=== PATIENT | male | born 1965 | race Caucasian/White ===

== ENCOUNTER 2019-04-29 11:27 | Outpatient (RCR) | payer BC, SELFPAY ==
[2019-02-07 09:15] LABS: INR 2.6; Prothrombin Time 27.4 Seconds (11.1-14.7)
[2019-03-20 08:05] LABS: INR 2.6
[2019-04-14 10:27] LABS: Prothrombin Time 12.6 Seconds (11.1-14.7)
[2019-04-16 16:52] LABS: INR 1.4; Prothrombin Time 16.9 Seconds (11.1-14.7)
[2019-04-25 14:13] LABS: INR 1.7; Prothrombin Time 19.5 Seconds (11.1-14.7)
[2019-04-29 12:09] LABS: Prothrombin Time 22.6 Seconds (11.1-14.7)
== END 2019-05-08 23:59 | disposition home or self-care (01) ==
LOC: ANHLAB 11:27
PROVIDERS: PCP Internal Medicine; Visit Provider Internal Medicine
DX: Z51.81 Encounter for therapeutic drug level monitoring (principal); Z79.01 Long term (current) use of anticoagulants
CPT/HCPCS: 36415; 85610

== ENCOUNTER 2019-05-15 09:58 | Outpatient (RCR) | payer BC, SELFPAY ==
[2019-05-15 11:13] LABS: Prostate Specific Antigen < 0.1 ng/mL (< OR = 4.0)
[2019-05-15 12:00] LABS: INR 2.8; Prothrombin Time 29.2 Seconds (11.1-14.7)
== END 2019-08-13 23:59 | disposition home or self-care (01) ==
LOC: ANHLAB 09:58
PROVIDERS: PCP Internal Medicine; Visit Provider Internal Medicine
DX: Z51.81 Encounter for therapeutic drug level monitoring (principal); C61 Malignant neoplasm of prostate; Z79.01 Long term (current) use of anticoagulants
CPT/HCPCS: 36415; 84153; 85610

== ENCOUNTER 2019-11-14 08:56 | Outpatient (CLI) | payer BC, SELFPAY ==
[2019-11-14 09:47] LABS: Anion Gap 9 mmol/L (8-16); Blood Urea Nitrogen 12 mg/dL (9-20); Calcium 8.2 mg/dL (8.4-10.2); Carbon Dioxide 25 mmol/L (22-30); Chloride 103 mmol/L (98-107); Estimated Glomerular Filt Rate > 60; Glucose 165 mg/dL (75-110); Potassium 4.2 mmol/L (3.4-5.0); Sodium 137 mmol/L (137-145)
== END 2019-11-14 08:57 | disposition home or self-care (01) ==
LOC: ANHLAB 08:59
PROVIDERS: PCP Internal Medicine; Visit Provider Internal Medicine Cardiovascular Disease
DX: I71.01 Dissection of thoracic aorta (principal)
CPT/HCPCS: 36415; 80048

== ENCOUNTER 2019-11-19 08:58 | Outpatient (CLI) | payer BC, SELFPAY ==
[2019-11-19 10:13] LABS: Thyroid Stimulating Hormone 0.564 uIU/mL (0.465-4.680)
[2019-11-19 13:52] LABS: Free T4 Free Thyroxine 1.21 ng/mL (0.78-2.19)
[2019-11-21 05:43] LABS: Thyroglobulin 0.1 ng/mL (2.8-40.9); Thyroglobulin Antibodies <1 IU/mL (<=1)
[2019-11-21 06:07] LABS: Triiodothyronine T3 Free 2.7 pg/mL (2.3-4.2)
== END 2019-11-19 08:59 | disposition home or self-care (01) ==
PROVIDERS: PCP Internal Medicine
DX: C73 Malignant neoplasm of thyroid gland (principal)
CPT/HCPCS: 36415; 82310; 84432; 84439; 84443; 84481; 86800

== ENCOUNTER 2019-12-04 12:54 | Outpatient (RCR) | payer BC, SELFPAY ==
[2019-09-10 17:39] LABS: INR 2.2
[2019-11-05 09:21] LABS: INR 2.9; Prothrombin Time 29.8 Seconds (11.1-14.7)
[2019-11-05 09:57] LABS: Prostate Specific Antigen < 0.1 ng/mL (< OR = 4.0)
[2019-12-04 13:49] LABS: INR 3.2; Prothrombin Time 31.8 Seconds (11.1-14.7)
== END 2019-12-09 23:59 | disposition home or self-care (01) ==
LOC: ANHLAB 12:54
PROVIDERS: PCP Internal Medicine; Visit Provider Internal Medicine
DX: Z51.81 Encounter for therapeutic drug level monitoring (principal); C61 Malignant neoplasm of prostate; Z79.01 Long term (current) use of anticoagulants
CPT/HCPCS: 36415; 84153; 85610

== ENCOUNTER 2019-12-25 10:16 | Outpatient (CLI) | payer BC, SELFPAY ==
[2019-12-25 10:48] LABS: INR 2.1; Prothrombin Time 22.7 Seconds (11.1-14.7)
== END 2019-12-25 10:17 | disposition home or self-care (01) ==
LOC: ANHLAB 10:18
PROVIDERS: PCP Internal Medicine; Visit Provider Internal Medicine Cardiovascular Disease
DX: Z79.01 Long term (current) use of anticoagulants (principal); Z95.2 Presence of prosthetic heart valve
CPT/HCPCS: 36415; 85610

== ENCOUNTER 2020-01-09 13:23 | Outpatient (CLI) | payer BC, SELFPAY ==
[2020-01-09 14:16] LABS: Calcium 8.3 mg/dL (8.4-10.2)
[2020-01-09 15:07] LABS: Free T4 Free Thyroxine 1.53 ng/mL (0.78-2.19)
[2020-01-13 05:46] LABS: Thyroglobulin 0.3 ng/mL (2.8-40.9); Thyroglobulin Antibodies <1 IU/mL (<=1)
[2020-01-14 04:33] LABS: Triiodothyronine T3 Free 2.5 pg/mL (2.3-4.2)
== END 2020-01-09 13:24 | disposition home or self-care (01) ==
LOC: ANHLAB 13:26
PROVIDERS: PCP Internal Medicine; Visit Provider Radiology Radiation Oncology
DX: C73 Malignant neoplasm of thyroid gland (principal)
CPT/HCPCS: 36415; 82310; 84432; 84439; 84443; 84481; 86800

== ENCOUNTER 2020-01-16 12:01 | Outpatient (RCR) | payer BC, SELFPAY ==
[2019-12-22 10:44] LABS: INR 1.5; Prothrombin Time 17.9 Seconds (11.1-14.7)
[2019-12-29 14:13] LABS: INR 2.3; Prothrombin Time 25.1 Seconds (11.1-14.7)
[2019-12-29 14:40] LABS: Prostate Specific Antigen < 0.1 ng/mL (< OR = 4.0)
[2020-01-05 16:46] LABS: Prothrombin Time 30.3 Seconds (11.1-14.7)
[2020-01-12 12:47] LABS: INR 2.7; Prothrombin Time 28.2 Seconds (11.1-14.7)
[2020-01-15 12:30] LABS: Prostate Specific Antigen < 0.1 ng/mL (< OR = 4.0)
[2020-01-16 12:31] LABS: INR 2.3; Prothrombin Time 24.7 Seconds (11.1-14.7)
== END 2020-03-21 23:59 | disposition home or self-care (01) ==
LOC: ANHLAB 12:01
PROVIDERS: PCP Internal Medicine; Visit Provider Nurse Practitioner
DX: Z51.81 Encounter for therapeutic drug level monitoring (principal); C61 Malignant neoplasm of prostate; Z79.01 Long term (current) use of anticoagulants
CPT/HCPCS: 36415; 84153; 85610

== ENCOUNTER 2020-01-23 14:32 | Outpatient (CLI) | payer BC, SELFPAY ==
[2020-01-26 04:49] LABS: Thyroglobulin 0.5 ng/mL (2.8-40.9); Thyroglobulin Antibodies <1 IU/mL (<=1)
== END 2020-01-23 14:33 | disposition home or self-care (01) ==
PROVIDERS: PCP Internal Medicine; Visit Provider Radiology Radiation Oncology
DX: C73 Malignant neoplasm of thyroid gland (principal)
CPT/HCPCS: 36415; 84432; 84443; 86800

== ENCOUNTER 2020-06-18 08:26 | Outpatient (RCR) | payer BC, SELFPAY ==
[2020-04-01 15:01] LABS: INR 1.1
[2020-04-08 08:26] LABS: INR 1.6; Prothrombin Time 19.4 Seconds (11.1-14.7)
[2020-06-01 15:47] LABS: Anion Gap 7 mmol/L (8-16); Blood Urea Nitrogen 12 mg/dL (9-20); Calcium 8.7 mg/dL (8.4-10.2); Carbon Dioxide 28 mmol/L (22-30); Chloride 104 mmol/L (98-107); Estimated Glomerular Filt Rate > 60; Glucose 138 mg/dL (75-110); Potassium 3.7 mmol/L (3.4-5.0); Sodium 139 mmol/L (137-145)
[2020-06-01 15:48] LABS: INR 1.8; Prothrombin Time 21.8 Seconds (11.1-14.7)
[2020-06-18 09:11] LABS: INR 2.5; Prothrombin Time 27.2 Seconds (11.1-14.7)
== END 2020-06-30 23:59 | disposition home or self-care (01) ==
LOC: ANHLAB 08:26
PROVIDERS: PCP Internal Medicine; Referring Provider Internal Medicine Cardiovascular Disease; Visit Provider Nurse Practitioner
DX: Z51.81 Encounter for therapeutic drug level monitoring (principal); Z79.01 Long term (current) use of anticoagulants
CPT/HCPCS: 36415; 80048; 85610

== ENCOUNTER 2020-09-10 10:24 | Outpatient (RCR) | payer BC, SELFPAY ==
[2020-09-10 10:57] LABS: INR 2.1; Prothrombin Time 24.3 Seconds (11.1-14.7)
== END 2020-12-09 23:59 | disposition home or self-care (01) ==
LOC: ANHLAB 10:24
PROVIDERS: PCP Internal Medicine; Visit Provider Internal Medicine
DX: Z51.81 Encounter for therapeutic drug level monitoring (principal); Z79.01 Long term (current) use of anticoagulants
CPT/HCPCS: 36415; 85610

== ENCOUNTER 2021-02-16 15:31 | Outpatient (RCR) | payer BC, SELFPAY ==
[2020-12-13 09:46] LABS: INR 3.1; Prothrombin Time 30.7 Seconds (11.1-14.7)
[2020-12-20 10:00] LABS: INR 3.4; Prothrombin Time 33.5 Seconds (11.1-14.7)
[2020-12-27 15:56] LABS: INR 2.5; Prothrombin Time 26.7 Seconds (11.1-14.7)
[2021-02-16 15:56] LABS: INR 3.3; Prothrombin Time 32.5 Seconds (11.1-14.7)
== END 2021-03-13 23:59 | disposition home or self-care (01) ==
LOC: ANHLAB 15:31
PROVIDERS: PCP Internal Medicine; Visit Provider Nurse Practitioner
DX: Z51.81 Encounter for therapeutic drug level monitoring (principal); Z79.01 Long term (current) use of anticoagulants
CPT/HCPCS: 36415; 85610

== ENCOUNTER 2021-05-31 15:52 | Outpatient (RCR) | payer BC, SELFPAY ==
[2021-03-24 14:54] LABS: INR 2.4; Prothrombin Time 25.7 Seconds (11.1-14.7)
[2021-04-22 15:19] LABS: INR 3.2
[2021-05-11 16:52] LABS: INR 2.7; Prothrombin Time 27.8 Seconds (11.1-14.7)
[2021-05-31 17:22] LABS: INR 2.5; Prothrombin Time 26.5 Seconds (11.1-14.7)
== END 2021-06-22 23:59 | disposition home or self-care (01) ==
LOC: ANHLAB 15:52
PROVIDERS: PCP Internal Medicine; Visit Provider Nurse Practitioner
DX: Z51.81 Encounter for therapeutic drug level monitoring (principal); Z79.01 Long term (current) use of anticoagulants
CPT/HCPCS: 36415; 85610

== ENCOUNTER 2021-10-14 14:10 | Outpatient (RCR) | payer BC, SELFPAY ==
[2021-07-16 11:03] LABS: INR 3.1; Prothrombin Time 30.9 Seconds (11.1-14.7)
[2021-09-02 08:46] LABS: INR 2.4; Prothrombin Time 25.4 Seconds (11.1-14.7)
[2021-10-14 15:00] LABS: INR 2.7; Prothrombin Time 27.9 Seconds (11.1-14.7)
== END 2021-10-14 23:59 | disposition home or self-care (01) ==
LOC: ANHLAB 14:10
PROVIDERS: Clinical Nurse Specialist; PCP Internal Medicine; Visit Provider Nurse Practitioner
DX: Z51.81 Encounter for therapeutic drug level monitoring (principal); Z79.01 Long term (current) use of anticoagulants
CPT/HCPCS: 36415; 85610

== ENCOUNTER 2021-11-11 08:09 | Outpatient (CLI) | payer BC, SELFPAY ==
[2021-11-11 08:51] LABS: Hemoglobin A1C 5.9 % (<5.7)
[2021-11-11 08:57] LABS: Cholesterol 193 mg/dL (0-200); HDL Direct 46 mg/dL; Triglycerides 147 mg/dL (<150)
[2021-11-11 09:08] LABS: LDL Cholesterol Direct 101 mg/dL
== END 2021-11-11 08:10 | disposition home or self-care (01) ==
LOC: ANHLAB 08:10
PROVIDERS: PCP Internal Medicine; Visit Provider Nurse Practitioner
DX: R73.9 Hyperglycemia, unspecified (principal); E78.5 Hyperlipidemia, unspecified
CPT/HCPCS: 36415; 80061; 83036

== ENCOUNTER 2021-12-23 01:32 | Day surgery (SDC) | payer BC, SELFPAY ==
[2021-12-16 13:42] VITALS: BMI 37.3
--- NOTE | 2021-12-23 11:25 | PM.HPGS ---
History of Present Illness History of Present Illness Consent: Risks, benefits, and alternatives have been discussed and questions answered. Patient agrees to proceed with procedure. Chief complaint: neoplasm screening Narrative: Salo Deshpande is a 56 year old male Referred for colon cancer screening. He has a history of polyps. 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 Melanoma Obesity AYSE (obstructive sleep apnea) Prostate cancer Ruptured, aorta Thyroid cancer Surgical History Surgical History History of prostate surgery History of skin surgery melanoma removal of left arm History of thyroid surgery Mechanical heart valve present S/P AAA (abdominal aortic aneurysm) repair S/P TURP (status post transurethral resection of prostate) Family History Family History Father Family history of amyotrophic lateral sclerosis Sibling Family history of liver disease Other Family history of kidney disease Hypertension Social History Social History Smoking packs per day: 1 Smoking cigarettes per day: 20.0 Years smoked: 30 Smoking pack-years: 30.00 Smoking status: Former smoker Tobacco type: cigarettes Smoking end date: 04/02/18 Alcohol intake: former Substance use: former Substance use type: unknown Living arrangements: with family Spiritual care concerns: No Meds Home Medications and Allergies Home Medications Medication Instructions Recorded Confirmed Type amlodipine 10 mg tablet 10 mg PO DAILY 04/17/19 12/16/21 History aspirin 81 mg tablet,delayed 81 mg PO DAILY 04/17/19 12/16/21 History release (Adult Low Dose Aspirin) carvedilol 25 mg tablet 25 mg PO Q12H 04/17/19 12/16/21 History clonidine HCl 0.2 mg tablet 0.2 mg PO BID 04/17/19 12/16/21 History furosemide 40 mg tablet 40 mg PO DAILY 04/17/19 12/16/21 History lisinopril 20 mg tablet 20 mg PO BID 04/17/19 12/16/21 History loratadine 10 mg capsule 10 mg PO DAILY 01/12/20 12/16/21 History warfarin 5 mg tablet 5 mg PO DAILY #30 tabs 05/02/21 12/16/21 Rx warfarin 1 mg tablet See Rx Instructions .Route 09/26/21 12/16/21 Rx .COMPLEX #90 tabs pravastatin 40 mg tablet See Rx Instructions .Route 10/05/21 12/16/21 Rx .COMPLEX #90 tabs dextroamphetamine-amphetamine ER 10 mg PO DAILY 10/25/21 12/16/21 History 10 mg 24hr capsule,extend release diazepam 5 mg tablet (Valium) 5 mg PO ONCE PRN anxiety #14 tabs 10/25/21 12/16/21 Rx eplerenone 25 mg tablet 25 mg PO DAILY 10/25/21 12/16/21 History hydralazine 25 mg tablet 75 mg PO TID 10/25/21 12/16/21 History levothyroxine 125 mcg capsule 250 mcg PO DAILY 10/25/21 12/16/21 History vilazodone 20 mg tablet 20 mg PO DAILY 10/25/21 12/16/21 History Allergies Allergy/AdvReac Type Severity Reaction Status Date / Time ceftriaxone Allergy Intermediate Unknown Verified 12/23/21 11:53 Cephalosporins Allergy Intermediate RED Verified 12/23/21 11:53 STREAKS/ IV Exam Const: General: alert Orientation/consciousness: patient oriented x3 Resp: Auscultation: clear to auscultation bilaterally Cardio: Rhythm: regular rhythm GI: GI Palp: Yes Soft to palpation and No Tenderness to palpation present (GI) Neuro: General: patient oriented x3 Assessment and Plan Assessment and plan (1) Screening for colon cancer: Code(s): Z12.11 - Encounter for screening for malignant neoplasm of colon Status: Acute Assessment and Plan: Colonoscopy with possible biopsy or polypectomy or cautery or injection of
[2021-12-23 11:57] VITALS: BP 123/77; PULSE 56; RESP 20; TEMP 36.2; O2SAT 98
--- NOTE | 2021-12-23 12:07 | WPDANESEPPF ---
Anes - Initial Pre Proc Eval Procedure: Operation Date: 12/23/21 13:00 Proposed Procedures p Screening Colonoscopy - Sudheer Canales MD Date/Time: 12/23/21 12:07 Surgeon: Sudheer Canales MD Pre Op Diagnosis: neoplasm screening Patient Data Age: 56 Gender: M Height: 1.78 m Weight: 118.4 kg Last Vital Signs Temp 97.1 F L 12/23/21 11:57 Pulse 56 L 12/23/21 11:57 Resp 20 12/23/21 11:57 BP 123/77 12/23/21 11:57 Pulse Ox 98 12/23/21 11:57 O2 Del Method Room Air 12/23/21 11:57 Allergies Allergy/AdvReac Type Severity Reaction Status Date / Time ceftriaxone Allergy Intermediate Unknown Verified 12/23/21 11:53 Cephalosporins Allergy Intermediate RED Verified 12/23/21 11:53 STREAKS/ IV Home Medications Medication Instructions Recorded Confirmed Type amlodipine 10 mg tablet 10 mg PO DAILY 04/17/19 12/16/21 History aspirin 81 mg tablet,delayed 81 mg PO DAILY 04/17/19 12/16/21 History release (Adult Low Dose Aspirin) carvedilol 25 mg tablet 25 mg PO Q12H 04/17/19 12/16/21 History clonidine HCl 0.2 mg tablet 0.2 mg PO BID 04/17/19 12/16/21 History furosemide 40 mg tablet 40 mg PO DAILY 04/17/19 12/16/21 History lisinopril 20 mg tablet 20 mg PO BID 04/17/19 12/16/21 History loratadine 10 mg capsule 10 mg PO DAILY 01/12/20 12/16/21 History warfarin 5 mg tablet 5 mg PO DAILY #30 tabs 05/02/21 12/16/21 Rx warfarin 1 mg tablet See Rx Instructions .Route 09/26/21 12/16/21 Rx .COMPLEX #90 tabs pravastatin 40 mg tablet See Rx Instructions .Route 10/05/21 12/16/21 Rx .COMPLEX #90 tabs dextroamphetamine-amphetamine ER 10 mg PO DAILY 10/25/21 12/16/21 History 10 mg 24hr capsule,extend release diazepam 5 mg tablet (Valium) 5 mg PO ONCE PRN anxiety #14 tabs 10/25/21 12/16/21 Rx eplerenone 25 mg tablet 25 mg PO DAILY 10/25/21 12/16/21 History hydralazine 25 mg tablet 75 mg PO TID 10/25/21 12/16/21 History levothyroxine 125 mcg capsule 250 mcg PO DAILY 10/25/21 12/16/21 History vilazodone 20 mg tablet 20 mg PO DAILY 10/25/21 12/16/21 History Patient hx anesthesia problems: none Family hx anesthesia problems: none Results Review: All pre-operative results and documents have been reviewed as part of the pre-operative evaluation. [facility], [facility] Past Medical History Medical History (Updated 11/09/21 @ 14:44 by Samira Anderson NP) Aortic valve, bicuspid Elevated PSA HLD (hyperlipidemia) HTN (hypertension) Iliac artery aneurysm [facility] (current) use of anticoagulants Melanoma Obesity AYSE (obstructive sleep apnea) Prostate cancer Ruptured, aorta Thyroid cancer Surgical History Surgical History (Updated 10/25/21 @ 14:16 by Sarah Rae CMA) History of prostate surgery History of skin surgery melanoma removal of left arm History of thyroid surgery Mechanical heart valve present S/P AAA (abdominal aortic aneurysm) repair S/P TURP (status post transurethral resection of prostate) Family History Family History Father Family history of amyotrophic lateral sclerosis Sibling Family history of liver disease Other Family history of kidney disease Hypertension Social History Social History Smoking packs per day: 1 Smoking cigarettes per day: 20.0 Years smoked: 30 Smoking pack-years: 30.00 Smoking status: Former smoker Tobacco type: cigarettes Smoking end date: 04/02/18 Alcohol intake: former Substance use: former Substance use type: unknown Living arrangements: with family Spiritual care concerns: No Anes - Eval Final PreProcedure Day of Procedure 12/23/21 12:07 Patient weight: obese Heart: regular rate and rhythm Lungs: clear to auscultation Airway: Mallampati scale class III Neurological: alert and oriented Last oral intake: >/= 8 hours ASA classification: III Emergent: no Anesthetic plan: proceed Anesthesia type and monitor
[2021-12-23] MEDS: LACTATED RINGERS 1,000 ML 150 ML IV CONT (12:13)
[2021-12-23 13:01] VITALS: BP 118/70; PULSE 43; RESP 18; O2SAT 94
[2021-12-23 13:11] VITALS: BP 108/57; PULSE 45; RESP 14; O2SAT 95
[2021-12-23 13:21] VITALS: BP 119/70; PULSE 45; RESP 25; O2SAT 97
--- NOTE | 2021-12-23 13:32 | SUR.PHASEII ---
patient has vancomycin running during post op recovery. See MAR.
== END 2021-12-23 14:38 | disposition home or self-care (01) ==
PROVIDERS: PCP Internal Medicine; Visit Provider Internal Medicine Gastroenterology
PROC: 0DJD8ZZ Inspection of Lower Intestinal Tract, Via Natural or Artificial Opening Endoscopic (ICD-10-PCS; CPT 45378; principal; 2021-12-23 13:00)
DX: Z12.11 Encounter for screening for malignant neoplasm of colon (principal); K63.5 Polyp of colon; K57.30 Diverticulosis of large intestine without perforation or abscess without bleeding; Z79.01 Long term (current) use of anticoagulants; Z79.82 Long term (current) use of aspirin; E03.9 Hypothyroidism, unspecified; Q23.1 Congenital insufficiency of aortic valve; E78.5 Hyperlipidemia, unspecified; I10 Essential (primary) hypertension; G47.33 Obstructive sleep apnea (adult) (pediatric); Z85.46 Personal history of malignant neoplasm of prostate; Z85.850 Personal history of malignant neoplasm of thyroid; I71.9 Aortic aneurysm of unspecified site, without rupture; Z95.2 Presence of prosthetic heart valve; Z87.891 Personal history of nicotine dependence; E66.9 Obesity, unspecified; Z68.37 Body mass index [BMI] 37.0-37.9, adult; Z85.820 Personal history of malignant melanoma of skin
CPT/HCPCS: 45380; 88305; J2704; J3370; J7120

== ENCOUNTER 2022-01-26 14:16 | Outpatient (RCR) | payer BC, SELFPAY ==
[2021-11-11 08:59] LABS: INR 2.8; Prothrombin Time 28.4 Seconds (11.1-14.7)
[2021-12-16 08:22] LABS: INR 1.7; Prothrombin Time 19.6 Seconds (11.1-14.7)
[2022-01-17 14:47] LABS: INR 3.3; Prothrombin Time 32.5 Seconds (11.1-14.7)
[2022-01-26 14:50] LABS: INR 2.6; Prothrombin Time 26.7 Seconds (11.1-14.7)
== END 2022-02-09 23:59 | disposition home or self-care (01) ==
LOC: ANHLAB 14:16
PROVIDERS: Nurse Practitioner; PCP Internal Medicine; Visit Provider Clinical Nurse Specialist
DX: Z51.81 Encounter for therapeutic drug level monitoring (principal); Z79.01 Long term (current) use of anticoagulants
CPT/HCPCS: 36415; 85610

== ENCOUNTER 2022-06-12 14:27 | Outpatient (RCR) | payer BC, SELFPAY ==
[2022-03-14 16:01] LABS: INR 2.8; Prothrombin Time 28.5 Seconds (11.1-14.7)
[2022-06-12 15:42] LABS: Prothrombin Time 22.2 Seconds (11.1-14.7)
== END 2022-06-12 23:59 | disposition home or self-care (01) ==
LOC: ANHLAB 14:27
PROVIDERS: PCP Internal Medicine; Visit Provider Clinical Nurse Specialist
DX: Z51.81 Encounter for therapeutic drug level monitoring (principal); Z79.01 Long term (current) use of anticoagulants
CPT/HCPCS: 36415; 85610

== ENCOUNTER 2022-10-25 09:40 | Outpatient (RCR) | payer BC, SELFPAY ==
[2022-08-11 14:42] LABS: INR 2.2; Prothrombin Time 25.7 Seconds (11.1-14.7)
[2022-09-18 14:36] LABS: INR 2.2; Prothrombin Time 25.8 Seconds (11.1-14.7)
[2022-10-25 10:22] LABS: INR 1.8; Prothrombin Time 22.2 Seconds (11.1-14.7)
== END 2022-11-09 23:59 | disposition home or self-care (01) ==
LOC: ANHLAB 09:40
PROVIDERS: PCP Internal Medicine; Visit Provider Clinical Nurse Specialist
DX: Z51.81 Encounter for therapeutic drug level monitoring (principal); Z79.01 Long term (current) use of anticoagulants
CPT/HCPCS: 36415; 85610

== ENCOUNTER 2022-10-25 09:41 | Outpatient (CLI) | payer BC, SELFPAY ==
[2022-10-25 10:24] LABS: Cholesterol 176 mg/dL (0-200); HDL Direct 44 mg/dL; Triglycerides 82 mg/dL (<150)
[2022-10-25 10:37] LABS: LDL Cholesterol Direct 92 mg/dL
== END 2022-10-25 09:42 | disposition home or self-care (01) ==
LOC: ANHLAB 09:42
PROVIDERS: PCP Internal Medicine; Visit Provider Nurse Practitioner
DX: E78.5 Hyperlipidemia, unspecified (principal)
CPT/HCPCS: 36415; 80061

== ENCOUNTER 2022-11-14 13:19 | Outpatient (RCR) | payer BC, SELFPAY ==
[2022-11-14 14:29] LABS: INR 2.5
== END 2023-02-12 23:59 | disposition home or self-care (01) ==
LOC: ANHLAB 13:19
PROVIDERS: PCP Internal Medicine; Visit Provider Clinical Nurse Specialist
DX: Z51.81 Encounter for therapeutic drug level monitoring (principal); Z79.01 Long term (current) use of anticoagulants
CPT/HCPCS: 36415; 85610

== ENCOUNTER 2023-06-01 12:03 | Outpatient (RCR) | payer BC, SELFPAY ==
[2023-03-23 16:34] LABS: INR 1.9
[2023-06-01 12:54] LABS: INR 2.2; Prothrombin Time 25.5 Seconds (11.1-14.7)
== END 2023-06-21 23:59 | disposition home or self-care (01) ==
LOC: ANHLAB 12:03
PROVIDERS: PCP Internal Medicine; Visit Provider Internal Medicine
DX: Z51.81 Encounter for therapeutic drug level monitoring (principal); Z79.01 Long term (current) use of anticoagulants
CPT/HCPCS: 36415; 85610

== ENCOUNTER 2023-07-21 11:37 | Emergency (ER) | payer BC, SELFPAY ==
[2023-07-21 11:49] VITALS: BP 134/72; PULSE 55; RESP 16; TEMP 35.9; O2SAT 99
--- NOTE | 2023-07-21 11:55 | ED_ITS ---
HPI - Ear Problem General Chief complaint: Ear Stated complaint: Lt Ear Irritation Time Seen by Provider: 07/21/23 12:00 Source: patient, RN notes reviewed and old records reviewed Mode of arrival: ambulatory Limitations: no limitations History of Present Illness HPI Narrative: 57 year old male who presents to [facility] care with complaints of feeling like fluid in his left ear for several weeks. Patient reports that since yesterday his left ear is feeling clogged with decreased hearing and some discomfort. Patient also states that he has noted some sinus drainage. Patient denies any cough, bodyaches, fevers chills or sweats. MD Complaint: decreased hearing and other (left ear feel clogged) Location: left ear Treatment prior to arrival: other (Tylenol and Claritin) Related Data Home Medications Medication Instructions Recorded Confirmed amlodipine 10 mg tablet 10 mg PO DAILY 04/17/19 07/21/23 aspirin 81 mg tablet,delayed 81 mg PO DAILY 04/17/19 07/21/23 release (Adult Low Dose Aspirin) carvedilol 25 mg tablet 25 mg PO Q12H 04/17/19 07/21/23 clonidine HCl 0.2 mg tablet 0.2 mg PO BID 04/17/19 07/21/23 furosemide 40 mg tablet 40 mg PO DAILY 04/17/19 07/21/23 lisinopril 20 mg tablet 20 mg PO BID 04/17/19 07/21/23 dextroamphetamine-amphetamine ER 10 mg PO DAILY 10/25/21 07/21/23 10 mg 24hr capsule,extend release eplerenone 25 mg tablet 25 mg PO DAILY 10/25/21 07/21/23 hydralazine 25 mg tablet 75 mg PO TID 10/25/21 07/21/23 levothyroxine 125 mcg capsule 250 mcg PO DAILY 10/25/21 07/21/23 vilazodone 20 mg tablet 20 mg PO DAILY 10/25/21 07/21/23 diazepam 5 mg tablet (Valium) 5 mg PO PRN PRN anxiety 07/21/23 07/21/23 Allergies Allergy/AdvReac Type Severity Reaction Status Date / Time Cephalosporins Allergy Intermediate RED Verified 07/21/23 11:55 STREAKS/ IV ceftriaxone AdvReac Intermediate Other Verified 07/21/23 11:55 Review of Systems Review of Systems: CONSTITUTIONAL: Denies fever, chills, or sweats. EYES: Denies visual changes, redness, or discharge. ENT: Reports rhinorrhea, congestion,no sore throat, reports left ear otalgia, with decreased hearing. CARDIOVASCULAR: Denies chest pain, palpitations, or edema. RESPIRATORY: Denies cough or dyspnea. GASTROINTESTINAL: Denies abdominal pain, nausea, vomiting, or diarrhea. GENITOURINARY: Denies dysuria or hematuria. SKIN: Denies rash or itching. MUSCULOSKELETAL: Denies back pain, joint pain, or myalgia. NEUROLOGIC: Denies headache, numbness, or weakness. PSYCHIATRIC: history of anxiety or depression. 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 Melanoma Obesity AYSE (obstructive sleep apnea) Prostate cancer Ruptured, aorta Thyroid cancer Surgical History Surgical History History of prostate surgery History of skin surgery melanoma removal of left arm History of thyroid surgery Mechanical heart valve present S/P AAA (abdominal aortic aneurysm) repair S/P TURP (status post transurethral resection of prostate) Family History Family History Father Family history of amyotrophic lateral sclerosis Sibling Family history of liver disease Other Family history of kidney disease Hypertension Social History Social History (Updated 10/25/22 @ 09:01 by Cristiano Madsen MA) Smoking packs per day: 1 Smoking cigarettes per day: 20.0 Years smoked: 30 Smoking pack-years: 30.00 Smoking status: Former smoker Tobacco type: cigarettes Smoking end date: 04/02/18 Alcohol intake: former Substance use: former Substance use type: unknown Lack of Transportation: No Lack of Food: Never True Current Housing: I Have Housing Concerned About Future Housing: No Difficulty Paying Gas/Electric Bills: No Difficulty Paying for Meds: No Currently Unemployed: No Education: Associate Degree Difficulty w/ Childcare or Family Care: No Living arrangements: with family Spiritual care concerns: No Comments At time of signature, agree with nursing past medical, surgical, social and family history. There is no relevant family history pertinent to the presenting complaint Exam Narrative: GENERAL: Well-appearing, well-nourished,obese and in no acute distress. HEAD: Normocephalic, atraumatic. EYES: PERRLA and EOMI. ENT: Nares clear, clear rhinorrhea no epistaxis. Mucous membranes moist.Right TM normal Left TM with some ear canal irritation, reports ear feels clogged with decreased hearing. See Procedure note, TM noted normal after wax removed, no increased redness or acute swelling of left ear canal after irrigation completed large amount of wax removed. no fevers noted. NECK: Supple.no lymphadenopathy CHEST: Clear to auscultation. No respiratory distress. no cough noted SAO2 99% on room air HEART: Regular rate and rhythm. No murmur heard. Normal peripheral pulses. ABDOMEN: Soft, nontender, nondistended, normal active bowel sounds. EXTREMITIES: Normal range of motion. No edema. SKIN: Warm, dry, no rash. NEURO: No focal deficits. Alert and oriented x3. Course Course Emergency Course: Patient is aware of diagnosis, understands and agrees to treatment plan.? Anticipatory guidance given.? Patient agrees to follow-up as directed and is aware of reasons to seek care at the emergency department. Portions of this record may have been created with voice recognition software Level of Care: Express Care Visit Vital Signs Vital signs: Vital Signs Temperature 35.9 C L 07/21/23 11:49 Pulse Rate 55 L 07/21/23 11:49 Respiratory Rate 16 07/21/23 11:49 Blood Pressure 134/72 07/21/23 11:49 Pulse Oximetry 99 07/21/23 11:49 Oxygen Delivery Room Air 07/21/23 11:49 Temperature 35.9 C L 07/21/23 11:49 Pulse Rate 55 L 07/21/23 11:49 Respiratory Rate 16 07/21/23 11:49 Blood Pressure 134/72 07/21/23 11:49 Pulse Oximetry 99 07/21/23 11:49 Oxygen Delivery Room Air 07/21/23 11:49 Reviewed Procedures Ear Wax Removal Left Ear: Ear Wax Removal Date: 07/21/23 Ear Wax Removal Time: 12:12 Cerumenolytic Used: 5-10% Sodium Bicarb solution Results: Re-examined: cerumen removed completely TM Examination: TM(s) intact, normal appearance Ear Canal Exam: atraumatic and other (some redness of ear canal) Patient Tolerated Procedure: well Complications: no problems Technique: ear canal irrigated Additional Comments: Patient has some left ear canal irritation with large amount of dried wax to ear, Left ear irrigated with Peroxide and warm water with wax removed TM normal with no increase in ear canal redness. Patient continues to state feelings of decreased hearing with ear clogged, no acute swelling of ear canal noted. Medical Decision Making MDM Narrative Medical decision making narrative: Exam findings and imaging show no acute concerns or changes; patient is non- toxic appearing and is in no distress.? Patient is appropriate for outpatient treatment and follow-up Differential Diagnosis Differential Diagnosis: URI, otitis media otitis externa, cerumen impaction left ear, sinus congestion and drainage Medical Records Medical records reviewed: Yes I reviewed the external patient's medical records. Vital Signs Vital Signs: Vital Signs Temperature 35.9 C L 07/21/23 11:49 Pulse Rate 55 L 07/21/23 11:49 Respiratory Rate 16 07/21/23 11:49 Blood Pressure 134/72 07/21/23 11:49 Pulse Oximetry 99 07/21/23 11:49 Oxygen Delivery Room Air 07/21/23 11:49 Temperature 35.9 C L 07/21/23 11:49 Pulse Rate 55 L 07/21/23 11:49 Respiratory Rate 16 07/21/23 11:49 Blood Pressure 134/72 07/21/23 11:49 Pulse Oximetry 99 07/21/23 11:49 Oxygen Delivery Room Air 07/21/23 11:49 reviewed Critical Care Time Critical Care Time Critical Care Time: No Discharge Plan Discharge Clinical Impression: Infection of left ear, Otitis externa Patient Disposition: Home, Self-Care Condition: Stable Instructions: Antibiotic Form, Swimmer's Ear (GEN) Additional Instructions: Increase fluids especially juices and water [id number] cough and cold medicine of your choice for your symptoms ear drops as prescribed Decadron as prescribed Zyrtec Claritin or Sol daily include some Coricidin brand decongestant heat to the face 20-30 minutes 4-6 times a day for pain Salt water gargles, throat lozenges or throat sprays as desired Antibiotic as directed--finished the medication If your symptoms persist, change or worsen significantly before you can contact your personal physician then please, without delay, go to the emergency department for further evaluation. Follow-up with PCP in 7-10 days or sooner if needed Follow up with PCP soon in regards to your blood pressure which is elevated above threshold for referral. Blood pressure above 120/80 may indicate pre- hypertension. 134/72 Prescriptions: New dexamethasone 4 mg tablet 8 mg PO ONCE Qty: 2 0RF ofloxacin 0.3 % drops 5 drp LEFT EAR BID Qty: 10 0RF No Action diazepam [Valium] 5 mg tablet 5 mg PO PRN PRN (Reason: anxiety) amlodipine 10 mg tablet 10 mg PO DAILY aspirin [Adult Low Dose Aspirin] 81 mg tablet,delayed release (DR/EC) 81 mg PO DAILY carvedilol 25 mg tablet 25 mg PO Q12H Rx Instructions: must administer with a meal/food clonidine HCl 0.2 mg tablet 0.2 mg PO BID furosemide 40 mg tablet 40 mg PO DAILY lisinopril 20 mg tablet 20 mg PO BID dextroamphetamine-amphetamine 10 mg capsule,extended release 24hr 10 mg PO DAILY vilazodone 20 mg tablet 20 mg PO DAILY hydralazine 25 mg tablet 75 mg PO TID eplerenone 25 mg tablet 25 mg PO DAILY levothyroxine 125 mcg capsule 250 mcg PO DAILY warfarin 1 mg tablet 0.5 mg PO DAILY Qty: 90 0RF Rx Instructions: To be taken WITH Warfarin 5mg PO daily for total of 5.5 mg PO daily. pravastatin 40 mg tablet See Rx Instructions .ROUTE .COMPLEX Qty: 90 3RF Dose Instruction: TAKE 1 TABLET BY MOUTH DAILY Rx Instructions: TAKE 1 TABLET BY MOUTH DAILY warfarin 5 mg tablet See Rx Instructions .ROUTE .COMPLEX Qty: 90 1RF Dose Instruction: TAKE 1 TABLET BY MOUTH EVERY DAY DIRECTED Rx Instructions: TAKE 1 TABLET BY MOUTH EVERY DAY DIRECTED Follow-up/Referrals: Kiko Jimenez DO [Primary Care Provider] - Time of Disposition: 12:33 Quality Graham Coma Scale Eyes: Open Verbal: Oriented and Alert Motor: Follows Commands Yuan Coma Total Score: 15
== END 2023-07-21 12:34 | disposition home or self-care (01) ==
PROVIDERS: Emergency Provider Registered Nurse; PCP Internal Medicine
DX: H66.92 Otitis media, unspecified, left ear (principal); H60.92 Unspecified otitis externa, left ear; H61.22 Impacted cerumen, left ear; Z87.891 Personal history of nicotine dependence; E78.5 Hyperlipidemia, unspecified; I10 Essential (primary) hypertension; E66.9 Obesity, unspecified; Z68.33 Body mass index [BMI] 33.0-33.9, adult; Z85.820 Personal history of malignant melanoma of skin; Z85.46 Personal history of malignant neoplasm of prostate; Z85.850 Personal history of malignant neoplasm of thyroid; Z95.2 Presence of prosthetic heart valve; Z79.82 Long term (current) use of aspirin
CPT/HCPCS: 69209; 99213; A9270; G0463

== ENCOUNTER 2023-08-23 07:58 | Outpatient (CLI) | payer BC, SELFPAY | END 2023-08-23 07:59 | disposition home or self-care (01) | LOC: ANHAUDASC 07:59 | PROVIDERS: PCP Internal Medicine; Visit Provider Otolaryngology | DX: H65.492 Other chronic nonsuppurative otitis media, left ear (principal); H69.92 Unspecified Eustachian tube disorder, left ear; H90.41 Sensorineural hearing loss, unilateral, right ear, with unrestricted hearing on the contralateral side; H90.72 Mixed conductive and sensorineural hearing loss, unilateral, left ear, with unrestricted hearing on the contralateral side | CPT/HCPCS: 92557; 92567 ==

== ENCOUNTER 2023-10-05 10:37 | Outpatient (CLI) | payer BC, SELFPAY ==
[2023-10-05 11:24] LABS: Hematocrit 32.6 % (42.0-52.0); Hemoglobin 10.5 g/dL (14.0-18.0); Mean Corpuscular HGB Conc 32.2 g/dl (32-36); Mean Corpuscular Hemoglobin 29.5 pg (26-34); Mean Corpuscular Volume 91.6 fl (80-100); Mean Platelet Volume 8.2 fl (7.4-10.4); Platelet Count Result 528 k/mm3 (150-375); Red Blood Count 3.56 M/mm3 (4.6-6.20); Red Cell Distribution Width 14.6 % (11.5-14.5); White Blood Count 11.5 K/mm3 (4.5-10.0)
[2023-10-05 11:51] LABS: Digoxin 0.6 ng/mL (0.8-2.0)
== END 2023-10-05 10:38 | disposition home or self-care (01) ==
PROVIDERS: PCP Internal Medicine
DX: I71.21 Aneurysm of the ascending aorta, without rupture (principal); I48.91 Unspecified atrial fibrillation; I71.012 Dissection of descending thoracic aorta; Z98.890 Other specified postprocedural states; Z86.79 Personal history of other diseases of the circulatory system
CPT/HCPCS: 36415; 80162; 85027; 85610

== ENCOUNTER 2023-10-24 11:09 | Outpatient (CLI) | payer BC, SELFPAY ==
--- NOTE | ~2023-10-24 | US_ITS ---
EXAMINATION: US soft tissue head and neck DATE: 10/24/2023 11:27 INDICATION: Localized swelling, mass or lump at the left base of the neck TECHNIQUE: Multiple grayscale and Doppler ultrasound images of the region of concern at the left base of the neck were obtained. COMPARISON: None FINDINGS: There are few normal-appearing ovoid hypoechoic lymph nodes with typical central echogenic satish at th e region of concern. The largest measures 9 x 4 mm which remains well within normal limits. No abnorm al masses or fluid collections identified. IMPRESSION: 1. A few normal-sized lymph nodes at the region of concern. Reviewed, dictated and finalized at location A.
== END 2023-10-24 11:10 ==
DX: R22.1 Localized swelling, mass and lump, neck (principal)
CPT/HCPCS: 76536

== ENCOUNTER 2023-11-06 12:36 | Outpatient (CLI) | payer BC, SELFPAY ==
[2023-11-06 13:40] LABS: Anion Gap 10 mmol/L (4-12); Blood Urea Nitrogen 11 mg/dL (9-20); Calcium 8.2 mg/dL (8.4-10.2); Carbon Dioxide 29 mmol/L (22-30); Chloride 98 mmol/L (98-107); Estimated Glomerular Filt Rate > 60; Glucose 163 mg/dL (65-110); Potassium 3.5 mmol/L (3.4-5.0); Sodium 137 mmol/L (137-145)
[2023-11-06 13:48] LABS: Digoxin 0.6 ng/mL (0.8-2.0)
== END 2023-11-06 12:37 | disposition home or self-care (01) ==
LOC: ANHLAB 12:38
PROVIDERS: Visit Provider Internal Medicine Cardiovascular Disease
DX: I10 Essential (primary) hypertension (principal); Z95.2 Presence of prosthetic heart valve
CPT/HCPCS: 36415; 80048; 80162; 85610

== ENCOUNTER 2023-11-12 12:28 | Outpatient (CLI) | payer BC, SELFPAY ==
[2023-11-12 13:14] LABS: Anion Gap 11 mmol/L (4-12); Blood Urea Nitrogen 10 mg/dL (9-20); Calcium 8.1 mg/dL (8.4-10.2); Carbon Dioxide 27 mmol/L (22-30); Chloride 99 mmol/L (98-107); Estimated Glomerular Filt Rate > 60; Glucose 140 mg/dL (65-110); Potassium 3.9 mmol/L (3.4-5.0); Sodium 137 mmol/L (137-145)
== END 2023-11-12 12:29 | disposition home or self-care (01) ==
LOC: ANHLAB 12:30
PROVIDERS: Visit Provider Internal Medicine Cardiovascular Disease
DX: Z95.2 Presence of prosthetic heart valve (principal)
CPT/HCPCS: 36415; 80048; 85610

== ENCOUNTER 2023-12-11 13:05 | Outpatient (RCR) | payer BC, SELFPAY ==
[2023-10-01 14:04] LABS: INR 1.8; Prothrombin Time 21.6 Seconds (11.1-14.7)
[2023-10-05 11:34] LABS: INR 1.6; Prothrombin Time 19.6 Seconds (11.1-14.7)
[2023-10-08 10:03] LABS: INR 1.6; Prothrombin Time 19.1 Seconds (11.1-14.7)
[2023-10-10 09:57] LABS: INR 2.1; Prothrombin Time 23.5 Seconds (11.1-14.7)
[2023-10-15 12:23] LABS: INR 2.5
[2023-10-22 12:11] LABS: INR 2.8; Prothrombin Time 29.9 Seconds (11.1-14.7)
[2023-10-29 12:24] LABS: INR 4.1; Prothrombin Time 40.3 Seconds (11.1-14.7)
[2023-11-01 15:22] LABS: INR 3.9
[2023-11-06 13:42] LABS: INR 3.5; Prothrombin Time 35.7 Seconds (11.1-14.7)
[2023-11-12 13:16] LABS: INR 2.6; Prothrombin Time 28.3 Seconds (11.1-14.7)
[2023-11-19 10:40] LABS: INR 2.5; Prothrombin Time 26.9 Seconds (11.1-14.7)
[2023-12-04 13:19] LABS: INR 2.4; Prothrombin Time 26.5 Seconds (11.1-14.7)
[2023-12-11 13:37] LABS: Prothrombin Time 23.2 Seconds (11.1-14.7)
== END 2023-12-30 23:59 | disposition home or self-care (01) ==
LOC: ANHLAB 13:05
PROVIDERS: PCP Internal Medicine; Visit Provider Internal Medicine
DX: Z51.81 Encounter for therapeutic drug level monitoring (principal); Z79.01 Long term (current) use of anticoagulants
CPT/HCPCS: 36415; 85610

== ENCOUNTER 2023-12-25 13:01 | Outpatient (CLI) | payer BC, SELFPAY ==
--- NOTE | 2023-12-25 | ECG_ITS ---
Test Date: 2023-12-25 13:16:37 Measurements Intervals [place] Rate: 56 P: 189 VT: 205 QRS: -7 QRSD: 113 T: 81 QT: 403 QTc: 392 Interpretive Statements SINUS BRADYCARDIA BORDERLINE AV CONDUCTION DELAY INCOMPLETE LEFT BUNDLE BRANCH BLOCK BORDERLINE R WAVE PROGRESSION, ANTERIOR LEADS CONSIDER INFERIOR INFARCT, AGE INDETERMINATE ST-T WAVE ABNORMALITY IN LAT/HIGH LAT LEADS- CONSIDER ISCHEMIA ABNORMAL ECG No previous ECG available for comparison Electronically Signed On 12-25-2023 13:29:10 CDT by Pierce Aviles D.O.
== END 2023-12-25 13:02 | disposition home or self-care (01) ==
LOC: ANHLAB 13:02
PROVIDERS: Visit Provider Internal Medicine Cardiovascular Disease
DX: I48.91 Unspecified atrial fibrillation (principal); I45.9 Conduction disorder, unspecified; I44.7 Left bundle-branch block, unspecified
CPT/HCPCS: 93005

== ENCOUNTER 2024-02-07 13:56 | Outpatient (CLI) | payer BC, SELFPAY ==
--- NOTE | 2024-02-07 | ECG_ITS ---
Test Date: 2024-02-07 14:58:44 Measurements Intervals [place] Rate: 61 P: -11 TN: 136 QRS: -13 QRSD: 122 T: 132 QT: 411 QTc: 415 Interpretive Statements SINUS RHYTHM INCOMPLETE LEFT BUNDLE BRANCH BLOCK DELAYED PRECORDIAL R/S TRANSITION CONSIDER INFERIOR INFARCT, AGE INDETERMINATE ST-T WAVE ABNORMALITY IN LAT/HIGH LAT LEADS- CONSIDER ISCHEMIA BASELINE WANDER- V5 ABNORMAL ECG Compared to ECG 12/25/2023 13:16:37 NO SIGNIFICANT CHANGE Electronically Signed On 02-07-2024 15:17:29 RAW HIDE TRIMMER by Pierce Aviles D.O.
== END 2024-02-07 13:57 | disposition home or self-care (01) ==
PROVIDERS: Visit Provider Internal Medicine Cardiovascular Disease
DX: I48.19 Other persistent atrial fibrillation (principal); I44.7 Left bundle-branch block, unspecified
CPT/HCPCS: 93005

== ENCOUNTER 2024-02-14 07:15 | Outpatient (RCR) | payer BC, SELFPAY ==
[2023-11-13 12:24] VITALS: PULSE 88
== END 2024-02-14 08:38 | disposition home or self-care (01) ==
LOC: ANHCPREHAB 07:15
PROVIDERS: PCP Internal Medicine; Visit Provider Internal Medicine Cardiovascular Disease
DX: Z95.1 Presence of aortocoronary bypass graft (principal); Z95.2 Presence of prosthetic heart valve
CPT/HCPCS: 93798

== ENCOUNTER 2024-03-13 10:01 | Outpatient (RCR) | payer BC, SELFPAY ==
[2024-01-21 14:31] LABS: INR 2.2; Prothrombin Time 24.4 Seconds (11.1-14.7)
[2024-01-28 10:27] LABS: INR 1.6; Prothrombin Time 19.2 Seconds (11.1-14.7)
[2024-02-04 15:00] LABS: INR 1.8; Prothrombin Time 21.8 Seconds (11.1-14.7)
[2024-02-07 14:22] LABS: Prothrombin Time 22.9 Seconds (11.1-14.7)
[2024-02-27 12:26] LABS: INR 2.3; Prothrombin Time 25.5 Seconds (11.1-14.7)
[2024-03-13 10:32] LABS: INR 2.1; Prothrombin Time 23.9 Seconds (11.1-14.7)
== END 2024-04-20 23:59 | disposition home or self-care (01) ==
LOC: ANHLAB 10:01
PROVIDERS: Visit Provider Internal Medicine
DX: Z79.01 Long term (current) use of anticoagulants (principal)
CPT/HCPCS: 36415; 85610

== ENCOUNTER 2024-04-04 10:47 | Outpatient (CLI) | payer BC, SELFPAY ==
--- NOTE | 2024-04-04 | ECG_ITS ---
Test Date: 2024-04-04 11:14:59 Measurements Intervals [place] Rate: 51 P: -25 [place]: 144 QRS: -13 QRSD: 109 T: 114 QT: 393 QTc: 365 Interpretive Statements SINUS BRADYCARDIA INCOMPLETE LEFT BUNDLE BRANCH BLOCK ST DEVIATION AND MODERATE T-WAVE ABNORMALITY, CONSIDER LATERAL ISCHEMIA [-0.1+ mV T-WAVE IN I/aVL/V5/V6] Compared to ECG 02/07/2024 14:58:44 Intraventricular conduction delay now present Sinus rhythm no longer present Left bundle-branch block no longer present Myocardial infarct finding no longer present T-wave abnormality still present Possible ischemia still present Electronically Signed On 04-07-2024 15:03:53 REVENUE ACCOUNTANT by Lul Cortez M.D.
== END 2024-04-04 10:48 | disposition home or self-care (01) ==
LOC: ANHCARD 10:49
PROVIDERS: Visit Provider Internal Medicine Cardiovascular Disease
DX: I48.92 Unspecified atrial flutter (principal); I44.7 Left bundle-branch block, unspecified
CPT/HCPCS: 93005

== ENCOUNTER 2024-05-26 08:56 | Outpatient (CLI) | payer BC, SELFPAY ==
--- NOTE | ~2024-05-26 | XR_ITS ---
EXAMINATION: XR hand RT min 3V DATE: 05/26/2024 09:09 INDICATION: Unilateral primary osteoarthritis of first carpometacarpal joint. TECHNIQUE: 3 views of right hand were obtained. COMPARISON: None. FINDINGS: Alignment is normal. No fracture. There is moderate osteoarthritis of first carpometacarpal joint and second metacarpophalangeal joint. There is mild osteoarthritis of first interphalangeal zeus int and fourth and fifth distal interphalangeal joints. IMPRESSION: 1. Polyarticular osteoarthritis. Reviewed, dictated and finalized at location A. VIORAL TECHNICIAN
--- OUTSIDE RECORDS SUMMARY | 2024-05-26 09:30 | XMS_ITS | Clinical Summary ---
Author Organization [facility] Address [address] [place] [address] Care Team Providers Care Dry House Wheeler Name Role Phone Unavailable Primary Care Provider [...]
--- OUTSIDE RECORDS SUMMARY | 2024-05-26 09:30 | XMS_ITS | Encounter Summary ---
Author Organization [facility] Healthcare Address [address] [place] [address] Care Team Providers Care Termite Control Technician Name Role Phone Kiko Jimenez DO Primary Care Provider [phone] Fran Bray MD Unavailable [phone] [facility] Unavailable [phone] Kiko Godinez MD PhD Unavailable Oscar Barnard MD Unavailable [phone] Brayan Burrows MD Unavailable [phone] Alla Wyman MD, Todd White Unavailable Encounter Details Date Type Department Care Team (Late st Contact Info) Description 10/15/2020 Telephone [facility]) [address] [place] [address] Fabiola Griffith, RT Social History Tobacco [...] Friends and Family Patient declined 02/05/2019 Attends Muslim Services Patient declined 08/2018 Active Member of Clubs or Organizations Patient declined 02/05/2019 Attends Club or Organization Meetings Patient de clined 02/05/2019 Marital Status 02/05/2019 Overall Financial Resource Strain (CARDIA) [place] r Date Recorded Difficulty of Paying Living Expenses Not hard at all 02/05/2019 [facility] [place] of Occupat ional Health - Occupational Stress [...] on file 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 Gender Identity Not on file Sexual Orientation Not on file 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 Not on file Not on file documented as of this encounter Plan of Treatment Not on file documented as of this encounter Visit Diagnoses Not on filedocumented in this encounter Care Teams Termite Control Technician Relationship Specialty Start Date End Date Kiko Jimenez DO PCP - General 04/09/17 Fran Bray MD Medical Oncologist/Precipitation Equipment Tender Medical Oncology 01/10/18 Maximiliano Cerrato MD Consulting Physician Plastic Surgery 01/10/18 Kiko Godinez MD PhD Cna Ltc Dermatology 01/11/18 Oscar Barnard MD Upholsterer Outside Cardiology 01/11/18 Brayan Burrows MD Radiation Oncologist Radiation Oncology 12/09/1804/03/2 4 Todd Gold Jr., MD Referring Physician Urology 02/08/19 documented as of this encounter
--- OUTSIDE RECORDS SUMMARY | 2024-05-26 09:31 | XMS_ITS | Encounter Summary ---
Author Organization [facility] Healthcare Address [address] [place] [address] Care Team Providers Care Manager Assurance Name Role Phone Kiko Jimenez DO Primary Care Provider [phone] Fran Bray MD [facility]available [facility] Unavailable [phone] Kiko Godinez MD PhD Unavailable [phone] Oscar Barnard MD Unavailable [phone] Brayan Burrows MD Unavailable [phone] Alla Wyman MD, Todd White Unavailable Encounter Details Date Type Department Care Team (Late st Contact Info) Description 10/17/2019 Telephone [facility] [address] [place] [address] Fabiola Griffith, RT Social History [...] Living Expenses Not hard at all 02/05/2019 [facility] [place] of Occupat ional Health - Occupational Stress [...] on file 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 Gender Identity Not on file Sexual Orientation Not on file 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 Not on file Not on file documented as of this encounter Plan of Treatment Not on file documented as of this encounter Visit Diagnoses Not on filedocumented in this encounter Care Teams Manager Assurance Relationship Specialty Start Date End Date Kiko Jimenez DO PCP - General 04/09/17 Fran Bray MD Medical Oncologist/Shop Assistant Medical Oncology 01/10/18 Maximiliano Cerrato MD Consulting Physician Plastic Surgery 01/10/18 Kiko Godinez MD PhD Toe Former Dermatology 01/11/18 Oscar Barnard MD Desk Representative Cardiology 01/11/18 Brayan Burrows MD Radiation Oncologist Radiation Oncology 12/09/1804/03/2 4 Todd Gold Jr., MD Referring Physician Urology 02/08/19 documented as of this encounter
--- OUTSIDE RECORDS SUMMARY | 2024-05-26 09:31 | XMS_ITS | Clinical Summary ---
Author Organization [facility] al Address [address] [place] [address] Care Team Providers Care Spring Intern Name Role Phone Kiko Jimenez DO Primary Care Provider + [phone] Fran Bray MD [facility] Unavailable [phone] Kiko Godinez MD PhD Unavailable Oscar Barnard MD Unavailable [phone] Alla Wyman MD, Todd White Unavailable Allergies Active Allergy Reactions Criticality Noted Date [...] (HCC) TAKE 2 TABLETS(250 MCG) BY MOUTH HORSE DOCTOR BEFORE BREAKFAST 60 tablet 11 Active dextroamphetamine- [...] capsule total) into inhaler and inhale daily 024 Active diclofenac sodium (VOLTAREN) 1 % gel [...] 1/2 tablet QD resumed on 11/12/2023 Active digoxin (LANOXIN) 125 mcg (0.125 mg) [...] USE DIRECTED 120 mL 1 025 Active lisinopriL (PRINIVIL,ZESTRIL) 10 mg tabletIndications: Dissection of thoracic aorta (HCC),Benign essential HTN TAKE 1 TABLET(10 MG) BY MOUTH TWICE DAILY 90 tablet 3 025 Active gabapentin (NEURONTIN) 300 mg capsuleIndications [...] mg total) by mouth daily 2019 Discontinued lisinopriL (PRINIVIL,ZESTRIL) 10 mg tabletIndications: Dissection of thoracic aorta (HCC),Benign essential HTN Take 1 tablet (10 mg total) by mouth 2 (two) times a day 90 tablet 3 024 2024 Discontinued Active Problems [...] (11/24/2019): Added automatically from request for surgery [id number] Assessment & Plan (12/21/2019 9:58 AM CDT): [...] (03/07/2019): Added automatically from request for surgery [id number] Prostate cancer 12/06/2018 Cancer Staging:Clinical stage from 09/27/2018:Stage IIB(cT1c, cN0, cM0, PSA: 5.2, Grade Group: 2) - Signed by Hector Whittington MD PhD on 02/05/2019 Overview (12/06/2018): Added automatically from request for surgery [id number] Hypoparathyroidism 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 11/30/2018 Assessment & Plan [...] (10/31/2018): Added automatically from request for surgery [id number] Assessment & Plan (01/09/2019 8:49 AM CDT): [...] (09/09/2018): Added automatically from request for surgery [id number] 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 Daily INR. - Construction Quality Control Manager Dr. Barnard aware of admission and following [...] medicine team will sign off. Please call [phone] if any additional question Assessment & Plan [...] medicine team will sign off. Please call [phone] if any additional question Assessment & Plan [...] IM CARDIOLOGY Scanning, Provider 03/05/2024 11:45 AM RADIOLOGIST PHYSICIAN Lab [facility] ([facility]) [address] [place] [id number] Paroxysmal atrial fibrillation (CMS/HCC) (FORM[facility]LY [facility]) 03/05/2024 11:15 AM RADIOLOGIST PHYSICIAN Office Visit [facility] Cardiology [address] [place] [address] 8th [place] [address] [place] [address] Oscar Barnard MD Dissection of thoracic aorta, unspecified part (HCC) (Primary Dx); S/P AVR (aortic valve replacement); History of heart valve replacement with mechanical valve; Paroxysmal atrial fibrillation (CMS/HCC) ([facility]) 03/05/2024 9:06 AM RADIOLOGIST PHYSICIAN - 03/05/2024 11:59 PM RADIOLOGIST PHYSICIAN Hospital Encounter [facility] ([facility]) [address] [place] [address] Aneurysm of the ascending aorta, without rupture ([facility]) Discharge Disposition: Discharge to home or self care 02/27/2024 Orders Only [facility] CARDIOLOGY Scanning, Provider 02/27/[address] Medicine 8th [place] [address] [place] [address] Oscar Barnard MD Cardioversion from Last 3 Months Immunizations Immunization Administration Dates Next Due Influenza, Quadrivalent, [place] [...] Friends and Family Patient declined 02/05/2019 Attends Mandaeism Services Patient declined 08/2018 Active Member of [...] Living Expenses Not hard at all 02/05/2019 [facility] [place] of Occupat ional Health - Occupational Stress [...] on file Legal Sex Male 8:20 AM RADIOLOGIST PHYSICIAN Gender Identity Not on file Sexual Orientation Not on file 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 Not on file Not on file Obstetrics History Last Filed Vital Signs Vital Sign Reading Time Taken Comments Blood Pressure 112/69 03/05/2024 10:33 AM RADIOLOGIST PHYSICIAN Pulse 72 03/05/2024 10:33 AM RADIOLOGIST PHYSICIAN Temperature 36.4 C (97.6 F) 02/20/2024 8:18 AM RADIOLOGIST PHYSICIAN Respiratory Rate 18 02/20/2024 8:18 AM RADIOLOGIST PHYSICIAN Oxygen Saturation 98% 03/05/2024 10:33 AM RADIOLOGIST PHYSICIAN Inhaled Oxygen Concentration - - Weight 119 kg (262 lb 4.8 oz) 03/05/2024 10:33 A M RADIOLOGIST PHYSICIAN Height 177.8 cm (5' 10 ) 03/05/2024 10:33 AM RADIOLOGIST PHYSICIAN Body Mass Index 37.64 03/05/2024 10:33 AM RADIOLOGIST PHYSICIAN Plan of Treatment Health Maintenance Due Date Last Done Comments Depression Screening 1965 Hepatitis C Screening 1965 DTaP/Tdap/Td Vaccine (1 - Tdap) 09/19/1974 Hepatitis B Screening 09/19/1981 Regular Well Visit/Exam 18-64 09/19/1981 Pneumococcal vaccine <65 (1 of 2 - PCV) 09/19/1982 Lung Cancer Screening 09/19/2013 Zoster Vaccine (2 [...] Discontinued 04/22/2013 Medical Devices Implanted Type Area Insurance Premium Auditor Device Identifier Shelf Expiration Date Model / Serial / Lot Vascutek Terumo [id number] Gelsoft Plus Vascutek 24/12mm 45cm Main Leg Bore Reduced - [id number] - [id number] Implanted:Qty: 1 on 12/11/2019 by Vito Madrigal MD at [facility] Graft N/A: Aorta [employer] 12/30/2021 [id number] / [id number] / [id number] Mechanical Heart Valve-02/05/1998 Implanted:02/05 (Quantity not on file) Heart [employer] [id number] / [id number] / Procedures Procedure Name Priority Date/Time Associated Diagnosis Comments CARDIOLOGY DOCUMENT SCAN 04/04/2024 DIGOXIN LEVEL Routine 03/05/2024 11:44 AM RADIOLOGIST PHYSICIAN Paroxysmal atrial fibrillation (CMS/HCC) (HCC) PROTIME-INR Routine 03/05/2024 11:44 AM RADIOLOGIST PHYSICIAN Paroxysmal atrial fibrillation (CMS/HCC) (HCC) ECG 12-LEAD Routine 03/05/2024 10:38 AM RADIOLOGIST PHYSICIAN Paroxysmal atrial fibrillation (CMS/HCC) (HCC) CTA CHEST W WO CONTRAST Schedule Routine, Read Routine (OP Routine) 03/05/2024 10:27 AM RADIOLOGIST PHYSICIAN Aneurysm of the ascending aorta, without rupture (HCC) POCT CREATININE - DEVICE Routine 03/05/2024 9:31 AM RADIOLOGIST PHYSICIAN SCAN - LABS 02/27/2024 PSA DIAGNOSTIC Routine 08/06/2023 8:36 AM CDT 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 (HCC) COLONOSCOPY REPORT 04/22/2013 from Last 3 Months or Most Recently Relevant to Health Maintenance Results * Cardiology Document Scan (04/04/2024) Anatomical Region Laterality Modality Other us Provider Scanning CV CARDIAC SERVICES PROCEDURES Final Result * (ABNORMAL) Protime-INR (03/05/2024 11:44 AM RADIOLOGIST PHYSICIAN) PT 28.2(H) 9.7 - 13.0 sec INR 2.56(H) 0.90 - 1.20 [facility] Comment: Interpretive data Oral anticoagulant therapeutic ranges: Venous thromboembolism prophylaxis or treatment: 2.0-3.0 CARDIOLOGY Standard range: 2.0-3.0 High-intensity range: 2.5-3.5 Refer to indication-specific guidelines for appropriate target ranges for prosthetic heart valve replacement. Current interpretive data was last revised on 2019. Blood 03/05/2024 11:4 4 AM RADIOLOGIST PHYSICIAN 03/05/2024 11:55 AM RADIOLOGIST PHYSICIAN Oscar Barnard MD LAB BLOOD ORDERABLES F inal Result Performing Organization Address [facility] de Phone Number [facility] [place] [address] * Digoxin level (03/05/2024 11:44 AM RADIOLOGIST PHYSICIAN) Digoxin 1.1 0.5 - 1.2 ng/mL Comment: Interpretive data The therapeutic range for digoxin varies by indication: Heart failure: 0.5 to 0.8 ng/mL Atrial fibrillation: less than 1.2 ng/mL Toxicity: >2.4. Normal or low digoxin does not rule out toxicity. Current interpretive data was last revised on 2023. Blood 03/05/2024 11:4 4 AM RADIOLOGIST PHYSICIAN 03/05/2024 12:02 PM RADIOLOGIST PHYSICIAN us Oscar Barnard MD LAB BLOOD ORDERABLES F inal Result Performing Organization Address [facility] de Phone Number [facility] [place] [address] * ECG 12 lead (03/05/2024 10:38 AM RADIOLOGIST PHYSICIAN) us Oscar Barnard MD ECG ORDERABLES Edited Result - Final * CTA Chest W WO Contrast (03/05/2024 10:27 AM RADIOLOGIST PHYSICIAN) Anatomical Region Laterality Modality Chest N/A Computed Tomogra phy 03/05/2024 12:2 9 PM RADIOLOGIST PHYSICIAN Impressions 03/05/2024 12:29 PM RADIOLOGIST PHYSICIAN 1. Interval postsurgical changes of valve sparing [...] this location dating back to at least 2015, change in appearance may reflect motion on current exam however a short-term follow-up CT in 3-6 months is recommended to ensure stability. Electronically signed by: Maciej Sevilla M.D. Narrative 03/05/2024 12:29 PM RADIOLOGIST PHYSICIAN EXAMINATION: CTA CHEST W CONTRAST HISTORY: Follow-up [...] Result * POCT creatinine (03/05/2024 9:31 AM RADIOLOGIST PHYSICIAN) Creatinine POC 0.8 0.7 - 1.3 mg/dL Blood 03/05/2024 9:31 AM RADIOLOGIST PHYSICIAN 03/05/2024 9:31 AM RADIOLOGIST PHYSICIAN us Notinfile Unknown LAB POCT ORDERABLES - DEVICE F inal Result [facility] Department [place] [address] * SCAN - LABS (02/27/2024) us Provider Scanning Final Result * PSA diagnostic (08/06/2023 8:36 [...] ORDERABLES Final Res ult Performing Organization Address City/State/[facility] Co sd Phone Number [facility] Department [place] [address] * COLONOSCOPY REPORT (04/22/2013) Anatomical Region Laterality Modality Other Narrative 04/22/2013 Ordered by an unspecified provider. Historical Provider GI PROCEDURE ORDERABLES F inal Result from Last 3 Months or Most Recently Relevant to Health Maintenance Insurance [facility] * Guarantor: Salo Deshpande Account Type Relation to Patient Date of Phone Billing Address Personal/Family Self 1965 [address] [place] [address] [employer] [place] [employer] [place] ACC[place] * Guarantor: Salo Deshpande Account Type Relation to Patient Date of Phone Billing Address Personal/Family Self 1965 [address] [place] [address] [employer] TRADITIONAL * Guarantor: Salo Deshpande Account Type Relation to Patient Date of Phone Billing Address Personal/Family Self 1965 [address] [place] [address] [facility] Advance Directives For more information, please contact: [phone] * Full Code (Latest Code Status on [...] 4:23 PM 12/04/2018 4:15 PM Care Teams Spring Intern Relationship Specialty Start Date End Date Kiko Jimenez DO PCP - General 04/09/17 Fran Bray MD Medical Oncologist/Jewelry Polisher Medical Oncology 01/10/18 Maximiliano Cerrato MD Consulting Physician Plastic Surgery 01/10/18 Kiko Godinez MD PhD Platform Architect Dermatology 01/11/18 Oscar Barnard MD Construction Quality Control Manager Cardiology 01/11/18 Todd Gold Jr., MD Referring Physician Urology 02/08/19
--- OUTSIDE RECORDS SUMMARY | 2024-05-26 09:31 | XMS_ITS | Encounter Summary ---
Author Organization [facility] Address [address] [place] [address] Phone Care Team Providers Care Record Cutter Name Role Phone Kiko Jimenez DO Primary Care Provider + [phone] Fran Bray MD Unavailable Maximiliano Cerrato MD Unavailable [phone] Kiko Godinez MD PhD Unavailable Oscar Barnard MD Unavailable [phone] Brayan Burrows MD Unavailable [phone] Alla Wyman MD, Todd White Unavailable Encounter Details Date Type Department Care Team (Late st Contact Info) Description 09/27/2017 Telephone [facility] Cardiology [address] Advanced Medicine 8th [place] [address] [place] [address] Oscar Barnard MD [address] [facility] [address] [place] [address] Social History Tobacco Use Types Packs/Day Years Used Date Smoking Tobacco: Former Sex and Gender Information Value Date Recorded Sex Assigned at Not on file Legal Sex Male 8:20 AM TANDEM MILL STICKER Gender Identity Not on file Sexual Orientation Not on file documented as of this encounter Plan of Treatment Not on file documented as of this encounter Visit Diagnoses Not on filedocumented in this encounter Care Teams Record Cutter Relationship Specialty Start Date End Date Kiko Jimenez DO PCP - General 04/09/17 Fran Bray MD Medical Oncologist/Emergency Room Clerk Medical Oncology 01/10/18 Maximiliano Cerrato MD Consulting Physician Plastic Surgery 01/10/18 Kiko Godinez MD PhD Steam Turbine Operator Dermatology 01/11/18 Oscar Barnard MD Clinical Instructor Cardiology 01/11/18 Brayan Burrows MD Radiation Oncologist Radiation Oncology 12/09/18 4 Todd Gold Jr., MD Referring Physician Urology 02/08/19 documented as of this encounter
--- OUTSIDE RECORDS SUMMARY | 2024-05-26 09:31 | XMS_ITS | Encounter Summary ---
Author Organization [facility] Address [address] [place] [address] Phone Care Team Providers Care Web Ui Software Engineer Name Role Phone Kiko Jimenez DO Primary Care Provider + [phone] Fran Bray MD Unavailable Maximiliano Cerrato MD Unavailable [phone] Kiko Godinez MD PhD Unavailable Oscar Barnard MD Unavailable [phone] Alla Wyman MD, Todd White Unavailable Encounter Details Date Type Department Care Team (Late st Contact Info) Description 12/07/2023 Telephone [facility] Cardiology [address] [facility] Advanced Medicine 8th [place] [address] [place] [address] Oscar Barnard MD [address] [facility] [address] [place] [address] Social History Tobacco Use Types [...] Friends and Family Patient declined 02/05/2019 Attends Alevism Services Patient declined 08/2018 Active Member of Clubs or Organizations Patient declined 02/05/2019 Attends Club or Organization Meetings Patient de clined 02/05/2019 Marital Status 02/05/2019 Overall Financial Resource Strain (CARDIA) Answe r Date Recorded Difficulty of Paying Living Expenses Not hard at all 02/05/2019 [facility] of Occupat ional Health - Occupational Stress [...] file Legal Sex Male 8:20 AM DIRECTOR ECONOMIC Gender Identity Not on file Sexual Orientation Not on file 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 on file Not on file documented as of this encounter Plan of Treatment Not on file documented as of this encounter Visit Diagnoses Not on filedocumented in this encounter Care Teams Web Ui Software Engineer Relationship Specialty Start Date End Date Kiko Jimenez DO PCP - General 04/09/17 Fran Bray MD Medical Oncologist/Administrative Assistant Front Desk Medical Oncology 01/10/18 Maximiliano Cerrato MD Consulting Physician Plastic Surgery 01/10/18 Kiko Godinez MD PhD Machine Sander Dermatology 01/11/18 Oscar Barnard MD Business Intelligence Reporting Analyst Cardiology 01/11/18 Todd Gold Jr., MD Referring Physician Urology 02/08/19 documented as of this encounter
--- OUTSIDE RECORDS SUMMARY | 2024-05-26 09:31 | XMS_ITS | Encounter Summary ---
Author Organization [facility] Healthcare Address [address] [place] [address] Care Team Providers Care Wrapping Machine Operator Name Role Phone Kiko Jimenez DO Primary Care Provider [phone] Fran Bray MD [facility]available [facility] Unavailable [phone] Kiko Godinez MD PhD Unavailable Oscar Barnard MD Unavailable [phone] Brayan Burrows MD Unavailable [phone] Alla Wyman MD, Todd White Unavailable Encounter Details Date Type Department Care Team (Late st Contact Info) Description 01/16/2020 Telephone [facility] [address] [place] [address] Fabiola Griffith, RT Social History Tobacco [...] Friends and Family Patient declined 02/05/2019 Attends Advent Services Patient declined 08/2018 Active Member of Clubs or Organizations Patient declined 02/05/2019 Attends Club or Organization Meetings Patient de clined 02/05/2019 Marital Status 02/05/2019 Overall Financial Resource Strain (CARDIA) Answe r Date Recorded Difficulty of Paying Living Expenses Not hard at all 02/05/2019 [facility] [place] of Occupat ional Health - Occupational Stress [...] on file Legal Sex Male 8:20 AM CIA AGENT Gender Identity Not on file Sexual Orientation Not on file 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 Not on file Not on file documented as of this encounter Plan of Treatment Not on file documented as of this encounter Visit Diagnoses Not on filedocumented in this encounter Care Teams Wrapping Machine Operator Relationship Specialty Start Date End Date Kiko Jimenez DO PCP - General 04/09/17 Fran Bray MD Medical Oncologist/Retouching Operator Medical Oncology 01/10/18 Maximiliano Cerrato MD Consulting Physician Plastic Surgery 01/10/18 Kiko Godinez MD PhD Machine Stapler Dermatology 01/11/18 Oscar Barnard MD Cad Designer Cardiology 01/11/18 Brayan Burrows MD Radiation Oncologist Radiation Oncology 12/09/18 1//2 4 Todd Gold Jr., MD Referring Physician Urology 02/08/19 documented as of this encounter
--- OUTSIDE RECORDS SUMMARY | 2024-05-26 09:31 | XMS_ITS | Encounter Summary ---
Author Organization [facility] Healthcare Address [address] [place] [address] Care Team Providers Care Sorter Lumber Straightener Name Role Phone Kiko Jimenez DO Primary Care Provider [phone] Fran Bray MD Unavailable [phone] [facility] Unavailable [phone] Kiko Godinez MD PhD Unavailable Oscar Barnard MD Unavailable [phone] Brayan Burrows MD Unavailable Alla Wyman MD, Todd White Unavailable [phone] Encounter Details Date Type Department Care Team (Late st Contact Info) Description 07/18/2019 Telephone [facility] [address] [place] [address] Hair Pro, RT Social History [...] Friends and Family Patient declined 02/05/2019 Attends Nondenominational Services Patient declined 08/2018 Active Member of Clubs or Organizations Patient declined 02/05/2019 Attends Club or Organization Meetings Patient de clined 02/05/2019 Marital Status 02/05/2019 Overall Financial Resource Strain (CARDIA) Answe r Date Recorded Difficulty of Paying Living Expenses Not hard at all 02/05/2019 [facility] [place] of Occupat ional Health - Occupational Stress [...] on file Legal Sex Male 8:20 AM STICK WELDER Gender Identity Not on file Sexual Orientation Not on file 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 Not on file Not on file documented as of this encounter Plan of Treatment Not on file documented as of this encounter Visit Diagnoses Not on filedocumented in this encounter Care Teams Sorter Lumber Straightener Relationship Specialty Start Date End Date Kiko Jimenez DO PCP - General 04/09/17 Fran Bray MD Medical Oncologist/Otolaryngology Surgeon Medical Oncology 01/10/18 Maximiliano Cerrato MD Consulting Physician Plastic Surgery 01/10/18 Kiko Godinez MD PhD Baggage Handling Supervisor Dermatology 01/11/18 Oscar Barnard MD Manual Arts Therapist Cardiology 01/11/18 Brayan Burrows MD Radiation Oncologist Radiation Oncology 12/09/1804/03/2 4 Todd Gold Jr., MD Referring Physician Urology 02/08/19 documented as of this encounter
--- OUTSIDE RECORDS SUMMARY | 2024-05-26 09:31 | XMS_ITS | Encounter Summary ---
Author Organization [facility] Healthcare Address [address] [place] [address] Care Team Providers Care Retail Field Merchandiser Name Role Phone Kiko Jimenez DO Primary Care Provider [phone] Fran Bray MD [facility]available [facility] Unavailable [phone] Kiko Godinez MD PhD Unavailable Oscar Barnard MD Unavailable [phone] Brayan Burrows MD Unavailable [phone] Alla Wyman MD, Todd White Unavailable Encounter Details Date Type Department Care Team (Late st Contact Info) Description 04/16/2020 Telephone [facility] [address] [place] [address] Fabiola Griffith, RT Social History Tobacco [...] Friends and Family Patient declined 02/05/2019 Attends Congregational Services Patient declined 08/2018 Active Member of Clubs or Organizations Patient declined 02/05/2019 Attends Club or Organization Meetings Patient de clined 02/05/2019 Marital Status 02/05/2019 Overall Financial Resource Strain (CARDIA) Answe r Date Recorded Difficulty of Paying Living Expenses Not hard at all 02/05/2019 [facility] [place] of Occupat ional Health - Occupational Stress [...] on file Legal Sex Male 8:20 AM BRAND ADVISOR Gender Identity Not on file Sexual Orientation Not on file 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 file Not on file documented as of this encounter Plan of Treatment Not on file documented as of this encounter Visit Diagnoses Not on filedocumented in this encounter Care Teams Retail Field Merchandiser Relationship Specialty Start Date End Date Kiko Jimenez DO PCP - General 04/09/17 Fran Bray MD Medical Oncologist/Hand Fur Cleaner Medical Oncology 01/10/18 Maximiliano Cerrato MD Consulting Physician Plastic Surgery 01/10/18 Kiko Godienz MD PhD Appliance Line Assembler Dermatology 01/11/18 Oscar Barnard MD Pickling Machine Operator Cardiology 01/11/18 Brayan Burrows MD Radiation Oncologist Radiation Oncology 12/09/18 1//2 4 Todd Gold Jr., MD Referring Physician Urology 02/08/19 documented as of this encounter
--- OUTSIDE RECORDS SUMMARY | 2024-05-26 09:31 | XMS_ITS | Referral Summary ---
Author Organization [facility] al Address [address] [place] [address] Care Team Providers Care Data Support Analyst Name Role Phone Kiko Jimenez DO Primary Care Provider + [phone] Fran Bray MD Unavailable [phone] [facility] Unavailable [phone] Kiko Godinez MD PhD Unavailable Oscar Barnard MD Unavailable Alla Wyman MD, Todd White Unavailable Encounters Date Type Department Care Team Description 04/04/2024 Orders Only [facility] Scanning, Provider 03/05/2024 11:45 AM CERTIFIED SOLID WASTE FACILITY OPERATOR Lab [facility]) [address] [place] [phone] Paroxysmal atrial fibrillation (CMS/HCC) (HCC) 03/05/2024 9:06 AM CERTIFIED SOLID WASTE FACILITY OPERATOR - 03/05/2024 11:59 PM CERTIFIED SOLID WASTE FACILITY OPERATOR Hospital Encounter [facility] ([facility]) [address] [place] [address] Aneurysm of the ascending aorta, without rupture (HCC) Discharge Disposition: Discharge to home or self care 03/05/2024 11:15 AM CERTIFIED SOLID WASTE FACILITY OPERATOR Office Visit [facility] Cardiology [address] [facility] Advanced [facility] 8th [place] [address] [place] [address] Oscar Barnard MD Dissection of thoracic aorta, unspecified part (HCC) (Primary Dx); S/P AVR (aortic valve replacement); History of heart valve replacement with mechanical valve; Paroxysmal atrial fibrillation (CMS/HCC) (HCC) 02/27/2024 Orders Only [facility] Scanning, Provider 02/27/2024 Telephone [facility] Cardiology [address] [facility] 8th [place] [address] [place] [address] Oscar Barnard MD Cardioversion from Last 3 Months Allergies Active Allergy Reactions Criticality Noted Date Comments Ceftriaxone Hives,Rash Medium 12/11/19 - Approved to give cefazolin with ceftriaxone allergy per Alanis Rivero MD/Karlene LyD Spironolactone Other (See comments) Low 05/19/2020 gynecomastia Medications aspirin 81 mg tabletIndications: Myocardial Reinfarction Prevention Take 1 tablet (81 mg total) by mouth nightly Active pravastatin (PRAVACHOL) 40 mg tabletIndications: hyperlipidemia Take 1 tablet (40 mg total) by mouth every morning 3 Active loratadine (CLARITIN) 10 mg tabletIndications: Allergic [...] (HCC) TAKE 2 TABLETS(250 MCG) BY MOUTH ART PSYCHOTHERAPIST BEFORE BREAKFAST 60 tablet 11 Active dextroamphetamine- [...] dose decrease 11/07/2023 60 tablet/caps ule 11 08/07/2 024 Active Additional Information Patient not taking.Reported on 02/20/2024 amLODIPine (NORVASC) 10 mg tablet 1/2 tablet QD resumed on 11/12/2023 024 Active digoxin (LANOXIN) 125 mcg (0.125 [...] (11/24/2019): Added automatically from request for surgery [id number] Assessment & Plan (12/21/2019 9:58 AM CDT): [...] (03/07/2019): Added automatically from request for surgery [id number] Prostate cancer 12/06/2018 Cancer Staging:Clinical stage from 09/27/2018:Stage IIB(cT1c, cN0, cM0, PSA: 5.2, Grade Group: 2) - Signed by Hector Whittington MD PhD on 02/05/2019 Overview (12/06/2018): Added automatically from request for surgery [id number] Hypoparathyroidism 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 11/30/2018 Assessment & Plan [...] (10/31/2018): Added automatically from request for surgery [id number] Assessment & Plan (01/09/2019 8:49 AM CDT): [...] (09/09/2018): Added automatically from request for surgery [id number] 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 Daily INR. - Women'S Activities Adviser Dr. Barnard aware of admission and following [...] medicine team will sign off. Please call [phone] if any additional question Assessment & Plan [...] medicine team will sign off. 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 WBC 14 -> 20 on 12/11 late-pm labs, improving. 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 Not on file Not on file Last Filed Vital Signs Vital Sign Reading Time Taken Comments Blood Pressure 112/69 03/05/2024 10:33 AM CERTIFIED SOLID WASTE FACILITY OPERATOR Pulse 72 03/05/2024 10:33 AM CERTIFIED SOLID WASTE FACILITY OPERATOR Temperature 36.4 C (97.6 F) 02/20/2024 8:18 AM CERTIFIED SOLID WASTE FACILITY OPERATOR Respiratory Rate 18 02/20/2024 8:18 AM CERTIFIED SOLID WASTE FACILITY OPERATOR Oxygen Saturation 98% 03/05/2024 10:33 AM CERTIFIED SOLID WASTE FACILITY OPERATOR Inhaled Oxygen Concentration - - Weight 119 kg (262 lb 4.8 oz) 03/05/2024 10:33 A M CERTIFIED SOLID WASTE FACILITY OPERATOR Height 177.8 cm (5' 10 ) 03/05/2024 10:33 AM CERTIFIED SOLID WASTE FACILITY OPERATOR Body Mass Index 37.64 03/05/2024 10:33 AM CERTIFIED SOLID WASTE FACILITY OPERATOR Plan of Treatment Not on file Medical Devices Implanted Type Area Rig Hand Device Identifier Shelf Expiration Date Model / Serial / Lot Vascutek Terumo [id number] Gelsoft Plus Vascutek 24/12mm 45cm Main Leg Bore Reduced - [id number] - [id number] Implanted:Qty: 1 on 12/11/2019 by Vito Madrigal MD at [facility] Graft N/A: Aorta [employer] 12/30/2021 [id number] / [id number] / [id number] Mechanical Heart Valve-02/05/1998 Implanted:02/05 (Quantity not on file) Heart [employer] [id number] / [id number] / Procedures Procedure Name Priority Date/Time Associated Diagnosis Comments CARDIOLOGY DOCUMENT SCAN 04/04/2024 DIGOXIN LEVEL Routine 03/05/2024 11:44 AM CERTIFIED SOLID WASTE FACILITY OPERATOR Paroxysmal atrial fibrillation (CMS/HCC) (HCC) PROTIME-INR Routine 03/05/2024 11:44 AM CERTIFIED SOLID WASTE FACILITY OPERATOR Paroxysmal atrial fibrillation (CMS/HCC) (HCC) ECG 12-LEAD Routine 03/05/2024 10:38 AM CERTIFIED SOLID WASTE FACILITY OPERATOR Paroxysmal atrial fibrillation (CMS/HCC) (HCC) CTA CHEST W WO CONTRAST Schedule Routine, Read Routine (OP Routine) 03/05/2024 10:27 AM CERTIFIED SOLID WASTE FACILITY OPERATOR Aneurysm of the ascending aorta, without rupture (HCC) POCT CREATININE - DEVICE Routine 03/05/2024 9:31 AM CERTIFIED SOLID WASTE FACILITY OPERATOR SCAN - LABS 02/27/2024 PSA DIAGNOSTIC Routine 08/06/2023 8:36 AM CDT 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 (HCC) COLONOSCOPY REPORT 04/22/2013 from Last 3 Months or Most Recently Relevant to Health Maintenance Results * Cardiology Document Scan (04/04/2024) Anatomical Region Laterality Modality Other us Provider Scanning CV CARDIAC SERVICES PROCEDURES Final Result * (ABNORMAL) Protime-INR (03/05/2024 11:44 AM CERTIFIED SOLID WASTE FACILITY OPERATOR) PT 28.2(H) 9.7 - 13.0 sec INR 2.56(H) 0.90 - 1.20 [facility] Comment: Interpretive data Oral anticoagulant therapeutic ranges: Venous thromboembolism prophylaxis or treatment: 2.0-3.0 CARDIOLOGY Standard range: 2.0-3.0 High-intensity range: 2.5-3.5 Refer to indication-specific guidelines for appropriate target ranges for prosthetic heart valve replacement. Current interpretive data was last revised on 2019. Blood 03/05/2024 11:4 4 AM CERTIFIED SOLID WASTE FACILITY OPERATOR 03/05/2024 11:55 AM CERTIFIED SOLID WASTE FACILITY OPERATOR us Oscar Barnard MD LAB BLOOD ORDERABLES F inal Result Performing Organization Address [facility] Phone Number [facility] [place] [employer] [place] [address] * Digoxin level (03/05/2024 11:44 AM CERTIFIED SOLID WASTE FACILITY OPERATOR) Digoxin 1.1 0.5 - 1.2 ng/mL Comment: Interpretive data The therapeutic range for digoxin varies by indication: Heart failure: 0.5 to 0.8 ng/mL Atrial fibrillation: less than 1.2 ng/mL Toxicity: >2.4. Normal or low digoxin does not rule out toxicity. Current interpretive data was last revised on 2023. Blood 03/05/2024 11:4 4 AM CERTIFIED SOLID WASTE FACILITY OPERATOR 03/05/2024 12:02 PM CERTIFIED SOLID WASTE FACILITY OPERATOR us Oscar Barnard MD LAB BLOOD ORDERABLES F inal Result Performing Organization Address [facility] de Phone Number [facility] [place] [employer] [place] [address] * ECG 12 lead (03/05/2024 10:38 AM CERTIFIED SOLID WASTE FACILITY OPERATOR) us Oscar Barnard MD ECG ORDERABLES Edited Result - Final * CTA Chest W WO Contrast (03/05/2024 10:27 AM CERTIFIED SOLID WASTE FACILITY OPERATOR) Anatomical Region Laterality Modality Chest N/A Computed Tomogra phy 03/05/2024 12:2 9 PM CERTIFIED SOLID WASTE FACILITY OPERATOR Impressions 03/05/2024 12:29 PM CERTIFIED SOLID WASTE FACILITY OPERATOR 1. Interval postsurgical changes of valve [...] Maciej Sevilla M.D. Narrative 03/05/2024 12:29 PM CERTIFIED SOLID WASTE FACILITY OPERATOR EXAMINATION: CTA CHEST W CONTRAST HISTORY: [...] Result * POCT creatinine (03/05/2024 9:31 AM CERTIFIED SOLID WASTE FACILITY OPERATOR) [facility] Creatinine POC 0.8 0.7 - 1.3 mg/dL Blood 03/05/2024 9:31 AM CERTIFIED SOLID WASTE FACILITY OPERATOR 03/05/2024 9:31 AM CERTIFIED SOLID WASTE FACILITY OPERATOR us Notinfile Unknown LAB POCT ORDERABLES - DEVICE F inal Result [facility] [place] [address] * SCAN - LABS (02/27/2024) us Provider Scanning Final Result * PSA diagnostic (08/06/2023 8:36 AM CDT) [facility] PSA-Total <0.02 <=3.90 ng/mL Comment: Interpretive Data [...] MD LAB BLOOD ORDERABLES Final Res ult [facility] [place] [address] * COLONOSCOPY REPORT (04/22/2013) Anatomical Region Laterality Modality Other Narrative 04/22/2013 Ordered by an unspecified provider. [facility] Provider GI PROCEDURE ORDERABLES F inal Result from Last 3 Months or Most Recently Relevant to Health Maintenance Insurance [facility] * Guarantor: Salo Deshpande Account Type Relation to Patient Date of Phone Billing Address Personal/Family Self 1965 [address] [place] [address] [employer] * Guarantor: Salo Deshpande Account Type Relation to Patient Date of Phone Billing Address Personal/Family Self 1965 [address] [place] [address] [employer]THEM TRADITIONAL * Guarantor: Salo Deshpande Account Type Relation to Patient Date of Phone Billing Address Personal/Family Self 1965 [address] [place] [address] [employer] Advance Directives For more information, please contact: [phone] * Full Code (Latest Code Status on [...] 4:23 PM 12/04/2018 4:15 PM Care Teams Data Support Analyst Relationship Specialty Start Date End Date Kiko Jimenez DO PCP - General 04/09/17 Fran Bray MD Medical Oncologist/Development Administrator Medical Oncology 01/10/18 Maximiliano Cerrato MD Consulting Physician Plastic Surgery 01/10/18 Kiko Godinez MD PhD Sail Maker Dermatology 01/11/18 Oscar Barnard MD Women'S Activities Adviser Cardiology 01/11/18 Todd Gold Jr., MD Referring Physician Urology 02/08/19
--- OUTSIDE RECORDS SUMMARY | 2024-05-26 09:31 | XMS_ITS ---
Author Organization [facility] al Address [address] [place] [address] Care Team Providers Care Clinical Practitioner Name Role Phone Kiko Jimenez DO Primary Care Provider + [phone] Fran Bray MD Unavailable [phone] [facility] Unavailable [phone] Kiko Godinez MD PhD Unavailable Oscar Barnard MD Unavailable [phone] Alla Wyman MD, Todd White Unavailable Active Problems Problem Noted Date Diagnosed [...] (11/24/2019): Added automatically from request for surgery [id number] Assessment & Plan (12/21/2019 9:58 AM CDT): [...] (03/07/2019): Added automatically from request for surgery [id number] Prostate cancer 12/06/2018 Cancer Staging:Clinical stage from 09/27/2018:Stage IIB(cT1c, cN0, cM0, PSA: 5.2, Grade Group: 2) - Signed by Hector Whittington MD PhD on 02/05/2019 Overview (12/06/2018): Added automatically from request for surgery [id number] Hypoparathyroidism 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 11/30/2018 Assessment & Plan [...] (10/31/2018): Added automatically from request for surgery [id number] Assessment & Plan (01/09/2019 8:49 AM CDT): [...] (09/09/2018): Added automatically from request for surgery [id number] 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 Daily INR. - Steaming Machine Operator Dr. Barnard aware of admission and [...] medicine team will sign off. Please call [phone] if any additional question Assessment & Plan [...] medicine team will sign off. Please call [phone] if any additional question Assessment & Plan [...] aorta 05/29/2012 Dyslipidemia 05/29/2012 Hypertension 05/29/2012 Current Treatment and Therapy Plans No current plan information found. Past Treatment and Therapy Plans Oncology Chemotherapy Treatment Plan Name Start [...] Complete Fran Bray MD Radiation Treatments * Course Postop Thyroid 12/20/2018 - 12/20/2018 Treatment Period Energy Fraction Dose Fractions Total Dose Plans Planned Thyroid 1 12/20/2018 - 12/20/2018 150 1 / 150 Reference Points Delivered Thyroid 1 12/20/2018 - 12/20/2018 150 Lifetime Dose Tracking * Chemical Lifetime Dose [...]
== END 2024-05-26 08:57 | disposition home or self-care (01) ==
PROVIDERS: PCP Internal Medicine; Visit Provider Plastic Surgery
DX: M18.11 Unilateral primary osteoarthritis of first carpometacarpal joint, right hand (principal)
CPT/HCPCS: 73130

== ENCOUNTER 2024-06-30 08:09 | Outpatient (CLI) | payer BC, SELFPAY ==
--- OUTSIDE RECORDS SUMMARY | 2024-06-30 08:19 | XMS_ITS ---
Author Organization [facility] [employer] [facility] Address [facility] [address] [facility] [address] [place] [address] Care Team Providers Care Soil Checker Name Role Phone Kiko Jimenez DO Primary Care Provider Jose Guadalupe Thompson Unavailable [phone] REASON FOR VISIT New Refill Request Medications Medication SIG (Take, Route, Frequency, Duration) Notes Start Date End Date Status Amphetamine-Dextroamphet ER 10 MG 1 capsule in the morning Oral Once a day for 30 days 04/01/2024 Active Social History Sex Assigned At : Social History Observation Description Sex Assigned At Male Encounters Encounter Location Date Provider Diagnosis [facility] Initiate Systems [place] [id number] [facility] [address] [facility] [address] [place] [address] 03/31/2024 Jose Guadalupe Dubon Attention-deficit hyperactivity disorder, combined type F90.2 Assessments Encounter Date Diagnosis (ICD Code) Assessment Notes Treatment Notes Treatment Clinical Notes Section Notes 03/31/2024 Attention-deficit hyperactivity disorder, combined type (ICD-10 - F90.2) Plan Of Treatment Medication Medication Name Sig Start Date Stop Date Notes Amphetamine-Dextroamphet ER 10 MG 1 capsule in the morning Oral Once a day for 30 days 04/01/2024 Next Appt Details Provider Name:Jose Guadalupe leo, 07/30/2024 08:45:00 AM, [address], [facility] [address], [place], [address], Progress Notes * PUMA MARISCALOB:1965 (58 yo M)Acc No.[id number]:03/31/2024 Patient: TISH GUERRERO :1965 A ge:58 Y S ex:Male Address:[address] [place] [address], [facility], [place], [address] * Refills Refill Amphetamine-Dextroamphet ER Capsule Extended Release 24 Hour, 10 MG, Oral, 30, 1 capsule in the morning, Once a day, 30 days, Refills=0 Subjective: * Chief Complaints: * N ew Refill Request * Medical History: * Surgical History: * Hospitalization/Major Diagno stic Procedure: * Medications: Objective: * Vitals: * Physical Examination: Assessment: * Assessment: 1. A ttention-deficit hyperactivity disorder, combined type - F90.2 Plan: * Treatment: * Procedure Codes: E RX CONTROLLED SUBSTANCE ERX * true * Date: Generated for Aakash brown/Ritchie/eTgurpreetsmitting on: 0 06/30/2024 08:18 AM CDT
--- OUTSIDE RECORDS SUMMARY | 2024-06-30 08:19 | XMS_ITS | Encounter Summary ---
Author Organization [facility] Healthcare Address [address] [place] [address] Care Team Providers Care Forestry Hunter Name Role Phone Kiko Jimenez DO Primary Care Provider [phone] Fran Bray MD Unavailable [facility] Unavailable Kiko Godinez MD PhD Unavailable Oscar Barnard MD Unavailable [phone] Brayan Burrows MD Unavailable Alla Wyman MD, Todd White Unavailable Encounter Details Date Type Department Care Team (Late st Contact Info) Description 07/18/2019 Telephone [facility]) [address] [place] [address] Hair Pro, RT Social History Tobacco [...] Friends and Family Patient declined 02/05/2019 Attends [employer] Patient declined 08/2018 Active Member of Clubs or Organizations Patient declined 02/05/2019 Attends Club or Organization Meetings Patient de clined 02/05/2019 Marital Status 02/05/2019 Overall Financial Resource Strain (CARDIA) Answe r Date Recorded Difficulty of Paying Living Expenses Not hard at all 02/05/2019 [facility] [place] of Occupat ional Health - Occupational Stress [...] on file Legal Sex Male 8:20 AM RATE MARKER Gender Identity Not on file Sexual Orientation Not on file 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 Not on file Not on file documented as of this encounter Plan of Treatment Not on file documented as of this encounter Visit Diagnoses Not on filedocumented in this encounter Care Teams Forestry Hunter Relationship Specialty Start Date End Date Kiko Jimenez DO PCP - General 04/09/17 Fran Bray MD Medical Oncologist/Reinforcer Medical Oncology 01/10/18 Maximiliano Cerrato MD Consulting Physician Plastic Surgery 01/10/18 Kiko Godinez MD PhD Graphics Coordinator Dermatology 01/11/18 Oscar Barnard MD Chemist Steroids Cardiology 01/11/18 Brayan Burrows MD Radiation Oncologist Radiation Oncology 12/09/1804/03/2 4 Todd Gold Jr., MD Referring Physician Urology 02/08/19 documented as of this encounter
--- OUTSIDE RECORDS SUMMARY | 2024-06-30 08:19 | XMS_ITS | Encounter Summary ---
Author Organization [facility] Address [address] [place] [address] Phone Care Team Providers Care Rest Room Matron Name Role Phone Kiko Jimenez DO Primary Care Provider + [phone] Fran Bray MD Unavailable [phone] Maximiliano Cerrato MD Unavailable [phone] Kiko Godinez MD PhD Unavailable [phone] Oscar Barnard MD Unavailable [phone] Brayan Burrows MD Unavailable [phone] Alla Wyman MD, Todd White Unavailable Encounter Details Date Type Department Care Team (Late st Contact Info) Description 09/27/[address] [facility] Cardiology [address] [facility] Advanced Medicine [address]th [place] [address] [place] [address] Oscar Barnard MD [address] [facility] [address] [place] [address] Social History Tobacco Use Types Packs/Day Years Used Date Smoking Tobacco: Former Sex and Gender Information Value Date Recorded Sex Assigned at Not on file Legal Sex Male 8:20 AM CARDIOPULMONARY TECHNOLOGIST Gender Identity Not on file Sexual Orientation Not on file documented as of this encounter Plan of Treatment Not on file documented as of this encounter Visit Diagnoses Not on filedocumented in this encounter Care Teams Rest Room Matron Relationship Specialty Start Date End Date Kiko Jimenez DO PCP - General 04/09/17 Fran Bray MD Medical Oncologist/Branch Sales And Service Representative Medical Oncology 01/10/18 Maximiliano Cerrato MD Consulting Physician Plastic Surgery 01/10/18 Kiko Godinez MD PhD Wares Sorter Dermatology 01/11/18 Oscar Barnard MD Fur Cutter Cardiology 01/11/18 Brayan Burrows MD Radiation Oncologist Radiation Oncology 12/09/1804/03/ 4 Todd Gold Jr., MD Referring Physician Urology 02/08/19 documented as of this encounter
--- OUTSIDE RECORDS SUMMARY | 2024-06-30 08:19 | XMS_ITS | Encounter Summary ---
Author Organization [facility] Healthcare Address [address] [place] [address] Care Team Providers Care Burlesque Dancer Name Role Phone Kiko Jimenez DO Primary Care Provider [phone] Fran Bray MD Unavailable [facility] Unavailable Kiko Godinez MD PhD Unavailable Oscar Barnard MD Unavailable [phone] Brayan Burrows MD Unavailable [phone] Alla Wyman MD, Todd White Unavailable Encounter Details Date Type Department Care Team (Late st Contact Info) Description 01/16/2020 Telephone [facility] [address] [place] [address] Fabiola Griffith, RT Social History Tobacco [...] Expenses Not hard at all 02/05/2019 [facility] [place] of Occupat ional Health - Occupational Stress [...] on file Legal Sex Male 8:20 AM RADIOSONDE SPECIALIST Gender Identity Not on file Sexual Orientation Not on file 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 Not on file Not on file documented as of this encounter Plan of Treatment Not on file documented as of this encounter Visit Diagnoses Not on filedocumented in this encounter Care Teams Burlesque Dancer Relationship Specialty Start Date End Date Kiko Jimenez DO PCP - General 04/09/17 Fran Bray MD Medical Oncologist/Global Climate Change Researcher Medical Oncology 01/10/18 Maximiliano Cerrato MD Consulting Physician Plastic Surgery 01/10/18 Kiko Godinez MD PhD Telecommunications Cable Jointer Dermatology 01/11/18 Oscar Barnard MD Veterinary Medicine Doctor Cardiology 01/11/18 Brayan Burrows MD Radiation Oncologist Radiation Oncology 12/09/18 1//2 4 Todd Gold Jr., MD Referring Physician Urology 02/08/19 documented as of this encounter
--- OUTSIDE RECORDS SUMMARY | 2024-06-30 08:19 | XMS_ITS | Encounter Summary ---
Author Organization [facility] Address [address] [place] [address] Phone Care Team Providers Care Fishing Vessel Mate Name Role Phone Kiko Jimenez DO Primary Care Provider + [phone] Fran Bray MD Unavailable [phone] Maximiliano Cerrato MD Unavailable [phone] Kiko Godinez MD PhD Unavailable Oscar Barnard MD Unavailable [phone] Alla Wyman MD, Todd White Unavailable Encounter Details Date Type Department Care Team (Late st Contact Info) Description 12/07/2023 Telephone [facility] Cardiology [address] [facility] Advanced Medicine 8th [place] [address] [place] [address] Oscar Barnard MD [address] [facility] [address] [place] [address] Social History Tobacco Use Types [...] Friends and Family Patient declined 02/05/2019 Attends Yarsani Services Patient declined 08/2018 Active Member of Clubs or Organizations Patient declined 02/05/2019 Attends Club or Organization Meetings Patient de clined 02/05/2019 Marital Status 02/05/2019 Overall Financial Resource Strain (CARDIA) Answe r Date Recorded Difficulty of Paying Living Expenses Not hard at all 02/05/2019 [facility] of Occupat ional [facility] - Occupational Stress Questionnaire Answer Date Recorded [...] on file 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 Gender Identity Not on file Sexual Orientation Not on file 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 Not on file Not on file documented as of this encounter Plan of Treatment Not on file documented as of this encounter Visit Diagnoses Not on filedocumented in this encounter Care Teams Fishing Vessel Mate Relationship Specialty Start Date End Date Kiko Jimenez DO PCP - General 04/09/17 Fran Bray MD Medical Oncologist/Luncheonette Manager Medical Oncology 01/10/18 Maximiliano Cerrato MD Consulting Physician Plastic Surgery 01/10/18 Kiko Godinez MD PhD Bus Person Dishwasher Dermatology 01/11/18 Oscar Barnard MD Table Tender Sludge Cardiology 01/11/18 Todd Gold Jr., MD Referring Physician Urology 02/08/19 documented as of this encounter
--- OUTSIDE RECORDS SUMMARY | 2024-06-30 08:19 | XMS_ITS ---
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 Edema 12/18/2019 Assessment & Plan (12/19/2019 8:26 AM CDT): - LE edema present 12/17, 40mg po lasix given with improvement. Abdominal aortic aneurysm dissection 11/24/2019 Overview (11/24/2019): Added automatically from request for surgery [id number] Assessment & Plan (12/21/2019 9:58 AM CDT): [...] (03/07/2019): Added automatically from request for surgery [id number] Prostate cancer 12/06/2018 Cancer Staging:Clinical stage from 09/27/2018:Stage IIB(cT1c, cN0, cM0, PSA: 5.2, Grade Group: 2) - Signed by Hector Whittington MD PhD on 02/05/2019 Overview (12/06/2018): Added automatically from request for surgery [id number] Hypoparathyroidism 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 11/30/2018 Assessment & Plan [...] (10/31/2018): Added automatically from request for surgery [id number] Assessment & Plan (01/09/2019 8:49 AM CDT): [...] (09/09/2018): Added automatically from request for surgery [id number] 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 Daily INR. - Manager Pharmaceutical Dr. Barnard aware of admission and following [...] medicine team will sign off. Please call [phone] if any additional question Assessment & Plan [...] medicine team will sign off. 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
--- OUTSIDE RECORDS SUMMARY | 2024-06-30 08:19 | XMS_ITS | Encounter Summary ---
Author Organization [facility] Healthcare Address [address] [place] [address] Care Team Providers Care Technical Clerk Name Role Phone Kiko Jimenez DO Primary Care Provider [phone] Fran Bray MD Unavailable [phone] [facility] Unavailable [phone] Kiko Godinez MD PhD Unavailable Oscar Barnard MD Unavailable [phone] Brayan Burrows MD Unavailable Alla Wyman MD, Todd White Unavailable Encounter Details Date Type Department Care Team (Late st Contact Info) Description 10/15/[address] [facility] [address] [place] [address] Fabiola Griffith, RT Social History Tobacco [...] Friends and Family Patient declined 02/05/2019 Attends Sikhism Services Patient declined 08/2018 Active Member of Clubs or Organizations Patient declined 02/05/2019 Attends Club or Organization Meetings Patient de clined 02/05/2019 Marital Status 02/05/2019 Overall Financial Resource Strain (CARDIA) Answe r Date Recorded Difficulty of Paying Living Expenses Not hard at all 02/05/2019 [facility] [place] of Occupat ional Health - Occupational Stress [...] on file 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 Gender Identity Not on file Sexual Orientation Not on file 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 Not on file Not on file documented as of this encounter Plan of Treatment Not on file documented as of this encounter Visit Diagnoses Not on filedocumented in this encounter Care Teams Technical Clerk Relationship Specialty Start Date End Date Kiko Jimenez DO PCP - General 04/09/17 Fran Bray MD Medical Oncologist/Crisis Worker Medical Oncology 01/10/18 Maximiliano Cerrato MD Consulting Physician Plastic Surgery 01/10/18 Kiko Godinez MD PhD Wet Machine Tender Dermatology 01/11/18 Oscar Barnard MD Welder Setter Electron Beam Machine Cardiology 01/11/18 Brayan Burrows MD Radiation Oncologist Radiation Oncology 12/09/1804/03/2 4 Todd Gold Jr., MD Referring Physician Urology 02/08/19 documented as of this encounter
--- OUTSIDE RECORDS SUMMARY | 2024-06-30 08:19 | XMS_ITS | Clinical Summary ---
Author Organization [facility] Address [address] [place] [address] Care Team Providers Care Senior Biostatistician Name Role Phone Unavailable Primary Care Provider [...]
--- OUTSIDE RECORDS SUMMARY | 2024-06-30 08:19 | XMS_ITS | Clinical Summary ---
Author Organization [facility] al Address [address] [place] [address] Care Team Providers Care Personal Coach Name Role Phone Kiko Jimenez DO Primary Care Provider Fran Bray MD [facility]available [facility] Unavailable [phone] Kiko Godinez MD PhD Unavailable Oscar Barnadr MD Unavailable [phone] Alla Wyman MD, Todd White Unavailable Allergies [...] (HCC) TAKE 2 TABLETS(250 MCG) BY MOUTH DELIVERY SPECIALIST BEFORE BREAKFAST 60 tablet 11 Active dextroamphetamine- [...] mg total) by mouth daily 2019 Discontinued Active Problems Problem Noted Date Diagnosed [...] (11/24/2019): Added automatically from request for surgery [id number] Assessment & Plan (12/21/2019 9:58 AM CDT): [...] (03/07/2019): Added automatically from request for surgery [id number] Prostate cancer 12/06/2018 Cancer Staging:Clinical stage from 09/27/2018:Stage IIB(cT1c, cN0, cM0, PSA: 5.2, Grade Group: 2) - Signed by Hector Whittington MD PhD on 02/05/2019 Overview (12/06/2018): Added automatically from request for surgery [id number] Hypoparathyroidism 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 11/30/2018 Assessment & Plan [...] (10/31/2018): Added automatically from request for surgery [id number] Assessment & Plan (01/09/2019 8:49 AM CDT): [...] (09/09/2018): Added automatically from request for surgery [id number] 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 Daily INR. - Principal Systems Architect Dr. Barnard aware of admission and following [...] on home warfarin dose at 8mg on 829pm without bridging. Discussed with Dr. Barnard who [...] medicine team will sign off. Please call [phone] if any additional question Assessment & Plan [...] on home warfarin dose at 8mg on 829pm without bridging. Discussed with Dr. Barnard who [...] medicine team will sign off. Please call [phone] if any additional question Assessment & Plan [...] Orders Only [facility] Scanning, Provider from Last 3 Months Immunizations Immunization Administration [...] History Medical History Date Comments Bleeding disorder Hypertension Anxiety Erectile dysfunction Sleep apnea Hyperlipidemia Melanoma, malignant, upper extremity, left (HCC) Stg 3 melanoma Seasonal allergies Bone fracture Depression Thyroid pain Congenital bicuspid aortic valve Aortic rupture (HCC) Aortic dissection (HCC) AAA (abdominal aortic aneurysm) Thyroid cancer (HCC) Prostate CA (HCC) Diverticulitis [...] Living Expenses Not hard at all 02/05/2019 [facility] of Occupat ional Health - Occupational Stress [...] on file 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 Gender Identity Not on file Sexual Orientation Not on file 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 Not on file Not on file Obstetrics History Last Filed Vital Signs Vital Sign Reading Time Taken Comments Blood Pressure 112/69 03/05/2024 10:33 AM ORACLE PROGRAMMER ANALYST Pulse 72 03/05/2024 10:33 AM ORACLE PROGRAMMER ANALYST Temperature 36.4 C (97.6 F) 02/20/2024 8:18 AM ORACLE PROGRAMMER ANALYST Respiratory Rate 18 02/20/2024 8:18 AM ORACLE PROGRAMMER ANALYST Oxygen Saturation 98% 03/05/2024 10:33 AM ORACLE PROGRAMMER ANALYST Inhaled Oxygen Concentration - - Weight 119 kg (262 lb 4.8 oz) 03/05/2024 10:33 A M ORACLE PROGRAMMER ANALYST Height 177.8 cm (5' 10 ) 03/05/2024 10:33 AM ORACLE PROGRAMMER ANALYST Body Mass Index 37.64 03/05/2024 10:33 AM ORACLE PROGRAMMER ANALYST Plan of Treatment Health Maintenance Due Date [...] Discontinued 04/22/2013 Medical Devices Implanted Type Area Supervisor Advice Device Identifier Shelf Expiration Date Model / Serial / Lot Vascutek Terumo [id number] Gelsoft Plus Vascutek 24/12mm 45cm Main Leg Bore Reduced - [id number] - [id number] Implanted:Qty: 1 on 12/11/2019 by Vito Madrigal MD at [facility] Graft N/A: Aorta Terumo Cardio Vascular 12/30/2021 [id number] / [id number] / [id number] Mechanical Heart Valve-02/05/1998 Implanted:02/05 (Quantity not on file) Heart [employer] [id number] / [id number] / Procedures Procedure Name Priority Date/Time Associated Diagnosis Comments CARDIOLOGY DOCUMENT SCAN 04/04/2024 PSA DIAGNOSTIC Routine 08/06/2023 8:36 AM CDT [...] MD LAB BLOOD ORDERABLES Final Res ult [facility] [place] [address] * COLONOSCOPY REPORT (04/22/2013) Anatomical Region Laterality Modality Other Narrative 04/22/2013 Ordered by an unspecified provider. Historical Provider GI PROCEDURE ORDERABLES F inal Result from Last 3 Months or Most Recently Relevant to Health Maintenance [place] emotion[place] BLUE ACCESS [facility]OS [facility] BLUE [facility] Advance Directives For more information, please contact: [phone] * Full Code (Latest Code Status on [...] 4:23 PM 12/04/2018 4:15 PM Care Teams Personal Coach Relationship Specialty Start Date End Date Kiko Jimenez DO PCP - General 04/09/17 Fran Bray MD Medical Oncologist/Insulation Board Back Tender Medical Oncology 01/10/18 Maximiliano Cerrato MD Consulting Physician Plastic Surgery 01/10/18 Kiko Godinez MD PhD Brush Painter Dermatology 01/11/18 Oscar Barnard MD Principal Systems Architect Cardiology 01/11/18 Todd Gold Jr., MD Referring Physician Urology 02/08/19
--- OUTSIDE RECORDS SUMMARY | 2024-06-30 08:19 | XMS_ITS | Encounter Summary ---
Author Organization [facility] Healthcare Address [address] [place] [address] Care Team Providers Care Still Tender Name Role Phone Kiko Jimenez DO Primary Care Provider [phone] Fran Bray MD Unavailable [phone] [facility] Unavailable Kiko Godinez MD PhD Unavailable Oscar Barnard MD Unavailable [phone] Brayan Burrows MD Unavailable [phone] Alla Wyman MD, Todd White Unavailable Encounter Details Date Type Department Care Team (Late st Contact Info) Description 04/16/2020 Telephone [facility] [address] [place] [address] Fabiola Griffith, RT Social History Tobacco [...] Friends and Family Patient declined 02/05/2019 Attends Adventist Services Patient declined 08/2018 Active Member of Clubs or Organizations Patient declined 02/05/2019 Attends Club or Organization Meetings Patient de clined 02/05/2019 Marital Status 02/05/2019 Overall Financial Resource Strain (CARDIA) Answe r Date Recorded Difficulty of Paying Living Expenses Not hard at all 02/05/2019 [facility] [place] of Occupat ional Health - Occupational Stress [...] on file 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 Gender Identity Not on file Sexual Orientation Not on file 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 Not on file Not on file documented as of this encounter Plan of Treatment Not on file documented as of this encounter Visit Diagnoses Not on filedocumented in this encounter Care Teams Still Tender Relationship Specialty Start Date End Date Kiko Jimenez DO PCP - General 04/09/17 Fran Bray MD Medical Oncologist/Training Assistant Medical Oncology 01/10/18 Maximiliano Cerrato MD Consulting Physician Plastic Surgery 01/10/18 Kiko Godinez MD PhD Forest Landscape Ecology Professor Dermatology 01/11/18 Oscar Barnard MD Bicycle Assembler Cardiology 01/11/18 Brayan Burrows MD Radiation Oncologist Radiation Oncology 12/09/1804/03/2 4 Todd Gold Jr., MD Referring Physician Urology 02/08/19 documented as of this encounter
--- OUTSIDE RECORDS SUMMARY | 2024-06-30 08:19 | XMS_ITS ---
Author Organization [facility] [employer] [facility] Address [facility] [facility] [address] [facility] [address] [place] [address] Care Team Providers Care Furniture Stainer Name Role Phone Kiko Jimenez DO Primary Care Provider Jose Guadalupe Thompson Unavailable [phone] REASON FOR VISIT RX Refill Medications Medication SIG (Take, Route, Frequency, Duration) Notes Start Date End Date Status Amphetamine-Dextroamphet ER 10 MG 1 capsule in the morning Oral Once a day for 30 days 06/09/2024 Active Social History Sex Assigned At : Social History Observation Description Sex Assigned At Male Encounters Encounter Location Date Provider Diagnosis [facility] [employer] [place] [address] [facility] [address] [facility] [address] [place] [address] 06/05/2024 Jose Guadalupe Dubon Attention-deficit hyperactivity disorder, combined type F90.2 Assessments Encounter Date Diagnosis (ICD Code) Assessment Notes Treatment Notes Treatment Clinical Notes Section Notes 06/05/2024 Attention-deficit hyperactivity disorder, combined type (ICD-10 - F90.2) Plan Of Treatment Medication Medication Name Sig Start Date Stop Date Notes Amphetamine-Dextroamphet ER 10 MG 1 capsule in the morning Oral Once a day for 30 days 06/09/2024 Next Appt Details Provider Name:Jose Guadalupe leo, 07/30/2024 08:45:00 AM, [address], [facility] [address], [place], [address], Progress Notes * PUMA MARISCALOB:1965 (58 yo M)Acc No.[id number]:06/05/2024 Patient: TISH GUERRERO :1965 A ge:58 Y S ex:Male Address:[address] [place] [address], [facility], [place], [address] * Refills Refill Amphetamine-Dextroamphet ER Capsule Extended Release 24 Hour, 10 MG, Oral, 30, 1 capsule in the morning, Once a day, 30 days, Refills=0 Subjective: * Chief Complaints: * R X Refill * Medical History: * Surgical History: * Hospitalization/Major Diagno stic Procedure: * Medications: Objective: * Vitals: * Physical Examination: Assessment: * Assessment: 1. A ttention-deficit hyperactivity disorder, combined type - F90.2 Plan: * Treatment: * Procedure Codes: E RX CONTROLLED SUBSTANCE ERX * true * Date: Generated for Aakash brown/Ritchie/eTlinn on: 0 06/30/2024 08:19 AM CDT
--- OUTSIDE RECORDS SUMMARY | 2024-06-30 08:19 | XMS_ITS ---
Author Organization [facility] [place] Address [address] [place] [address] Care Team Providers Care Hunter Guide Name Role Phone Kiko Jimenez DO Primary Care Provider Jose Guadalupe Thompson Unavailable [phone] Allergies Allergen (clinical drug ingredient) Drug/Non Drug Allergy documented on EMR Reaction Allergy Type Onset Date Status Rocephin Unknown Drug Allergy 07/11/2023 Active REASON FOR VISIT Confirmed, phq less than 5, follow-up, MIPS diagnosis of HTN Medications Medication SIG (Take, Route, Frequency, Duration) Notes Start Date End Date Status Pravastatin Sodium 40 MG Oral 07/11/2023 Active Carvedilol 25 MG Oral 07/11/2023 Ac tive Warfarin Sodium 5 MG Oral 07/11/2023 Active Eplerenone 25 mg Oral 07/11/2023 Ac tive traZODone HCl 50 MG 0.5 to 1 tablet at bedtime Orally Once a day for 90 days As needed 05/07/2024 Active amLODIPine Besylate 10 MG Oral 07/11/2023 Active Hydrocortisone 2.50% External 07/11/2023 Active hydrALAZINE HCl 25 MG Oral 07/11/2023 Active cloNIDine HCl 0.2 MG Oral 07/11/2023 Active Ketoconazole 2% External 07/11/2023 Act yuly Amphetamine-Dextroamphet ER 10 MG 1 capsule in the morning Oral Once a day for 30 days 05/07/2024 Active Viibryd 20 MG 1 tablet with food O ral Once a day for 90 days Active Tiotropium [place] Monohydrate 18 MCG Inhalation for 30 Days Active Aspirin 81 81 MG 1 tablet Orally Once a day Active Levothyroxine Sodium 125 MCG Oral 07/11/2023 Active Furosemide 40 MG TAKE 2 TABLETS BY MO UTH EVERY MORNING AND 1 TABLET EVERY AFTERNOON Oral for 30 Days Active Digoxin 125 MCG Oral for 30 Days Active diazePAM 5 MG TAKE 1 TABLET BY DOC TH EVERY DAY NEEDED FOR ANXIETY Oral for 14 Days Active Lisinopril 10 MG Oral for 30 Days Active Metoprolol Succinate ER 100 MG Oral for 30 Days Active Warfarin Sodium 1 MG Oral 07/11/2023 Active Triamcinolone Acetonide 0.10% External 07/11/2023 Active Vilazodone HCl 20 MG Oral 07/11/2023 Active Social History Tobacco Use: Social History Observation Description Date Details (start date - stop date) Former Smoker NA - NA Sex Assigned At : Social History Observation Description Sex Assigned At Male Tobacco Control (Standard) Question Answer Notes Tobacco use: Former smoker Problems Problem Type SNOMED Code ICD Code Onset Dates Problem Status W/U Status Risk Notes Problem Insomnia (160879556) Insomnia (G47.00) Active confirmed Vital Signs Blood pressure systolic 147 mm Hg 05/07/19 25 Blood pressure diastolic 79 mm Hg 025 Heart Rate 74 /min 05/07/2024 Height 70.00 in 05/07/2024 Weight 261 lbs 05/07/2024 BMI 37.45 kg/m2 05/07/2024 Height-cm 177.80 cm 05/07/2024 Weight-kg 118.39 kg 05/07/2024 Encounters Encounter Location Date Provider Diagnosis [facility] [address] [address] 05/07/2024 Jose Guadalupe Dubon Benign essential HTN I10 ; Generalized anxiety disorder F41.1 ; Post-traumatic stress disorder, chronic F43.12 ; Major depressive disorder, recurrent, mild F33.0 ; Attention-deficit hyperactivity disorder, combined type F90.2 and Insomnia G47.00 Assessments Encounter Date Diagnosis (ICD Code) Assessment Notes Treatment Notes Treatment Clinical Notes Section Notes 05/07/2024 Benign essential HTN (ICD-10 - I10) 05/07/2024 Generalized anxiety disorder (ICD-10 - F41.1) stable 05/07/2024 Post-traumatic stress disorder, chronic (ICD-10 - F43.12) stable 05/07/2024 Major depressive disorder, recurrent, mild (ICD-10 - F33.0) 05/07/2024 Attention-deficit hyperactivity disorder, combined type (ICD-10 - F90.2) 05/07/2024 Insomnia (ICD-10 - G47.00) Insomnia: Care Instructions material was published, Learning About Sleeping Well material was published 05/07/2024 Other 1. Insomnia: - Patient reports difficulty staying asleep, waking up within an hour, and struggling to fall back asleep. - Tried THC gummies, melatonin, and various creams without success. - Sleep cycle is disrupted, leading to exhaustion after 3-4 days of poor sleep. Plan: - Prescribe trazodone 50 mg tablets for sleep. - Instruct patient to start with half a tablet to avoid grogginess. - Monitor patient's response to trazodone and adjust dosage if necessary. 2. Medication refills: - Patient requires a refill of Adderall and Viibryd. Plan: - Send prescriptions for Adderall and Viibryd (20 mg) to the patient's [facility] pharmacy. 3. General health and well-being: - Patient reports overall good physical health, participating in cardiac rehab and daily stretching. - Patient is considering correction but plans to wait until age 63 for Medicare coverage. - Patient expresses a desire to stay productive and engaged in activities after correction. Plan: - Encourage patient to continue with cardiac rehab and daily stretching. - Discuss potential activities and volunteer opportunities for post-correction engagement. 4. Monitoring of trazodone: Plan: - Instruct patient to contact the clinic if any issues or concerns arise with the use of trazodone for sleep. - Adjust treatment plan as needed based on patient feedback and response to medication. Follow-up: - Schedule a follow-up appointment in 3 months. Plan Of Treatment Medication Medication Name Sig Start Date Stop Date Notes traZODone HCl 50 MG 0.5 to 1 tablet at b edtime Orally Once a day for 90 days 05/07/2024 Amphetamine-Dextroamphet ER 10 MG 1 capsule in the morning Oral Once a day for 30 days 05/07/2024 Viibryd 20 MG 1 tablet with food O ral Once a day for 90 days Treatment Notes Assessment Notes Generalized anxiety disorder stable Post-traumatic stress disorder, chronic stable Insomnia Insomnia: Care Instr uctions material was published, Learning About Sleeping Well material was published Next Appt Details Follow Up: 3 Months, Reason: f/u adhd, insomnia Provider Name:Jose Guadalupe leo, 07/30/2024 08:45:00 AM, [address], [address], [place], [address], Progress Notes * PUMA MARISCALOB:1965 (58 yo M)Acc No.[id number]:05/07/2024 Patient: TISH GUERRERO Provider: JO ANN MELVIN :1965 A ge:58 Y S ex:Male Date:05/07/2024 Address:[address] [place] [address], [id number] Pcp:Kiko Jimenez DO Subjective: * Chief Complaints: * C onfirmedPhq less than 5Follow-upMIPS diagnosis of HTN * HPI: D epression Screening: the note is transcribed using speech recognition software. It is a reflection of a visit with the patient. It might have some inaccuracy, including medication names and transcribing errors, though efforts have been made to correct them. Chief complaint- Sleep disturbances, exhaustion. Patient reports significant sleep disturbances. He experiences difficulty maintaining sleep, often waking up within an hour of falling asleep and being unable to return to sleep. This pattern persists for 3-4 days, leading to exhaustion, followed by one night of adequate sleep before the cycle repeats. He has attempted various interventions including THC gummies, melatonin, and topical creams, with limited success. The patient notes that THC gummies were effective but cost-prohibitive. He currently takes Viibryd 20 mg in the morning and requires a refill of Adderall. The patient has also tried Thorazine in the past, though the dosage is not specified. Patient expresses desire to retire but feels compelled to continue working until age 63 to maintain his current health insurance and qualify for Medicare. He acknowledges the need to remain productive post-correction, considering options such as working at a golf course or volunteering. The patient reports feeling physically great despite his sleep issues. He engages in cardiac rehab and daily stretching. He lives with his spouse and is currently employed. VINCE-7 (2018 Edition) F eeling nervous, anxious, or on edge N ot at all N ot being able to stop or control worrying?Not at all W orrying too much about different things N ot at all T rouble relaxing S everal days B eing so restless that it is hard to sit still N ot at all B ecoming easily annoyed or irritable N ot at all F eeling afraid as if something awful might happen N ot at all T otal VINCE-7 Score 1 I f you checked any problems, how difficult have they made it for you to do your work, take care of things at home, or get along with other people? N ot difficult at all I nterpretation of Total ( 0 to 4) No Anxiety [place]-Suicide Severity Rating Scale: Suicide Risk (CSRS-screener) i n the past one month Have you wished you were or wished you could go to sleep and not wake up? N o i n the past one month Have you actually had any thoughts of killing yourself? N o D epression screening: PHQ-9 L ittle interest or pleasure in doing things?Not at all F eeling down, depressed, or hopeless N ot at all T rouble falling or staying asleep, or sleeping too much M ore than half the days F eeling tired or having little energy S everal days P oor appetite or overeating N ot at all F eeling bad about yourself or that you are a failure, or have let yourself or your family down N ot at all T rouble concentrating on things, such as reading the newspaper or watching television N ot at all M oving or speaking so slowly that other people could have noticed; or the opposite, being so fidgety or restless that you have been moving around a lot more than usual N ot at all T houghts that you would be better off or of hurting yourself in some way N ot at all T otal Score 3 I nterpretation M inimal Depression Intervention D epression Screening Findings N egative S uicide Risk Assessment Performed _ H istory of Presenting Problem: Anxiety O nset: years ago, Severity: mild. Depression s table. Sleep disturbance f alls asleep ok, wakes in the night. Tried THC gummies, states they help. . Substance abuse h x alcohol abuse, attends AA meetings.? P ast Medication history: melatonin. * ROS: P atient not eligible due to active diagnosis of hypertension: G 9019. * Medical History: * Surgical History: * Hospitalization/Major Diagno stic Procedure: * Social History: T obacco Use: T obacco Control (Standard) T obacco use: F ormer smoker M igrated Social History: M igrated Social History: Alcohol Intake: None 02/18/2018,Tobacco Years: Former smoker 08/24/2022. M iscellaneous: A dvance Care Planning A re you your own decision-maker Y es D o you have Power of Certified Performance Technologist for Health or Medical? Y es * Medications: T akingAspirin 81 81 MG Tablet Chewable 1 tablet Orally Once a day Levothyroxine Sodium 125 MCG Tablet Oral amLODIPine Besylate 10 MG Tablet Oral Hydrocortisone 2.50% Cream External hydrALAZINE HCl 25 MG Tablet Oral cloNIDine HCl 0.2 MG Tablet Oral Ketoconazole 2% Shampoo External Pravastatin Sodium 40 MG Tablet Oral Carvedilol 25 MG Tablet Oral Warfarin Sodium 5 MG Tablet Oral Eplerenone 25 mg Tablet Oral Warfarin Sodium 1 MG Tablet Oral Triamcinolone Acetonide 0.10% Ointment External Vilazodone HCl 20 MG Tablet Oral Digoxin 125 MCG Tablet Oral diazePAM 5 MG Tablet TAKE 1 TABLET BY MOUTH EVERY DAY NEEDED FOR ANXIETY Oral Lisinopril 10 MG Tablet Oral Metoprolol Succinate ER 100 MG Tablet Extended Release 24 Hour Oral Furosemide 40 MG Tablet TAKE 2 TABLETS BY MOUTH EVERY MORNING AND 1 TABLET EVERY AFTERNOON Oral Tiotropium [place] Monohydrate 18 MCG Capsule Inhalation Viibryd 20 MG Tablet 1 tablet with food Oral Once a day Amphetamine-Dextroamphet ER 10 MG Capsule Extended Release 24 Hour 1 capsule in the morning Oral Once a day Medication List reviewed and reconciled with the patientTaking Aspirin 81 81 MG Tablet Chewable 1 tablet Orally Once a day Taking Levothyroxine Sodium 125 MCG Tablet Oral Taking amLODIPine Besylate 10 MG Tablet Oral Taking Hydrocortisone 2.50% Cream External Taking hydrALAZINE HCl 25 MG Tablet Oral Taking cloNIDine HCl 0.2 MG Tablet Oral Taking Ketoconazole 2% Shampoo External Taking Pravastatin Sodium 40 MG Tablet Oral Taking Carvedilol 25 MG Tablet Oral Taking Warfarin Sodium 5 MG Tablet Oral Taking Eplerenone 25 mg Tablet Oral Taking Warfarin Sodium 1 MG Tablet Oral Taking Triamcinolone Acetonide 0.10% Ointment External Taking Vilazodone HCl 20 MG Tablet Oral Taking Digoxin 125 MCG Tablet Oral Taking diazePAM 5 MG Tablet TAKE 1 TABLET BY MOUTH EVERY DAY NEEDED FOR ANXIETY Oral Taking Lisinopril 10 MG Tablet Oral Taking Metoprolol Succinate ER 100 MG Tablet Extended Release 24 Hour Oral Taking Furosemide 40 MG Tablet TAKE 2 TABLETS BY MOUTH EVERY MORNING AND 1 TABLET EVERY AFTERNOON Oral Taking Tiotropium [place] Monohydrate 18 MCG Capsule Inhalation Taking Viibryd 20 MG Tablet 1 tablet with food Oral Once a day Taking Amphetamine-Dextroamphet ER 10 MG Capsule Extended Release 24 Hour 1 capsule in the morning Oral Once a day Medication List reviewed and reconciled with the patient * Allergies: R ocephin: Allergy - Onset Date 07/11/2023no[Allergies Verified] Objective: * Vitals: B P:147/79mm Hg, HR:74/min, Wt:261lbs, Wt-k.39 kg, Ht: 70.00 in, Ht-cm: 177.80 cm, BMI:37.45Index, Body Surface Area: 2.42. * Examination: P sychiatry: Appearance: w ell-groomed, well-nourished, ..., obese. Affect / mood: a ppropriate, full range. Attention: g ood. Attitude: c ooperative. Suicidal ideation: n one. Memory status: n o impairment noted. Degree of awareness of surroundings: w ithin normal limits.? Delusions: n o. Hallucinations: n o. Insight: g ood. Intellectual functioning: n o impairment noted. Judgement: g ood. Orientation: a wake, alert and oriented x 3. Perceptual disorders: n o perceptual disorder noted. Psychomotor activity: w ithin normal range. Speech / language: a ppropriate pitch/modulation, clear and coherent, normal rate, volume, and articulation (RVR), proper grammar used. Thought content: a ppropriate. Thought process: i ntact. G eneral Examination: - Mental Status Examination: - Patient reports difficulty maintaining sleep, with frequent awakenings and prolonged periods of wakefulness during the night. Describes a cycle of poor sleep followed by one night of adequate rest before the cycle repeats. Expresses frustration related to sleep issues. Overall mood appears stable with no reported mood swings or depressive symptoms during the conversation. - Physical Examination: - Patient reports feeling physically well, attributing positive physical health to cardiac rehabilitation and daily stretching routines. No specific physical complaints were mentioned during the visit. Assessment: * Assessment: 1. G eneralized anxiety disorder - F41.1 (Primary) 2 . B enign essential HTN - I10 3 . P ost-traumatic stress disorder, chronic - F43.12 4 . M ajor depressive disorder, recurrent, mild - F33.0 5 . A ttention-deficit hyperactivity disorder, combined type - F90.2 6 . I nsomnia - G47.00 Plan: * Treatment: 2. P ost-traumatic stress disorder, chronic Notes: stable 3. M ajor depressive disorder, recurrent, mild Refill Viibryd Tablet, 20 MG, 1 tablet with food, Oral, Once a day, 90 days, 90 Tablet, Refills 1.? 4. A ttention-deficit hyperactivity disorder, combined type Refill Amphetamine-Dextroamphet ER Capsule Extended Release 24 Hour, 10 MG, 1 capsule in the morning, Oral, Once a day, 30 days, 30, Refills 0. 5. I nsomnia Start traZODone HCl Tablet, 50 MG, 0.5 to 1 tablet at bedtime, Orally, Once a day As needed, 90 days, 90, Refills 1. Notes: Insomnia: Care Instructions material was published, Learning About Sleeping Well material was published 6. O thers Clinical Notes: 1. Insomnia: - Patient reports difficulty staying asleep, waking up within an hour, and struggling to fall back asleep. - Tried THC gummies, melatonin, and various creams without success. - Sleep cycle is disrupted, leading to exhaustion after 3-4 days of poor sleep. Plan: - Prescribe trazodone 50 mg tablets for sleep. - Instruct patient to start with half a tablet to avoid grogginess. - Monitor patient's response to trazodone and adjust dosage if necessary. 2. Medication refills: - Patient requires a refill of Adderall and Viibryd. Plan: - Send prescriptions for Adderall and Viibryd (20 mg) to the patient's [facility] pharmacy. 3. General health and well-being: - Patient reports overall good physical health, participating in cardiac rehab and daily stretching. - Patient is considering correction but plans to wait until age 63 for Medicare coverage. - Patient expresses a desire to stay productive and engaged in activities after correction. Plan: - Encourage patient to continue with cardiac rehab and daily stretching. - Discuss potential activities and volunteer opportunities for post-correction engagement. 4. Monitoring of trazodone: Plan: - Instruct patient to contact the clinic if any issues or concerns arise with the use of trazodone for sleep. - Adjust treatment plan as needed based on patient feedback and response to medication. Follow-up: - Schedule a follow-up appointment in 3 months. * Procedure Codes: 9 6127 BEHAV ASSMT W/SCORE & DOCD/STAND [id number] Pt not carlos d/t act dig htn * Follow Up: 3 Months (Reason: f/u adhd, insomnia) * Billing Information: * Visit Code: 94876 OFFICE OUTPATIENT VISIT 25 MINUTES DETAILED HISTORY AND EXAM/MODERATE MEDICAL DECISION MAKING. * Procedure Codes: 42057 BEHAV ASSMT W/SCORE & DOCD/STAND INSTRUMENT. G9744 Pt not carlos d/t act dig htn. * Sign off status: Completed true * Provider: JO ANN MELVIN Date: 0 05/07/2024 Generated for Aakash Srinivasan/Jeri on: 0 06/30/2024 08:18 AM CDT History and Physical Notes * HPI (History of Present Illness) Category Sub-Category Detail Notes Category Not es History of Presenting Problem Anxiety Onset: years ago, Severity: mild Depression stable Substance abuse hx alcohol abuse, at [facility] meetings Sleep disturbance falls asleep ok, wak es in the night. Tried THC gummies, states they help. Depression screening PHQ-9 Little inte rest or pleasure in doing things: Not at all Feeling down, depressed, or hopeless: No t at all Trouble falling or staying a sleep, or sleeping too much: More than half the days Feeling tired or having little energy: S everal days Poor appetite or overeating: Not at all Feeling bad about yourself o r that you are a failure, or have let yourself or your family down: Not at all Trouble concentrating on thi ngs, such as reading the newspaper or watching television: Not at all Moving or speaking so slowly that other people could have noticed; or the opposite, being so fidgety or restless that you have been moving around a lot more than usual: Not at all Thoughts that you would be b nila off or of hurting yourself in some way: Not at all Total Score: 3 Interpretation: Minimal Depression Intervention Depression Screening Findings: N egative Suicide Risk Assessment Performed: ____ Depression Screening VINCE-7 (2018 Edition) Feelin g nervous, anxious, or on edge: Not at all Not being able to stop or control worryi ng: Not at all Worrying too much about different things : Not at all Trouble relaxing: Several days Being so restless that it is hard to sit still: Not at all Becoming easily annoyed or irritable: No t at all Feeling afraid as if something awful katie ht happen: Not at all Total VINCE-7 Score: 1 If you checked any problems, how difficult have they made it for you to do your work, take care of things at home, or get along with other people?: Not difficult at all Interpretation of Total: (0 to 4) No Anx iety [place]-Suicide Severity Rating Scale Suicide Risk (CSRS-screener) in the past one month Have you wished you were or wished you could go to sleep and not wake up?: No in the past one month Have y ou actually had any thoughts of killing yourself?: No Examination Category Sub-Category Detail Notes Category Not es Psychiatry Appearance: well-groomed, well-nourished , ..., obese Attitude: cooperative Psychomotor activity: within normal rang e Attention: good Degree of awareness of surroundings: wit hin normal limits Orientation: awake, alert and siria ented x 3 Affect / mood: appropriate, full ra nge Speech / language: appropriate pitch/mo dulation, clear and coherent, normal rate, volume, and articulation (RVR), proper grammar used Insight: good Judgement: good Thought process: intact Thought content: appropriate Perceptual disorders: no perceptual diso rder noted Suicidal ideation: none Intellectual functioning: no impairment noted Memory status: no impairment noted Delusions: no Hallucinations: no General Examination - Mental Status Examination: - Patient reports difficulty maintaining sleep, with frequent awakenings and prolonged periods of wakefulness during the night. Describes a cycle of poor sleep followed by one night of adequate rest before the cycle repeats. Expresses frustration related to sleep issues. Overall mood appears stable with no reported mood swings or depressive symptoms during the conversation. - Physical Examination: - Patient reports feeling physically well, attributing positive physical health to cardiac rehabilitation and daily stretching routines. No specific physical complaints were mentioned during the visit.
--- OUTSIDE RECORDS SUMMARY | 2024-06-30 08:19 | XMS_ITS | Referral Summary ---
Author Organization [facility] al Address [address] [place] [address] Care Team Providers Care Chemical Technician Name Role Phone Kiko Jimenez DO Primary Care Provider Fran Bray MD [facility]available [facility] Un[facility] Kiko Godinez MD PhD Unavailable [phone] Oscar Barnard MD Unavailable Alla Wyman MD, Todd White Unavailable Encounters Date Type Department Care Team Description 04/04/2024 Orders Only [facility] Scanning, Provider from Last 3 Months Allergies Active Allergy [...] (HCC) TAKE 2 TABLETS(250 MCG) BY MOUTH BLACK ASH WORKER BEFORE BREAKFAST 60 tablet 11 Active dextroamphetamine- [...] (11/24/2019): Added automatically from request for surgery [id number] Assessment & Plan (12/21/2019 9:58 AM CDT): [...] (03/07/2019): Added automatically from request for surgery [id number] Prostate cancer 12/06/2018 Cancer Staging:Clinical stage from 09/27/2018:Stage IIB(cT1c, cN0, cM0, PSA: 5.2, Grade Group: 2) - Signed by Hector Whittington MD PhD on 02/05/2019 Overview (12/06/2018): Added automatically from request for surgery [id number] Hypoparathyroidism 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 11/30/2018 Assessment & Plan [...] (10/31/2018): Added automatically from request for surgery [id number] Assessment & Plan (01/09/2019 8:49 AM CDT): [...] (09/09/2018): Added automatically from request for surgery [id number] 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 Daily INR. - Entry Level Web Developer Dr. Barnard aware of admission and following [...] medicine team will sign off. Please call [phone] if any additional question Assessment & Plan [...] medicine team will sign off. 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 Not on file Not on file Last Filed Vital Signs Vital Sign Reading Time Taken Comments Blood Pressure 112/69 03/05/2024 10:33 AM TUB ATTENDANT Pulse 72 03/05/2024 10:33 AM TUB ATTENDANT Temperature 36.4 C (97.6 F) 02/20/2024 8:18 AM TUB ATTENDANT Respiratory Rate 18 02/20/2024 8:18 AM TUB ATTENDANT Oxygen Saturation 98% 03/05/2024 10:33 AM TUB ATTENDANT Inhaled Oxygen Concentration - - Weight 119 kg (262 lb 4.8 oz) 03/05/2024 10:33 A M TUB ATTENDANT Height 177.8 cm (5' 10 ) 03/05/2024 10:33 AM TUB ATTENDANT Body Mass Index 37.64 03/05/2024 10:33 AM TUB ATTENDANT Plan of Treatment Not on file Medical Devices Implanted Type Area Grooming Salon Manager Device Identifier Shelf Expiration Date Model / Serial / Lot Vascutek Terumo [id number] Gelsoft Plus Vascutek 24/12mm 45cm Main Leg Bore Reduced - [id number] - [id number] Implanted:Qty: 1 on 12/11/2019 by Vito Madrigal MD at [facility] Graft N/A: Aorta Terumo Cardio Vascular 12/30/2021 [id number] / [id number] / [id number] Mechanical Heart Valve-02/05/1998 Implanted:02/05 (Quantity not on file) Heart [address] [employer] [id number]- [id number] / [id number] / Procedures Procedure Name Priority Date/Time Associated Diagnosis Comments CARDIOLOGY DOCUMENT SCAN 04/04/2024 PSA DIAGNOSTIC Routine 08/06/2023 8:36 AM CDT 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 (HCC) COLONOSCOPY REPORT 04/22/2013 from Last 3 Months or Most Recently Relevant to Health Maintenance Results * Cardiology Document Scan (04/04/2024) Anatomical Region Laterality Modality Other Provider Scanning [...] 8:36 AM CDT 08/06/2023 9:07 AM CDT us Waqar Valdez MD LAB BLOOD ORDERABLES Final Res ult [facility] [place] [address] * COLONOSCOPY REPORT (04/22/2013) Anatomical Region Laterality Modality Other Narrative 04/22/2013 Ordered by an unspecified provider. Historical Provider GI PROCEDURE ORDERABLES F inal Result from Last 3 Months or Most Recently Relevant to Health Maintenance Insurance [employer] [place] [employer] [place] [facility] Advance Directives For more information, please contact: [phone] * Full Code (Latest Code Status on [...] 4:23 PM 12/04/2018 4:15 PM Care Teams Chemical Technician Relationship Specialty Start Date End Date Kiko Jimenez DO PCP - General 04/09/17 Fran Bray MD Medical Oncologist/Warehouse Shipping Associate Medical Oncology 01/10/18 Maximiliano Cerrato MD Consulting Physician Plastic Surgery 01/10/18 Kiko Godinez MD PhD Cash Sales Audit Clerk Dermatology 01/11/18 Oscar Barnard MD Entry Level Web Developer Cardiology 01/11/18 Todd Gold Jr., MD Referring Physician Urology 02/08/19
--- OUTSIDE RECORDS SUMMARY | 2024-06-30 08:19 | XMS_ITS | Encounter Summary ---
Author Organization [facility] Healthcare Address [address] [place] [address] Care Team Providers Care Weld Inspector Name Role Phone Kiko Jimenez DO Primary Care Provider [phone] Fran Bray MD Unavailable [facility] Unavailable [phone] Kiko Godinez MD PhD Unavailable [phone] Oscar Barnard MD Unavailable [phone] Brayan Burrows MD Unavailable [phone] Alla Wyman MD, Todd White Unavailable Encounter Details Date Type Department Care Team (Late st Contact Info) Description 10/17/2019 Telephone [facility] [address] [place] [address] Fabiola Griffith, RT Social History Tobacco [...] Friends and Family Patient declined 02/05/2019 Attends Confucianist Services Patient declined 08/2018 Active Member of Clubs or Organizations Patient declined 02/05/2019 Attends Club or Organization Meetings Patient de clined 02/05/2019 Marital Status 02/05/2019 Overall Financial Resource Strain (CARDIA) Answe r Date Recorded Difficulty of Paying Living Expenses Not hard at all 02/05/2019 [facility] [place] of Occupat ional Health - Occupational Stress [...] on file Legal Sex Male 8:20 AM C.O.D. 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 Not on file Not on file documented as of this encounter Plan of Treatment Not on file documented as of this encounter Visit Diagnoses Not on filedocumented in this encounter Care Teams Weld Inspector Relationship Specialty Start Date End Date Kiok Jimenez DO PCP - General 04/09/17 Fran Bray MD Medical Oncologist/Pumping Plant Operator Medical Oncology 01/10/18 Maximiliano Cerrato MD Consulting Physician Plastic Surgery 01/10/18 Kiko Godinez MD PhD Shank Boner Dermatology 01/11/18 Oscar Barnard MD Under Ground Miner Cardiology 01/11/18 Brayan Burrows MD Radiation Oncologist Radiation Oncology 12/09/1804/03/2 4 Todd Gold Jr., MD Referring Physician Urology 02/08/19 documented as of this encounter
== END 2024-06-30 08:10 | disposition home or self-care (01) ==
LOC: ANHAUDASC 08:10
PROVIDERS: PCP Internal Medicine; Visit Provider Otolaryngology
DX: H90.3 Sensorineural hearing loss, bilateral (principal); H69.90 Unspecified Eustachian tube disorder, unspecified ear; J31.0 Chronic rhinitis
CPT/HCPCS: 92557; 92567

== ENCOUNTER 2024-07-08 14:00 | Outpatient (RCR) | payer BC, SELFPAY ==
--- OUTSIDE RECORDS SUMMARY | 2024-05-08 10:42 | XMS_ITS | Clinical Summary ---
Author Organization [facility] Address [address] [place] [id number] Care Team Providers Care Community Engagement Manager Name Role Phone Unavailable Primary Care Provider Unavailabl e Social History Tobacco Use Types Packs/Day Years Used Date Smoking Tobacco: Never Assessed Sex and Gender Information Value Date Recorded Sex Assigned at Not on file Legal Sex Male 6:51 PM CDT Gender Identity Not on file Sexual Orientation Not on file Plan of Treatment Health Maintenance Due Date Last Done Comments Colorectal Cancer Screening Colonoscopy (10 Years) 1963 Annual Physical 09/19/1966 Hepatitis C 09/19/1981 DTaP, Tdap and Td Vaccines ( 1 - Tdap) 09/19/1982 Zoster Vaccines (1 of 2) 09/19/2013 COVID-19 Vaccine (2023-2 5 season) 2023 Influenza Adult (#1) 2024 RSV Immunization or 60+ Years (1 - 1-dose 75+ series) 09/19/2038 Meningococcal B Vaccine Aged Out No l onger eligible based on patient's age to complete this topic Meningococcal Vaccine Aged Out No irene georgi eligible based on patient's age to complete this topic Pneumococcal Vaccine: Pediat rics (0 to 5 Years) and At-Risk Patients (6 to 64 Years) Aged Out No longer eligible b ased on patient's age to complete this topic RSV Immunizations Under 20 Months Aged Out No longer eligible based on patient's age to complete this topic
--- OUTSIDE RECORDS SUMMARY | 2024-05-08 10:42 | XMS_ITS | Clinical Summary ---
Author Organization [facility] al Address [address] [place] [address] Care Team Providers Care Claims Service Representative Name Role Phone Kiko Jimenez DO Primary Care Provider + [phone] Fran Bray MD [facility]available [facility] Unavailable [phone] Kiko Godinez MD PhD Unavailable Oscar Barnard MD Unavailable [phone] Alla Wyman MD, Todd White Unavailable [phone] Allergies Active Allergy Reactions Criticality Noted Date Comments Ceftriaxone Hives,Rash Medium 12/11/19 - Approved to give cefazolin with ceftriaxone allergy per Alanis Rivero MD/Pat Simeon, PharmD Spironolactone Other (See comments) Low 05/19/2020 gynecomastia Medications aspirin 81 mg tabletIndications: Myocardial Reinfarction Prevention Take 1 tablet (81 mg total) by mouth nightly Active pravastatin (PRAVACHOL) 40 mg tabletIndications: hyperlipidemia Take 1 tablet (40 mg total) by mouth every morning 3 09/04/ 018 Active loratadine (CLARITIN) 10 mg tabletIndications: Allergic Conjunctivitis,All ergic Rhinitis Take 1 tablet (10 mg total) by mouth every morning Active vilazodone (VIIBRYD) 20 mg tabletIndications: major depressive disorder Take 1 tablet (20 mg total) by mouth every morning Active warfarin (COUMADIN) 1 mg tabletIndications: Mechanical Valve Thromboembolism Prophylaxis Take 7 tablets (7 mg total) by mouth daily 30 tablet 3 Active Additional Information Patient not taking.Reported on 02/20/2024 warfarin (COUMADIN) 5 mg tablet TAKE 1 TABLET BY MOUTH DAILY DIRECTED IN COORIDNACE WITH DOCTOR INSTRUCTION Active diazePAM (VALIUM) 5 mg tablet Take 1 tablet (5 mg total) by mouth as needed Active acetaminophen (TYLENOL ORAL) Take 500 mg by mouth 3 (three) times a day Active hydrocortisone 2.5 % cream Apply topically 2 (two) times a day as needed for rash (on rash) 30 g 3 Active Additional Information Patient not taking.Reported on 02/20/2024 triamcinolone (KENALOG) 0.1 % ointment Apply twice daily to rash on the LOWER LEGS as needed. Avoid face and groin. 454 g 2 Active Additional Information Patient not taking.Reported on 02/20/2024 cloNIDine (CATAPRES) 0.2 mg tablet TAKE 1 TABLET(0.2 MG) BY MOUTH TWICE DAILY 180 tablet 3 Active Additional Information Patient not taking.Reported on 02/20/2024 levothyroxine (SYNTHROID) 125 mcg tabletIndications: Thyroid cancer (HCC) TAKE 2 TABLETS(250 MCG) BY MOUTH RFID MANAGER BEFORE BREAKFAST 60 tablet 11 Active dextroamphetamine- amphetamine XR (ADDERALL XR) 10 mg 24 hr capsule Take 1 capsule (10 mg total) by mouth every morning Active clindamycin (CLEOCIN) 300 mg capsule Take 1 capsule (300 mg total) by mouth 2 (two) times a day Active dexAMETHasone (DECADRON) 4 mg tablet TAKE 2 TABLETS BY MOUTH ONCE Active ofloxacin (FLOXIN) 0.3 % otic solution INSTILL 5 DROPPERFUL TO LEFT EAR TWICE DAILY Active predniSONE (DELTASONE) 20 mg tablet Take 1 tablet (20 mg) by mouth daily 024 Active lidocaine (LIDODERM) 5 % Place 1 patch on the skin as needed for pain Remove & discard patch within 12 hours or as directed by MD. Active tiotropium (SPIRIVA) 18 mcg per inhalation capsule Place 1 puff (1 capsule total) into inhaler and inhale daily Active diclofenac sodium (VOLTAREN) 1 % gel Apply 2 g topically 2 (two) times a day as needed Active eplerenone (INSPRA) 25 mg tablet Take 1 tablet (25 mg total) by mouth daily 90 tablet 3 024 Active potassium chloride ER 10 mEq CR capsule 2 capsules once daily dose decrease 11/07/2023 60 tablet/caps ule 11 Active Additional Information Patient not taking.Reported on 02/20/2024 amLODIPine (NORVASC) 10 mg tablet 1/2 tablet QD resumed on 11/12/2023 Active lisinopriL (PRINIVIL,ZESTRIL) 10 mg tabletIndications: Dissection of thoracic aorta (HCC),Benign essential HTN Take 1 tablet (10 mg total) by mouth 2 (two) times a day 90 tablet 3 024 Active digoxin (LANOXIN) 125 mcg (0.125 mg) tablet Take 2 tablets (0.25 mg total) by mouth daily 180 tablet 3 024 Active furosemide (LASIX) 40 mg tablet 1 tab po BID 180 tablet 3 024 Active metoprolol XL (TOPROL-XL) 100 mg 24 hr tablet TAKE 1 AND 1/2 TABLETS(150 MG) BY MOUTH DAILY 135 tablet 3 024 Active fexofenadine (AMY) 60 mg tablet Take 1 tablet (60 mg total) by mouth daily Active hydrALAZINE (APRESOLINE) 25 mg tablet TAKE 3 TABLETS BY MOUTH THREE TIMES DAILY 270 tablet 3 025 Active ketoconazole (NIZORAL) 2 % shampooIndications :Seborrheic dermatitis, unspecified APPLY TOPICALLY TO DAMP SKIN, LATHER AND LEAVE ON FOR 5 MINUTES THEN RINSE. USE DIRECTED 120 mL 1 025 Active gabapentin (NEURONTIN) 300 mg capsuleIndications :Neuropathic Pain,Postoperative Acute Pain Take 1 capsule (300 mg total) by mouth 3 (three) times a day 90 capsule 11 019 2019 Discontinued calcitRIOL (ROCALTROL) 0.5 mcg capsuleIndications :hypocalcemia Take 1 capsule (0.5 mcg total) by mouth daily 30 capsule 3 019 2019 Discontinued oxybutynin (DITROPAN) 5 mg tablet Take 1 tablet (5 mg total) by mouth 3 (three) times a day as needed (bladder spasms) for up to 20 doses 20 tablet 020 2019 Discontinued amiodarone (PACERONE) 400 mg tablet Take 1 tablet (400 mg total) by mouth daily 2019 Discontinued ketoconazole (NIZORAL) 2 % shampooIndications :Seborrheic dermatitis, unspecified APPLY TOPICALLY TO DAMP SKIN, LATHER AND LEAVE ON FOR 5 MINUTES THEN RINSE. USE DIRECTED 120 mL 1 024 2024 Discontinued hydrALAZINE (APRESOLINE) 25 mg tablet TAKE 3 TABLETS BY MOUTH THREE TIMES DAILY 270 tablet 3 024 2024 Discontinued Active Problems Problem Noted Date Diagnosed Date Chronic obstructive pulmonary disease 02/20/2024 Atrial flutter (CMS/HCC) 01/17/2024 Atrial fibrillation (CMS/HCC) 12/04/2023 Aortic root aneurysm 02/11/2023 Hypokalemia 12/19/2019 Assessment & Plan (12/21/2019 9:56 AM CDT): - Likely 2/2 dietary loss and furosemide 12/18 - Now resolved. Edema 12/18/2019 Assessment & Plan (12/19/2019 8:26 AM CDT): - LE edema present 12/17, 40mg po lasix given with improvement. Abdominal aortic aneurysm dissection 11/24/2019 Overview (11/24/2019): Added automatically from request for surgery [id number] Assessment & Plan (12/21/2019 9:58 AM CDT): > now s/p open transperitoneal AAA and R iliac artery aneurysm repair with Madrigal 12/11 - BP goals normotensive - Daily ASA, home pravastatin - Tolerating low fat/low chol diet - Pain control: Continue sched lidocaine patches/gabapentin/tylenol. oxycodone 5-10mg. . - PT/OT - OOB TID minimum - D/c IVF S/P AVR (aortic valve replacement) 11/03/2019 Malignant neoplasm of prostate 03/07/2019 Overview (03/07/2019): Added automatically from request for surgery [id number] Prostate cancer 12/06/2018 Cancer Staging:Clinical stage from 09/27/2018:Stage IIB(cT1c, cN0, cM0, PSA: 5.2, Grade Group: 2) - Signed by Hector Whittington MD PhD on 02/05/2019 Overview (12/06/2018): Added automatically from request for surgery [id number] Hypoparathyroidism 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 11/30/2018 Assessment & Plan (01/09/2019 8:45 AM CDT): -Status-post parathyroidectomy with total thyroidectomy for thyroid cancer (papillary thyroid carcinoma, PTC) -1 parathyroid gland in right SCM -No parasthesias -Recommendations: -Continue 600 mg elemental calcium and calcitriol 0.25 mcg BID. -Calcium levels at goal low-normal (8.0 to 8.5) Assessment & Plan (11/30/2018 8:19 PM CDT): Parathyroid reimplanted into right SCM. Pod1 PTH 7. Will need to monitor for recovery. If he undergoes neck radiation, he may become permanently hypoparathyroid. Management of hypocalcemia as detailed elsewhere Hypocalcemia 11/30/2018 Assessment & Plan (12/03/2018 6:42 PM CDT): -Target calcium level 8.0 to 8.5 mg/dl (low normal) -Continue current regimen: calcium carbonate 600 mg elemental calcium TID calcitriol 0.25 mcg BID to once daily (consolidate to 0.5 mcg daily on discharge) cholecalciferol 5000 IU daily Assessment & Plan (11/30/2018 8:21 PM CDT): Due to hypoparathyroidism. Ca today 8.4. Goal calcium 8-8.5. Would continue current regimen. - calcium carbonate 600 mg elemental calcium TID - calcitriol 0.25 mg BID - at discharge this can be consolidated to 0.5 mg daily - cholecalciferol 5000 IU daily - can decrease frequency of BMP to daily Vitamin D deficiency 11/30/2018 Assessment & Plan (11/30/2018 8:21 PM CDT): Vitamin D 22 Cholecalciferol 5000 IU daily Hypomagnesemia 11/27/2018 Papillary thyroid carcinoma 10/31/2018 Cancer Staging:Pathologic: pT2, pN1b, Age at diagnosis: >= 55 years - Unsigned Overview (10/31/2018): Added automatically from request for surgery [id number] Assessment & Plan (01/09/2019 8:49 AM CDT): -Status-post total thyroidectomy for thyroid cancer (papillary thyroid carcinoma, PTC) -Multiple lakshmi involvement -Status-post LIMON whole body scan Recommendations: -Levothyroxine 200 mcg; goal TSH (0.1 to 0.5) -Monitor Tg and anti-Tg Abs Assessment & Plan (12/03/2018 6:45 PM CDT): Status-post total thyroidectomy Awaiting surgical pathology results - concern for aggressive pathology and lakshmi involvement Defer starting Levothyroxine therapy pending surgical pathology results and likely need for LIMON Assessment & Plan (11/30/2018 8:17 PM CDT): FNA of nodules with PTC. S/p total thyroidectomy with bilateral central and lateral neck dissection. Pending pathology report, will determine if radiation vs LIMON is next course of treatment. Depending on if he needs LIMON and time course for this will determine if he should be started on thyroid replacement therapy. Pathology will also determine goals for suppression. 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 Daily INR. - Retail Customer Service Specialist Dr. Barnard aware of admission and following - Has standing order at local hospital for INR checks Assessment & Plan (11/29/2018 11:15 AM CDT): - history of mechanical valve replacement in 1997. Follows with Dr. Barnard in cardiology clinic. Currently on warfarin 8mg daily - recently underwent total thyroidectomy and neck dissection. Restarted on home warfarin with lovenox bridging post-operative day 1. However, patient developed signs for neck hematoma. Currently hematoma stable and no sign of comprised airway. Head CT were negative for intracranial bleeding. given AHA guideline, patient is at low risk for thrombosis given comorbidities and age and would not need bridging therapy. He was restarted on home warfarin dose at 8mg on 8/29pm without bridging. Discussed with Dr. Barnard who agreed with the plan - recommend continue warfarin at current dose and monitor INR with goal INR 2-3. From medicine perspective, no need for bridging therapy with INR expecting to become therapeutic in 48 hours. If ENT has needs to bridge patient or wants to expedite discharge, medicine is okay for bridging if no bleeding in 48 hours but will defer to ENT for the decision - medicine team will sign off. Please call [phone] if any additional question Assessment & Plan (11/29/2018 11:03 AM CDT): - history of mechanical valve replacement in 1997. Follow[address] Barnard in cardiology clinic. Currently on warfarin 8mg daily - recently underwent total thyroidectomy and neck dissection. Restarted on home warfarin with lovenox bridging post-operative day 1. However, patient developed signs for neck hematoma. Currently hematoma stable and no sign of comprised airway. Head CT were negative for intracranial bleeding. given AHA guideline, patient is at low risk for thrombosis given comorbidities and age and would not need bridging therapy. He was restarted on home warfarin dose at 8mg on 8pm without bridging. Discussed with Dr. Barnard who agreed with the plan - recommend continue warfarin at current dose and monitor INR with goal INR 2-3. From medicine perspective, no need for bridging therapy with INR expecting to become therapeutic in 48 hours. If ENT has needs to bridge patient or wants to expedite discharge, medicine is okay for bridging but will defer to ENT for the decision - medicine team will sign off. Please call [phone] if any additional question Assessment & Plan (11/28/2018 5:56 PM CDT): - history of mechanical valve replacement in 1997. Follow[address] Dr[address] Barnard in cardiology clinic. Currently on warfarin 8mg daily - recently underwent total thyroidectomy and neck dissection. Restarted on home warfarin with lovenox bridging post-operative day 1. However, patient developed signs for neck hematoma. Currently hematoma stable and no sign of comprised airway. Anticoagulations were on hold today - given hematoma and new onset headache, would recommend to obtain stat head CT without contrast to rule out intracranial bleeding and get baseline size of hematoma. - given AHA guideline, patient is at low risk for thrombosis given comorbidities and age and would not need bridging therapy. If head CT is negative for intracranial bleeding, would recommend restart warfarin at home dose tonight without bridging therapy - if intracranial bleeding, would administer protamine and consult neurosurgery - medicine team will continue to follow AAA (abdominal aortic aneurysm) without rupture 10/01/2017 Benign essential HTN 10/01/2017 Assessment & Plan (12/18/2019 8:14 AM CDT): - Home coreg - Holding home lisinopril, spironolactone, amlodipine, clonidine as remains normotensive. 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 WBC 14 -> 20 on 12/11 late-pm labs, improving. Now 9.2 - Urine culture, no growth - CXR unremarkable Encounters Date Type Department Care Team Description 04/04/2024 Orders Only [facility] Scanning, Provider 03/05/2024 11:45 AM FRINGING MACHINE OPERATOR Lab [facility] [address] [place] [phone] Paroxysmal atrial fibrillation (CMS/HCC) ([facility]) 03/05/2024 11:15 AM FRINGING MACHINE OPERATOR Office Visit [facility] Cardiology [address] [place] [address] Advanced Medicine 8th [place] [address] [place] [address] Oscar Barnard MD Dissection of thoracic aorta, unspecified part (HCC) (Primary Dx); S/P AVR (aortic valve replacement); History of heart valve replacement with mechanical valve; Paroxysmal atrial fibrillation (CMS/HCC) ([facility]) 03/05/2024 9:06 AM FRINGING MACHINE OPERATOR - 03/05/2024 11:59 PM FRINGING MACHINE OPERATOR Hospital Encounter [facility]) [address] [place] [id number] Aneurysm of the ascending aorta, without rupture ([facility]) Discharge Disposition: Discharge to home or self care 02/27/2024 Orders Only [facility] Scanning, Provider 02/27/2024 Telephone [facility] Cardiology [address] [place] [address] Advanced Medicine 8th [place] [address] [place] [address] Oscar Barnard MD Cardioversion 02/20/2024 8:30 AM FRINGING MACHINE OPERATOR Office Visit [facility] Pulmonary [address] [facility] Medicine 8th [place] [address] [place] [address] Yonatan Mohamud MD Chronic obstructive pulmonary disease, unspecified COPD type (HCC) (Primary Dx); Obstructive sleep apnea syndrome 02/20/2024 8:04 AM FRINGING MACHINE OPERATOR - 02/20/2024 11:59 PM FRINGING MACHINE OPERATOR Hospital Encounter [facility]) [address] [place] [id number] Chronic obstructive pulmonary disease, unspecified COPD type (HCC) Discharge Disposition: Discharge to home or self care 02/20/2024 7:14 AM FRINGING MACHINE OPERATOR - 02/20/2024 11:59 PM FRINGING MACHINE OPERATOR Hospital Encounter [facility] Pulmonary [facility] [address] [place] [address] Chronic obstructive pulmonary disease, unspecified COPD type (HCC) Discharge Disposition: Discharge to home or self care 02/07/2024 Orders Only [facility] Scanning, Provider 02/07/2024 Telephone [facility] Cardiology [address] [place] [address] 8th [place] [address] [place] [address] Oscar Barnard MD 02/07/2024 Orders Only [facility] Cardiology [address] [place] [address] 8th [place] [address] [place] [address] Oscar Barnard MD Persistent atrial fibrillation (HCC) (Primary Dx) from Last 3 Months Immunizations Name Administration Dates Next Due Influenza, Quadrivalent, Shelby l Culture-based MDCK, Preservative Free, Antibiotic Free, Intramuscular 01/01/2020 Influenza, Quadrivalent, Spl it, Intramuscular 01/16/2019,12/30/2017,12/23/2016 Influenza, Quadrivalent, Spl it, Preservative Free, Intramuscular 01/16/2019,01/11/2018 Influenza, Trivalent, IM (MDV) 01/12/2021,2013,04/09/2012 Influenza, Trivalent, Preser vative Free, Intramuscular 01/10/2016,01/27/2015,01/06/2013 Moderna SARS-CoV-2 Monovalen t Vaccination (12+ YRS) 02/12/2021 ZOSTER Recombinant 01/12/2021 Surgical History Surgery Date Site/Laterality Comments AORTIC ANEURYSM REPAIR 04/02/2012 - 04/01/2013 LAPAROSCOPIC GASTRIC BANDING 04/02/2009 - 04/01/2010 KNEE ARTHROSCOPY W/ MENISCAL REPAIR 04/02/2006 - 04/01/2007 Right CARDIAC VALVE REPLACEMENT 04/02/1997 - 04/01/1998 Mechanical Aortic heart valve SKIN CANCER EXCISION 04/02/2017 - 04/01/2018 Melanoma UMBILICAL HERNIA REPAIR 04/02/2007 - 04/01/2008 COLONOSCOPY 04/02/2013 - 04/01/2014 TOTAL THYROIDECTOMY 11/26/2018 Medical History Medical History Date Comments Bleeding disorder (CMS/HCC) (HCC) Hypertension Anxiety Erectile dysfunction Sleep apnea Hyperlipidemia Melanoma, malignant, upper extremity, left (HCC) Stg 3 melanoma Seasonal allergies Bone fracture Depression Thyroid pain Congenital bicuspid aortic valve Aortic rupture (CMS/HCC) (HCC) Aortic dissection (HCC) AAA (abdominal aortic aneurysm) (HCC) Thyroid cancer (HCC) Prostate CA (HCC) Diverticulitis Family History Medical History Relation Name Comments Cervical cancer Maternal Grandmother Hyperlipidemia Mother Family histor y of hyperlipidemia - (Added by TW Conv) Hypertension Mother Family history of hypertension - (Added by TW Conv) Colon cancer Paternal Grandmother Anesthesia problems Neg Hx Heart disease Neg Hx Stroke Neg Hx Relation Name Status Comments Maternal Grandmother Mother Paternal Grandmother Social History Tobacco Use Types Packs/Day Years Used Date Smoking Tobacco: Former Cigarettes 1 37.8 1 984 - 01/20/2021 Smokeless Tobacco: Never Comments:vaping- off and on this year. Alcohol Use Standard Drinks/Week Comments No 0 (1 standard drink = 0.6 oz pur e alcohol) sober for 4 years. Humiliation, Afraid, Rape, and Kick questionnair e Answer Date Recorded Fear of Current or Ex-Partner No Emotionally Abused No 02/05/2019 Physically Abused No 02/05/2019 Sexually Abused No 02/05/2019 Social Connection and Isolation Panel [NHANES] A nswer Date Recorded Frequency of Communication with Friends and Fami ly Once a week 02/05/2019 Frequency of Social Gatherings with Friends and Family Patient declined 02/05/2019 Attends Mandaen Services Patient declined 08/2018 Active Member of Clubs or Organizations Patient declined 02/05/2019 Attends Club or Organization Meetings Patient de clined 02/05/2019 Marital Status 02/05/2019 AUDIT-C Answer Date Recorded Q1: How often do you have a drink containing alcohol? Never 12/18/2023 Q2: How many drinks containi ng alcohol do you have on a typical day when you are drinking? Patient does not drink Q3: How often do you have si x or more drinks on one occasion? Never 12/18/2023 Overall Financial Resource Strain (CARDIA) Answe r Date Recorded Difficulty of Paying Living Expenses Not hard at all 02/05/2019 [facility] Occup[facility] ional [facility] - Occupational Stress Questionnaire Answer Date Recorded Feeling of Stress To some extent 02/05/2019 Exercise Vital Sign Answer Date Recorde d Days of Exercise per Week 5 days 2018 Minutes of Exercise per Session 30 min 02/05/2019 Hunger Vital Sign Answer Date Recorded Worried About Running Out of Food in the Last Ye ar Never true 02/05/2019 Ran Out of Food in the Last Year Never true 02/05/2019 PRAPARE - Transportation Answer Date Re corded Lack of Transportation (Medical) No 02/05/2019 Lack of Transportation (Non-Medical) No 02/05/2019 Personal Safety Answer Date Recorded Have you ever been in or are you currently in a harmful physical or emotional relationship or is someone making you feel afraid or unsafe? Denies 12/18/2023 Education Answer Date Recorded What is the highest level of school you have completed or the highest degree you have received? 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 Not on file Not on file Obstetrics History Last Filed Vital Signs Vital Sign Reading Time Taken Comments Blood Pressure 112/69 03/05/2024 10:33 AM FRINGING MACHINE OPERATOR Pulse 72 03/05/2024 10:33 AM FRINGING MACHINE OPERATOR Temperature 36.4 C (97.6 F) 02/20/2024 8:18 AM FRINGING MACHINE OPERATOR Respiratory Rate 18 02/20/2024 8:18 AM FRINGING MACHINE OPERATOR Oxygen Saturation 98% 03/05/2024 10:33 AM FRINGING MACHINE OPERATOR Inhaled Oxygen Concentration - - Weight 119 kg (262 lb 4.8 oz) 03/05/2024 10:33 A M FRINGING MACHINE OPERATOR Height 177.8 cm (5' 10 ) 03/05/2024 10:33 AM FRINGING MACHINE OPERATOR Body Mass Index 37.64 03/05/2024 10:33 AM FRINGING MACHINE OPERATOR Plan of Treatment Health Maintenance Due Date Last Done Comments Depression Screening 1965 Hepatitis C Screening 1965 Pneumococcal vaccine <65 (1 of 2 - PCV) 09/19/1969 DTaP/Tdap/Td Vaccine (1 - Tdap) 09/19/1974 Hepatitis B Screening 09/19/1981 Regular Well Visit/Exam 18-64 09/19/1981 Lung Cancer Screening 09/19/2013 Zoster Vaccine (2 of 2) 03/09/2021 01/12/2021 Colon Cancer Screening-Colonoscopy 04/22/2023 04/22/2013 Covid-19 Vaccine (4 - 2023-2 5 season) 2023 02/12/2021, 06/21/2020, 05/19/2020 Influenza Vaccine (#1) 2023 , 01/01/2020, 01/16/2019, Additional history exists Prostate Cancer Screening-PSA 08/05/2025 08/06/2023, 01/24/2021 Colon Cancer Screening-CT Colonography Discontinued 04/22/2013 Colon Cancer Screening-DNA Stool Discontinued 04/22/19 14 Colon Cancer Screening-FIT Discontinued 04/22/2013 Colon Cancer Screening-Sigmoidoscopy Discontinued 04/22/2013 Medical Devices Implanted Type Area Procedures Analyst Device Identifier Shelf Expiration Date Model / Serial / Lot Vascutek Terumo [id number] Gelsoft Plus Vascutek 24/12mm 45cm Main Leg Bore Reduced - [id number] - [id number] Implanted:Qty: 1 on 12/11/2019 by Vito Madrigal MD at [facility] Graft N/A: Aorta Terumo Card[employer] 12/30/2021 [id number] / [id number] / [id number] [facility] Mechanical Heart Valve-02/05/1998 Implanted:02/05 (Quantity not on file) Heart [facility] [employer] [id number] / [id number] / Procedures Procedure Name Priority Date/Time Associated Diagnosis Comments CARDIOLOGY DOCUMENT SCAN 04/04/2024 DIGOXIN LEVEL Routine 03/05/2024 11:44 AM FRINGING MACHINE OPERATOR Paroxysmal atrial fibrillation (CMS/HCC) (HCC) PROTIME-INR Routine 03/05/2024 11:44 AM FRINGING MACHINE OPERATOR Paroxysmal atrial fibrillation (CMS/HCC) (HCC) ECG 12-LEAD Routine 03/05/2024 10:38 AM FRINGING MACHINE OPERATOR Paroxysmal atrial fibrillation (CMS/HCC) (HCC) CTA CHEST W WO CONTRAST Schedule Routine, Read Routine (OP Routine) 03/05/2024 10:27 AM FRINGING MACHINE OPERATOR Aneurysm of the ascending aorta, without rupture (HCC) POCT CREATININE - DEVICE Routine 03/05/2024 9:31 AM FRINGING MACHINE OPERATOR SCAN - LABS 02/27/2024 XR CHEST PA LATERAL 2 VIEWS Schedule Routine, Read Routine (OP Routine) 02/20/2024 8:09 AM FRINGING MACHINE OPERATOR Chronic obstructive pulmonary disease, unspecified COPD type (HCC) PULMONARY FUNCTION TEST (PFT) Routine 02/20/2024 7:51 AM FRINGING MACHINE OPERATOR Chronic obstructive pulmonary disease, unspecified COPD type (HCC) CARDIOLOGY DOCUMENT SCAN 02/07/2024 PSA DIAGNOSTIC Routine 08/06/2023 8:36 AM CDT 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 (HCC) COLONOSCOPY REPORT 04/22/2013 from Last 3 Months or Most Recently Relevant to Health Maintenance Results * Cardiology Document Scan (04/04/2024) Anatomical Region Laterality Modality Other us Provider Scanning CV CARDIAC SERVICES PROCEDURES Final Result * (ABNORMAL) Protime-INR (03/05/2024 11:44 AM FRINGING MACHINE OPERATOR) PT 28.2(H) 9.7 - 13.0 sec INR 2.56(H) 0.90 - 1.20 [facility] Comment: Interpretive data Oral anticoagulant therapeutic ranges: Venous thromboembolism prophylaxis or treatment: 2.0-3.0 CARDIOLOGY Standard range: 2.0-3.0 High-intensity range: 2.5-3.5 Refer to indication-specific guidelines for appropriate target ranges for prosthetic heart valve replacement. Current interpretive data was last revised on 2019. Blood 03/05/2024 11:4 4 AM FRINGING MACHINE OPERATOR 03/05/2024 11:55 AM FRINGING MACHINE OPERATOR Oscar Barnard MD LAB BLOOD ORDERABLES F inal Result Performing Organization Address [facility] de Phone Number TREE [facility] [place] [address] * Digoxin level (03/05/2024 11:44 AM FRINGING MACHINE OPERATOR) Digoxin 1.1 0.5 - 1.2 ng/mL Comment: Interpretive data The therapeutic range for digoxin varies by indication: Heart failure: 0.5 to 0.8 ng/mL Atrial fibrillation: less than 1.2 ng/mL Toxicity: >2.4. Normal or low digoxin does not rule out toxicity. Current interpretive data was last revised on 2023. Blood 03/05/2024 11:4 4 AM FRINGING MACHINE OPERATOR 03/05/2024 12:02 PM FRINGING MACHINE OPERATOR Oscar Barnard MD LAB BLOOD ORDERABLES F inal Result Performing Organization Address [facility] de Phone Number [facility]REE [facility] [employer] [address] * ECG 12 lead (03/05/2024 10:38 AM FRINGING MACHINE OPERATOR) us Oscar Barnard MD ECG ORDERABLES Edited Result - Final * CTA Chest W WO Contrast (03/05/2024 10:27 AM FRINGING MACHINE OPERATOR) Anatomical Region Laterality Modality Chest N/A Computed Tomogra phy 03/05/2024 12:2 9 PM FRINGING MACHINE OPERATOR Impressions 03/05/2024 12:29 PM FRINGING MACHINE OPERATOR 1. Interval postsurgical changes of valve sparing completion aortic root replacement with prior mechanical aortic valve and ascending aortic graft repair changes. Resolution of the aortic root dilatation with stable residual dissection flap and unchanged arch and descending aortic dilatation as above. 2. Slight increase in apparent solid component of a right middle lobe nodule measures 6 mm in average dimension. Faint groundglass nodule has been present in this location dating back to at least 2016, change in appearance may reflect motion on current exam however a short-term follow-up CT in 3-6 months is recommended to ensure stability. Electronically signed by: Maciej Sevilla M.D. Narrative 03/05/2024 12:29 PM FRINGING MACHINE OPERATOR EXAMINATION: CTA CHEST W CONTRAST HISTORY: Follow-up aortic dissection. Bicuspid aortic valve status post mechanical valve replacement in 1989 computed by subsequent aortic dissection managed with graft repair in 2012 TECHNIQUE: Computed tomographic images were acquired with and without intravenous contrast using a Chest angiographic protocol optimized for aortic dissection (aorta). The Contrast enhanced transaxial images were obtained following the intravenous administration of 94 ml of nonionic contrast. Multiplanar reformatted images and three-dimensional images of the aorta and associated vasculature were obtained on the 3-D workstation and sent to the PACS archival system. COMPARISON: 08/29/2023 FINDINGS: Angiographic findings: Interval changes of a redo sternotomy with aortic valve sparing aortic root and ascending aortic replacement. The mechanical aortic valve remains in place. Distal to the ascending aortic graft repair there is a residual dissection flap which is unchanged in extent involving the origin of the innominate artery to the level of the abdominal aortic repair which is partially imaged on today's examination. The innominate artery, left common carotid artery and the majority of the left subclavian artery arise from the true lumen. The celiac artery and superior mesenteric artery arises along fenestrations of the dissection flap. Left renal artery arises off the false lumen near large fenestration. The right renal artery measures up true lumen. Resolution of the aortic root dilatation. The maximal and descending thoracic aorta measures 53 x 48 mm at the level of the left superior pulmonary vein, unchanged. The mid arch measures 51 x 45 mm, unchanged. Moderate left anterior descending coronary calcification. Non-angiographic findings: The liver appears diminutive, hypoplastic. No thoracic lymphadenopathy. Within the imaged upper abdomen there are several small renal cysts. A gastric band is in place. Layering stones in a otherwise normal-appearing gallbladder. Otherwise no acute CT abnormality in the upper abdomen. Heart is at the upper limits of normal in size. No pericardial effusion. Changes of prior median sternotomy with multiple abandoned temporary epicardial pacing leads are noted. Main pulmonary artery is normal caliber. Multilevel degenerative disc disease throughout the thoracic spine. Calcified granulomas throughout the left hilum and the lungs. 5 mm nodule along the inferior most right middle lobe (series 5 image 125). A 6 mm average diameter nodule in the right middle lobe near the right atrium has increased in size and density, previously measuring 4 mm (series 5 image 85). Procedure Note Maciej Sevilla MD - 03/05/2024 EXAMINATION: CTA CHEST W CONTRAST HISTORY: Follow-up aortic dissection. Bicuspid aortic valve status post mechanical valve replacement in 1989 computed by subsequent aortic dissection managed with graft repair in 2012 TECHNIQUE: Computed tomographic images were acquired with and without intravenous contrast using a Chest angiographic protocol optimized for aortic dissection (aorta). The Contrast enhanced transaxial images were obtained following the intravenous administration of 94 ml of nonionic contrast. Multiplanar reformatted images and three-dimensional images of the aorta and associated vasculature were obtained on the 3-D workstation and sent to the PACS archival system. COMPARISON: 08/29/2023 FINDINGS: Angiographic findings: Interval changes of a redo sternotomy with aortic valve sparing aortic root and ascending aortic replacement. The mechanical aortic valve remains in place. Distal to the ascending aortic graft repair there is a residual dissection flap which is unchanged in extent involving the origin of the innominate artery to the level of the abdominal aortic repair which is partially imaged on today's examination. The innominate artery, left common carotid artery and the majority of the left subclavian artery arise from the true lumen. The celiac artery and superior mesenteric artery arises along fenestrations of the dissection flap. Left renal artery arises off the false lumen near large fenestration. The right renal artery measures up true lumen. Resolution of the aortic root dilatation. The maximal and descending thoracic aorta measures 53 x 48 mm at the level of the left superior pulmonary vein, unchanged. The mid arch measures 51 x 45 mm, unchanged. Moderate left anterior descending coronary calcification. Non-angiographic findings: The liver appears diminutive, hypoplastic. No thoracic lymphadenopathy. Within the imaged upper abdomen there are several small renal cysts. A gastric band is in place. Layering stones in a otherwise normal-appearing gallbladder. Otherwise no acute CT abnormality in the upper abdomen. Heart is at the upper limits of normal in size. No pericardial effusion. Changes of prior median sternotomy with multiple abandoned temporary epicardial pacing leads are noted. Main pulmonary artery is normal caliber. Multilevel degenerative disc disease throughout the thoracic spine. Calcified granulomas throughout the left hilum and the lungs. 5 mm nodule along the inferior most right middle lobe (series 5 image 125). A 6 mm average diameter nodule in the right middle lobe near the right atrium has increased in size and density, previously measuring 4 mm (series 5 image 85). IMPRESSION: 1. Interval postsurgical changes of valve sparing completion aortic root replacement with prior mechanical aortic valve and ascending aortic graft repair changes. Resolution of the aortic root dilatation with stable residual dissection flap and unchanged arch and descending aortic dilatation as above. 2. Slight increase in apparent solid component of a right middle lobe nodule measures 6 mm in average dimension. Faint groundglass nodule has been present in this location dating back to at least 2016, change in appearance may reflect motion on current exam however a short-term follow-up CT in 3-6 months is recommended to ensure stability. Electronically signed by: Maciej Sevilla M.D. us Notinfile Unknown IMG CT PROCEDURES Final Result * POCT creatinine (03/05/2024 9:31 AM FRINGING MACHINE OPERATOR) Creatinine POC 0.8 0.7 - 1.3 mg/dL Blood 03/05/2024 9:31 AM FRINGING MACHINE OPERATOR 03/05/2024 9:31 AM FRINGING MACHINE OPERATOR us Notinfile Unknown LAB POCT ORDERABLES - DEVICE F inal Result [facility] Department [place] [address] * SCAN - LABS (02/27/2024) us Provider Scanning Final Result * XR Chest Pa Lateral 2 Views (02/20/2024 8:09 AM FRINGING MACHINE OPERATOR) Anatomical Region Laterality Modality Body, Chest N/A Computed Radiogr aphy 02/20/2024 11:2 6 AM FRINGING MACHINE OPERATOR Impressions 02/20/2024 11:26 AM FRINGING MACHINE OPERATOR The current study is compared with the prior radiograph dated 05/30/2012. More recent prior films are not available. The patient is status post a median sternotomy, mediastinal wires are aligned.. Epicardial wires are present. The patient is status post aortic valve replacement. A laparoscopic band is present. The heart is mildly enlarged. There is a tortuous aorta. There is no mass or consolidation no lymphadenopathy no pleural effusions. There is no pulmonary edema. There is old granulomatous disease.. Electronically signed by: Dania Lagos M.D. Narrative 02/20/2024 11:26 AM FRINGING MACHINE OPERATOR EXAMINATION: 2 view chest radiograph Procedure Note Dania Lagos MD - 02/20/2024 EXAMINATION: 2 view chest radiograph IMPRESSION: The current study is compared with the prior radiograph dated 05/30/2012. More recent prior films are not available. The patient is status post a median sternotomy, mediastinal wires are aligned.. Epicardial wires are present. The patient is status post aortic valve replacement. A laparoscopic band is present. The heart is mildly enlarged. There is a tortuous aorta. There is no mass or consolidation no lymphadenopathy no pleural effusions. There is no pulmonary edema. There is old granulomatous disease.. Electronically signed by: Dania Lagos M.D. Yonatan Mohamud MD IMG XR PROCEDURES Fi nal Result * Pulmonary Function Test - (02/20/2024 7:51 AM FRINGING MACHINE OPERATOR) FVC PRE 3.98 L [facility] FVC %PRE PRED 89 % [facility] FVC POST 3.98 L [facility] FVC %POST PRED 88 % [facility] FEV1 PRE 2.78 L [facility] FEV1 %PRE PRED 80 % [facility] FEV1 POST 2.83 L [facility] FEV1 %POST PRED 81 % [facility] FEV1/FVC PRE 69.7 % [facility] FEV1/FVC POST 71.3 % [facility] FRC PL PRE 3.38 L [facility] FRC PL %PRE PRED 95 % [facility] RV PRE 2.61 L [facility] RV %PRE PRED 119 % [facility] TLC PRE 6.72 L [facility] TLC %PRE PRED 98 % [facility] DLCO PRE 21.7 ml/min/mmH g [facility] DLCO %PRE PRED 81 % [facility] FIO2 % 21.00 % [facility] PaO2 82.0 mmHg [facility] PaCO2 39.0 mmHg [facility] pH 7.43 [facility] A-aDO2 POC 19.0 mmHg [facility] METHGB % 0.2 % [facility] COHb POC 1.6 % [facility] HCO3 25.9 mEq/L [facility] Anatomical Region Laterality Modality PFT 02/20/2024 7:21 AM FRINGING MACHINE OPERATOR Narrative 02/21/2024 2:41 PM FRINGING MACHINE OPERATOR Table formatting from the original result was not included. [facility] Division of Pulmonary & Critical Care Medicine [address] [place] [address]; [place] [facility]; [place] [address]; [phone] Pulmonary Function Laboratory Pulmonary Stress Test Simple/Oxygen Assessment Patient: Salo Deshpande Date: 02/20/2024 : 1965 Ht: 69 in Wt: 260 lbs Time (min) Distance (ft)/ Simon O2 L/M SpO2 HR Kian* BP FEV1 % Pred Rest: RA 99 52 0 131/60 2.78 80 % Walk/Bike: 1 RA 99 65 0 2 RA 98 66 0.5 3 RA 99 70 0.5 4 RA 98 73 0.5 5 RA 98 72 1 6 min 0 sec RA 99 73 1 Recovery: 1 RA 99 59 0 171/79 2.68 77 % 3 RA 99 56 0 *Kian rate of perceived exertion (1-10 dyspnea scale) Yang, CHEST 2003; [id number] Walk Test Summary: Six Minute Walk Distance: 1245 ft Six-minute Walk Work [distance (m) x body wt (kg)]: 39876 kg.m (normal >60,000kg.m) Oxygen required to maintain SpO2 greater than 90% during six minutes of walkin L/M Comments: Complaints of hip pain. Interpretation: Breathing room air, SpO2 is normal at rest and during exercise sufficient to increase pulse, SpO2 is stable. On this basis, SpO2 is adequate at rest breathing room air and while walking breathing room air. This level of exercise is associated with no significant change of FEV1. By signing this report, the attending pulmonary physician certifies that he/she has personally reviewed and interpreted the graphic and numerical data associated with this pulmonary function study and has reviewed and /or edited a preliminary draft report and agrees with the written final report. PFT performed at:->[facility] PFT [id number] Procedure:->Oxygen Assessment Titration Procedure:->Spirometry Procedure:->Spirometry with Bronchodilator Procedure:->ABG Procedure:->Lung Volumes Procedure:->DLCO Lung Volumes via:->Pleth with Airway Resistance DLCO:->Spirometry Pulmonary Function Test Interpretation SPIROMETRY: There is scooping of the expiratory limb of the flow-volume curve, consistent with expiratory airflow obstruction. There is a decrease in expiratory airflow at middle lung volumes. The FEV1 and FVC are normal. There is no significant improvement after inhaling a single dose of albuterol. The flow volume loop is normal. LUNG VOLUMES: TLC measured by plethysmography is normal. Overweight status may be the cause of the decreased ERV. DLCO: The diffusing capacity corrected for hemoglobin level (DLCO ADJ) is within normal limits. ARTERIAL BLOOD GAS: The pH and pCO2 are normal. The arterial pO2 is normal at rest. O2 saturation measured by oximetry is normal at rest. Impression: There is a minimal obstructive defect. There is no impairment of alveolar gas exchange by DLCO. There is no impairment of gas exchange at rest by ABG. The attending pulmonary physician certifies a physician presence in the [facility] during the administration of aerosolized bronchodilator. The attending pulmonary physician certifies that he/she has reviewed and interpreted the graphic and numerical data of this pulmonary function study and agrees with the written final report. The lower limit of normal for PaO2 and %HbO2 is age dependent. However, the [facility] Pulmonary Function Laboratory defines hypoxemia as a PaO2 <56 mm Hg or a %HbO2 <89%. us Yonatan Mohamud MD PFT ORDERABLES Xiomara l Result * Cardiology Document Scan (02/07/2024) Anatomical Region Laterality Modality Other Provider Scanning CV CARDIAC SERVICES PROCEDURES Final Result * PSA diagnostic (08/06/2023 8:36 AM CDT) PSA-Total <0.02 <=3.90 ng/mL Comment: Interpretive Data AGE SEX REFERENCE INTERVAL 0 minutes-150 years Female None 0 minutes-49 years Male None 50-59 years Male 0-3.90 60-69 years Male 0-5.40 70-79 years Male 0-6.20 80-150 years Male 0-6.20 The Isaac PSA Total assay procedure was used. Results from different manufacturers or methods may not be comparable. Serial testing should be performed using the same method. Current interpretive data last revised 21. Blood 08/06/2023 8:36 AM CDT 08/06/2023 9:07 AM CDT Waqar Valdez MD LAB BLOOD ORDERABLES Final Res ult [facility] Department [place] [address] * COLONOSCOPY REPORT (04/22/2013) Anatomical Region Laterality Modality Other Narrative 04/22/2013 Ordered by an unspecified provider. Historical Provider GI PROCEDURE ORDERABLES F inal Result from Last 3 Months or Most Recently Relevant to Health Maintenance Insurance [facility] * Guarantor: Salo Deshpande Account Type Relation to Patient Date of Phone Billing Address Personal/Family Self 1965 [address] [place] [address] [employer] [place] [place] * Guarantor: Salo Deshpande Account Type Relation to Patient Date of Phone Billing Address Personal/Family Self 1965 [address] [place] [address] [employer] * Guarantor: Salo Deshpande Account Type Relation to Patient Date of Phone Billing Address Personal/Family Self 1965 [address] [place] [id number] [facility] Advance Directives For more information, please contact: [phone] * Full Code (Latest Code Status on File) Date Activated Date Inactivated Comments 12/11/2019 3:03 PM 12/21/2019 2:19 PM * Full Code Date Activated Date Inactivated Comments 04/19/2019 11:26 AM 04/20/2019 6:06 PM * Full Code Date Activated Date Inactivated Comments 04/19/2019 4:14 AM 04/19/2019 11:26 AM * Full Code Date Activated Date Inactivated Comments 04/09/2019 5:00 PM 04/10/2019 7:37 PM * Full Code Date Activated Date Inactivated Comments 11/26/2018 4:23 PM 12/04/2018 4:15 PM Care Teams Claims Service Representative Relationship Specialty Start Date End Date Kiko Jimenez DO PCP - General 04/09/17 Fran Bray MD Medical Oncologist/Radiosonde Specialist Medical Oncology 01/10/18 Maximiliano Cerrato MD Consulting Physician Plastic Surgery 01/10/18 Kiko Godinez MD PhD Office Workforce Planner Dermatology 01/11/18 Oscar Barnard MD Retail Customer Service Specialist Cardiology 01/11/18 Todd Gold Jr., MD Referring Physician Urology 02/08/19
--- OUTSIDE RECORDS SUMMARY | 2024-05-08 10:42 | XMS_ITS | Referral Summary ---
Author Organization [facility] al Address [address] [place] [address] Care Team Providers Care Financial Planning Advisor Name Role Phone Kiko Jimenez DO Primary Care Provider + [phone] Fran Bray MD [facility]available [facility] Unavailable [phone] Kiko Godinez MD PhD Unavailable Oscar Barnard MD Unavailable Alla Wyman MD, Todd White Unavailable Encounters Date Type Department Care Team Description 04/04/2024 Orders Only [facility] Scanning, Provider 03/05/2024 11:45 AM FIXTURE RELAMPER Lab [facility] [address] [place] [id number] Paroxysmal atrial fibrillation (CMS/HCC) (HCC) 03/05/2024 9:06 AM FIXTURE RELAMPER - 03/05/2024 11:59 PM FIXTURE RELAMPER Hospital Encounter [facility]) [address] [place] [address] Aneurysm of the ascending aorta, without rupture (HCC) Discharge Disposition: Discharge to home or self care 03/05/2024 11:15 AM FIXTURE RELAMPER Office Visit [facility] Cardiology [address] [place] [address] Advanced Medicine 8th [place] [address] [place] [address] Oscar Barnard MD Dissection of thoracic aorta, unspecified part (HCC) (Primary Dx); S/P AVR (aortic valve replacement); History of heart valve replacement with mechanical valve; Paroxysmal atrial fibrillation (CMS/HCC) (HCC) 02/27/2024 Orders Only [facility] Scanning, Provider 02/27/[address]th [place] [address] [place] [address] Oscar Barnard MD Cardioversion 02/20/2024 8:04 AM FIXTURE RELAMPER - 02/20/2024 11:59 PM FIXTURE RELAMPER Hospital Encounter [facility] ([facility]) [address] [place] [address] Chronic obstructive pulmonary disease, unspecified COPD type (HCC) Discharge Disposition: Discharge to home or self care 02/20/2024 8:30 AM FIXTURE RELAMPER Office Visit [facility] Pulmonary [address] [place] [address] 8th [place] [address] [place] [address] Yonatan Mohamud MD Chronic obstructive pulmonary disease, unspecified COPD type (HCC) (Primary Dx); Obstructive sleep apnea syndrome 02/20/2024 7:14 AM FIXTURE RELAMPER - 02/20/2024 11:59 PM FIXTURE RELAMPER Hospital Encounter [facility] Pulmonary [address] [place] [address] [address] [place] [address] Chronic obstructive pulmonary disease, unspecified COPD type (HCC) Discharge Disposition: Discharge to home or self care 02/07/2024 Orders Only [facility] Scanning, Provider 02/07/[address]th [place] [address] [place] [address] Oscar Barnard MD 02/07/2024 Orders Only [facility] [address] [place] [address] 8th [place] [address] [place] [address] Oscar Barnard MD Persistent atrial fibrillation (HCC) (Primary Dx) from Last 3 Months Allergies Active Allergy Reactions Criticality Noted Date [...] mg total) by mouth every morning 3 018 Active loratadine (CLARITIN) 10 mg tabletIndications: [...] for rash (on rash) 30 g 3 023 Active Additional Information Patient not taking.Reported on 02/20/2024 triamcinolone (KENALOG) 0.1 % ointment Apply twice daily to rash on the LOWER LEGS as needed. Avoid face and groin. 454 g 2 Active Additional Information Patient not taking.Reported on 02/20/2024 cloNIDine (CATAPRES) 0.2 mg tablet TAKE 1 TABLET(0.2 MG) BY MOUTH TWICE DAILY 180 tablet 3 023 Active Additional Information Patient not taking.Reported on 02/20/2024 levothyroxine (SYNTHROID) 125 mcg tabletIndications: Thyroid cancer (HCC) TAKE 2 TABLETS(250 MCG) BY MOUTH YEAST STACKER BEFORE BREAKFAST 60 tablet 11 Active dextroamphetamine- [...] 1 tablet (20 mg) by mouth daily Active lidocaine (LIDODERM) 5 % Place 1 [...] total) by mouth daily 90 tablet 3 Active potassium chloride ER 10 mEq CR [...] (two) times a day 90 tablet 3 Active digoxin (LANOXIN) 125 mcg (0.125 mg) tablet Take 2 tablets (0.25 mg total) by mouth daily 180 tablet 3 Active furosemide (LASIX) 40 mg tablet 1 tab po BID 180 tablet 3 10/03/2 024 Active metoprolol XL (TOPROL-XL) 100 mg [...] (11/24/2019): Added automatically from request for surgery [id number] Assessment & Plan (12/21/2019 9:58 AM CDT): [...] (03/07/2019): Added automatically from request for surgery [id number] Prostate cancer 12/06/2018 Cancer Staging:Clinical stage from 09/27/2018:Stage IIB(cT1c, cN0, cM0, PSA: 5.2, Grade Group: 2) - Signed by Hector Whittington MD PhD on 02/05/2019 Overview (12/06/2018): Added automatically from request for surgery [id number] Hypoparathyroidism 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 11/30/2018 Assessment & Plan [...] (10/31/2018): Added automatically from request for surgery [id number] Assessment & Plan (01/09/2019 8:49 AM CDT): [...] (09/09/2018): Added automatically from request for surgery [id number] 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 Daily INR. - Planishing Press Operator Dr. Barnard aware of admission and following [...] medicine team will sign off. Please call [phone] if any additional question Assessment & Plan [...] medicine team will sign off. 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 WBC 14 -> 20 on 12/11 late-pm labs, improving. Now 9.2 - Urine culture, no growth - CXR unremarkable Immunizations Name Administration Dates Next Due Influenza, Quadrivalent, Shelby l Culture-based MDCK, Preservative Free, Antibiotic Free, Intramuscular 01/01/2020 Influenza, Quadrivalent, Spl it, Intramuscular 01/16/2019,12/30/2017,12/23/2016 Influenza, Quadrivalent, Spl it, Preservative Free, Intramuscular 01/16/2019,01/11/2018 Influenza, Trivalent, IM (MDV) 01/12/2021,2013,04/09/2012 Influenza, Trivalent, Preser vative Free, Intramuscular 01/10/2016,01/27/2015,01/06/2013 Moderna SARS-CoV-2 Monovalen t Vaccination (12+ YRS) 02/12/2021 ZOSTER Recombinant 01/12/2021 Social History Tobacco Use Types Packs/Day Years [...] Friends and Family Patient declined 02/05/2019 Attends Congregation Services Patient declined 08/2018 Active Member of [...] Living Expenses Not hard at all 02/05/2019 [facility] [place] of Occupat ional Health - Occupational Stress [...] on file Legal Sex Male 8:20 AM FIXTURE RELAMPER Gender Identity Not on file Sexual Orientation Not on file 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 Not on file Not on file Last Filed Vital Signs Vital Sign Reading Time Taken Comments Blood Pressure 112/69 03/05/2024 10:33 AM FIXTURE RELAMPER Pulse 72 03/05/2024 10:33 AM FIXTURE RELAMPER Temperature 36.4 C (97.6 F) 02/20/2024 8:18 AM FIXTURE RELAMPER Respiratory Rate 18 02/20/2024 8:18 AM FIXTURE RELAMPER Oxygen Saturation 98% 03/05/2024 10:33 AM FIXTURE RELAMPER Inhaled Oxygen Concentration - - Weight 119 kg (262 lb 4.8 oz) 03/05/2024 10:33 A M FIXTURE RELAMPER Height 177.8 cm (5' 10 ) 03/05/2024 10:33 AM FIXTURE RELAMPER Body Mass Index 37.64 03/05/2024 10:33 AM FIXTURE RELAMPER Plan of Treatment Not on file Medical Devices Implanted Type Area Wallcovering Hanger Device Identifier Shelf Expiration Date Model / Serial / Lot Vascutek Terumo [id number] Gelsoft Plus Vascutek 24/12mm 45cm Main Leg Bore Reduced - [id number] - [id number] Implanted:Qty: 1 on 12/11/2019 by Vito Madrigal MD at [facility] Graft N/A: Aorta Terum[employer] Card[employer] Vascular 12/30/2021 [id number] / [id number] / [id number] Mechanical Heart Valve-02/05/1998 Implanted:02/05 (Quantity not on file) Heart [employer] [id number] / [id number] / Procedures Procedure Name Priority Date/Time Associated Diagnosis Comments CARDIOLOGY DOCUMENT SCAN 04/04/2024 DIGOXIN LEVEL Routine 03/05/2024 11:44 AM FIXTURE RELAMPER Paroxysmal atrial fibrillation (CMS/HCC) (HCC) PROTIME-INR Routine 03/05/2024 11:44 AM FIXTURE RELAMPER Paroxysmal atrial fibrillation (CMS/HCC) (HCC) ECG 12-LEAD Routine 03/05/2024 10:38 AM FIXTURE RELAMPER Paroxysmal atrial fibrillation (CMS/HCC) (HCC) CTA CHEST W WO CONTRAST Schedule Routine, Read Routine (OP Routine) 03/05/2024 10:27 AM FIXTURE RELAMPER Aneurysm of the ascending aorta, without rupture (HCC) POCT CREATININE - DEVICE Routine 03/05/2024 9:31 AM FIXTURE RELAMPER SCAN - LABS 02/27/2024 XR CHEST PA LATERAL 2 VIEWS Schedule Routine, Read Routine (OP Routine) 02/20/2024 8:09 AM FIXTURE RELAMPER Chronic obstructive pulmonary disease, unspecified COPD type (HCC) PULMONARY FUNCTION TEST (PFT) Routine 02/20/2024 7:51 AM FIXTURE RELAMPER Chronic obstructive pulmonary disease, unspecified COPD type [...] Result * (ABNORMAL) Protime-INR (03/05/2024 11:44 AM FIXTURE RELAMPER) PT 28.2(H) 9.7 - 13.0 sec INR 2.56(H) 0.90 - 1.20 [facility] Comment: Interpretive data Oral anticoagulant therapeutic ranges: Venous thromboembolism prophylaxis or treatment: 2.0-3.0 CARDIOLOGY Standard range: 2.0-3.0 High-intensity range: 2.5-3.5 Refer to indication-specific guidelines for appropriate target ranges for prosthetic heart valve replacement. Current interpretive data was last revised on 2019. Blood 03/05/2024 11:4 4 AM FIXTURE RELAMPER 03/05/2024 11:55 AM FIXTURE RELAMPER Oscar Barnard MD LAB BLOOD ORDERABLES F inal Result Performing Organization Address [facility] de Phone Number [facility] [place] [address] * Digoxin level (03/05/2024 11:44 AM FIXTURE RELAMPER) Digoxin 1.1 0.5 - 1.2 ng/mL Comment: Interpretive data The therapeutic range for digoxin varies by indication: Heart failure: 0.5 to 0.8 ng/mL Atrial fibrillation: less than 1.2 ng/mL Toxicity: >2.4. Normal or low digoxin does not rule out toxicity. Current interpretive data was last revised on 2023. Blood 03/05/2024 11:4 4 AM FIXTURE RELAMPER 03/05/2024 12:02 PM FIXTURE RELAMPER Oscar Barnard MD LAB BLOOD ORDERABLES F inal Result Performing Organization Address [facility] de Phone Number [facility] [place] [address] * ECG 12 lead (03/05/2024 10:38 AM FIXTURE RELAMPER) us Oscar Barnard MD ECG ORDERABLES Edited Result - Final * CTA Chest W WO Contrast (03/05/2024 10:27 AM FIXTURE RELAMPER) Anatomical Region Laterality Modality Chest N/A Computed Tomogra phy 03/05/2024 12:2 9 PM FIXTURE RELAMPER Impressions 03/05/2024 12:29 PM FIXTURE RELAMPER 1. Interval postsurgical changes of valve sparing [...] Maciej Sevilla M.D. Narrative 03/05/2024 12:29 PM FIXTURE RELAMPER EXAMINATION: CTA CHEST W CONTRAST HISTORY: Follow-up [...] Result * POCT creatinine (03/05/2024 9:31 AM FIXTURE RELAMPER) Creatinine POC 0.8 0.7 - 1.3 mg/dL Blood 03/05/2024 9:31 AM FIXTURE RELAMPER 03/05/2024 9:31 AM FIXTURE RELAMPER us Notinfile Unknown LAB POCT ORDERABLES - DEVICE F inal Result [facility] Department [place] [address] * SCAN - LABS (02/27/2024) us Provider Scanning Final Result * XR Chest Pa Lateral 2 Views (02/20/2024 8:09 AM FIXTURE RELAMPER) Anatomical Region Laterality Modality Body, Chest N/A Computed Radiogr aphy 02/20/2024 11:2 6 AM FIXTURE RELAMPER Impressions 02/20/2024 11:26 AM FIXTURE RELAMPER The current study is compared with the [...] Dania Lagos M.D. Narrative 02/20/2024 11:26 AM FIXTURE RELAMPER EXAMINATION: 2 view chest radiograph Procedure Note [...] Pulmonary Function Test - (02/20/2024 7:51 AM FIXTURE RELAMPER) FVC PRE 3.98 L [facility] FVC %PRE PRED 89 % [facility] FVC POST 3.98 L [facility] FVC %POST PRED 88 % [facility] FEV1 PRE 2.78 L [facility] FEV1 %PRE PRED 80 % [facility] FEV1 POST 2.83 L [facility] FEV1 %POST PRED 81 % [facility] FEV1/FVC PRE 69.7 % [facility] FEV1/FVC POST 71.3 % [facility] FRC PL PRE 3.[address] [facility] FRC PL %PRE PRED 95 % [facility] RV PRE 2.61 L [facility] RV %PRE PRED 119 % [facility] TLC PRE 6.72 L [facility] TLC %PRE PRED 98 % [facility] DLCO PRE 21.7 ml/min/mmH g [facility] DLCO %PRE PRED 81 % [facility] FIO2 % 21.00 % [facility] PaO2 82.0 mmHg [facility] PaCO2 39.0 mmHg [facility] pH 7.43 [facility] A-aDO2 POC 19.0 mmHg [facility] METHGB % 0.2 % [facility] COHb POC 1.6 % [facility] HCO3 25.9 mEq/L [facility] Anatomical Region Laterality Modality PFT 02/20/2024 7:21 AM FIXTURE RELAMPER Narrative 02/21/2024 2:41 PM FIXTURE RELAMPER Table formatting from the original result was not included. [facility] Division of Pulmonary & Critical Care Medicine [address] [place] [address]; [address] [facility]; [place] [address]; [phone] Pulmonary Function Laboratory Pulmonary Stress Test Simple/Oxygen [...] Work [distance (m) x body wt (kg)]: 21640 kg.m (normal >60,000kg.m) Oxygen required to maintain [...] with the written final report. PFT performed at:->[facility] Adult PFT [facility]- [facility] Procedure:->Oxygen Assessment Titration [...] and %HbO2 is age dependent. However, the [facility] Pulmonary Function Laboratory defines hypoxemia as a PaO2 <56 mm Hg or a %HbO2 <89%. Yonatan Mohamud MD PFT ORDERABLES Xiomara l [...] MD LAB BLOOD ORDERABLES Final Res ult Performing Organization Address City/State/ZIP Co tx Phone Number [facility] Department [place] [address] * COLONOSCOPY REPORT (04/22/2013) Anatomical Region Laterality Modality Other Narrative 04/22/2013 Ordered by an unspecified provider. [facility] Provider GI PROCEDURE ORDERABLES F inal Result from Last 3 Months or Most Recently Relevant to Health Maintenance Insurance [facility] * Guarantor: Salo Deshpande Account Type Relation to Patient Date of Phone Billing Address Personal/Family Self 1965 [address] [place] [address] [employer] ACCESS BLUE [employer] [place] BLUE ACCESS OOS * Guarantor: Salo Deshpande Account Type Relation to Patient Date of Phone Billing Address Personal/Family Self 1965 [address] [place] [address] ANTHEM TRADITIONAL * Guarantor: Salo Deshpande Account Type Relation to Patient Date of Phone Billing Address Personal/Family Self 1965 [address] [place] [address] [place] [employer] [place] Advance Directives For more information, please contact: [phone] * Full Code (Latest Code Status on [...] 4:23 PM 12/04/2018 4:15 PM Care Teams Financial Planning Advisor Relationship Specialty Start Date End Date Kiko Jimenez DO PCP - General 04/09/17 Fran Bray MD Medical Oncologist/Chief Inspector Medical Oncology 01/10/18 Maximiliano Cerrato MD Consulting Physician Plastic Surgery 01/10/18 Kiko Godinez MD PhD Wool Washing Machine Operator Dermatology 01/11/18 Oscar Barnard MD Planishing Press Operator Cardiology 01/11/18 Todd Gold Jr., MD Referring Physician Urology 02/08/19
--- OUTSIDE RECORDS SUMMARY | 2024-05-08 10:42 | XMS_ITS | Encounter Summary ---
Author Organization [facility] Healthcare Address [address] [place] [address] Care Team Providers Care Wine Bottle Inspector Name Role Phone Kiko Jimenez DO Primary Care Provider [phone] Fran Bray MD [facility]available [facility] Un[facility] [phone] Kiko Godinez MD PhD Unavailable Oscar Barnard MD Unavailable [phone] Brayan Burrows MD Unavailable [phone] Alla Wyman MD, Todd White Unavailable [phone] Encounter Details Date Type Department Care Team (Late st Contact Info) Description 04/16/2020 Telephone [facility]) [address] [place] [address] Fabiola Griffith, RT Social History Tobacco Use Types Packs/Day Years Used Date Smoking Tobacco: Former Cigarettes 1 35.3 1 984 - 07/21/2018 Smokeless Tobacco: Never Comments:vaping- off and on [...] Friends and Family Patient declined 02/05/2019 Attends Scientologist Services Patient declined 08/2018 Active Member of Clubs or Organizations Patient declined 02/05/2019 Attends Club or Organization Meetings Patient de clined 02/05/2019 Marital Status 02/05/2019 Overall Financial Resource Strain (CARDIA) Answe r Date Recorded Difficulty of Paying Living Expenses Not hard at all 02/05/2019 [facility] [place] of Occupat ional Health - Occupational Stress [...] 02/05/2019 Lack of Transportation (Non-Medical) No 02/05/2019 Education Answer Date Recorded What is the highest level of school you have completed or the highest degree you have received? 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 Not on file Not on file documented as of this encounter Plan of Treatment Not on file documented as of this encounter Visit Diagnoses Not on filedocumented in this encounter Care Teams Wine Bottle Inspector Relationship Specialty Start Date End Date Kiko Jimenez DO PCP - General 04/09/17 Fran Bray MD Medical Oncologist/Refinery Operator Polymerization Plant Medical Oncology 01/10/18 Maximiliano Cerrato MD Consulting Physician Plastic Surgery 01/10/18 Kiko Godinez MD PhD Teacher Private Dermatology 01/11/18 Oscar Barnard MD Geomagnetician Cardiology 01/11/18 Brayan Burrows MD Radiation Oncologist Radiation Oncology 12/09/18 1//2 4 Todd Gold Jr., MD Referring Physician Urology 02/08/19 documented as of this encounter
--- OUTSIDE RECORDS SUMMARY | 2024-05-08 10:42 | XMS_ITS | Encounter Summary ---
Author Organization [facility] Healthcare Address [address] [place] [address] Care Team Providers Care Evp Operations Name Role Phone Kiko Jimenez DO Primary Care Provider [phone] Fran Bray MD Unavailable [facility] Unavailable [phone] Kiko Godinez MD PhD Unavailable Oscar Barnard MD Unavailable [phone] Brayan Burrows MD Unavailable Alla Wyman MD, Todd White Unavailable Encounter Details Date Type Department Care Team (Late st Contact Info) Description 10/15/2020 Telephone [facility] [address] [place] [address] Fabiola Griffith, RT Social History Tobacco Use Types Packs/Day Years Used Date Smoking Tobacco: Some Days Cigarettes 1 35.3 Started: 1985; Last attempted to quit: 07/21/2018 Smokeless Tobacco: Never Comments:vaping- off and [...] Friends and Family Patient declined 02/05/2019 Attends Sikh Services Patient declined 08/2018 Active Member of Clubs or Organizations Patient declined 02/05/2019 Attends Club or Organization Meetings Patient de clined 02/05/2019 Marital Status 02/05/2019 Overall Financial Resource Strain (CARDIA) Answe r Date Recorded Difficulty of Paying Living Expenses Not hard at all 02/05/2019 [facility] [place] of Occupat ional Health - Occupational Stress [...] on file Legal Sex Male 8:20 AM DIRECTOR OF CORPORATE RESPONSIBILITY Gender Identity Not on file Sexual Orientation Not on file 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 Not on file Not on file documented as of this encounter Plan of Treatment Not on file documented as of this encounter Visit Diagnoses Not on filedocumented in this encounter Care Teams Evp Operations Relationship Specialty Start Date End Date Kiko Jimenez DO PCP - General 04/09/17 Fran Bray MD Medical Oncologist/Guest Services Agent Medical Oncology 01/10/18 Maximiliano Cerrato MD Consulting Physician Plastic Surgery 01/10/18 Kiko Godinez MD PhD Nutrition Partner Dermatology 01/11/18 Oscar Barnard MD Drill Press Operator For Metal Cardiology 01/11/18 Brayan Burrows MD Radiation Oncologist Radiation Oncology 12/09/1804/03/2 4 Todd Gold Jr., MD Referring Physician Urology 02/08/19 documented as of this encounter
--- OUTSIDE RECORDS SUMMARY | 2024-05-08 10:43 | XMS_ITS | Encounter Summary ---
Author Organization [facility] Healthcare Address [address] [place] [address] Care Team Providers Care Masonry Installer Name Role Phone Kiko Jimenez DO Primary Care Provider [phone] Fran Bray MD [facility]available [facility] Unavailable [phone] Kiko Godinez MD PhD Unavailable Oscar Barnard MD Unavailable [phone] Brayan Burrows MD Unavailable Alla Wyman MD, Todd White Unavailable Encounter Details Date Type Department Care Team (Late st Contact Info) Description 01/16/2020 Telephone [facility] [address] [place] [address] Fabiola Griffith, RT Social History Tobacco [...] Friends and Family Patient declined 02/05/2019 Attends Christianity Services Patient declined 08/2018 Active Member of Clubs or Organizations Patient declined 02/05/2019 Attends Club or Organization Meetings Patient de clined 02/05/2019 Marital Status 02/05/2019 Overall Financial Resource Strain (CARDIA) Answe r Date Recorded Difficulty of Paying Living Expenses Not hard at all 02/05/2019 [facility] [place] of Occupat ional Health - Occupational Stress [...] on file Legal Sex Male 8:20 AM PRINTED CIRCUIT BOARD ASSEMBLER Gender Identity Not on file Sexual Orientation Not on file 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 Not on file Not on file documented as of this encounter Plan of Treatment Not on file documented as of this encounter Visit Diagnoses Not on filedocumented in this encounter Care Teams Masonry Installer Relationship Specialty Start Date End Date Kiko Jimenez DO PCP - General 04/09/17 Fran Bray MD Medical Oncologist/Bridge Expert Medical Oncology 01/10/18 Maximiliano Cerrato MD Consulting Physician Plastic Surgery 01/10/18 Kiko Godinez MD PhD Tool Dresser Dermatology 01/11/18 Oscar Barnard MD Screw Driver Operator Cardiology 01/11/18 Brayan Burrows MD Radiation Oncologist Radiation Oncology 12/09/18 1//2 4 Todd Gold Jr., MD Referring Physician Urology 02/08/19 documented as of this encounter
--- OUTSIDE RECORDS SUMMARY | 2024-05-08 10:43 | XMS_ITS | Encounter Summary ---
Author Organization [facility] Address [address] [place] [address] Phone Care Team Providers Care Change Over Name Role Phone Kiko Jimneez DO Primary Care Provider + [phone] Fran Bray MD Unavailable Maximiliano Cerrato MD Unavailable [phone] Kiko Godinez MD PhD Unavailable Oscar Barnard MD Unavailable [phone] Brayan Burrows MD Unavailable [phone] Alla Wyman MD, Todd White Unavailable Encounter Details Date Type Department Care Team (Late st Contact Info) Description 09/27/2017 Telephone [facility] Cardiology [address] [facility] Advanced Medicine [address]th [place] [address] [place] [address] Oscar Barnard MD [address] [facility] [address] [place] [address] Social History Tobacco Use Types Packs/Day Years Used Date Smoking Tobacco: Former Sex and Gender Information Value Date Recorded Sex Assigned at Not on file Legal Sex Male 8:20 AM POND SCALER Gender Identity Not on file Sexual Orientation Not on file documented as of this encounter Plan of Treatment Not on file documented as of this encounter Visit Diagnoses Not on filedocumented in this encounter Care Teams Change Over Relationship Specialty Start Date End Date Kiko Jimenez DO PCP - General 04/09/17 Fran Bray MD Medical Oncologist/Stand Up Forklift Operator Medical Oncology 01/10/18 Maximiliano Cerrato MD Consulting Physician Plastic Surgery 01/10/18 Kiko Godinez MD PhD Station Gateman Dermatology 01/11/18 Oscar Barnard MD Outside Sales Account Executive Cardiology 01/11/18 Brayan Burrows MD Radiation Oncologist Radiation Oncology 12/09/18 4 Todd Gold Jr., MD Referring Physician Urology 02/08/19 documented as of this encounter
--- OUTSIDE RECORDS SUMMARY | 2024-05-08 10:43 | XMS_ITS | Encounter Summary ---
Author Organization [facility] Healthcare Address [address] [place] [address] Care Team Providers Care Detective Bureau Chief Name Role Phone Kiko Jimenez DO Primary Care Provider [phone]- [phone] [facility] MD [facility] Un[facility] [phone] Kiko Godinez MD PhD Unavailable Oscar Barnard MD Unavailable [phone] Brayan Burrows MD Unavailable [phone] Alla Wyman MD, Todd White Unavailable Encounter Details Date Type Department Care Team (Late st Contact Info) Description 10/17/2019 Telephone [facility] [address] [place] [address] Fabiola Griffith, RT Social History Tobacco [...] Living Expenses Not hard at all 02/05/2019 [facility] [place] of Occupat ional Health - Occupational Stress [...] on file 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 Gender Identity Not on file Sexual Orientation Not on file 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 Not on file Not on file documented as of this encounter Plan of Treatment Not on file documented as of this encounter Visit Diagnoses Not on filedocumented in this encounter Care Teams Detective Bureau Chief Relationship Specialty Start Date End Date Kiko Jimenez DO PCP - General 04/09/17 Fran Bray MD Medical Oncologist/Commercial Singer Medical Oncology 01/10/18 Maximiliano Cerrato MD Consulting Physician Plastic Surgery 01/10/18 Kiko Godinez MD PhD Toolroom Keeper Dermatology 01/11/18 Oscar Barnard MD Data Conversion Developer Cardiology 01/11/18 Brayan Burrows MD Radiation Oncologist Radiation Oncology 12/09/1804/03/2 4 Todd Gold Jr., MD Referring Physician Urology 02/08/19 documented as of this encounter
--- OUTSIDE RECORDS SUMMARY | 2024-05-08 10:43 | XMS_ITS | Encounter Summary ---
Author Organization [facility] Healthcare Address [address] [place] [address] Care Team Providers Care Financial Accounting Manager Name Role Phone Kiko Jimenez DO Primary Care Provider [phone] Fran Bray MD [facility]available [facility] Unavailable [phone] Kiko Godinez MD PhD Unavailable Oscar Barnard MD Unavailable [phone] Brayan Burrows MD Unavailable [phone] Alla Wyman MD, Todd White Unavailable Encounter Details Date Type Department Care Team (Late st Contact Info) Description 07/18/2019 Telephone [facility] [address] [place] [address] Hair Pro, RT Social History Tobacco Use Types Packs/Day [...] Friends and Family Patient declined 02/05/2019 Attends [employer]ism Services Patient declined 08/2018 Active Member of Clubs or Organizations Patient declined 02/05/2019 Attends Club or Organization Meetings Patient de clined 02/05/2019 Marital Status 02/05/2019 Overall Financial Resource Strain (CARDIA) Ans[place] r Date Recorded Difficulty of Paying Living Expenses Not hard at all 02/05/2019 [facility] [place] of Occupat ional Health - Occupational Stress [...] on file 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 Gender Identity Not on file Sexual Orientation Not on file 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 Not on file Not on file documented as of this encounter Plan of Treatment Not on file documented as of this encounter Visit Diagnoses Not on filedocumented in this encounter Care Teams Financial Accounting Manager Relationship Specialty Start Date End Date Kiko Jimenez DO PCP - General 04/09/17 Fran Bray MD Medical Oncologist/Integrated Specialist Medical Oncology 01/10/18 Maximiliano Cerrato MD Consulting Physician Plastic Surgery 01/10/18 Kiko Godinez MD PhD Director Life Sciences Dermatology 01/11/18 Oscar Barnard MD Nut Former Cardiology 01/11/18 Brayan Burrows MD Radiation Oncologist Radiation Oncology 12/09/1804/03/2 4 Todd Gold Jr., MD Referring Physician Urology 02/08/19 documented as of this encounter
--- OUTSIDE RECORDS SUMMARY | 2024-05-08 10:43 | XMS_ITS ---
Author Organization [facility] al Address [address] [place] [address] Care Team Providers Care Fishing Accessories Maker Name Role Phone Kiko Jimenez DO Primary Care Provider + [phone] Fran Bray MD [facility]available [facility] Un[facility] [phone] Kiko Godinez MD PhD Unavailable [phone] Oscar Barnard MD Unavailable [phone] Alla Wyman MD, Todd hWite Unavailable Active Problems Problem Noted Date Diagnosed Date [...] (11/24/2019): Added automatically from request for surgery [id number] Assessment & Plan (12/21/2019 9:58 AM CDT): [...] (03/07/2019): Added automatically from request for surgery [id number] Prostate cancer 12/06/2018 Cancer Staging:Clinical stage from 09/27/2018:Stage IIB(cT1c, cN0, cM0, PSA: 5.2, Grade Group: 2) - Signed by Hector Whittington MD PhD on 02/05/2019 Overview (12/06/2018): Added automatically from request for surgery [id number] Hypoparathyroidism 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 11/30/2018 Assessment & Plan [...] (10/31/2018): Added automatically from request for surgery [id number] Assessment & Plan (01/09/2019 8:49 AM CDT): [...] (09/09/2018): Added automatically from request for surgery [id number] 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 Daily INR. - Retreader Dr. Barnard aware of admission and following [...] medicine team will sign off. Please call [phone] if any additional question Assessment & Plan [...] medicine team will sign off. Please call [phone] if any additional question Assessment & Plan [...] Staphylococcus aureus 3 Dissection of abdominal aorta (CMS/HCC) 08/13/19 13 Swelling of lower extremity 06/27/2012 Aneurysm of thoracic aorta 05/29/2012 Dissection of thoracic aorta 05/29/2012 Dyslipidemia 05/29/2012 Hypertension 05/29/2012 Current Oncology Plans No current plan information found. Past Plans Oncology Chemotherapy Treatment Plan Name Start Date Discontinue Date Treatment Medications Discontinue Reason Plan Provider Cycles Nivolumab 480 mg 14 Day Cycles - Continuation of Prior Treatment Plan which was accidently discontinued 01/15/20 19 04/16/2019 nivolumab (OPDIVO) in 50 mL IVPB Therapy Complete Fran Bray MD 1 of 1 cycle started Nivolumab 480 mg 28 Day Cycles 02/13/20 18 01/14/2019 nivolumab (OPDIVO)nivol umab (OPDIVO) in 50 mL IVPB Therapy Complete Fran Bray MD 12 of 15 cycles completed Oncology Supportive Care Plan Name Start Date Discontinue Date Treatment Medications Discontinue Reason Plan Provider IV MAINTENANCE THERAPY PLAN 07/30/2018 04/15/2020 No medications scheduled. Therapy Complete Fran Bray MD Radiation Treatments * Plan Last Treated On Elapsed Days Fractions Treated Prescribed Fraction Dose Prescribed Total Dose Thyroid 1 12/20/2018 0 1 150 cGy 150 cGy Reference Point Last Treated On Elapsed Days Session Dose Total Dose Thyroid 1 12/20/2018 0 150 cGy 150 cGy Lifetime Dose Tracking * Chemical Lifetime Dose Automatic Entry Manual Entr y Fluoro Time 1.5 minutes 1.5 minutes 0 minutes Air kerma at the reference point (Ka,r) 61.5 mGy 6 1.5 mGy 0 mGy DLP 17,933 mGycm 17,933 mGycm 0 mGycm Resolved Problems Problem Noted Date Diagnosed Date Resolved Date Leukocytosis 12/13/2019 12/18/2019 Assessment & Plan (12/16/2019 7:49 AM CDT): > Improved. WBC 14 -> 20 on 12/11 late-pm labs, improving. Now 9.2 - Urine culture, no growth - CXR unremarkable
--- OUTSIDE RECORDS SUMMARY | 2024-05-08 10:43 | XMS_ITS | Encounter Summary ---
Author Organization [facility] Address [address] [place] [address] Phone Care Team Providers Care Licensed Certified Orthotist Name Role Phone Kiko Jimenez DO Primary Care Provider + [phone] Fran Bray MD Unavailable Maximiliano Cerrato MD Unavailable [phone] Kiko Godinez MD PhD Unavailable Oscar Barnard MD Unavailable [phone] Alla Wyman MD, Todd White Unavailable Encounter Details Date Type Department Care Team (Late st Contact Info) Description 12/07/[address] [facility] Cardiology [address] [facility] Advanced Medicine [address]th [place] [address] [place] [address] Oscar Barnard MD [address] [facility] [address] [place] [address] Social History Tobacco Use Types [...] Friends and Family Patient declined 02/05/2019 Attends [employer] Services Patient declined 08/2018 Active Member of Clubs or Organizations Patient declined 02/05/2019 Attends Club or Organization Meetings Patient de clined 02/05/2019 Marital Status 02/05/2019 Overall Financial Resource Strain (CARDIA) Ans[place] r Date Recorded Difficulty of Paying Living Expenses Not hard at all 02/05/2019 [facility] of Occupat ional Health - Occupational Stress [...] No 02/05/2019 Personal Safety Answer Date Recorded Getting School Help Needed Not on file 03/21 Education Answer Date Recorded What is the highest level of school you have completed or the highest degree you have received? 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 Not on file Not on file documented as of this encounter Plan of Treatment Not on file documented as of this encounter Visit Diagnoses Not on filedocumented in this encounter Care Teams Licensed Certified Orthotist Relationship Specialty Start Date End Date Kiko Jimenez DO PCP - General 04/09/17 Fran Bray MD Medical Oncologist/Warehouse Team Member Medical Oncology 01/10/18 Maximiliano Cerrato MD Consulting Physician Plastic Surgery 01/10/18 Kiko Godinez MD PhD Aoc Operations Intelligence Officer Dermatology 01/11/18 Oscar Barnard MD Forest Nursery Worker Cardiology 01/11/18 Todd Gold Jr., MD Referring Physician Urology 02/08/19 documented as of this encounter
[2024-05-08 11:27] LABS: INR 3.2; Prothrombin Time 33.7 Seconds (11.1-14.7)
[2024-07-08 14:31] LABS: INR 3.2; Prothrombin Time 33.1 Seconds (11.1-14.7)
== END 2024-08-06 23:59 | disposition home or self-care (01) ==
LOC: ANHLAB 14:00
PROVIDERS: PCP Internal Medicine; Visit Provider Nurse Practitioner
DX: Z51.81 Encounter for therapeutic drug level monitoring (principal); Q23.1 Congenital insufficiency of aortic valve; Z79.01 Long term (current) use of anticoagulants
CPT/HCPCS: 36415; 85610

== ENCOUNTER 2024-07-15 13:40 | Outpatient (CLI) | payer BC, SELFPAY ==
[2024-07-15 14:00] LABS: Basophils Percent Auto 0.4 % (0.2-1.2); Eosinophils Absolute Auto 0.1 K/mm3 (0-0.3); Eosinophils Percent Auto 0.9 % (0-4.4); Hematocrit 44.7 % (42.0-52.0); Hemoglobin 14.8 g/dL (14.0-18.0); Immature Granulocyte Absolute 0.08 K/mm3 (0.00-0.031); Immature Granulocyte Percent A 0.8 % (0-0.5); Lymphocytes Percent Auto 12.4 % (18.3-44.2); Mean Corpuscular HGB Conc 33.1 g/dl (32-36); Mean Corpuscular Hemoglobin 29.5 pg (26-34); Mean Platelet Volume 9.4 fl (7.4-10.4); Monocytes Absolute Auto 0.9 K/mm3 (0.1-0.6); Monocytes Percent Auto 8.1 % (2.6-8.5); Neutrophils Absolute Auto 8.1 K/mm3 (1.3-6.7); Neutrophils Percent Auto 77.4 % (45.5-73.1); Platelet Count Result 218 k/mm3 (150-375); Red Blood Count 5.02 M/mm3 (4.6-6.20); Red Cell Distribution Width 14.8 % (11.5-14.5); White Blood Count 10.5 K/mm3 (4.5-10.0)
[2024-07-15 14:12] LABS: Alanine Aminotransferase 32 U/L (6-50); Albumin Level 4.7 g/dL (3.5-5.1); Alkaline Phosphatase 95 U/L (38-126); Anion Gap 9 mmol/L (4-12); Aspartate Amino Transferase 38 U/L (17-59); Bilirubin,Total 0.8 mg/dL (0.2-1.3); Blood Urea Nitrogen 18 mg/dL (9-20); Calcium 8.8 mg/dL (8.4-10.2); Carbon Dioxide 31 mmol/L (22-30); Chloride 95 mmol/L (98-107); Cholesterol 213 mg/dL (0-200); Estimated Glomerular Filt Rate > 60; Glucose 188 mg/dL (65-110); HDL Direct 39 mg/dL; Potassium 4.3 mmol/L (3.4-5.0); Sodium 135 mmol/L (137-145); Triglycerides 475 mg/dL (<150)
[2024-07-15 14:16] LABS: Hemoglobin A1C 7.8 % (<5.7)
[2024-07-15 14:18] LABS: INR 2.3; Prothrombin Time 25.5 Seconds (11.1-14.7)
[2024-07-15 14:23] LABS: LDL Cholesterol Direct 107 mg/dL
[2024-07-15 14:34] LABS: Free T3 3.34 pg/mL (2.45-5.93); Free T4 Free Thyroxine 1.46 ng/dL (0.78-2.19)
[2024-07-15 14:42] LABS: Prostate Specific Antigen < 0.1 ng/mL (< OR = 4.0)
--- OUTSIDE RECORDS SUMMARY | 2024-07-15 14:43 | XMS_ITS | Encounter Summary ---
Author Organization [facility] Healthcare Address [address] [place] [address] Care Team Providers Care Sap Fico Architect Name Role Phone Kiko Jimenez DO Primary Care Provider [phone] Fran Bray MD Unavailable [phone] [facility] Unavailable Kiko Godinez MD PhD Unavailable Oscar Barnard MD Unavailable [phone] Brayan Burrows MD Unavailable Alla Wyman MD, Todd White Unavailable Encounter Details Date Type Department Care Team (Late st Contact Info) Description 07/18/2019 Telephone [facility]iology [facility] [address] [place] [address] Hair Pro, RT Social History Tobacco [...] Friends and Family Patient declined 02/05/2019 Attends Zoroastrian Services Patient declined 08/2018 Active Member of Clubs or Organizations Patient declined 02/05/2019 Attends Club or Organization Meetings Patient de clined 02/05/2019 Marital Status 02/05/2019 Overall Financial Resource Strain (CARDIA) Answe r Date Recorded Difficulty of Paying Living Expenses Not hard at all 02/05/2019 [facility] [place] of Occupat ional Health - Occupational Stress [...] on file Legal Sex Male 8:20 AM OYSTERMAN Gender Identity Not on file Sexual Orientation Not on file 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 Not on file Not on file documented as of this encounter Plan of Treatment Not on file documented as of this encounter Visit Diagnoses Not on filedocumented in this encounter Care Teams Sap Fico Architect Relationship Specialty Start Date End Date Kiko Jimenez DO PCP - General 04/09/17 Fran Bray MD Medical Oncologist/Color Finisher Medical Oncology 01/10/18 Maximiliano Cerrato MD Consulting Physician Plastic Surgery 01/10/18 Kiko Godinez MD PhD Deck Scaler Dermatology 01/11/18 Oscar Barnard MD Manager System Cardiology 01/11/18 Brayan Burrows MD Radiation Oncologist Radiation Oncology 12/09/1804/03/2 4 Todd Gold Jr., MD Referring Physician Urology 02/08/19 documented as of this encounter
--- OUTSIDE RECORDS SUMMARY | 2024-07-15 14:43 | XMS_ITS | Clinical Summary ---
Author Organization [facility] Address [address] [place] [address] Care Team Providers Care Mobile Therapist Name Role Phone Unavailable Primary Care Provider [...] Td Vaccines ( 1 - Tdap) 09/19/1982 Pneumococcal Vaccine: 50+ Ye ars (1 of 1 - PCV) 09/19/2013 Zoster Vaccines (1 of 2) 09/19/2013 COVID-19 Vaccine ( - 2023-2 5 season) 2023 RSV Immunization or 60+ Years (1 - [...]
--- OUTSIDE RECORDS SUMMARY | 2024-07-15 14:43 | XMS_ITS | Encounter Summary ---
Author Organization [facility] Address [address] [place] [address] Phone Care Team Providers Care Rail Car Welder Name Role Phone Kiko Jimenez DO Primary Care Provider + [phone] Fran Bray MD Unavailable [phone] Maximiliano Cerrato MD Unavailable [phone] Kiko Godinez MD PhD Unavailable [phone] Oscar Barnard MD Unavailable [phone] Alla Wyman MD, Todd White Unavailable [phone] Encounter Details Date Type Department Care Team (Latest Contact Info) Description 07/14/2024 Orders Only [facility] Scanning, Provider Social History Tobacco Use Types Packs/Day Years [...] Friends and Family Patient declined 02/05/2019 Attends Bahai Services Patient declined 08/2018 Active Member of [...] Living Expenses Not hard at all 02/05/2019 [facility] of Occupat ional Health - Occupational [...] on file Legal Sex Male 8:20 AM BUSINESS SUPPORT SPECIALIST Gender Identity Not on file Sexual Orientation Not on file 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 Reports his last Ov was supposed to be in June 04- but he was traveling and had to miss . Also reports [facility] wants him to do a 1 year scan in follow up of his last scan in September 2023, he reports they have sent an order to [facility] Will arrange follow up- does he need imaging -last CTA was March 2024 , last echo September ? * Oscar Barnard MD - 07/14/2024 11:59 PM CDT He is in AFib. Happy to see him in the office or video conference if he would like to. He should have a follow-up scan August or September as he had an abnormal pulmonary finding and they recommended follow-up scan in 6 months. Okay to order CTA of the chest with contrast follow-up pulmonary nodule and aortic surgery. * Vicki Pavon RN - 07/14/2024 11:59 PM CDT Pt aware of recommendations - offered and confirmed oV for July 16 @ 2:15 Will have scheduling arrange CTA chest for August or September 2024 documented in this encounter Plan of Treatment Not on file documented as of this encounter Procedures Procedure Name Priority Date/Time Associated Diagnosis Comments CARDIOLOGY DOCUMENT SCAN 07/14/2024 documented in this encounter Results * Cardiology Document Scan (07/14/2024) Anatomical Region Laterality Modality Other us Provider Scanning CV CARDIAC SERVICES PROCEDURES Final Result documented in this encounter Visit Diagnoses Not on filedocumented in this encounter Care Teams Rail Car Welder Relationship Specialty Start Date End Date Kiko Jimenez DO PCP - General 04/09/17 Fran Bray MD Medical Oncologist/Relocation Services Specialist Medical Oncology 01/10/18 Maximiliano Cerrato MD Consulting Physician Plastic Surgery 01/10/18 Kiko Godinez MD PhD Security System Technician Dermatology 01/11/18 Oscar Barnard MD Rim Buster Cardiology 01/11/18 Todd Gold Jr., MD Referring Physician Urology 02/08/19 documented as of this encounter
--- OUTSIDE RECORDS SUMMARY | 2024-07-15 14:43 | XMS_ITS | Clinical Summary ---
Author Organization [facility] al Address [address] [place] [address] Care Team Providers Care Services Rep Name Role Phone Kiko Jimenez DO Primary Care Provider Fran Bray MD Unavailable [facility] Unavailable Kiko Godinez MD PhD Unavailable Oscar Barnard MD Unavailable Alla Wyman MD, Todd White Unavailable Allergies [...] Additional Information Patient not taking.Reported on 02/20/2024 dextroamphetamine- amphetamine XR (ADDERALL XR) 10 mg [...] TWICE DAILY 90 tablet 3 025 Active levothyroxine (SYNTHROID) 125 mcg tabletIndications: Thyroid cancer (HCC) TAKE 2 TABLETS(250 MCG) BY MOUTH SHALE PLANER OPERATOR HELPER BEFORE BREAKFAST 60 tablet 11 025 Active gabapentin (NEURONTIN) 300 mg capsuleIndications [...] mg total) by mouth daily 2019 Discontinued levothyroxine (SYNTHROID) 125 mcg tabletIndications: Thyroid cancer (HCC) TAKE 2 TABLETS(250 MCG) BY MOUTH SHALE PLANER OPERATOR HELPER BEFORE BREAKFAST 60 tablet 11 024 2024 Discontinued Active Problems Problem Noted [...] (11/24/2019): Added automatically from request for surgery [id number] Assessment & Plan (12/21/2019 9:58 AM CDT): [...] (03/07/2019): Added automatically from request for surgery [id number] Prostate cancer 12/06/2018 Cancer Staging:Clinical stage from 09/27/2018:Stage IIB(cT1c, cN0, cM0, PSA: 5.2, Grade Group: 2) - Signed by Hector Whittington MD PhD on 02/05/2019 Overview (12/06/2018): Added automatically from request for surgery [id number] Hypoparathyroidism 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 11/30/2018 Assessment & Plan [...] (10/31/2018): Added automatically from request for surgery [id number] Assessment & Plan (01/09/2019 8:49 AM CDT): [...] (09/09/2018): Added automatically from request for surgery [id number] 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 Daily INR. - Radiation Physicist Dr. Barnard aware of admission and following [...] medicine team will sign off. Please call [phone] if any additional question Assessment & Plan [...] medicine team will sign off. Please call [phone] if any additional question Assessment & Plan [...] Encounters Date Type Department Care Team Description 07/15/2024 Orders Only [facility] Cardiology [address] [facility] [address] [place] [address] [place] [address] Oscar Barnard MD Dissection of descending thoracic aorta (HCC) (Primary Dx); Pulmonary nodule 07/14/2024 Orders Only [facility] Scanning, [...] Friends and Family Patient declined 02/05/2019 Attends Judaism Services Patient declined 08/2018 Active Member of [...] Living Expenses Not hard at all 02/05/2019 [facility] [place] of Occupat ional Health - Occupational Stress [...] on file Legal Sex Male 8:20 AM LEVEL VIAL INSPECTOR AND TESTER Gender Identity Not on file Sexual Orientation Not on file 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 file Not on file Obstetrics History Last Filed Vital Signs Vital Sign Reading Time Taken Comments Blood Pressure 112/69 03/05/2024 10:33 AM LEVEL VIAL INSPECTOR AND TESTER Pulse 72 03/05/2024 10:33 AM LEVEL VIAL INSPECTOR AND TESTER Temperature 36.4 C (97.6 F) 02/20/2024 8:18 AM LEVEL VIAL INSPECTOR AND TESTER Respiratory Rate 18 02/20/2024 8:18 AM LEVEL VIAL INSPECTOR AND TESTER Oxygen Saturation 98% 03/05/2024 10:33 AM LEVEL VIAL INSPECTOR AND TESTER Inhaled Oxygen Concentration - - Weight 119 kg (262 lb 4.8 oz) 03/05/2024 10:33 A M LEVEL VIAL INSPECTOR AND TESTER Height 177.8 cm (5' 10 ) 03/05/2024 10:33 AM LEVEL VIAL INSPECTOR AND TESTER Body Mass Index 37.64 03/05/2024 10:33 AM LEVEL VIAL INSPECTOR AND TESTER Plan of Treatment Health Maintenance Due Date [...] season) 2023 02/12/2021, 06/21/2020, 05/19/2020 Influenza Vaccine (Season Ended) 2024 01/12/2021, 01/01/2020, 01/16/2019, Additional history exists Prostate Cancer Screening-PSA 08/05/2025 08/06/2023, 01/24/2021 Colon Cancer Screening-CT Colonography Discontinued 04/22/2013 Colon Cancer Screening-DNA Stool Discontinued 04/22/19 14 Colon Cancer Screening-FIT Discontinued 04/22/2013 Colon Cancer Screening-Sigmoidoscopy Discontinued 04/22/2013 Medical Devices Implanted Type Area Social Secretary Device Identifier Shelf Expiration Date Model / Serial / Lot Vascutek Terumo [id number] Gelsoft Plus Vascutek 24/12mm 45cm Main Leg Bore Reduced - [id number] - [id number] Implanted:Qty: 1 on 12/11/2019 by Vito Madrigal MD at [facility] Graft N/A: Aorta [employer]umo Cardio Vascular 12/30/2021 [id number] / [id number] / [id number] Mechanical Heart Valve-02/05/1998 Implanted:02/05 (Quantity not on file) Heart [address] [employer] [id number]- [id number] / [id number] / Procedures Procedure Name Priority Date/Time Associated Diagnosis Comments CARDIOLOGY DOCUMENT SCAN 07/14/2024 PSA DIAGNOSTIC Routine 08/06/2023 8:36 AM CDT 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 (HCC) COLONOSCOPY REPORT 04/22/2013 from Last 3 Months or Most Recently Relevant to Health Maintenance Results * Cardiology Document Scan (07/14/2024) Anatomical [...] LAB BLOOD ORDERABLES Final Res ult [facility] Department [place] [address] * COLONOSCOPY REPORT (04/22/2013) Anatomical Region Laterality Modality Other Narrative 04/22/2013 Ordered by an unspecified provider. Historical Provider GI PROCEDURE ORDERABLES F inal Result from Last 3 Months or Most Recently Relevant to Health Maintenance Insurance [employer] [place] [employer] [place] BLUE ACC[place] [facility] [employer] [place] Advance Directives For more information, please contact: [phone] * Full Code (Latest Code Status on [...] 4:23 PM 12/04/2018 4:15 PM Care Teams Services Rep Relationship Specialty Start Date End Date Kiko Jimenez DO PCP - General 04/09/17 Fran Bray MD Medical Oncologist/Evening Or Night Nurse Supervisor Medical Oncology 01/10/18 Maximiliano Cerrato MD Consulting Physician Plastic Surgery 01/10/18 Kiko Godinez MD PhD Warehouse Delivery Driver Dermatology 01/11/18 Oscar Barnard MD Radiation Physicist Cardiology 01/11/18 Todd Gold Jr., MD Referring Physician Urology 02/08/19
--- OUTSIDE RECORDS SUMMARY | 2024-07-15 14:43 | XMS_ITS | Encounter Summary ---
Author Organization [facility] Healthcare Address [address] [place] [address] Care Team Providers Care Photogrammetry Airplane Pilot Name Role Phone Kiko Jimenez DO Primary Care Provider [phone] Fran Bray MD Unavailable [facility] MD Unavailable Kiko Godinez MD PhD Unavailable [phone] Oscar Barnard MD Unavailable Brayan Burrows MD Unavailable Alla Wyman MD, Todd White Unavailable Encounter Details Date Type Department Care Team (Late st Contact Info) Description 01/16/2020 Telephone [facility]iology [facility] [address] [place] [address] Fabiola Griffith, RT Social History Tobacco [...] Friends and Family Patient declined 02/05/2019 Attends Spiritism Services Patient declined 08/2018 Active Member of Clubs or Organizations Patient declined 02/05/2019 Attends Club or Organization Meetings Patient de clined 02/05/2019 Marital Status 02/05/2019 Overall Financial Resource Strain (CARDIA) Answe r Date Recorded Difficulty of Paying Living Expenses Not hard at all 02/05/2019 [facility] [place] of Occupat ional Health - Occupational Stress [...] on file Legal Sex Male 8:20 AM LANDCARE OFFICER Gender Identity Not on file Sexual Orientation Not on file 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 Not on file Not on file documented as of this encounter Plan of Treatment Not on file documented as of this encounter Visit Diagnoses Not on filedocumented in this encounter Care Teams Photogrammetry Airplane Pilot Relationship Specialty Start Date End Date Kiko Jimenez DO PCP - General 04/09/17 Fran Bray MD Medical Oncologist/Toys And Games Hand Finisher Medical Oncology 01/10/18 Maximiliano Cerrato MD Consulting Physician Plastic Surgery 01/10/18 Kiko Godinez MD PhD Croze Cutter Dermatology 01/11/18 Oscar Barnard MD Hand Embroiderer Cardiology 01/11/18 Brayan Burrows MD Radiation Oncologist Radiation Oncology 12/09/18 1//2 4 Todd Gold Jr., MD Referring Physician Urology 02/08/19 documented as of this encounter
--- OUTSIDE RECORDS SUMMARY | 2024-07-15 14:43 | XMS_ITS | Encounter Summary ---
Author Organization [facility] Address [address] [place] [address] Phone Care Team Providers Care Membership Director Name Role Phone Kiko Jimenez DO Primary Care Provider + [phone] Fran Bray MD Unavailable [phone] [facility] Unavailable [phone] Kiko Godinez MD PhD Unavailable Oscar Barnard MD Unavailable [phone] Brayan Burrows MD Unavailable [phone] Alla Wyman MD, Todd White Unavailable Encounter Details Date Type Department Care Team (Late st Contact Info) Description 09/27/2017 Telephone [facility] Cardiology [address] [facility] Advanced Medicine [address]th [place] [address] [place] [address] Oscar Barnard MD [address] [facility] [address] [address] Social History Tobacco Use Types Packs/Day Years Used Date Smoking Tobacco: Former Sex and Gender Information Value Date Recorded Sex Assigned at Not on file Legal Sex Male 8:20 AM TRAY FILLER Gender Identity Not on file Sexual Orientation Not on file documented as of this encounter Plan of Treatment Not on file documented as of this encounter Visit Diagnoses Not on filedocumented in this encounter Care Teams Membership Director Relationship Specialty Start Date End Date Kiko Jimenez DO PCP - General 04/09/17 Fran Bray MD Medical Oncologist/Russian Language Professor Medical Oncology 01/10/18 Maximiliano Cerrato MD Consulting Physician Plastic Surgery 01/10/18 Kiko Godinez MD PhD Flavoring Oil Filterer Dermatology 01/11/18 Oscar Barnard MD Equipment Service Technician Cardiology 01/11/18 Brayan Burrows MD Radiation Oncologist Radiation Oncology 12/09/1804/03/ 4 Todd Gold Jr., MD Referring Physician Urology 02/08/19 documented as of this encounter
--- OUTSIDE RECORDS SUMMARY | 2024-07-15 14:43 | XMS_ITS | Referral Summary ---
Author Organization [facility] Address [address] [place] [address] Care Team Providers Care Research Microbiologist Name Role Phone Kiko Jimenez DO Primary Care Provider [phone] Fran Bray MD Unavailable [phone] [facility]imil[facility] vargas MD Unavailable [phone] Kiko Godinez MD PhD Unavailable Oscar Barnard MD Unavailable [phone] Alla Wyman MD, Todd L. Unavailable Encounters Date Type Department Care Team Description 07/15/2024 Orders Only [facility] Cardiology [address] [facility] Advanced Medicine 8th [place] [address] [place] [address] Oscar Barnard MD Dissection of descending thoracic aorta (HCC) (Primary Dx); Pulmonary nodule 07/14/2024 Orders Only [facility] CARDIOLOGY Scanning, Provider from Last 3 Months Allergies Active Allergy Reactions Criticality Noted Date Comments Ceftriaxone Hives,Rash Medium 12/11/19 - Approved to give cefazolin with ceftriaxone allergy per Alanis Rivero MD/Pat Simeon PharmD Spironolactone Other (See comments) Low 05/19/2020 [...] MOUTH THREE TIMES DAILY 270 tablet 3 Active ketoconazole (NIZORAL) 2 % shampooIndications :Seborrheic [...] (HCC) TAKE 2 TABLETS(250 MCG) BY MOUTH CLIENT SUPPORT COORDINATOR BEFORE BREAKFAST 60 tablet 11 025 Active [...] (HCC) TAKE 2 TABLETS(250 MCG) BY MOUTH CLIENT SUPPORT COORDINATOR BEFORE BREAKFAST 60 tablet 11 024 2024 [...] (11/24/2019): Added automatically from request for surgery [id number] Assessment & Plan (12/21/2019 9:58 AM CDT): [...] (03/07/2019): Added automatically from request for surgery [id number] Prostate cancer 12/06/2018 Cancer Staging:Clinical stage from 09/27/2018:Stage IIB(cT1c, cN0, cM0, PSA: 5.2, Grade Group: 2) - Signed by Hector Whittington MD PhD on 02/05/2019 Overview (12/06/2018): Added automatically from request for surgery [id number] Hypoparathyroidism 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 11/30/2018 Assessment & Plan [...] (10/31/2018): Added automatically from request for surgery [id number] Assessment & Plan (01/09/2019 8:49 AM CDT): [...] (09/09/2018): Added automatically from request for surgery [id number] 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 Daily INR. - Dictaphone Operator Dr. Barnard aware of admission and [...] medicine team will sign off. Please call [phone] if any additional question Assessment & Plan [...] medicine team will sign off. 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 Not on file Not on file Last Filed Vital Signs Vital Sign Reading Time Taken Comments Blood Pressure 112/69 03/05/2024 10:33 AM TWENTY ONE DEALER Pulse 72 03/05/2024 10:33 AM TWENTY ONE DEALER Temperature 36.4 C (97.6 F) 02/20/2024 8:18 AM TWENTY ONE DEALER Respiratory Rate 18 02/20/2024 8:18 AM TWENTY ONE DEALER Oxygen Saturation 98% 03/05/2024 10:33 AM TWENTY ONE DEALER Inhaled Oxygen Concentration - - Weight 119 kg (262 lb 4.8 oz) 03/05/2024 10:33 A M TWENTY ONE DEALER Height 177.8 cm (5' 10 ) 03/05/2024 10:33 AM TWENTY ONE DEALER Body Mass Index 37.64 03/05/2024 10:33 AM TWENTY ONE DEALER Plan of Treatment Not on file Medical Devices Implanted Type Area Alteration Worker Device Identifier Shelf Expiration Date Model / Serial / Lot Vascutek Terumo [id number] Gelsoft Plus Vascutek 24/12mm 45cm Main Leg Bore Reduced - [id number] - [id number] Implanted:Qty: 1 on 12/11/2019 by Vito Madrigal MD at [facility] Graft N/A: Aorta [employer] 12/30/2021 [id number] / [id number] / [id number] Mechanical Heart Valve-02/05/1998 Implanted:02/05 (Quantity not on file) Heart [address] [employer] [id number] / [id number] / Procedures Procedure Name Priority Date/Time Associated [...] LAB BLOOD ORDERABLES Final Res ult [facility] [place] [address] * COLONOSCOPY REPORT (04/22/2013) Anatomical Region Laterality Modality Other Narrative 04/22/2013 Ordered by an unspecified provider. Historical Provider GI PROCEDURE ORDERABLES F inal Result from Last 3 Months or Most Recently Relevant to Health Maintenance Insurance [place] [employer] [place] BL[place] ACC[place] [facility] [place] Advance Directives For more information, please contact: [phone] * Full Code (Latest Code Status on [...] 4:23 PM 12/04/2018 4:15 PM Care Teams Research Microbiologist Relationship Specialty Start Date End Date Kiko Jimenez DO PCP - General 04/09/17 Fran Bray MD Medical Oncologist/Machine Binder Stripper Medical Oncology 01/10/18 Maximiliano Cerrato MD Consulting Physician Plastic Surgery 01/10/18 Kiko Godinez MD PhD Research Compliance Specialist Dermatology 01/11/18 Oscar Barnard MD Dictaphone Operator Cardiology 01/11/18 Todd Gold Jr., MD Referring Physician Urology 02/08/19
--- OUTSIDE RECORDS SUMMARY | 2024-07-15 14:43 | XMS_ITS | Encounter Summary ---
Author Organization [facility] Address [address] [place] [address] Phone Care Team Providers Care Highway Engineering Technician Name Role Phone Kiko Jimenez DO Primary Care Provider + [phone] Fran Bray MD Unavailable [phone] Maximiliano Cerrato MD Unavailable [phone] Kiko Godinez MD PhD Unavailable Oscar Barnard MD Unavailable [phone] Alla Wyman MD, Todd White Unavailable Reason for Referral * MRI/CAT/PET Scan (Routine) - Pending Review Specialty Diagnoses / Procedures Referred By Contac t Referred To Contact Radiology Diagnoses Dissection of descending thoracic aorta (HCC) Pulmonary nodule Procedures CTA Chest W Contrast Oscar Barnard MD [address] [address] Phone: tel: fax: [address] [address] Referral ID Status Reason Start Date Expiration Date V isits Requested Visits Authorized [id number] Pending Review 07/15/2024 08/14/2025 1 1 Encounter Details Date Type Department Care Team (Late st Contact Info) Description 07/15/2024 Orders Only [facility] Cardiology [address] [facility] Medicine 8th [place] [address] [place] [address] Oscar Barnard MD [address] [facility] [address] [place] [address] Dissection of descending thoracic aorta (HCC) (Primary Dx); Pulmonary nodule Social History Tobacco Use Types Packs/Day Years [...] Friends and Family Patient declined 02/05/2019 Attends Denominational Services Patient declined 08/2018 Active Member of [...] Living Expenses Not hard at all 02/05/2019 [facility] of Occupat ional Health - Occupational Stress [...] on file 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 Gender Identity Not on file Sexual Orientation Not on file 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 Not on file Not on file documented as of this encounter Progress Notes * Vicki Pavon RN - 07/15/2024 11:48 AM CDT CTA chesty with contrast due in August or September Scheduling to arrange documented in this encounter Plan of Treatment Scheduled Orders Name Type Priority Associated Diagnoses Orde r Schedule CTA Chest W Contrast Imaging Schedule Routine, Read Routine (OP Routine) Dissection of descending thoracic aorta (HCC) Pulmonary nodule Expected: 07/15/2024, Expires: 07/15/2025 documented as of this encounter Visit Diagnoses Diagnosis Dissection of descending thoracic aorta (HCC)- Primary Pulmonary nodule Other diseases of lung, not elsewhere classified documented in this encounter Care Teams Highway Engineering Technician Relationship Specialty Start Date End Date Kiko Jimenez DO PCP - General 04/09/17 Fran Bray MD Medical Oncologist/Supervisor Pipelines Medical Oncology 01/10/18 Maximiliano Cerrato MD Consulting Physician Plastic Surgery 01/10/18 Kiko Godinez MD PhD Gripper Attacher Dermatology 01/11/18 Oscar Barnard MD Early Childhood Aide Classroom Cardiology 01/11/18 Todd Gold Jr., MD Referring Physician Urology 02/08/19 documented as of this encounter
--- OUTSIDE RECORDS SUMMARY | 2024-07-15 14:43 | XMS_ITS | Encounter Summary ---
Author Organization [facility] Address [address] [place] [address] Phone Care Team Providers Care Spooler Operator Automatic Name Role Phone Kiko Jimenez DO Primary Care Provider + [phone] Fran Bray MD Unavailable Maximiliano Cerrato MD Unavailable [phone] Kiko Godinez MD PhD Unavailable Oscar Barnard MD Unavailable [phone] Alla Wyman MD, Todd White Unavailable [phone] Encounter Details Date Type Department Care Team (Late st Contact Info) Description 12/07/[address] [facility] Cardiology [address] [facility] Advanced Medicine 8th [place] [address] [place] [address] Oscar Barnard MD [address] [facility] [address] [place] [address] Social History Tobacco Use Types [...] Living Expenses Not hard at all 02/05/[address] [facility] [address] [address] 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 Not on file Not on file documented as of this encounter Plan of Treatment Not on file documented as of this encounter Visit Diagnoses Not on filedocumented in this encounter Care Teams Spooler Operator Automatic Relationship Specialty Start Date End Date Kiko Jimenez DO PCP - General 04/09/17 Fran Bray MD Medical Oncologist/Trauma Director Medical Oncology 01/10/18 Maximiliano Cerrato MD Consulting Physician Plastic Surgery 01/10/18 Kiko Godinez MD PhD Pellet Machine Operator Dermatology 01/11/18 Oscar Barnard MD Fire Services Plumber Cardiology 01/11/18 Todd Gold Jr., MD Referring Physician Urology 02/08/19 documented as of this encounter
--- OUTSIDE RECORDS SUMMARY | 2024-07-15 14:43 | XMS_ITS | Encounter Summary ---
Author Organization [facility] Address [address] [place] [address] Care Team Providers Care Clinical Documentation Nurse Name Role Phone Kiko Jimenez DO Primary Care Provider [phone] Fran Bray MD [facility]available [facility] Unavailable Kiko Godinez MD PhD Unavailable Oscar Barnard MD Unavailable [phone] Brayan Burrows MD Unavailable Alla Wyman MD, Todd White Unavailable Encounter Details Date Type Department Care Team (Late st Contact Info) Description 10/17/2019 Telephone [facility] [address] [place] [address] Fabiola Griffith, RT Social History Tobacco [...] Living Expenses Not hard at all 02/05/2019 [facility] [place] of Occupat ional Health - Occupational Stress [...] on file Legal Sex Male 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 Gender Identity Not on file Sexual Orientation Not on file 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 Not on file Not on file documented as of this encounter Plan of Treatment Not on file documented as of this encounter Visit Diagnoses Not on filedocumented in this encounter Care Teams Clinical Documentation Nurse Relationship Specialty Start Date End Date Kiko Jimenez DO PCP - General 04/09/17 Fran Bray MD Medical Oncologist/Plant Custodian Medical Oncology 01/10/18 Maximiliano Cerrato MD Consulting Physician Plastic Surgery 01/10/18 Kiko Godinez MD PhD District Sales Manager Dermatology 01/11/18 Oscar Barnard MD Salesperson Neckties Cardiology 01/11/18 Brayan Burrows MD Radiation Oncologist Radiation Oncology 12/09/1804/03/2 4 Todd Gold Jr., MD Referring Physician Urology 02/08/19 documented as of this encounter
--- OUTSIDE RECORDS SUMMARY | 2024-07-15 14:43 | XMS_ITS | Patient Health Record ---
Author Organization [facility] As [employer] Address [address] [place] [address] Care Team Providers Care Technical Fellow Name Role Phone Kiko Jimenez DO Primary Care Provider Jose Guadalupe Thompson Unavailable [phone] Migration, Provider Unavailable Unavailable Allergies Allergen (clinical drug ingredient) Drug/Non Drug Allergy documented on EMR Reaction Allergy Type Onset Date Status Rocephin Unknown Drug Allergy 07/11/2023 Active Reason For Referral No Information Medications Medication SIG (Take, Route, Frequency, Duration) Notes Start Date End Date Status hydrALAZINE HCl 25 MG Oral 07/11/2023 Active traZODone HCl 50 MG 0.5 to 1 tablet at bedtime Orally Once a day for 90 days As needed 05/07/2024 Active Pravastatin Sodium 40 MG Oral 07/11/2023 Active Furosemide 40 MG TAKE 2 TABLETS BY [facility] EVERY MORNING AND 1 TABLET EVERY AFTERNOON Oral for 30 Days Active Viibryd 20 MG 1 tablet with food O ral Once a day for 90 days Active Carvedilol 25 MG Oral 07/11/2023 Ac tive Tiotropium [place] Monohydrate 18 MCG Inhalation for 30 Days Active Warfarin Sodium 5 MG Oral 07/11/2023 Active Eplerenone 25 mg Oral 07/11/2023 Ac tive Aspirin 81 81 MG 1 tablet Orally Once a day Active Warfarin Sodium 1 MG Oral 07/11/2023 Active Levothyroxine Sodium 125 MCG Oral 07/11/2023 Active Triamcinolone Acetonide 0.10% External 07/11/2023 Active amLODIPine Besylate 10 MG Oral 07/11/2023 Active Vilazodone HCl 20 MG Oral 07/11/2023 Active Hydrocortisone 2.50% External 07/11/2023 Active Digoxin 125 MCG Oral for 30 Days Active Amphetamine-Dextroamphet ER 10 MG 1 capsule in the morning Oral Once a day for 30 days 07/02/2024 Active diazePAM 5 MG TAKE 1 TABLET BY DOC TH EVERY DAY NEEDED FOR ANXIETY Oral for 14 Days Active cloNIDine HCl 0.2 MG Oral 07/11/2023 Active Lisinopril 10 MG Oral for 30 Days Active Ketoconazole 2% External 07/11/2023 Act yuly Metoprolol Succinate ER 100 MG Oral for 30 Days Active Immunizations Vaccine Route Administration Date Status Comme nts Influenza virus vaccine, quadrivalent (IIV4), split virus, 0.25 mL dosage Unknown 01/27/2015 Administered Influenza virus vaccine, quadrivalent (IIV4), split virus, 0.25 mL dosage Unknown 01/10/2016 Administered Influenza virus vaccine, quadrivalent (IIV4), split virus, 0.25 mL dosage Unknown 12/23/2016 Administered Influenza virus vaccine, quadrivalent (IIV4), split virus, 0.25 mL dosage Unknown 12/30/2017 Administered Influenza virus vaccine, quadrivalent (IIV4), split virus, 0.25 mL dosage Unknown 01/16/2019 Administered Influenza, injectable, MDCK, preservative free Unknown 01/01/2020 Administered Influenza, seasonal, injecta ble, preservative free, 3 yrs and above Unknown 04/09/2012 Administered Influenza, seasonal, injecta ble, preservative free, 3 yrs and above Unknown 01/16/2014 Administered Moderna Covid-19 Vaccine 1st dose Unknown 05/19/2020 Ad ministered Moderna Covid-19 Vaccine 1st dose Unknown 06/21/2020 Ad ministered Moderna Covid-19 Vaccine 1st dose Unknown 02/12/2021 Ad ministered Social History Tobacco Use: Social History Observation Description Date Details (start date - stop date) Former Smoker NA - NA Sex Assigned At : Social History Observation Description Sex Assigned At Male Tobacco Control (Standard) Question Answer Notes Tobacco use: Former smoker Problems Problem Type SNOMED Code ICD Code Onset Dates Problem Status W/U Status Risk Notes Problem Mild recurrent major depression (77717382) Major depressive disorder, recurrent, mild (F33.0) Active confirmed Problem Generalized anxiety disorder (12708283) Generalized anxiety disorder (F41.1) Active confirmed Problem Posttraumatic stress disorder (74568165) Post-traumatic stress disorder, chronic (F43.12) Active confirmed Problem Attention deficit hyperactivity disorder, predominantly inattentive type (73751029) Attention-deficit hyperactivity disorder, predominantly inattentive type (F90.0) Active confirmed Problem Attention deficit hyperactivity disorder, combined type (57606246) Attention-deficit hyperactivity disorder, combined type (F90.2) Active confirmed Problem Insomnia (713953481) Insomnia (G47.00) Active confirmed Vital Signs Heart Rate 74 /min 05/07/2024 Height-cm 177.80 cm 05/07/2024 Blood pressure diastolic 79 mm Hg 05/07/2024 Weight-kg 118.39 kg 05/07/2024 Height 70.00 in 05/07/2024 Blood pressure systolic 147 mm Hg 05/07/2024 Weight 261 lbs 05/07/2024 BMI 37.45 kg/m2 05/07/2024 Encounters Encounter Location Date Provider Diagnosis [facility] [place] [id number] [address] 08/14/2023 Provider Migration Attention-deficit hyperactivity disorder, predominantly inattentive type F90.0 [facility] [address] [address] 11/08/2023 Jose Guadalupe Dubon Generalized anxiety disorder F41.1 ; Post-traumatic stress disorder, chronic F43.12 ; Major depressive disorder, recurrent, mild F33.0 and Attention-deficit hyperactivity disorder, combined type F90.2 [facility] [address] [facility] [address] [address] 02/04/2024 Jose Guadalupe Huitrona Generalized anxiety disorder F41.1 ; Post-traumatic stress disorder, chronic F43.12 ; Major depressive disorder, recurrent, mild F33.0 and Attention-deficit hyperactivity disorder, combined type F90.2 [facility] [address] [address] 05/07/2024 Jose Guadalupe Duobn Benign essential HTN I10 ; Generalized anxiety disorder F41.1 ; Post-traumatic stress disorder, chronic F43.12 ; Major depressive disorder, recurrent, mild F33.0 ; Attention-deficit hyperactivity disorder, combined type F90.2 and Insomnia G47.00 [facility] [address] [place] [address] 08/03/2023 Provider Migration [facility], [facility] [address] [place] [address] 08/14/2023 Provider Migration [facility], [facility] [address] [place] [address] 08/18/2023 Provider Migration [facility], [facility] [address] [place] [address] 08/19/2023 Provider Migration [facility], [facility] [address] [place] [address] 09/19/2023 Jose Guadalupe Dubon Attention-deficit hyperactivity disorder, predominantly inattentive type F90.0 [facility], [facility] [address] [place] [address] 10/12/2023 Jose Guadalupe Dubon [facility], [facility] [address] [place] [address] 10/18/2023 Jose Guadalupe Dubon Major depressive disorder, recurrent, mild F33.0 [facility], [facility] [address] [place] [address] 09/17/2023 Jose Guadalupe Dubon [facility], [facility] [address] [place] [address] 10/10/2023 Jose Guadalupe Dubon Major depressive disorder, recurrent, mild F33.0 [facility], [facility] [address] [place] [address] 10/11/2023 Jose Guadalupe Tuckeroza [facility], [facility] [address] [place] [address] 12/04/2023 Jose Guadalupe Dubon Attention-deficit hyperactivity disorder, combined type F90.2 [facility], [facility] [address] [place] [address] 12/07/2023 Jose Guadalupe Dubon [facility], [facility] [address] [place] [address] 01/03/2024 Jose Guadalupe Dubon Attention-deficit hyperactivity disorder, combined type F90.2 [facility], [facility] [address] [place] [address] 03/06/2024 Jose Guadalupe Dubon Attention-deficit hyperactivity disorder, combined type F90.2 [facility] [address] [facility] [address] [facility] [address] [place] [address] 03/06/2024 Jose Guadalupe Dubon Attention-deficit hyperactivity disorder, combined type F90.2 [facility] [address] [facility] [address] [facility] [address] [place] [address] 03/31/2024 Jose Guadalupe Tuckeroza Attention-deficit hyperactivity disorder, combined type F90.2 [facility] [address] [facility] [address] [facility] [address] [place] [address] 06/05/2024 Jose Guadalupe Tuckeroza Attention-deficit hyperactivity disorder, combined type F90.2 [facility] [address] [facility] [address] [address] 07/01/2024 Jose Guadalupe Tuckeroza Attention-deficit hyperactivity disorder, combined type F90.2 Assessments Encounter Date Diagnosis (ICD Code) Assessment Notes Treatment Notes Treatment Clinical Notes Section Notes 09/19/2023 Attention-defic it hyperactivity disorder, predominantly inattentive type (ICD-10 - F90.0) 10/10/2023 Major depressive disorder, recurrent, mild (ICD-10 - F33.0) 10/18/2023 Major depressive disorder, recurrent, mild (ICD-10 - F33.0) 11/08/2023 Generalized anxiety disorder (ICD-10 - F41.1) 1. Post-operative recovery from open heart surgery - Patient is recovering from his third open heart surgery on September 20. - Starting cardiac rehab next week. - Follow up with box office clerk for blood pressure medication adjustments and monitoring of additional tear. 2. ADHD - Patient resumed Adderall XR 10 mg after a temporary discontinuation due to surgery. Plan: - Continue Adderall XR 10 mg for ADHD. Refill prescription and monitor for side effects. 3. Depression and anxiety - Patient reports increased depression symptoms during recovery and a history of alcohol use to cope with fear. - Currently on Viibryd 20 mg. Plan: - Continue Viibryd 20 mg for depression and anxiety. Monitor for side effects, including akathisia. Encourage patient to seek counseling and maintain open communication with family and support groups. 4. Follow-up - Schedule a follow-up appointment in one month to assess progress and medication effectiveness. 11/08/2023 Post-traumatic stress disorder, chronic (ICD-10 - F43.12) 1. Post-operative recovery from open heart surgery - Patient is recovering from his third open heart surgery on September 20. - Starting cardiac rehab next week. - Follow up with box office clerk for blood pressure medication adjustments and monitoring of additional tear. 2. ADHD - Patient resumed Adderall XR 10 mg after a temporary discontinuation due to surgery. Plan: - Continue Adderall XR 10 mg for ADHD. Refill prescription and monitor for side effects. 3. Depression and anxiety - Patient reports increased depression symptoms during recovery and a history of alcohol use to cope with fear. - Currently on Viibryd 20 mg. Plan: - Continue Viibryd 20 mg for depression and anxiety. Monitor for side effects, including akathisia. Encourage patient to seek counseling and maintain open communication with family and support groups. 4. Follow-up - Schedule a follow-up appointment in one month to assess progress and medication effectiveness. 12/04/2023 Attention-defic it hyperactivity disorder, combined type (ICD-10 - F90.2) 01/03/2024 Attention-defic it hyperactivity disorder, combined type (ICD-10 - F90.2) 03/06/2024 Attention-defic it hyperactivity disorder, combined type (ICD-10 - F90.2) 03/06/2024 Attention-defic it hyperactivity disorder, combined type (ICD-10 - F90.2) 03/31/2024 Attention-defic it hyperactivity disorder, combined type (ICD-10 - F90.2) 02/04/2024 Generalized anxiety disorder (ICD-10 - F41.1) stable 1. Post-surgical recovery: - Patient reports significant improvement in overall well-being following cardiac surgery. - Patient has been participating in cardiac rehab and has three more visits remaining. Plan: - Encourage patient to continue cardiac rehab and maintain regular exercise at the [facility]. 2. Depression: - Patient is currently on Viibryd 20 mg daily and reports improvement in mood. Plan: - Continue Viibryd 20 mg daily. - Refill prescription at [facility]. - Schedule a three-month follow-up appointment. 3. Attention deficit: - Patient is currently on amphetamine 10 mg daily and reports it is working well. Plan: - Continue amphetamine 10 mg daily. - Refill prescription at [facility] pharmacy. 4. Sleep disturbance: - Patient reports difficulty falling back asleep after waking up to use the bathroom and experiencing restless leg syndrome. Plan: - Encourage patient to continue using relaxation techniques and reading before bed. - Monitor sleep quality at the next follow-up appointment. 5. Alcohol use disorder in remission: - Patient acknowledges the potential for relapse but reports having tools to cope with it. Plan: - Encourage patient to continue utilizing coping strategies and maintaining sobriety. - Monitor alcohol use at the next follow-up appointment. 05/07/2024 Benign essential HTN (ICD-10 - I10) 06/05/2024 Attention-defic it hyperactivity disorder, combined type (ICD-10 - F90.2) 07/01/2024 Attention-defic it hyperactivity disorder, combined type (ICD-10 - F90.2) 08/14/2023 Attention-defic it hyperactivity disorder, predominantly inattentive type (ICD-10 - F90.0) 02/04/2024 Post-traumatic stress disorder, chronic (ICD-10 - F43.12) stable 1. Post-surgical recovery: - Patient reports significant improvement in overall well-being following cardiac surgery. - Patient has been participating in cardiac rehab and has three more visits remaining. Plan: - Encourage patient to continue cardiac rehab and maintain regular exercise at the [facility]. 2. Depression: - Patient is currently on Viibryd 20 mg daily and reports improvement in mood. Plan: - Continue Viibryd 20 mg daily. - Refill prescription at [facility] pharmacy. - Schedule a three-month follow-up appointment. 3. Attention deficit: - Patient is currently on amphetamine 10 mg daily and reports it is working well. Plan: - Continue amphetamine 10 mg daily. - Refill prescription at [facility] pharmacy. 4. Sleep disturbance: - Patient reports difficulty falling back asleep after waking up to use the bathroom and experiencing restless leg syndrome. Plan: - Encourage patient to continue using relaxation techniques and reading before bed. - Monitor sleep quality at the next follow-up appointment. 5. Alcohol use disorder in remission: - Patient acknowledges the potential for relapse but reports having tools to cope with it. Plan: - Encourage patient to continue utilizing coping strategies and maintaining sobriety. - Monitor alcohol use at the next follow-up appointment. 05/07/2024 Generalized anxiety disorder (ICD-10 - F41.1) stable 05/07/2024 Post-traumatic stress disorder, chronic (ICD-10 - F43.12) stable 11/08/2023 Major depressive disorder, recurrent, mild (ICD-10 - F33.0) 1. Post-operative recovery from open heart surgery - Patient is recovering from his third open heart surgery on September 20. - Starting cardiac rehab next week. - Follow up with box office clerk for blood pressure medication adjustments and monitoring of additional tear. 2. ADHD - Patient resumed Adderall XR 10 mg after a temporary discontinuation due to surgery. Plan: - Continue Adderall XR 10 mg for ADHD. Refill prescription and monitor for side effects. 3. Depression and anxiety - Patient reports increased depression symptoms during recovery and a history of alcohol use to cope with fear. - Currently on Viibryd 20 mg. Plan: - Continue Viibryd 20 mg for depression and anxiety. Monitor for side effects, including akathisia. Encourage patient to seek counseling and maintain open communication with family and support groups. 4. Follow-up - Schedule a follow-up appointment in one month to assess progress and medication effectiveness. 02/04/2024 Major depressive disorder, recurrent, mild (ICD-10 - F33.0) 1. Post-surgical recovery: - Patient reports significant improvement in overall well-being following cardiac surgery. - Patient has been participating in cardiac rehab and has three more visits remaining. Plan: - Encourage patient to continue cardiac rehab and maintain regular exercise at the [facility]. 2. Depression: - Patient is currently on Viibryd 20 mg daily and reports improvement in mood. Plan: - Continue Viibryd 20 mg daily. - Refill prescription at [facility] pharmacy. - Schedule a three-month follow-up appointment. 3. Attention deficit: - Patient is currently on amphetamine 10 mg daily and reports it is working well. Plan: - Continue amphetamine 10 mg daily. - Refill prescription at [facility] pharmacy. 4. Sleep disturbance: - Patient reports difficulty falling back asleep after waking up to use the bathroom and experiencing restless leg syndrome. Plan: - Encourage patient to continue using relaxation techniques and reading before bed. - Monitor sleep quality at the next follow-up appointment. 5. Alcohol use disorder in remission: - Patient acknowledges the potential for relapse but reports having tools to cope with it. Plan: - Encourage patient to continue utilizing coping strategies and maintaining sobriety. - Monitor alcohol use at the next follow-up appointment. 11/08/2023 Attention-defic it hyperactivity disorder, combined type (ICD-10 - F90.2) 1. Post-operative recovery from open heart surgery - Patient is recovering from his third open heart surgery on September 20. - Starting cardiac rehab next week. - Follow up with box office clerk for blood pressure medication adjustments and monitoring of additional tear. 2. ADHD - Patient resumed Adderall XR 10 mg after a temporary discontinuation due to surgery. Plan: - Continue Adderall XR 10 mg for ADHD. Refill prescription and monitor for side effects. 3. Depression and anxiety - Patient reports increased depression symptoms during recovery and a history of alcohol use to cope with fear. - Currently on Viibryd 20 mg. Plan: - Continue Viibryd 20 mg for depression and anxiety. Monitor for side effects, including akathisia. Encourage patient to seek counseling and maintain open communication with family and support groups. 4. Follow-up - Schedule a follow-up appointment in one month to assess progress and medication effectiveness. 05/07/2024 Major depressive disorder, recurrent, mild (ICD-10 - F33.0) 05/07/2024 Attention-defic it hyperactivity disorder, combined type (ICD-10 - F90.2) 02/04/2024 Attention-defic it hyperactivity disorder, combined type (ICD-10 - F90.2) 1. Post-surgical recovery: - Patient reports significant improvement in overall well-being following cardiac surgery. - Patient has been participating in cardiac rehab and has three more visits remaining. Plan: - Encourage patient to continue cardiac rehab and maintain regular exercise at the [facility]. 2. Depression: - Patient is currently on Viibryd 20 mg daily and reports improvement in mood. Plan: - Continue Viibryd 20 mg daily. - Refill prescription at [facility]. - Schedule a three-month follow-up appointment. 3. Attention deficit: - Patient is currently on amphetamine 10 mg daily and reports it is working well. Plan: - Continue amphetamine 10 mg daily. - Refill prescription at [facility] pharmacy. 4. Sleep disturbance: - Patient reports difficulty falling back asleep after waking up to use the bathroom and experiencing restless leg syndrome. Plan: - Encourage patient to continue using relaxation techniques and reading before bed. - Monitor sleep quality at the next follow-up appointment. 5. Alcohol use disorder in remission: - Patient acknowledges the potential for relapse but reports having tools to cope with it. Plan: - Encourage patient to continue utilizing coping strategies and maintaining sobriety. - Monitor alcohol use at the next follow-up appointment. 05/07/2024 Insomnia (ICD-10 - G47.00) Insomnia: Care [...] and Viibryd (20 mg) to the patient's [facility] pharmacy. 3. General health and well-being: - Patient reports overall good physical health, participating in cardiac rehab and daily stretching. - Patient is considering care home but plans to wait until age 63 for Medicare coverage. - Patient expresses a desire to stay productive and engaged in activities after care home. Plan: - Encourage patient to continue with cardiac rehab and daily stretching. - Discuss potential activities and volunteer opportunities for post-care home engagement. 4. Monitoring of trazodone: Plan: - Instruct patient to contact the clinic if any issues or concerns arise with the use of trazodone for sleep. - Adjust treatment plan as needed based on patient feedback and response to medication. Follow-up: - Schedule a follow-up appointment in 3 months. Plan Of Treatment Next Appt Details Provider Name:Jose Guadalupe leo, 07/30/2024 08:45:00 AM, [address], [place], [address], Insurance Providers Payer Name Payer Address Payer Phone Subscriber Number Group Number Insured Name Patient Relationship to Insured Coverage Start Date Coverage End Date [facility] [address] [place] [address] [id number] TISH MARISCAL Self - patient is the insured Medical (General) History Surgical History Surgery Date(Month/Year) Heart surgery Other
--- OUTSIDE RECORDS SUMMARY | 2024-07-15 14:43 | XMS_ITS | Encounter Summary ---
Author Organization [facility] Healthcare Address [address] [place] [address] Care Team Providers Care Pulmonary Disease Specialist Name Role Phone Kiko Jimenez DO Primary Care Provider [phone] Fran Bray MD Unavailable [phone] [facility] Unavailable [phone] Kiko Godinez MD PhD Unavailable [phone] Oscar Barnard MD Unavailable [phone] Brayan Burrows MD Unavailable Alla Wyman MD, Todd White Unavailable Encounter Details Date Type Department Care Team (Late st Contact Info) Description 10/15/2020 Telephone [facility] [address] [place] [id number] Fabiola Griffith, RT Social History Tobacco [...] Expenses Not hard at all 02/05/2019 [facility] [place] [facility] - Occupational Stress [...] on file 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 Gender Identity Not on file Sexual Orientation Not on file 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 on file Not on file Not on file documented as of this encounter Plan of Treatment Not on file documented as of this encounter Visit Diagnoses Not on filedocumented in this encounter Care Teams Pulmonary Disease Specialist Relationship Specialty Start Date End Date Kiko Jimenez DO PCP - General 04/09/17 Fran Bray MD Medical Oncologist/Do All Operator Medical Oncology 01/10/18 Maximiliano Cerrato MD Consulting Physician Plastic Surgery 01/10/18 Kiko Godinez MD PhD Blow Pit Operator Dermatology 01/11/18 Oscar Barnard MD National Sales Executive Cardiology 01/11/18 Brayan Burrows MD Radiation Oncologist Radiation Oncology 12/09/1804/03/2 4 Todd Gold Jr., MD Referring Physician Urology 02/08/19 documented as of this encounter
--- OUTSIDE RECORDS SUMMARY | 2024-07-15 14:43 | XMS_ITS ---
Author Organization [facility] al Address [address] [place] [address] Care Team Providers Care Provisioning Specialist Name Role Phone Kiko Jimenez DO Primary Care Provider [phone] Fran Bray MD Unavailable [facility] Unavailable Kiko Godinez [...] (11/24/2019): Added automatically from request for surgery [id number] Assessment & Plan (12/21/2019 9:58 AM CDT): [...] (03/07/2019): Added automatically from request for surgery [id number] Prostate cancer 12/06/2018 Cancer Staging:Clinical stage from 09/27/2018:Stage IIB(cT1c, cN0, cM0, PSA: 5.2, Grade Group: 2) - Signed by Hector Whittington MD PhD on 02/05/2019 Overview (12/06/2018): Added automatically from request for surgery [id number] Hypoparathyroidism 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 11/30/2018 Assessment & Plan [...] (10/31/2018): Added automatically from request for surgery [id number] Assessment & Plan (01/09/2019 8:49 AM CDT): [...] (09/09/2018): Added automatically from request for surgery [id number] 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 Daily INR. - Library Technology Instructor Dr. Barnard aware of admission and following [...] medicine team will sign off. Please call [phone] if any additional question Assessment & Plan [...] medicine team will sign off. Please call [phone] if any additional question Assessment & Plan [...]
--- OUTSIDE RECORDS SUMMARY | 2024-07-15 14:43 | XMS_ITS | Encounter Summary ---
Author Organization [facility] Healthcare Address [address] [place] [address] Care Team Providers Care Senior Licensing Manager Name Role Phone Kiko Jimenez DO Primary Care Provider [phone] Fran Bray MD Unavailable [facility] Unavailable Kiko Godinez MD PhD Unavailable Oscar Barnard MD Unavailable [phone] Brayan Burrows MD Unavailable Alla Wyman MD, Todd White Unavailable Encounter Details Date Type Department Care Team (Late st Contact Info) Description 04/16/2020 Telephone [facility] [address] [place] [id number] Fabiola Griffith, RT Social History Tobacco [...] Friends and Family Patient declined 02/05/2019 Attends Mormon Services Patient declined 08/2018 Active Member of Clubs or Organizations Patient declined 02/05/2019 Attends Club or Organization Meetings Patient de clined 02/05/2019 Marital Status 02/05/2019 Overall Financial Resource Strain (CARDIA) [place] Date Recorded Difficulty of Paying Living Expenses Not hard at all 02/05/2019 [facility] [place] [facility] Occupat ional [facility] - Occupational Stress [...] on file 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 Gender Identity Not on file Sexual Orientation Not on file 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 Not on file Not on file documented as of this encounter Plan of Treatment Not on file documented as of this encounter Visit Diagnoses Not on filedocumented in this encounter Care Teams Senior Licensing Manager Relationship Specialty Start Date End Date Kiko Jimenez DO PCP - General 04/09/17 Fran Bray MD Medical Oncologist/Scenery Builder Medical Oncology 01/10/18 Maximiliano Cerrato MD Consulting Physician Plastic Surgery 01/10/18 Kiko Godinez MD PhD Senior Qualitative Researcher Dermatology 01/11/18 Oscar Barnard MD Creosoting Engineer Cardiology 01/11/18 Brayan Burrows MD Radiation Oncologist Radiation Oncology 12/09/1804/03/2 4 Todd Gold Jr., MD Referring Physician Urology 02/08/19 documented as of this encounter
[2024-07-17 09:48] LABS: Thyroglobulin 0.2 ng/mL; Thyroglobulin Antibodies <1 IU/mL (< or = 1)
[2024-07-19 17:53] LABS: Apolipoprotein B 131 mg/dL
== END 2024-07-15 13:41 | disposition home or self-care (01) ==
LOC: ANHLAB 13:41
PROVIDERS: PCP Internal Medicine; Visit Provider Internal Medicine
DX: E78.5 Hyperlipidemia, unspecified (principal); I10 Essential (primary) hypertension; R73.9 Hyperglycemia, unspecified; Z79.01 Long term (current) use of anticoagulants; Z85.850 Personal history of malignant neoplasm of thyroid; Z85.46 Personal history of malignant neoplasm of prostate
CPT/HCPCS: 36415; 80053; 80061; 82172; 83036; 84153; 84432; 84439; 84443; 84481; 85025; 85610; 86800

== ENCOUNTER 2024-10-24 14:10 | Outpatient (RCR) | payer BC, SELFPAY ==
[2024-09-09 15:34] LABS: INR 2.9; Prothrombin Time 29.1 Seconds (11.1-14.7)
[2024-10-24 15:07] LABS: INR 2.4; Prothrombin Time 25.3 Seconds (11.1-14.7)
== END 2024-12-08 23:59 | disposition home or self-care (01) ==
LOC: ANHLAB 14:10
PROVIDERS: PCP Clinical Nurse Specialist; Visit Provider Nurse Practitioner
DX: Z51.81 Encounter for therapeutic drug level monitoring (principal); Z79.01 Long term (current) use of anticoagulants; Q23.1 Congenital insufficiency of aortic valve
CPT/HCPCS: 36415; 85610

== ENCOUNTER 2024-10-24 14:12 | Outpatient (CLI) | payer BC, SELFPAY ==
--- OUTSIDE RECORDS SUMMARY | 2024-10-24 14:23 | XMS_ITS | Encounter Summary ---
Author Organization [facility] Address [address] [place] [address] Phone Care Team Providers Care Truck Car And Bus Cleaner Name Role Phone Kiko Jimenez DO Primary Care Provider + [phone] Fran Bray MD Unavailable [phone] Maximiliano Cerrato MD Unavailable [phone] Kiko Godinez MD PhD Unavailable Oscar Barnard MD Unavailable [phone] Alla Wyman MD, Todd White Unavailable Encounter Details Date Type Department Care Team (Late st Contact Info) Description 12/07/2023 Telephone [facility] Cardiology [address] [facility] Advanced Medicine [address] [place] [address] [place] [address] Oscar Barnard MD [address] [facility] [address] [place] [address] Social History Tobacco Use Types [...] Friends and Family Patient declined 02/05/2019 Attends Evangelical Services Patient declined 08/2018 Active Member of Clubs or Organizations Patient declined 02/05/2019 Attends Club or Organization Meetings Patient de clined 02/05/2019 Marital Status 02/05/2019 Overall Financial Resource Strain (CARDIA) [place] Date Recorded Difficulty of Paying Living Expenses Not hard at all 02/05/2019 [facility]at ional [facility] - Occupational [...] on file 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 Gender Identity Not on file Sexual Orientation Not on file 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 Not on file Not on file documented as of this encounter Plan of Treatment Not on file documented as of this encounter Visit Diagnoses Not on filedocumented in this encounter Care Teams Truck Car And Bus Cleaner Relationship Specialty Start Date End Date Kiko Jimenez DO PCP - General 04/09/17 Fran Bray MD Medical Oncologist/Infrastructure Solutions Architect Medical Oncology 01/10/18 Maximiliano Cerrato MD Consulting Physician Plastic Surgery 01/10/18 Kiko Godinez MD PhD Medical Liaison Dermatology 01/11/18 Oscar Barnard MD Line Helper Cardiology 01/11/18 Todd Gold Jr., MD Referring Physician Urology 02/08/19 documented as of this encounter
--- OUTSIDE RECORDS SUMMARY | 2024-10-24 14:23 | XMS_ITS | Referral Summary ---
Author Organization [facility] al Address [address] [place] [address] Care Team Providers Care Computer Networking Instructor Adjunct Name Role Phone Kiko Jimenez DO Primary Care Provider + [phone] Fran Bray MD Unavailable [facility] Unavailable [phone] Kiko Godinez MD PhD Unavailable Oscar Barnard MD Unavailable [phone] Alla Wyman MD, Todd White Unavailable Encounters Date Type Department Care Team Description 10/02/2024 Results Follow-Up [facility] Cardiology [address] [facility] 8th [place] [address] [place] [address] Oscar Barnard MD CTA Chest Abdomen Pelvis 10/01/2024 3:04 PM CDT - 10/01/2024 11:59 PM CDT Hospital Encounter [facility] [address] [place] [address] Oscar Barnard MD Dissection of thoracic aorta, unspecified part (HCC); Aneurysm of ascending aorta without rupture; Abdominal aortic aneurysm (AAA) without rupture, unspecified part; Aneurysm of iliac artery; Dissection of abdominal aorta (HCC); Abdominal aortic aneurysm dissection (HCC); Aortic root aneurysm Discharge Disposition: Discharge to home or self care 09/23/2024 Telephone [facility] Cardiology [address] [place] [address] Advanced Medicine 8th [place] [address] [place] [address] Oscar Barnard MD Test clarification 09/23/2024 3:45 PM CDT Office Visit [facility] Dermatology [facility] Floor [address] [place] [address] Marlyn Salcedo MD Seborrheic keratosis (Primary Dx); History of malignant melanoma; Multiple benign nevi 08/21/2024 Orders Only [facility] Cardiology [address] [place] [address] Advanced Medicine 8th [place] [address] [place] [address] Edwina Haas RN 08/11/2024 Telephone [facility] Oncology [address] [place] [address] Floor [address] [place] [id number] Sanjeev Macdonald RN results 08/08/2024 1:13 PM CDT - 08/08/2024 11:59 PM CDT Hospital Encounter [facility] [address] [place] [id number] 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 (HCC) Discharge Disposition: Discharge to home or self care 08/07/2024 Telephone [facility] Cardiology [address] [place] [address] Advanced Medicine 8th [place] [address] [place] [address] Oscar Barnard MD 08/04/2024 Telephone [facility] Radiology [address] [place] [address] Gema Marks, FORTUNATO 08/04/2024 6:42 AM CDT - 08/04/2024 11:59 PM CDT Hospital Encounter [facility] - PET [address] [facility] Floor 8 [place] [address] Discharge Disposition: Discharge to home or self care 08/04/2024 6:42 AM CDT - 08/04/2024 11:59 PM CDT Hospital Encounter [facility] - PET [address] 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) from Last 3 Months Allergies Active Allergy Reactions Criticality Noted Date Comments Ceftriaxone Hives,Rash Medium 12/11/19 - Approved to give cefazolin with ceftriaxone allergy per Alanis Rivero MD/Pat Simeon, PharmD Spironolactone Other (See comments) Low 05/19/2020 gynecomastia Medications aspirin 81 mg tabletIndicatio ns:Myocardial Reinfarction Prevention Take 1 tablet (81 mg total) by mouth nightly Active pravastatin (PRAVACHOL) 40 mg tabletIndicatio ns:hyperlipidem ia Take 1 tablet (40 mg total) by mouth every morning 3 09/05/19 18 Active loratadine (CLARITIN) 10 mg tabletIndicatio ns:Allergic Conjunctivitis, Allergic Rhinitis Take 1 tablet (10 mg total) by mouth every morning Active vilazodone (VIIBRYD) 20 mg tabletIndicatio ns:major depressive disorder Take 1 tablet (20 mg total) by mouth every morning Active warfarin (COUMADIN) 5 mg tablet TAKE 1 TABLET BY MOUTH DAILY DIRECTED IN COORIDNACE WITH DOCTOR INSTRUCTION 01/08/20 21 Active diazePAM (VALIUM) 5 mg tablet Take 1 tablet (5 mg total) by mouth as needed 03/07/20 21 Active acetaminophen (TYLENOL ORAL) Take 500 mg by mouth 3 (three) times a day Active hydrocortisone 2.5 % cream Apply topically 2 (two) times a day as needed for rash (on rash) 30 g 3 07/12/19 23 Active triamcinolone (KENALOG) 0.1 % ointment Apply twice daily to rash on the LOWER LEGS as needed. Avoid face and groin. 454 g 2 07/12/19 23 Active dextroamphetami ne-amphetamine XR (ADDERALL XR) 10 mg 24 hr capsule Take 1 capsule (10 mg total) by mouth every morning 06/22/19 24 Active dexAMETHasone (DECADRON) 4 mg tablet 07/21/19 24 Active ofloxacin (FLOXIN) 0.3 % otic solution INSTILL 5 DROPPERFUL TO LEFT EAR TWICE DAILY 07/21/19 24 Active diclofenac sodium (VOLTAREN) 1 % gel Apply 2 g topically 2 (two) times a day as needed Active eplerenone (INSPRA) 25 mg tablet Take 1 tablet (25 mg total) by mouth daily 90 tablet 3 11/05/19 24 Active digoxin (LANOXIN) 125 mcg (0.125 mg) tablet Take 2 tablets (0.25 mg total) by mouth daily 180 tablet 3 11/21/19 24 Active furosemide (LASIX) 40 mg tablet 1 tab po BID 180 tablet 3 01/03/20 24 Active metoprolol XL (TOPROL-XL) 100 mg 24 hr tablet TAKE 1 AND 1/2 TABLETS(150 MG) BY MOUTH DAILY 135 tablet 3 01/23/20 24 Active fexofenadine (AMY) 60 mg tablet Take 1 tablet (60 mg total) by mouth daily Active lisinopriL (PRINIVIL,ZESTR IL) 10 mg tabletIndicatio ns:Dissection of thoracic aorta (HCC),Benign essential HTN TAKE 1 TABLET(10 MG) BY MOUTH TWICE DAILY 90 tablet 3 05/19/19 25 Active levothyroxine (SYNTHROID) 125 mcg tabletIndicatio ns:Thyroid cancer (HCC) TAKE 2 TABLETS(250 MCG) BY MOUTH AUDIO EXPERIENCE EXPERT BEFORE BREAKFAST 60 tablet 11 07/15/19 25 Active potassium chloride ER 10 mEq CR capsule Take 1 tablet/capsule (10 mEq total) by mouth 2 (two) times a day 2 capsules once daily dose decrease 11/07/202307/17/19 25 026 Active fluticasone propionate (FLONASE) 50 mcg/actuation nasal spray SPRAY 2 SPRAYS IN EACH NOSTRIL EVERY DAY AT BEDTIME 07/05/19 25 Active traZODone (DESYREL) 50 mg tablet TAKE 1/2 TO 1 TABLET BY MOUTH DAILY AT BEDTIME NEEDED Active rosuvastatin (CRESTOR) 20 mg tablet TAKE 1 TABLET BY MOUTH DAILY Oral for 30 Days Active metFORMIN (GLUCOPHAGE) 500 mg tablet every 12 hours 07/31/19 25 Active Jardiance 10 mg tablet daily 07/31/19 25 Active amLODIPine (NORVASC) 5 mg tablet One tab q hs 30 tablet 11 08/22/19 25 Active ketoconazole (NIZORAL) 2 % shampooIndicati ons:Seborrheic dermatitis, unspecified APPLY TOPICALLY TO DAMP SKIN, LATHER AND LEAVE ON FOR 5 MINUTES THEN RINSE. USE DIRECTED 120 mL 1 08/27/19 25 Active hydrALAZINE (APRESOLINE) 25 mg tablet TAKE 3 TABLETS BY MOUTH THREE TIMES DAILY 810 tablet 3 09/10/19 25 Active gabapentin (NEURONTIN) 300 mg capsuleIndicati ons:Neuropathic Pain,Postoperat yuly Acute Pain Take 1 capsule (300 mg total) by mouth 3 (three) times a day 90 capsule 11 01/15/20 020 Discontinued calcitRIOL (ROCALTROL) 0.5 mcg capsuleIndicati ons:hypocalcemi a Take 1 capsule (0.5 mcg total) by mouth daily 30 capsule 3 01/30/20 19 020 Discontinued oxybutynin (DITROPAN) 5 mg tablet Take 1 tablet (5 mg total) by mouth 3 (three) times a day as needed (bladder spasms) for up to 20 doses 20 tablet 04/20/19 20 020 Discontinued Active Problems Problem Noted Date Diagnosed [...] (11/24/2019): Added automatically from request for surgery [id number] Assessment & Plan (12/21/2019 9:58 AM CDT): [...] (03/07/2019): Added automatically from request for surgery [id number] Prostate cancer 12/06/2018 Cancer Staging:Clinical stage from 09/27/2018:Stage IIB(cT1c, cN0, cM0, PSA: 5.2, Grade Group: 2) - Signed by Hector Whittington MD PhD on 02/05/2019 Overview (12/06/2018): Added automatically from request for surgery [id number] Hypoparathyroidism 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 11/30/2018 Assessment & Plan [...] (10/31/2018): Added automatically from request for surgery [id number] Assessment & Plan (01/09/2019 8:49 AM CDT): [...] (09/09/2018): Added automatically from request for surgery [id number] Malignant neoplasm metastatic to lymph node of a xilla 01/15/2018 Malignant melanoma of left u pper extremity including shoulder 12/17/2017 prison (current) use of anticoagulants [Z79.0 1] 11/16/2017 History of heart valve replacement 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 Daily INR. - Rehabilitation Worker Dr. Barnard aware of admission and following [...] medicine team will sign off. Please call [phone] if any additional question Assessment & Plan [...] medicine team will sign off. Please call [phone] if any additional question Assessment & Plan [...] 1 984 - 01/20/2021 Smokeless Tobacco: Never Tobacco Cessation:Counseling Given: Not Answered Comments:vaping- off and on this year. 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 Not on file Not on file Not on file Last Filed Vital Signs Vital Sign Reading Time Taken Comments Blood Pressure 100/66 08/04/2024 9:32 AM CDT Pulse 65 08/04/2024 9:32 AM CDT Temperature 36.6 C (97.9 F) 08/04/2024 9:32 AM CDT Respiratory Rate 18 08/04/2024 9:32 AM CDT Oxygen Saturation 96% 08/04/2024 9:32 AM CDT Inhaled Oxygen Concentration - - Weight 112 kg (247 lb) 08/04/2024 9:32 AM CDT Height 175.1 cm (5' 8.94) 08/04/2024 9:35 AM CD T Body Mass Index 36.54 08/04/2024 9:32 AM CDT Plan of Treatment Not on file Medical Devices Implanted Type Area Internet Sourcer Device Identifier Shelf Expiration Date Model / Serial / Lot Vascutek Terumo [id number] Gelsoft Plus Vascutek 24/12mm 45cm Main Leg Bore Reduced - [id number] - [id number] Implanted:Qty: 1 on 12/11/2019 by Vito Madrigal MD at [facility] Graft N/A: Aorta [employer] 12/30/2021 [id number] / [id number] / [id number] 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 US SOFT TISSUE HEAD NECK Schedule Routine, Read Routine (OP Routine) 08/08/2024 2:51 PM CDT 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 (HCC) EGFR Routine 08/04/2024 9:10 AM CDT 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 (HCC) DIFFERENTIAL AUTO Routine 08/04/2024 9:1 0 AM CDT 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 (HCC) 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) CBC WITH AUTO DIFFERENTIAL Routine 08/04/2024 9:10 AM CDT 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 (HCC) 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) COMPREHENSIVE METABOLIC PANEL Routine 08/04/2024 9:10 AM CDT 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 (HCC) LACTATE DEHYDROGENASE Routine 08/04/2024 9:10 AM CDT 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 (HCC) THYROID FUNCTION CASCADE Routine 08/04/2024 9:10 AM CDT 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 (HCC) PET/CT FDG SKULL TO THIGH Schedule Routine, Read Routine (OP Routine) 08/04/2024 8:32 AM CDT 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 (HCC) 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 Postsurgical changes of aortic valve replacement, aortic root replacement and ascending aortic graft repair, as well as infrarenal abdominal aortic aneurysm repair, with unchanged residual dissection flap extending from the origin of the innominate artery to the abdominal aortic repair, and no significant interval change in dilatation of the aortic arch and proximal descending thoracic aorta. 2. Stable subcentimeter right middle lobe pulmonary nodule and prominent left supraclavicular lymph node, continued attention on follow-up recommended. Dictated by: Lalitha Torrez MD The radiology attending physician has personally reviewed this study, and had reviewed and/or edited this written report and agrees with it. Electronically signed by: Cezar Covington M.D. Narrative 10/02/2024 1:25 PM CDT EXAMINATION: CT ANGIOGRAPHY OF THE CHEST, ABDOMEN AND PELVIS WITH AND WITHOUT CONTRAST HISTORY: 59-year-old male with bicuspid aortic valve status post replacement, subsequent aortic dissection managed with graft repair of the ascending aorta in 2012 TECHNIQUE: Computed tomographic images of the chest, abdomen and pelvis were acquired without and with intravenous contrast using an angiographic protocol optimized for aortic dissection (aorta). The contrast enhanced transaxial images were obtained following the intravenous administration of 94 ml of nonionic contrast. Multiplanar reformatted images and three-dimensional images of the aorta and associated vasculature were obtained on the 3-D workstation and sent to the PACS archival system. COMPARISON: CTA chest 03/05/2024, CTA chest abdomen pelvis 08/29/2023 FINDINGS: Vascular findings: Postsurgical changes of median sternotomy, aortic valve replacement, and ascending aorta replacement. Distal to the ascending aortic graft repair there is residual dissection flap beginning at the origin of the innominate artery and extending to the level of the repaired infrarenal abdominal aorta, unchanged from 08/2023 exam. The innominate artery and left common carotid artery arise from the true lumen. The dissection flap extends along the proximal left subclavian artery. Large fenestration along the proximal descending thoracic aorta (series 5 image 138). The celiac axis and superior mesenteric artery arise along fenestrations of the dissection flap. The right renal artery arises from the true lumen and the left renal artery arises off the false lumen adjacent to a large fenestration (series 5 image 242). Focal dilatation of the left common femoral artery measuring up to 2.2 cm in diameter, unchanged from 08/2023 exam. Aortic measurements: Sinuses of Valsalva: 40 mm x 42 mm Sinotubular junction: 33 mm x 34 mm Graft repair of ascending aorta: 30 mm x 37 mm Aortic arch: 52 mm x 45 mm Descending thoracic aorta: 55 mm x 51 mm, previously 54 mm x 50 mm when remeasured in similar fashion at same level Calcified atherosclerotic plaque of the right coronary artery and left anterior descending coronary artery. Nonvascular findings: Prominent left supraclavicular lymph nodes with largest measuring 0.8 cm in short axis (series 5 image 35) as seen on recent PET/CT, otherwise no thoracic lymphadenopathy. Heart size is normal, no pericardial effusion. Central airways are widely patent. No pulmonary consolidation, pleural effusion, or pneumothorax. Calcified left hilar lymph nodes and granuloma in the lingula consistent with old granulomatous disease. Stable 6 mm nodule in the right middle lobe (series 6 image 90). Postsurgical changes of gastric banding with tiny hiatal hernia. No focal hepatic lesion. There is biliary sludge and stones in the gallbladder, no findings of acute cholecystitis or biliary ductal dilatation. Normal spleen, pancreas, adrenal glands. Kidneys enhance symmetrically without hydronephrosis. Bilateral renal cysts. Nondistended urinary bladder. Normal prostate gland. Postsurgical changes of midline laparotomy and bilateral inguinal hernia repair with mesh along the anterior abdominal wall. Small large bowel normal caliber without obstruction. Colonic diverticulosis. No abdominal or pelvic lymphadenopathy. No intraperitoneal free fluid or free air. Mild degenerative changes of the thoracic and lumbar spine. No acute fracture or suspicious osseous lesion. Procedure Note Cezar Covington MD - 10/02/2024 EXAMINATION: CT ANGIOGRAPHY OF THE CHEST, ABDOMEN AND PELVIS WITH AND WITHOUT CONTRAST HISTORY: 59-year-old male with bicuspid aortic valve status post replacement, subsequent aortic dissection managed with graft repair of the ascending aorta in 2012 TECHNIQUE: Computed tomographic images of the chest, abdomen and pelvis were acquired without and with intravenous contrast using an angiographic protocol optimized for aortic dissection (aorta). The contrast enhanced transaxial images were obtained following the intravenous administration of 94 ml of nonionic contrast. Multiplanar reformatted images and three-dimensional images of the aorta and associated vasculature were obtained on the 3-D workstation and sent to the PACS archival system. COMPARISON: CTA chest 03/05/2024, CTA chest abdomen pelvis 08/29/2023 FINDINGS: Vascular findings: Postsurgical changes of median sternotomy, aortic valve replacement, and ascending aorta replacement. Distal to the ascending aortic graft repair there is residual dissection flap beginning at the origin of the innominate artery and extending to the level of the repaired infrarenal abdominal aorta, unchanged from 08/2023 exam. The innominate artery and left common carotid artery arise from the true lumen. The dissection flap extends along the proximal left subclavian artery. Large fenestration along the proximal descending thoracic aorta (series 5 image 138). The celiac axis and superior mesenteric artery arise along fenestrations of the dissection flap. The right renal artery arises from the true lumen and the left renal artery arises off the false lumen adjacent to a large fenestration (series 5 image 242). Focal dilatation of the left common femoral artery measuring up to 2.2 cm in diameter, unchanged from 08/2023 exam. Aortic measurements: Sinuses of Valsalva: 40 mm x 42 mm Sinotubular junction: 33 mm x 34 mm Graft repair of ascending aorta: 30 mm x 37 mm Aortic arch: 52 mm x 45 mm Descending thoracic aorta: 55 mm x 51 mm, previously 54 mm x 50 mm when remeasured in similar fashion at same level Calcified atherosclerotic plaque of the right coronary artery and left anterior descending coronary artery. Nonvascular findings: Prominent left supraclavicular lymph nodes with largest measuring 0.8 cm in short axis (series 5 image 35) as seen on recent PET/CT, otherwise no thoracic lymphadenopathy. Heart size is normal, no pericardial effusion. Central airways are widely patent. No pulmonary consolidation, pleural effusion, or pneumothorax. Calcified left hilar lymph nodes and granuloma in the lingula consistent with old granulomatous disease. Stable 6 mm nodule in the right middle lobe (series 6 image 90). Postsurgical changes of gastric banding with tiny hiatal hernia. No focal hepatic lesion. There is biliary sludge and stones in the gallbladder, no findings of acute cholecystitis or biliary ductal dilatation. Normal spleen, pancreas, adrenal glands. Kidneys enhance symmetrically without hydronephrosis. Bilateral renal cysts. Nondistended urinary bladder. Normal prostate gland. Postsurgical changes of midline laparotomy and bilateral inguinal hernia repair with mesh along the anterior abdominal wall. Small large bowel normal caliber without obstruction. Colonic diverticulosis. No abdominal or pelvic lymphadenopathy. No intraperitoneal free fluid or free air. Mild degenerative changes of the thoracic and lumbar spine. No acute fracture or suspicious osseous lesion. IMPRESSION: 1. Postsurgical changes of aortic valve replacement, aortic root replacement and ascending aortic graft repair, as well as infrarenal abdominal aortic aneurysm repair, with unchanged residual dissection flap extending from the origin of the innominate artery to the abdominal aortic repair, and no significant interval change in dilatation of the aortic arch and proximal descending thoracic aorta. 2. Stable subcentimeter right middle lobe pulmonary nodule and prominent left supraclavicular lymph node, continued attention on follow-up recommended. Dictated by: Lalitha Torrez MD The radiology attending physician has personally reviewed this study, and had reviewed and/or edited this written report and agrees with it. Electronically signed by: Cezar Covington M.D. Oscar Barnard MD IMG CT PROCEDURES Xiomara l Result * US Head Neck Soft Tissue (08/08/2024 2:51 PM CDT) Anatomical Region Laterality Modality Head and Neck N/A Ultrasound 08/08/2024 3:49 PM CDT Impressions 08/08/2024 3:59 PM CDT Multiple subcentimeter left supraclavicular lymph nodes . The FDG avid node noted on PET/CT is too deep to visualize definitively. A possible correlate was identified, but was difficult to distinguish from adjacent similar lymph nodes which were not FDG avid. Ultimately, the decision was made to defer biopsy as the likelihood of an inconclusive or falsely negative result would be high. Continued attention on follow-up is recommended. Dictated by: Shreyas Brown MD The radiology attending physician has personally reviewed this study, and had reviewed and/or edited this written report and agrees with it. Electronically signed by: Francesco Farris M.D. Narrative 08/08/2024 3:59 PM CDT EXAMINATION: NECK SOFT TISSUE SONOGRAM HISTORY: Melanoma with FDG avid left supraclavicular lymph node COMPARISON: PET/CT 08/04/2024 FINDINGS: Limited sonogram of the left supraclavicular area revealed multiple nonenlarged lymph nodes with normal fatty hilum and hilar flow. The queried FDG avid lymph node was not able to be definitively identified. No abnormal mass or fluid collection. Procedure Note Francesco Farris MD - 08/08/2024 EXAMINATION: NECK SOFT TISSUE SONOGRAM HISTORY: Melanoma with FDG avid left supraclavicular lymph node COMPARISON: PET/CT 08/04/2024 FINDINGS: Limited sonogram of the left supraclavicular area revealed multiple nonenlarged lymph nodes with normal fatty hilum and hilar flow. The queried FDG avid lymph node was not able to be definitively identified. No abnormal mass or fluid collection. IMPRESSION: Multiple subcentimeter left supraclavicular lymph nodes . The FDG avid node noted on PET/CT is too deep to visualize definitively. A possible correlate was identified, but was difficult to distinguish from adjacent similar lymph nodes which were not FDG avid. Ultimately, the decision was made to defer biopsy as the likelihood of an inconclusive or falsely negative result would be high. Continued attention on follow-up is recommended. Dictated by: Shreyas Brown MD The radiology attending physician has personally reviewed this study, and had reviewed and/or edited this written report and agrees with it. Electronically signed by: Francesco Farris M.D. Hector Arellano NP IMG US PROCEDURES Final R esult * eGFR (08/04/2024 9:10 AM CDT) eGFR 78 >=60 mL/min/1. 73 m2 Comment: Interpretive Data Reference Interval Normal >/= 90 mL/min/1.73m2 Mildly decreased* 60 - 89 mL/min/1.73m2 Mildly to moderately decreased 45 - 59 mL/min/1.73m2 Moderately to severely decreased 30 - 44 mL/min/1.73m2 Severely decreased 15 - 29 mL/min/1.73m2 Kidney Failure < 15 mL/min/1.73m2 *Relative to young adult level Estimated glomerular filtration rate is determined by the 2020 CKD-EPI equation recommended by the National Kidney Foundation (A Unifying Approach to GFR Estimation: Recommendations of the NKF-ASK Task Force on Reassessing the Inclusion of Race in Diagnosing Kidney Disease, JASN 2020). The CKD-EPI equation should not be used for patients with unstable renal function and has not been validated in children and those over 70. Current interpretive data was last reviewed 2021. Blood 08/04/2024 9:10 AM CDT 08/04/2024 9:14 AM CDT us Waqar Valdez MD LAB BLOOD ORDERABLES Final Res ult [facility] Department [place] [address] * (ABNORMAL) Differential, auto (08/04/2024 9:10 AM CDT) Neutrophil abs 7.05(H) 1.50 - 6.50 K/cumm Comment:Testing performed by : [facility], [address] [place] [address] Lymphocyte abs 1.58 0.80 - 3.30 K/cumm [facility] Comment:Testing performed by : [facility], [address] [place] [phone] Monocyte abs 0.81(H) 0.20 - 0.80 K/cumm [facility] Comment:Testing performed by : [facility], [address] [place], [place] [phone] Eosinophil abs 0.18 0.00 - 0.50 K/cumm [facility] Comment:Testing performed by : [facility], [address] [place] [address] Basophil abs 0.07 0.00 - 0.10 K/cumm [facility] Comment:Testing performed by : [facility], [address] [place] [address] Neutrophil pct 72.7 % [facility] Comment: Interpretive Data Percent cell count reference ranges are not reported, since discordance with absolute values may lead to misinterpretation of CBC data. Current Interpretive Data was last revised on 2017. Testing performed by: [facility], [address] [place] [phone] Lymphocyte pct 16.3 % [facility] Comment: Interpretive Data Percent cell count reference ranges are not reported, since discordance with absolute values may lead to misinterpretation of CBC data. Current Interpretive Data was last revised on 2017. Testing performed by: [facility], [address] [place] [phone] Monocyte pct 8.4 % [facility] Comment: Interpretive Data Percent cell count reference ranges are not reported, since discordance with absolute values may lead to misinterpretation of CBC data. Current Interpretive Data was last revised on 2017. Testing performed by: [facility], [address] [place] [address] Eosinophil pct 1.8 % [facility] Comment: Interpretive Data Percent cell count reference ranges are not reported, since discordance with absolute values may lead to misinterpretation of CBC data. Current Interpretive Data was last revised on 2017. Testing performed by: [facility], [address] [place] [phone] Basophil pct 0.8 % [facility] Comment: Interpretive Data Percent cell count reference ranges are not reported, since discordance with absolute values may lead to misinterpretation of CBC data. Current Interpretive Data was last revised on 2017. Testing performed by: [facility], [address] [place] [phone] Blood 08/04/2024 9:10 AM CDT 08/04/2024 9:13 AM CDT Waqar Valdez MD LAB BLOOD ORDERABLES Final Res ult [facility] Department [place] [address] * Thyroid Function [place] (08/04/2024 9:10 AM CDT) TSH 1.81 0.30 - 4.20 mcIUnit/mL Blood 08/04/2024 9:10 AM CDT 08/04/2024 9:14 AM CDT us Waqar Valdez MD LAB BLOOD ORDERABLES Final Res ult [facility] Department [place] [address] * (ABNORMAL) CBC with auto differential (08/04/2024 9:10 AM CDT) Pathologist [facility] WBC 9.70 3.80 - 9.90 K/cumm Comment:Testing performed by : [facility], [address] [place] [address] Hgb 16.0 13.0 - 17.5 g/dL CERN[facility] Comment:Testing performed by : [facility], [address] [place] [address] Hct 46.4 38.9 - 50.3 % CERNER [facility] Comment:Testing performed by : [facility], [address] [place] [address] Plt 227 150 - 400 K/cumm CERGALO [facility] Comment:Testing performed by : [facility], [address] [place] [address] MPV 7.5 6.8 - 10.4 fL [facility] Comment:Testing performed by : [facility], [address] [place] [address] RBC 5.22 4.30 - 5.80 M/cumm [facility] Comment:Testing performed by : [facility], [address] [place] [address] MCV 88.9 81.3 - 96.4 fL [facility] Comment:Testing performed by : [facility], [address] [place] [address] MCH 30.6 27.1 - 33.3 pg [facility] Comment:Testing performed by : [facility], [address] [place] [phone] MCHC 34.5 32.3 - 35.7 g/dL [facility] Comment:Testing performed by : [facility], [address] [place] [phone] RDW CV 15.3(H) 11.1 - 14.9 % [facility]REE [facility] Comment:Testing performed by : [facility], [address] [place] [phone] NRBC abs 0.00 0.00 - 0.01 K/cumm TREE [facility] Comment:Testing performed by : [facility], [address] [place] [phone] Blood 08/04/2024 9:10 AM CDT 08/04/2024 9:13 AM CDT Waqar Valdez MD LAB BLOOD ORDERABLES Final Res ult Performing Organization Address City/[facility]/ZIP Co de Phone Number [facility] Department [place] [address] * (ABNORMAL) Lactate dehydrogenase (LD) (08/04/2024 9:10 AM CDT) Lactate dehydrogenase (LDH) 325(H) 100 - 250 Units/L Blood 08/04/2024 9:10 AM CDT 08/04/2024 9:14 AM CDT Waqar Valdez MD LAB BLOOD ORDERABLES Final Res ult [facility] [place] [address] * Comprehensive metabolic panel (08/04/2024 9:10 AM CDT) Sodium 137 135 - 145 mmol/L Potassium, pl 4.4 3.3 - 4.9 mmol/L [facility] Chloride 100 97 - 110 mmol/L [facility] CO2 24 22 - 32 mmol/L [facility] Anion gap 13 2 - 15 mmol/L [facility] BUN 20 6 - 25 mg/dL [facility] Creatinine 1.09 0.80 - 1.30 mg/dL [facility] Glucose 131 70 - 199 mg/dL [facility] Comment: Interpretive Data Fasting glucose >/= 126 mg/dl is diagnostic for diabetes. Fasting is defined as no caloric intake for at least 8 hours. Fasting glucose between 100 mg/dl to 125 mg/dl is diagnostic of prediabetes. In a patient with classic symptoms of hyperglycemia or hyperglycemic crisis, a random glucose >/= 200 mg/dl is diagnostic for diabetes. In the absence of unequivocal hyperglycemia, results should be confirmed by repeat testing. The classification and Diagnosis of Diabetes Diabetes Care 2021; 46: S19-S40. Current interpretive data was last revised 2022. Calcium 8.9 8.5 - 10.3 mg/dL [facility] Bilirubin, total 0.5 0.1 - 1.2 mg/dL [facility] Protein, pl 8.2 6.5 - 8.5 g/dL [facility] Albumin 4.5 3.5 - 5.0 g/dL [facility] Alk phos 75 40 - 130 Units/L [facility] ALT 20 7 - 55 Units/L [facility] AST 30 10 - 50 Units/L [facility] Blood 08/04/2024 9:10 AM CDT 08/04/2024 9:14 AM CDT Waqar Valdez MD LAB BLOOD ORDERABLES Final Res ult [facility] [place] [address] * PET/CT FDG Skull to Thigh (08/04/2024 8:32 AM CDT) Anatomical Region Laterality Modality N/A Positron Emissio n Tomography (PET) 08/04/2024 10:0 6 AM CDT Impressions 08/04/2024 10:50 AM CDT 1. Subcentimeter, mildly FDG-avid left supraclavicular node, which may be reactive. However, given the prior history of ipsilateral melanoma and thyroid cancer, consider attempting ultrasound-guided biopsy. If biopsy is not pursued or does not prove feasible, then close imaging follow-up is advised. 2. Otherwise, no evidence of locally recurrent or distant metastatic disease. 3. Resolution of previously noted focal sigmoid colon FDG-avidity, which almost certainly represented diverticulitis. Dictated by: Herman Palm MD The radiology attending physician has personally reviewed this study, and had reviewed and/or edited this written report and agrees with it. Electronically signed by: Mo Reed M.D. Narrative 08/04/2024 10:50 AM CDT EXAMINATION: TUMOR FDG-PET/CT IMAGING DATE OF STUDY: 08/04/2024 SCANNER: [email or web address] ([email or web address]). This is a high-resolution scanner, which can result in higher SUVs (and even detection of previously unrecognized small lesions) compared to older scanners. RADIOPHARMACEUTICAL: 8.2 mCi F-18 Fluorodeoxyglucose (FDG) i.v. Injection site: Right antecubital HISTORY: 56-year-old male with melanoma of the left upper extremity/shoulder, status post wide local excision, sentinel lymph node biopsy, immunotherapy. There is also a history of papillary thyroid carcinoma status post thyroidectomy, bilateral neck dissection, and radioactive iodine, and prostate cancer status post radical prostatectomy. The study is requested for restaging after completion of therapy. Subsequent treatment strategy. TECHNIQUE: The patient's fasting blood glucose level, measured by glucometer before injection of FDG, was 153 mg/dL. After intravenous administration of FDG, noncontrast CT images were obtained for attenuation correction and for fusion with emission PET images to allow for anatomical localization of PET findings. Emission PET images were then obtained. The study was interpreted on the [employer] workstation. The mean liver SUV (reported for quality control head purposes) is 3.1. The total scanned area was skull base to proximal thighs. Images of the body were obtained starting 51 minutes after injection of tracer. All reported SUVs are maximum SUVs, unless otherwise specified. COMPARISON: PET/CT 07/31/2022 and 08/06/2023 DESCRIPTORS OF LESION FDG AVIDITY: Minimal: <= blood pool Mild: > blood pool and <= liver Moderate: > liver and <= 2x SUVmax liver Moderate to marked: >2x SUVmax liver and <= 3x SUVmax liver Marked: > 3x SUVmax liver FINDINGS: 6 mm left supraclavicular node with max SUV of 4.2. Degenerative uptake is noted over the left greater trochanter. Additional CT findings: Thyroid is surgically absent. Additional surgical clips in the neck from prior neck dissection. Changes of median sternotomy, aortic valve replacement, and ascending aortic repair. Multivessel coronary artery calcifications. Calcified mediastinal nodes are likely sequela prior granulomatous disease. Heart size is enlarged, unchanged. Bilateral gynecomastia mild bibasilar atelectasis. Calcific granuloma in the lingula. Abandoned epicardial pacer leads are noted. Changes of gastric band. Cholelithiasis without cholecystitis. Colonic diverticulosis without diverticulitis. Ventral hernia mesh is noted. Degenerative changes of the thoracolumbar spine. Scarring is noted in the left groin. Procedure Note Mo Reed MD - 08/04/2024 EXAMINATION: TUMOR FDG-PET/CT IMAGING DATE OF STUDY: 08/04/2024 SCANNER: [facility] [employer] (SQ1). This is a high-resolution scanner, which can result in higher SUVs (and even detection of previously unrecognized small lesions) compared to older scanners. RADIOPHARMACEUTICAL: 8.2 mCi F-18 Fluorodeoxyglucose (FDG) i.v. Injection site: Right antecubital HISTORY: 56-year-old male with melanoma of the left upper extremity/shoulder, status post wide local excision, sentinel lymph node biopsy, immunotherapy. There is also a history of papillary thyroid carcinoma status post thyroidectomy, bilateral neck dissection, and radioactive iodine, and prostate cancer status post radical prostatectomy. The study is requested for restaging after completion of therapy. Subsequent treatment strategy. TECHNIQUE: The patient's fasting blood glucose level, measured by glucometer before injection of FDG, was 153 mg/dL. After intravenous administration of FDG, noncontrast CT images were obtained for attenuation correction and for fusion with emission PET images to allow for anatomical localization of PET findings. Emission PET images were then obtained. The study was interpreted on the [employer] workstation. The mean liver SUV (reported for quality control head purposes) is 3.1. The total scanned area was skull base to proximal thighs. Images of the body were obtained starting 51 minutes after injection of tracer. All reported SUVs are maximum SUVs, unless otherwise specified. COMPARISON: PET/CT 07/31/2022 and 08/06/2023 DESCRIPTORS OF LESION FDG AVIDITY: Minimal: <= blood pool Mild: > blood pool and <= liver Moderate: > liver and <= 2x SUVmax liver Moderate to marked: >2x SUVmax liver and <= 3x SUVmax liver Marked: > 3x SUVmax liver FINDINGS: 6 mm left supraclavicular node with max SUV of 4.2. Degenerative uptake is noted over the left greater trochanter. Additional CT findings: Thyroid is surgically absent. Additional surgical clips in the neck from prior neck dissection. Changes of median sternotomy, aortic valve replacement, and ascending aortic repair. Multivessel coronary artery calcifications. Calcified mediastinal nodes are likely sequela prior granulomatous disease. Heart size is enlarged, unchanged. Bilateral gynecomastia mild bibasilar atelectasis. Calcific granuloma in the lingula. Abandoned epicardial pacer leads are noted. Changes of gastric band. Cholelithiasis without cholecystitis. Colonic diverticulosis without diverticulitis. Ventral hernia mesh is noted. Degenerative changes of the thoracolumbar spine. Scarring is noted in the left groin. IMPRESSION: 1. Subcentimeter, mildly FDG-avid left supraclavicular node, which may be reactive. However, given the prior history of ipsilateral melanoma and thyroid cancer, consider attempting ultrasound-guided biopsy. If biopsy is not pursued or does not prove feasible, then close imaging follow-up is advised. 2. Otherwise, no evidence of locally recurrent or distant metastatic disease. 3. Resolution of previously noted focal sigmoid colon FDG-avidity, which almost certainly represented diverticulitis. Dictated by: Herman Palm MD The radiology attending physician has personally reviewed this study, and had reviewed and/or edited this written report and agrees with it. Electronically signed by: Mo Reed M.D. Waqar Valdez MD IMG PET PROCEDURES Final Resul t * PSA diagnostic (08/06/2023 8:36 AM CDT) [...] MD LAB BLOOD ORDERABLES Final Res ult [facility] [place] [address] * (ABNORMAL) Lipid panel (04/19/2019 4:02 AM INSURANCE INSTRUCTOR) Cholesterol 159 30 - 199 mg/dL [facility] Comment: Interpretive Data Ages < or = 19 years Acceptable: <170 mg/dL Borderline high: 170-199 mg/dL High: >or= 200 mg/dL Ages > or = 20 years Desirable: <200 mg/dL Borderline high: 200-239 mg/dL High: >or= 240 mg/dL Literature References: 1. Expert Panel on Integrated Guidelines for Cardiovascular Health and Risk Reduction in Children and Adolescents. Pediatrics 2011;128:S213 2. NCEP Expert Panel. Circulation 2004;110:227 Current Interpretive Data was last revised on 2017. Triglycerides 143 <=149 mg/dL [facility] Comment: Interpretive Data Ages < or = 9 years Acceptable: <75 mg/dL Borderline high: 75-99 mg/dL High: >or= 100 mg/dL Ages 10 to 20 years Acceptable: <90 mg/dL Borderline high: 90-129 mg/dL High: >or= 130 mg/dL Ages > or = 20 years Desirable: <150 mg/dL Borderline high: 150-199 mg/dL High: 200-499 mg/dL Very high: >or= 499 mg/dL Literature References: 1. Expert Panel on Integrated Guidelines for Cardiovascular Health and Risk Reduction in Children and Adolescents. Pediatrics 2011;128:S213 2. NCEP Expert Panel. Circulation 2004;110:227 Current Interpretive Data was last revised on 2017. HDL 35(L) >=40 mg/dL [facility] Comment: Interpretive Data Ages < or = 19 years Acceptable: >45 mg/dL Borderline low: 40-45 mg/dL Low: <40 mg/dL Ages > or = 20 years Desirable: >or= 60 mg/dL Low: <40 mg/dL Literature References: 1. Expert Panel on Integrated Guidelines for Cardiovascular Health and Risk Reduction in Children and Adolescents. Pediatrics 2011;128:S213 2. NCEP Expert Panel. Circulation 2004;110:227 Current Interpretive Data was last revised on 2017. LDL, calculated 95 <=129 mg/dL [facility] Comment: Interpretive Data Ages < or = 19 years Acceptable: <110 mg/dL Borderline high: 110-129 mg/dL High: >or= 130 mg/dL Ages > or = 20 years Optimal: <100 mg/dL Near optimal: 100-129 mg/dL Borderline high: 130-159 mg/dL High: >160 mg/dL Literature References: 1. Expert Panel on Integrated Guidelines for Cardiovascular Health and Risk Reduction in Children and Adolescents. Pediatrics 2011;128:S213 2. NCEP Expert Panel. Circulation 2004;110:227 Current Interpretive Data was last revised on 2017. Non-HDL Cholesterol 124 mg/dL [facility] Comment: Interpretive Data Ages < or = 19 years Acceptable: <120 mg/dL Borderline high: 120-144 mg/dL High: >145 mg/dL Ages > or = 20 years When triglycerides are >200 mg/dL, Non-HDL cholesterol is a secondary target of therapy with treatment goals that are 30 mg/dL greater than the LDL cholesterol target. Literature References: 1. Expert Panel on Integrated Guidelines for Cardiovascular Health and Risk Reduction in Children and Adolescents. Pediatrics 2011;128:S213 2. NCEP Expert Panel. Circulation 2004;110:227 Current Interpretive Data was last revised on 2017. Chol/HDL ratio 5 [facility] Blood specimen (specimen) 04/19/2019 4:02 AM INSURANCE INSTRUCTOR 04/19/2019 4:10 AM INSURANCE INSTRUCTOR Todd Gold Jr., MD LAB BLOOD ORDERABLES Final Result [facility] [place] [address] * COLONOSCOPY REPORT (04/22/2013) Anatomical Region Laterality Modality Other Narrative 04/22/2013 Ordered by an unspecified provider. Historical Provider GI PROCEDURE ORDERABLES F inal Result from Last 3 Months or Most Recently Relevant to Health Maintenance Insurance [employer] [place] [employer] [facility] [employer] [place] [address] [facility] Advance Directives For more information, please contact: [phone] * Full Code (Latest Code Status on [...] 4:23 PM 12/04/2018 4:15 PM Care Teams Computer Networking Instructor Adjunct Relationship Specialty Start Date End Date Kiko Jimenez DO PCP - General 04/09/17 Fran Bray MD Medical Oncologist/Medical Coding Specialist Medical Oncology 01/10/18 Maximiliano Cerrato MD Consulting Physician Plastic Surgery 01/10/18 Kiko Godinez MD PhD Supervisor Plasma Dermatology 01/11/18 Oscar Barnard MD Rehabilitation Worker Cardiology 01/11/18 Todd Gold Jr., MD Referring Physician Urology 02/08/19
--- OUTSIDE RECORDS SUMMARY | 2024-10-24 14:23 | XMS_ITS | Clinical Summary ---
Author Organization [facility] Address [address] [place] [address] Care Team Providers Care Cashier Supervisor Name Role Phone Unavailable Primary Care Provider [...]
--- OUTSIDE RECORDS SUMMARY | 2024-10-24 14:23 | XMS_ITS | Encounter Summary ---
Author Organization [facility] Address [address] [place] [address] Care Team Providers Care Bag Tester Name Role Phone Kiko Jimenez DO Primary Care Provider [phone] Fran Bray MD Unavailable [facility] MD Unavailable Kiko Godinez MD PhD Unavailable Oscar Barnard MD Unavailable [phone] Brayan Burrows MD Unavailable [phone] Alla Wyman MD, Todd White Unavailable Encounter Details Date Type Department Care Team (Late st Contact Info) Description 10/15/2020 Telephone [facility] [address] [place] [id number] Fabiola Griffith, RT Social History Tobacco [...] Friends and Family Patient declined 02/05/2019 Attends Hoahaoism Services Patient declined 08/2018 Active Member of Clubs or Organizations Patient declined 02/05/2019 Attends Club or Organization Meetings Patient de clined 02/05/2019 Marital Status 02/05/2019 Overall Financial Resource Strain (CARDIA) Answe r Date Recorded Difficulty of Paying Living Expenses Not hard at all 02/05/2019 [facility] - Occupational Stress [...] on file 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 Gender Identity Not on file Sexual Orientation Not on file 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 Not on file Not on file documented as of this encounter Plan of Treatment Not on file documented as of this encounter Visit Diagnoses Not on filedocumented in this encounter Care Teams Bag Tester Relationship Specialty Start Date End Date Kiko Jimenez DO PCP - General 04/09/17 Fran Bray MD Medical Oncologist/Licensed Clinician Medical Oncology 01/10/18 Maximiliano Cerrato MD Consulting Physician Plastic Surgery 01/10/18 Kiko Godinez MD PhD Asset Protection Specialist Dermatology 01/11/18 Oscar Barnard MD Bobcat Operator Cardiology 01/11/18 Brayan Burrows MD Radiation Oncologist Radiation Oncology 12/09/18//2 4 Todd Gold Jr., MD Referring Physician Urology 02/08/19 documented as of this encounter
--- OUTSIDE RECORDS SUMMARY | 2024-10-24 14:23 | XMS_ITS | Encounter Summary ---
Author Organization [facility] Address [address] [place] [address] Phone Care Team Providers Care Key Person Name Role Phone Kiko Jimenez DO Primary Care Provider + [phone] Fran Bray MD Unavailable Maximiliano Cerrato MD Unavailable [phone] Kiko Godinez MD PhD Unavailable Oscar Barnard MD Unavailable [phone] Alla Wyman MD, Todd White Unavailable [phone] Encounter Details Date Type Department Care Team (Late st Contact Info) Description 10/02/2024 Results Follow-Up [facility] Cardiology [address] [facility] [address] [place] [address] [place] [address] Oscar Barnard MD [address] [facility] [address] [place] [address] CTA Chest Abdomen Pelvis Social History Tobacco Use Types Packs/Day Years [...] hard at all 02/05/2019 [facility] of Occupat ional Health - Occupational Stress [...] on file 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 Gender Identity Not on file Sexual Orientation Not on file 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 Not on file Not on file documented as of this encounter Plan of Treatment Not on file documented as of this encounter Visit Diagnoses Not on filedocumented in this encounter Care Teams Key Person Relationship Specialty Start Date End Date Kiko Jimenez DO PCP - General 04/09/17 Fran Bray MD Medical Oncologist/Telephoto Engineer Medical Oncology 01/10/18 Maximiliano Cerrato MD Consulting Physician Plastic Surgery 01/10/18 Kiko Godinez MD PhD Statement Clerks Manager Dermatology 01/11/18 Oscar Barnard MD Metal Fabrication Supervisor Cardiology 01/11/18 Todd Gold Jr., MD Referring Physician Urology 02/08/19 documented as of this encounter
--- OUTSIDE RECORDS SUMMARY | 2024-10-24 14:23 | XMS_ITS | Encounter Summary ---
Author Organization [facility] Address [address] [place] [address] Phone Care Team Providers Care Hotel Operations Manager Name Role Phone Kiko Jimenez DO Primary Care Provider + [phone] Fran Bray MD Unavailable [phone] Maximiliano Cerrato MD Unavailable [phone] Kiko Godinez MD PhD Unavailable [phone] Oscar Barnard MD Unavailable [phone] Brayan Burrows MD Unavailable [phone] Alla Wyman MD, Todd White Unavailable Encounter Details Date Type Department Care Team (Late st Contact Info) Description 09/27/2017 Telephone [facility] Cardiology [address] [facility] [address] [place] [address] [place] [address] Oscar Barnard MD [address] [facility] [address] [place] [address] Social History Tobacco Use Types Packs/Day Years Used Date Smoking Tobacco: Former Sex and Gender Information Value Date Recorded Sex Assigned at Not on file Legal Sex Male 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 BUYER Gender Identity Not on file Sexual Orientation Not on file documented as of this encounter Plan of Treatment Not on file documented as of this encounter Visit Diagnoses Not on filedocumented in this encounter Care Teams Hotel Operations Manager Relationship Specialty Start Date End Date Kiko Jimenez DO PCP - General 04/09/17 Fran Bray MD Medical Oncologist/[employer] Room Attendant Medical Oncology 01/10/18 Maximiliano Cerrato MD Consulting Physician Plastic Surgery 01/10/18 Kiko Godinez MD PhD Classroom Aide Dermatology 01/11/18 Oscar Barnard MD Singer And Unloader Cardiology 01/11/18 Brayan Burrows MD Radiation Oncologist Radiation Oncology 12/09/18 4 Todd Gold Jr., MD Referring Physician Urology 02/08/19 documented as of this encounter
--- OUTSIDE RECORDS SUMMARY | 2024-10-24 14:23 | XMS_ITS ---
Author Organization [facility] Address [address] [place] [address] Care Team Providers Care Double Cutter Name Role Phone Kiko Jimenez DO Primary Care Provider Fran Bray MD Unavailable [facility] vargas MD Unavailable [phone] Kiko Godinez MD PhD Unavailable Oscar Barnard [...] (11/24/2019): Added automatically from request for surgery [id number] Assessment & Plan (12/21/2019 9:58 AM CDT): [...] (03/07/2019): Added automatically from request for surgery [id number] Prostate cancer 12/06/2018 Cancer Staging:Clinical stage from 09/27/2018:Stage IIB(cT1c, cN0, cM0, PSA: 5.2, Grade Group: 2) - Signed by Hector Whittington MD PhD on 02/05/2019 Overview (12/06/2018): Added automatically from request for surgery [id number] Hypoparathyroidism 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 11/30/2018 Assessment & Plan [...] (10/31/2018): Added automatically from request for surgery [id number] Assessment & Plan (01/09/2019 8:49 AM CDT): [...] (09/09/2018): Added automatically from request for surgery [id number] 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 Daily INR. - Preparation Supervisor Freezing Dr. Barnard aware of admission and following [...] medicine team will sign off. Please call [phone] if any additional question Assessment & Plan [...] medicine team will sign off. Please call [phone] if any additional question Assessment & Plan [...] of 15 cycles completed Oncology Supportive Care Therapy Plan Plan Name Start Date Discontinue Date Treatment [...] mGy 6 1.5 mGy 0 mGy DLP 19,039 mGycm 19,039 mGycm 0 mGycm Resolved Problems Problem Noted Date Diagnosed Date Resolved Date Leukocytosis 12/13/2019 12/18/2019 Assessment & Plan (12/16/2019 7:49 AM CDT): > Improved. WBC 14 -> 20 on 12/11 late-pm labs, improving. Now 9.2 - Urine culture, no growth - CXR unremarkable
--- OUTSIDE RECORDS SUMMARY | 2024-10-24 14:23 | XMS_ITS | Patient Health Record ---
Author Organization [facility] Address [address] [facility] [address] [place] [address] Care Team Providers Care Call Center Receptionist Name Role Phone Kiko Jimenez DO Primary Care Provider Jose Guadalupe Thompson Unavailable [phone] Allergies Allergen (clinical drug ingredient) Drug/Non Drug Allergy documented on EMR Reaction Allergy Type Onset Date Status Rocephin Unknown Drug Allergy 07/11/2023 Active Results Component Value Reference Range Notes UDT Reviewed date:07/30/2024 06:03:41 PM Interpretation: Performing Lab: Notes/Report: THC NEG 0 - 50 ng/ml Cocaine NEG 0 - 300 ng/ml Amphetamine NEG 0 - 1000 ng/ml Buprenorphine (BUP) NEG 0 - 10 ng/ml Secobarbital (Bar) NEG 0 - 300 ng/ml Oxazepam (BZO) NEG 0 - 300 ng/ml 2-kygczmixcy-7,7-bdaixnok-1,3-diphenylpyrrolidine (JON P) NEG 0 - 300 ng/ml Methamphetamine (MET) NEG 0 - 1000 ng/ml Methylenedioxymethamphetamine (MDMA) NEG 0 - 500 ng/ml Morphine (MOP 300/DIE2092) NEG 0 - 300 ng/ml Methadone (MTD) NEG 0 - 300 ng/ml Phencyclidine (PCP) NEG 0 - 25 ng/ml Nortriptyline (TCA) NEG 0 - 1000 ng/ml Oxycodone NEG 0 - 300 ng/ml x NEG 0 - 300 ng/ml Reason For Referral No Information Medications Medication SIG (Take, Route, Frequency, Duration) Notes Start Date End Date Status Fluticasone Propionate 50 MCG/ACT SPRAY 2 SPRAYS IN EACH NOSTRIL EVERY DAY AT BEDTIME Nasal; Duration: 30 Days Active Ketoconazole 2 % External; Duration: 15 Days L219,Unavaila ble Active Pravastatin Sodium 40 MG TAKE 1 TABLET BY MOUTH DAILY Oral; Duration: 30 Days Not-Taking Lisinopril 10 MG Oral; Duration: 30 Days Active Metoprolol Succinate ER 100 MG Oral; Duration: 30 Days Active Tiotropium [place] Monohydrate 18 MCG Inhalation; Duration: 30 Days Active Viibryd 20 MG 1 tablet with food Oral Once a day; Duration: 90 days Active Rosuvastatin Calcium 20 MG TAKE 1 TABLET BY MOUTH DAILY Oral; Duration: 30 Days Active traZODone HCl 50 MG 0.5 to 1 tablet at bedtime Orally Once a day; Duration: 90 days As needed Active Vilazodone HCl 20 MG TAKE 1 TABLET BY MOUTH DAILY WITH FOOD Oral; Duration: 30 Days F330,Unavaila ble Active Levothyroxine Sodium 125 MCG 2 tablet in the morning on an empty stomach Oral Once a day; Duration: 30 days C73,Unavailab le Active Potassium Chloride ER 10 MEQ TAKE 2 CAPSULES BY MOUTH DAILY Oral; Duration: 30 Days Active Triamcinolone Acetonide 0.10% External 07/11/2023 Active Digoxin 125 MCG Oral; Duration: 30 Days Active diazePAM 5 MG TAKE 1 TABLET BY MOUTH EVERY DAY NEEDED FOR ANXIETY Oral; Duration: 14 Days Active amLODIPine Besylate 10 MG Oral; Duration: 30 Days Active Furosemide 40 MG TAKE 1 TABLET BY MOUTH TWICE DAILY Oral; Duration: 30 Days Active Metoprolol Succinate ER 100 MG Oral; Duration: 30 Days Active traZODone HCl 50 MG TAKE 1/2 TO 1 TABLET BY MOUTH DAILY AT BEDTIME NEEDED Oral; Duration: 30 Days G4700,Unavail able Active Warfarin Sodium 5 MG TAKE 1 TABLET BY MOUTH EVERY DAY DIRECTED Oral; Duration: 30 Days Active metFORMIN HCl 500 MG 1 tablet with a meal Orally twice a day; Duration: 30 days 07/30/2024 Active cloNIDine HCl 0.2 MG Oral 07/11/2023 Not-Taking Pravastatin Sodium 40 MG Oral 07/11/2023 Not-Taking Carvedilol 25 MG Oral 07/11/2023 No t-Taking Amphetamine-Dextroamphe t ER 10 MG 1 capsule in the morning Oral Once a day; Duration: 30 days 10/06/2024 Active Aspirin 81 81 MG 1 tablet Orally Once a day Active Hydrocortisone 2.50% External PRN 07/11/2023 Active hydrALAZINE HCl 25 MG Oral 07/11/2023 Active Eplerenone 25 mg Oral 07/11/2023 Ac tive Immunizations Vaccine Route Administration Date Status Comme [...] Risk Notes Problem Mild recurrent major depression (08193433) Major depressive disorder, recurrent, mild (F33.0) Active confirmed Problem Recurrent major depression in full remission (44261573) Major depressive disorder, recurrent, in full remission (F33.42) Active confirmed Problem Generalized anxiety disorder (92731530) Generalized anxiety disorder (F41.1) Active confirmed Problem Posttraumatic stress disorder (68455173) Post-traumatic stress disorder, chronic (F43.12) Active confirmed Problem Attention deficit hyperactivity disorder, predominantly inattentive type (24989502) Attention-deficit hyperactivity disorder, predominantly inattentive type (F90.0) Active confirmed Problem Attention deficit hyperactivity disorder, combined type (53642478) Attention-deficit hyperactivity disorder, combined type (F90.2) Active confirmed Problem Insomnia (939381682) Insomnia (G47.00) Active confirmed Vital Signs Heart Rate 78 /min 07/30/2024 Height-cm 177.80 cm 07/30/2024 Blood pressure diastolic 75 mm Hg 07/30/2024 Weight-kg 114.44 kg 07/30/2024 Height 70.00 in 07/30/2024 Blood pressure systolic 125 mm Hg 07/30/2024 Weight 252.3 lbs 07/30/2024 BMI 36.2 kg/m2 07/30/2024 Encounters Encounter Location Date Provider Diagnosis [facility] [address] [address] 11/08/2023 Jose Guadalupe Dubon Generalized anxiety disorder F41.1 ; Post-traumatic stress disorder, chronic F43.12 ; Major depressive disorder, recurrent, mild F33.0 and Attention-deficit hyperactivity disorder, combined type F90.2 [facility] [address] [address] 02/04/2024 Jose Guadalupe Dubon Generalized anxiety disorder F41.1 ; Post-traumatic stress disorder, chronic F43.12 ; Major depressive disorder, recurrent, mild F33.0 and Attention-deficit hyperactivity disorder, combined type F90.2 [facility] [address] [address] 05/07/2024 Jose Guadalupe Dubon Benign essential HTN I10 ; Generalized anxiety disorder F41.1 ; Post-traumatic stress disorder, chronic F43.12 ; Major depressive disorder, recurrent, mild F33.0 ; Attention-deficit hyperactivity disorder, combined type F90.2 and Insomnia G47.00 [facility] [address] [address] 07/30/2024 Jose Guadalupe Dubon Attention-deficit hyperactivity disorder, combined type F90.2 ; Insomnia G47.00 ; Encounter for screening for depression Z13.31 ; Encounter for screening for cardiovascular disorders Z13.6 ; Generalized anxiety disorder F41.1 ; Benign essential HTN I10 ; Post-traumatic stress disorder, chronic F43.12 and Major depressive disorder, recurrent, in full remission F33.42 [facility], [facility] [address] [place] [address] 12/04/2023 Jose Guadalupe Dubon Attention-deficit hyperactivity disorder, combined type F90.2 [facility], [facility] [address] [place] [address] 12/07/2023 Jose Guadalupe Dubon [facility], [facility] [address] [place] [address] 01/03/2024 Jose Guadalupe Dubon Attention-deficit hyperactivity disorder, combined type F90.2 [facility], [facility] [address] [place] [address] 03/06/2024 Jose Guadalupe Dubon Attention-deficit hyperactivity disorder, combined type F90.2 [facility], [facility] [address] [place] [address] 03/06/2024 Jose Guadalupe Dubon Attention-deficit hyperactivity disorder, combined type F90.2 [facility] [address] [place] [address] 03/31/2024 Jose Guadalupe Dubon Attention-deficit hyperactivity disorder, combined type F90.2 [facility], [facility] [address] [place] [address] 06/05/2024 Jose Guadalupe Dubon Attention-deficit hyperactivity disorder, combined type F90.2 [facility], [facility] [address] [place] [address] 07/01/2024 Jose Guadalupe Dubon Attention-deficit hyperactivity disorder, combined type F90.2 [facility], [facility] [address] [place] [address] 08/28/2024 Jose Guadalupe Dubon Attention-deficit hyperactivity disorder, combined type F90.2 [facility], [facility] [address] [place] [address] 10/01/2024 Jose Guadalupe Dubon Attention-deficit hyperactivity disorder, combined type F90.2 [facility], [facility] [address] [place] [address] 10/03/2024 Jose Guadalupe Dubon Attention-deficit hyperactivity disorder, combined type F90.2 Assessments Encounter Date Diagnosis (ICD Code) Assessment Notes Treatment Notes Treatment Clinical Notes Section Notes 11/08/2023 Generalized anxiety disorder (ICD-10 - F41.1) 1. Post-operative recovery from open heart surgery - Patient is recovering from his third open heart surgery on September 20. - Starting cardiac rehab next week. - Follow up with [facility] for blood pressure medication adjustments and monitoring [...] rehab next week. - Follow up with [facility] for blood pressure medication adjustments and monitoring [...] to assess progress and medication effectiveness. 12/04/2023 Attention-defici t hyperactivity disorder, combined type (ICD-10 - F90.2) 01/03/2024 Attention-defici t hyperactivity disorder, combined type (ICD-10 - F90.2) 03/06/2024 Attention-defici t hyperactivity disorder, combined type (ICD-10 - F90.2) 03/06/2024 Attention-defici t hyperactivity disorder, combined type (ICD-10 - F90.2) 03/31/2024 Attention-defici t hyperactivity disorder, combined type (ICD-10 - F90.2) 05/07/2024 Benign essential HTN (ICD-10 - I10) 06/05/2024 Attention-defici t hyperactivity disorder, combined type (ICD-10 - F90.2) 07/01/2024 Attention-defici t hyperactivity disorder, combined type (ICD-10 - F90.2) 02/04/2024 Generalized anxiety disorder (ICD-10 - F41.1) stable 1. Post-surgical recovery: - Patient reports significant improvement in overall well-being following cardiac surgery. - Patient has been participating in cardiac rehab and has three more visits remaining. Plan: - Encourage patient to continue cardiac rehab and maintain regular exercise at the [facility]. 2. Depression: - Patient is currently on Viibryd 20 mg daily and reports improvement in mood. Plan: - Continue Viibryd 20 mg daily. - Refill prescription at [facility]. - Schedule a three-month follow-up appointment. 3. Attention deficit: - Patient is currently on amphetamine 10 mg daily and reports it is working well. Plan: - Continue amphetamine 10 mg daily. - Refill prescription at [facility] pharmacy. 4. Sleep disturbance: - Patient [...] alcohol use at the next follow-up appointment. 07/30/2024 Attention-defici t hyperactivity disorder, combined type (ICD-10 - F90.2) 08/28/2024 Attention-defici t hyperactivity disorder, combined type (ICD-10 - F90.2) 10/01/2024 Attention-defici t hyperactivity disorder, combined type (ICD-10 - F90.2) 10/03/2024 Attention-defici t hyperactivity disorder, combined type (ICD-10 - F90.2) 07/30/2024 Insomnia (ICD-10 - G47.00) Insomnia: Care Instructions material was published, [facility] material was published 02/04/2024 Post-traumatic stress disorder, chronic (ICD-10 - F43.12) stable 1. Post-surgical recovery: - Patient reports significant improvement in overall well-being following cardiac surgery. - Patient has been participating in cardiac rehab and has three more visits remaining. Plan: - Encourage patient to continue cardiac rehab and maintain regular exercise at the [facility]. 2. Depression: - Patient is currently on Viibryd 20 mg daily and reports improvement in mood. Plan: - Continue Viibryd 20 mg daily. - Refill prescription at [facility]. - Schedule a three-month follow-up appointment. 3. Attention deficit: - Patient is currently on amphetamine 10 mg daily and reports it is working well. Plan: - Continue amphetamine 10 mg daily. - Refill prescription at [facility] pharmacy. 4. Sleep disturbance: - Patient [...] rehab next week. - Follow up with [facility] for blood pressure medication adjustments and monitoring [...] rehab and maintain regular exercise at the [facility]. 2. Depression: - Patient is currently on Viibryd 20 mg daily and reports improvement in mood. Plan: - Continue Viibryd 20 mg daily. - Refill prescription at [facility]. - Schedule a three-month follow-up appointment. 3. Attention deficit: - Patient is currently on amphetamine 10 mg daily and reports it is working well. Plan: - Continue amphetamine 10 mg daily. - Refill prescription at [facility] pharmacy. 4. Sleep disturbance: - Patient [...] use at the next follow-up appointment. 11/08/2023 Attention-defici t hyperactivity disorder, combined type (ICD-10 - F90.2) 1. Post-operative recovery from open heart surgery - Patient is recovering from his third open heart surgery on September 20. - Starting cardiac rehab next week. - Follow up with [facility] for blood pressure medication adjustments and monitoring [...] depressive disorder, recurrent, mild (ICD-10 - F33.0) 07/30/2024 Encounter for screening for depression (ICD-10 - Z13.31) 07/30/2024 Encounter for screening for cardiovascular disorders (ICD-10 - Z13.6) 02/04/2024 Attention-defici t hyperactivity disorder, combined type (ICD-10 - F90.2) 1. Post-surgical recovery: - Patient reports significant improvement in overall well-being following cardiac surgery. - Patient has been participating in cardiac rehab and has three more visits remaining. Plan: - Encourage patient to continue cardiac rehab and maintain regular exercise at the [facility]. 2. Depression: - Patient is currently on Viibryd 20 mg daily and reports improvement in mood. Plan: - Continue Viibryd 20 mg daily. - [facility]. - Schedule a three-month follow-up appointment. 3. Attention deficit: - Patient is currently on amphetamine 10 mg daily and reports it is working well. Plan: - Continue amphetamine 10 mg daily. - Refill prescription at [facility] pharmacy. 4. Sleep disturbance: - Patient [...] alcohol use at the next follow-up appointment. 07/30/2024 Generalized anxiety disorder (ICD-10 - F41.1) stable 05/07/2024 Attention-defici t hyperactivity disorder, combined type (ICD-10 - F90.2) 05/07/2024 Insomnia (ICD-10 - G47.00) Insomnia: Care Instructions material was published, Learning About Sleeping Well material was published 07/30/2024 Benign essential HTN (ICD-10 - I10) 07/30/2024 Post-traumatic stress disorder, chronic (ICD-10 - F43.12) stable 07/30/2024 Major depressive disorder, recurrent, in full remission (ICD-10 - F33.42) 05/07/2024 Other 1. Insomnia: - Patient reports [...] and Viibryd (20 mg) to the patient's [facility]. 3. General health and well-being: - Patient reports overall good physical health, participating in cardiac rehab and daily stretching. - Patient is [facility] but plans to wait until age 63 for Medicare coverage. - Patient expresses a desire to stay productive and engaged in activities after [facility]. Plan: - Encourage patient to continue with cardiac rehab and daily stretching. - Discuss potential activities and volunteer opportunities for post[facility] engagement. 4. Monitoring of trazodone: Plan: - Instruct patient to contact the clinic if any issues or concerns arise with the use of trazodone for sleep. - Adjust treatment plan as needed based on patient feedback and response to medication. Follow-up: - Schedule a follow-up appointment in 3 months. 07/30/2024 Maikel Deshpande, a 58-year-old male with a history of ADHD and recent diabetes diagnosis, presents for medication management and reports improved mood, sleep, and overall well-being. Mood Disorder Assessment: Patient reports incredible mood with no current depression. He acknowledges occasional depressive thoughts but is able to manage them effectively. Anxiety has not been problematic recently. The patient attributes his improved mood to regular exercise (3 days per week) and medication management. Plan: - Continue vilazodone (dosage not specified) - Send prescription to [facility] for 3-month supply - Encourage continuation of current exercise regimen - Monitor for any changes in mood or return of depressive/anxi ety symptoms Insomnia Assessment: Patient reports significant improvement in sleep since starting trazodone. He now only wakes up occasionally (twice since starting medication) and is able to return to sleep quickly after addressing any thoughts. Patient initially tried a full dose but found it led to oversleeping, so he reduced to half dose with good effect. Plan: - Continue trazodone 50 mg PO qhs (half tablet) - Send prescription to [facility] - Educate on sleep hygiene and managing nighttime awakenings - Monitor for any changes in sleep quality or daytime drowsiness Attention Deficit Hyperactivity Disorder (ADHD) Assessment: Patient continues to use Adderall XR 10 mg for ADHD management. No specific concerns or side effects reported. Plan: - Continue Adderall XR 10 mg PO daily - Send prescription to [facility] pharmacy - Monitor for efficacy and side effects the note is transcribed using speech recognition software. It is a reflection of a visit with the patient. It might have some inaccuracy, including medication names and transcribing errors, though efforts have been made to correct them. Plan Of Treatment Next Appt Details Provider Name:Jose Guadalupe leo, 11/26/2024 08:45:00 AM, [address], [address], [place], [address], Insurance Providers Payer Name Payer Address Payer Phone Subscriber Number Group Number Insured Name Patient Relationship to Insured Coverage Start Date Coverage End Date [employer] [address] [place] [address] [id number] TISH DESHPANDE Self - patient is the insured Medical (General) History Surgical History Surgery Date(Month/Year) Heart surgery Other
--- OUTSIDE RECORDS SUMMARY | 2024-10-24 14:23 | XMS_ITS | Clinical Summary ---
Author Organization [facility] al Address [address] [place] [address] Care Team Providers Care Concrete Handler Name Role Phone Kiko Jimenez DO Primary Care Provider + [phone] Fran Bray MD Unavailable [facility] vargas MD Unavailable [phone] Kiko Godinez MD PhD Unavailable Oscar Barnard [...] 1 TABLET BY MOUTH [facility]ILY [facility] 01/08/20 21 Active diazePAM [...] (HCC) TAKE 2 TABLETS(250 MCG) BY MOUTH HISTORICAL RECORDS ADMINISTRATOR BEFORE BREAKFAST 60 tablet 11 07/15/19 25 Active potassium chloride ER 10 mEq CR capsule Take 1 tablet/capsule (10 mEq total) by mouth 2 (two) times a day 2 capsules once daily dose decrease 11/07/2023 3 07/17/19 25 026 Active fluticasone propionate (FLONASE) 50 [...] times a day 90 capsule 11 01/15/20 19 020 Discontinued calcitRIOL (ROCALTROL) 0.5 mcg capsuleIndicati [...] (11/24/2019): Added automatically from request for surgery [id number] Assessment & Plan (12/21/2019 9:58 AM CDT): [...] (03/07/2019): Added automatically from request for surgery [id number] Prostate cancer 12/06/2018 Cancer Staging:Clinical stage from 09/27/2018:Stage IIB(cT1c, cN0, cM0, PSA: 5.2, Grade Group: 2) - Signed by Hector Whittington MD PhD on 02/05/2019 Overview (12/06/2018): Added automatically from request for surgery [id number] Hypoparathyroidism 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 11/30/2018 Assessment & Plan [...] (10/31/2018): Added automatically from request for surgery [id number] Assessment & Plan (01/09/2019 8:49 AM CDT): [...] (09/09/2018): Added automatically from request for surgery [id number] 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 Daily INR. - Lace Burn Out Tender Dr. Barnard aware of admission and following [...] medicine team will sign off. Please call [phone] if any additional question Assessment & Plan [...] medicine team will sign off. Please call [phone] if any additional question Assessment & Plan [...] Department Care Team Description 10/02/2024 Results Follow-Up [facility] Cardiology [address] [facility] 8th [place] [address] [place] [address] Oscar Barnard MD CTA Chest Abdomen Pelvis 10/01/2024 3:04 PM CDT - 10/01/2024 11:59 PM CDT Hospital Encounter [facility] [address] [place] [address] Oscar Barnard MD Dissection of thoracic aorta, unspecified part (HCC); Aneurysm of ascending aorta without rupture; Abdominal aortic aneurysm (AAA) without rupture, unspecified part; Aneurysm of iliac artery; Dissection of abdominal aorta (HCC); Abdominal aortic aneurysm dissection (HCC); Aortic root aneurysm Discharge Disposition: Discharge to home or self care 09/23/2024 3:45 PM CDT Office Visit [facility] Dermatology [facility] Floor [address] [place] [address] Marlyn Salcedo MD Seborrheic keratosis (Primary Dx); History of malignant melanoma; Multiple benign nevi 09/23/2024 Telephone [facility] [address] [place] [address] Advanced Medicine 8th [place] [address] [place] [address] Oscar Barnard MD Test clarification 08/21/2024 Orders Only [facility] [address] [place] [address] Advanced Medicine 8th [place] [address] [place] [address] Edwina Haas RN 08/11/2024 Telephone [facility] Oncology [address] [place] [phone] Sanjeev Macdonald RN results 08/08/2024 1:13 PM CDT - 08/08/2024 11:59 PM CDT Hospital Encounter [facility] [address] [place] [address] 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 (HCC) Discharge Disposition: Discharge to home or self care 08/07/2024 Telephone [facility] Cardiology [address] [place] [address] Advanced Medicine 8th [place] [address] [place] [address] Oscar Barnard MD 08/04/2024 10:00 AM CDT Office Visit [facility] Oncology 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) 08/04/2024 6:42 AM CDT - 08/04/2024 11:59 PM CDT Hospital Encounter [facility] - PET [address] [place] [address] Discharge Disposition: Discharge to home or self care 08/04/2024 6:42 AM CDT - 08/04/2024 11:59 PM CDT Hospital Encounter [facility] PET [address] [place] [address] 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 (HCC); 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) Discharge Disposition: Discharge to home or self care 08/04/2024 Telephone [facility] [address] [place] [address] Gema Marks RN from Last 3 Months Immunizations Immunization Administration [...] Friends and Family Patient declined 02/05/2019 Attends Synagogue Services Patient declined 08/2018 Active Member of [...] all 02/05/2019 [facility] [place] of Occupat ional Health - Occupational Stress [...] on file Legal Sex Male 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 Gender Identity Not on file Sexual Orientation Not on file 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 Not on file Not [...] 08/04/2024 9:32 AM CDT Plan of Treatment Health Maintenance Due Date Last Done Comments Albumin Creatinine Ratio, Urine 1965 Depression Screening 1965 Hemoglobin A1C 1963 Hepatitis C Screening 1965 Dilated Eye Exam 1963 Foot Exam 1963 DTaP/Tdap/Td Vaccine (1 - Tdap) 09/19/1974 Hepatitis B Screening 09/19/1981 Regular Well Visit/Exam 18-64 09/19/1981 Pneumococcal vaccine <65 (1 of 2 - PCV) 09/19/1982 Lung Cancer Screening 09/19/2013 Zoster Vaccine (2 of 2) 03/09/2021 01/12/2021 Colon Cancer Screening-Colonoscopy 04/22/2023 04/22/2013 Covid-19 Vaccine (4 - 2023-2 5 season) 2023 02/12/2021, 06/21/2020, 05/19/2020 Lipid Panel 2024 09/21/2023, 04/02, 11/26/2018, Additional history exists Influenza Vaccine (#1) 2024 , 01/01/2020, 01/16/2019, Additional history exists eGFR 08/04/2025 08/04/2024, 05/0 09/2023, 07/31/2022, Additional history exists Prostate Cancer Screening-PSA 08/05/2025 08/06/2023, 01/24/2021 Colon Cancer Screening-CT Colonography Discontinued 04/22/2013 Colon Cancer Screening-DNA Stool Discontinued 04/22/19 14 Colon Cancer Screening-FIT Discontinued 04/22/2013 Colon Cancer Screening-Sigmoidoscopy Discontinued 04/22/2013 Medical Devices Implanted Type Area Business Programmer Device Identifier Shelf Expiration Date Model / Serial / Lot Vascutek Terumo [id number] Gelsoft Plus Vascutek 24/12mm 45cm Main Leg Bore Reduced - [id number] - [id number] Implanted:Qty: 1 on 12/11/2019 by Vito Madrigal MD at [facility] Graft N/A: Aorta Terumo [employer] 12/30/2021 [id number] / [id number] / [id number] Mechanical Heart Valve-02/05/1998 Implanted:02/05 (Quantity not on file) [id number] / [id number] / Procedures Procedure Name Priority Date/Time Associated [...] (HCC) LIPID PANEL STAT 04/19/2019 4:02 AM TECHNICAL SALES ASSOCIATE COLONOSCOPY REPORT 04/22/2013 from Last 3 Months [...] it. Electronically signed by: Francesco Farris M.D. us Hector Arellano NP IMG US PROCEDURES Final [...] ORDERABLES Final Res ult [facility] One [facility] [place] [address] * (ABNORMAL) Differential, auto (08/04/2024 9:10 AM CDT) Pathologist [facility] Neutrophil abs 7.05(H) 1.50 - 6.50 K/cumm Comment:Testing performed by : [facility], [address] [place] [phone] Lymphocyte abs 1.58 0.80 - 3.30 K/cumm [facility] Comment:Testing performed by : [facility], [address] [place] [phone] Monocyte abs 0.81(H) 0.20 - 0.80 K/cumm [facility] Comment:Testing performed by : [facility], [address] [place] [phone] Eosinophil abs 0.18 0.00 - 0.50 K/cumm [facility] Comment:Testing performed by : [facility], [address] [place] [phone] Basophil abs 0.07 0.00 - 0.10 K/cumm [facility] Comment:Testing performed by : [facility], [address] [place] [phone] Neutrophil pct 72.7 % [facility] Comment: Interpretive Data Percent cell count reference ranges are not reported, since discordance with absolute values may lead to misinterpretation of CBC data. Current Interpretive Data was last revised on 2017. Testing performed by: [facility], [address] [place] [address] Lymphocyte pct 16.3 % [facility] Comment: Interpretive Data Percent cell count reference ranges are not reported, since discordance with absolute values may lead to misinterpretation of CBC data. Current Interpretive Data was last revised on 2017. Testing performed by: [facility], [address] [place] [phone] Monocyte pct 8.4 % [facility] Comment: Interpretive Data Percent cell count reference ranges are not reported, since discordance with absolute values may lead to misinterpretation of CBC data. Current Interpretive Data was last revised on 2017. Testing performed by: [facility], [address] [place] [phone] Eosinophil pct 1.8 % [facility] Comment: Interpretive Data Percent cell count reference ranges are not reported, since discordance with absolute values may lead to misinterpretation of CBC data. Current Interpretive Data was last revised on 2017. Testing performed by: [facility], [address] [place] [phone] Basophil pct 0.8 % [facility] Comment: Interpretive Data Percent cell count reference ranges are not reported, since discordance with absolute values may lead to misinterpretation of CBC data. Current Interpretive Data was last revised on 2017. Testing performed by: [facility], [address] [place] [phone] Blood 08/04/2024 9:10 AM CDT 08/04/2024 9:13 AM CDT us Waqar Valdez MD LAB BLOOD ORDERABLES Final Res ult Performing Organization Address [facility] Co de Phone Number [facility] One [facility] Department [place] [address] * Thyroid Function Ira (08/04/2024 9:10 AM CDT) TSH 1.81 0.30 - 4.20 mcIUnit/mL Blood 08/04/2024 9:10 AM CDT 08/04/2024 9:14 AM CDT Waqar Valdez MD LAB BLOOD ORDERABLES Final Res ult Performing Organization Address [facility] de Phone Number [facility] Department [place] [address] * (ABNORMAL) CBC with auto differential (08/04/2024 9:10 AM CDT) Pathologist [facility] WBC 9.70 3.80 - 9.90 K/cumm Comment:Testing performed by : [facility], [address] [place] [phone] Hgb 16.0 13.0 - 17.5 g/dL [facility] Comment:Testing performed by : [facility], [address] [place] [phone] Hct 46.4 38.9 - 50.3 % [facility] Comment:Testing performed by : [facility], [address] [place] [address] Plt 227 150 - 400 K/cumm [facility] Comment:Testing performed by : [facility], [address] [place] [phone] MPV 7.5 6.8 - 10.4 fL [facility] Comment:Testing performed by : [facility], [address] [place] [address] RBC 5.22 4.30 - 5.80 M/cumm [facility] Comment:Testing performed by : [facility], [address] [place] [address] MCV 88.9 81.3 - 96.4 fL [facility] Comment:Testing performed by : [facility], [address] [place] [address] MCH 30.6 27.1 - 33.3 pg [facility] Comment:Testing performed by : [facility], [address] [place] [address] MCHC 34.5 32.3 - 35.7 g/dL [facility] Comment:Testing performed by : [facility], [address] [place] [address] RDW CV 15.3(H) 11.1 - 14.9 % [facility] Comment:Testing performed by : [facility], [address] [place] [address] NRBC abs 0.00 0.00 - 0.01 K/cumm [facility] Comment:Testing performed by : [facility], [address] [place] [address] Blood 08/04/2024 9:10 AM CDT 08/04/2024 9:13 AM CDT Waqar Valdez MD LAB BLOOD ORDERABLES Final Res ult [facility] One [facility] Department of Laboratories [place], [place] [id number] * (ABNORMAL) Lactate dehydrogenase (LD) (08/04/2024 9:10 AM CDT) Lactate dehydrogenase (LDH) 325(H) 100 - 250 Units/L Blood 08/04/2024 9:10 AM CDT 08/04/2024 9:14 AM CDT Waqar Valdez MD LAB BLOOD ORDERABLES Final Res ult [facility] One [facility] Department [place] [address] * Comprehensive metabolic panel (08/04/2024 9:10 AM CDT) Sodium 137 135 - 145 mmol/L Potassium, pl 4.4 3.3 - 4.9 mmol/L [facility] Chloride 100 97 - 110 mmol/L [facility] CO2 24 22 - 32 mmol/L [facility] Anion gap 13 2 - 15 mmol/L [facility] BUN 20 6 - 25 mg/dL [facility] Creatinine 1.09 0.80 - 1.30 mg/dL [facility] Glucose 131 70 - 199 mg/dL [facility] Comment: Interpretive Data Fasting glucose >/= [...] 2022. Calcium 8.9 8.5 - 10.3 mg/dL [facility] Bilirubin, total 0.5 0.1 - 1.2 mg/dL [facility] Protein, pl 8.2 6.5 - 8.5 g/dL [facility] Albumin 4.5 3.5 - 5.0 g/dL [facility] Alk phos 75 40 - 130 Units/L [facility] ALT 20 7 - 55 Units/L [facility] AST 30 10 - 50 Units/L [facility] Blood 08/04/2024 9:10 AM CDT 08/04/2024 9:14 AM CDT Waqar Valdez MD LAB BLOOD ORDERABLES Final Res ult TREE [facility] Flip [facility] Department [place] [address] * PET/CT FDG Skull to Thigh (08/04/2024 [...] FDG-PET/CT IMAGING DATE OF STUDY: 08/04/2024 SCANNER: [employer] System[employer] (SQ1). This is a high-resolution scanner, which [...] obtained. The study was interpreted on the [employer] workstation. The mean liver SUV (reported for director of quality purposes) is 3.1. The total scanned area [...] FDG-PET/CT IMAGING DATE OF STUDY: 08/04/2024 SCANNER: [facility] [employer] (SQ1). This is a high-resolution scanner, which [...] obtained. The study was interpreted on the [employer] workstation. The mean liver SUV (reported for director of quality purposes) is 3.1. The total scanned area [...] it. Electronically signed by: Mo Reed M.D. us Waqar Valdez MD IMG PET PROCEDURES Final Resul t * PSA diagnostic (08/06/2023 8:36 AM CDT) PSA-Total <0.02 <=3.90 ng/mL Comment: Interpretive Data AGE SEX REFERENCE INTERVAL 0 minutes-150 years Female None 0 minutes-49 years Male None 50-59 years Male 0-3.90 60-69 years Male 0-5.40 70-79 years Male 0-6.20 80-150 years Male 0-6.20 [employer] PSA Total assay procedure was used. Results from different manufacturers or methods may not be comparable. Serial testing should be performed using the same method. Current interpretive data last revised 21. Blood 08/06/2023 8:36 AM CDT 08/06/2023 9:07 AM CDT Waqar Valdez MD LAB BLOOD ORDERABLES Final Res ult [facility] One [facility] Department [place] [address] * (ABNORMAL) Lipid panel (04/19/2019 4:02 AM TECHNICAL SALES ASSOCIATE) Cholesterol 159 30 - 199 mg/dL [facility] Comment: Interpretive Data Ages < or [...] revised on 2017. Triglycerides 143 <=149 mg/dL [facility] Comment: Interpretive Data Ages < or [...] revised on 2017. HDL 35(L) >=40 mg/dL [facility] Comment: Interpretive Data Ages < or [...] on 2017. LDL, calculated 95 <=129 mg/dL [facility] Comment: Interpretive Data Ages < or [...] revised on 2017. Non-HDL Cholesterol 124 mg/dL [facility] Comment: Interpretive Data Ages < or [...] last revised on 2017. Chol/HDL ratio 5 TREE [facility] Blood specimen (specimen) 04/19/2019 4:02 AM TECHNICAL SALES ASSOCIATE 04/19/2019 4:10 AM TECHNICAL SALES ASSOCIATE Todd Gold Jr., MD LAB BLOOD ORDERABLES Final Result [facility] Department [place] [address] * COLONOSCOPY REPORT (04/22/2013) Anatomical Region Laterality Modality Other Narrative 04/22/2013 Ordered by an unspecified provider. Historical Provider GI PROCEDURE ORDERABLES F inal Result from Last 3 Months or Most Recently Relevant to Health Maintenance Insurance [employer] [place] AN[place] BL[place] ACCESS O [facility] [employer] [place] Advance Directives For more information, please contact: [phone] * Full Code (Latest Code Status on [...] 4:23 PM 12/04/2018 4:15 PM Care Teams Concrete Handler Relationship Specialty Start Date End Date Kiko Jimenez DO PCP - General 04/09/17 Fran Bray MD Medical Oncologist/Deck Builder Medical Oncology 01/10/18 Maximiliano Cerrato MD Consulting Physician Plastic Surgery 01/10/18 Kiko Godinez MD PhD Software Validation Engineer Dermatology 01/11/18 Oscar Barnard MD Lace Burn Out Tender Cardiology 01/11/18 Todd Gold Jr., MD Referring Physician Urology 02/08/19
--- OUTSIDE RECORDS SUMMARY | 2024-10-24 14:23 | XMS_ITS | Encounter Summary ---
Author Organization [facility] Healthcare Address [address] [place] [address] Care Team Providers Care Features Editor Name Role Phone Kiko Jimenez DO Primary Care Provider [phone] Fran Bray MD [facility]available [facility] MD Unavailable Kiko Godinez MD PhD Unavailable Oscar Barnard MD Unavailable [phone] Brayan Burrows MD Unavailable Alla Wyman MD, Todd White Unavailable Encounter Details Date Type Department Care Team (Late st Contact Info) Description 10/17/2019 Telephone [facility] [address] [place] [address] Fabiola Griffith, RT Social History Tobacco [...] Friends and Family Patient declined 02/05/2019 Attends Yazidi Services Patient declined 08/2018 Active Member of Clubs or Organizations Patient declined 02/05/2019 Attends Club or Organization Meetings Patient de clined 02/05/2019 Marital Status 02/05/2019 Overall Financial Resource Strain (CARDIA) Answe r Date Recorded Difficulty of Paying Living Expenses Not hard at all 02/05/2019 [facility] [place] of Occupat ional Health - Occupational Stress [...] on file 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 Gender Identity Not on file Sexual Orientation Not on file 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 Not on file Not on file documented as of this encounter Plan of Treatment Not on file documented as of this encounter Visit Diagnoses Not on filedocumented in this encounter Care Teams Features Editor Relationship Specialty Start Date End Date Kiko Jimenez DO PCP - General 04/09/17 Fran Bray MD Medical Oncologist/Varnisher Medical Oncology 01/10/18 Maximiliano Cerrato MD Consulting Physician Plastic Surgery 01/10/18 Kiko Godinez MD PhD Electronic Gluer Dermatology 01/11/18 Oscar Barnard MD Construction Controller Cardiology 01/11/18 Brayan Burrows MD Radiation Oncologist Radiation Oncology 12/09/1804/03/2 4 Todd Gold Jr., MD Referring Physician Urology 02/08/19 documented as of this encounter
--- OUTSIDE RECORDS SUMMARY | 2024-10-24 14:23 | XMS_ITS | Encounter Summary ---
Author Organization [facility] Healthcare Address [address] [place] [address] Care Team Providers Care Filters Assembler Name Role Phone Kiko Jimenez DO Primary Care Provider Fran Bray MD Unavailable [phone] [facility] Unavailable [phone] Kiko Godinez MD PhD Unavailable Oscar Barnard MD Unavailable [phone] Brayan Burrows MD Unavailable Alla Wyman MD, Todd White Unavailable [phone] Encounter Details Date Type Department Care Team (Late st Contact Info) Description 04/16/2020 Telephone [facility] [address] [place] [address] Fabiola Griffith, RT Social History Tobacco [...] Living Expenses Not hard at all 02/05/2019 [facility] [place] of Occupat ional Health - Occupational Stress [...] on file Legal Sex Male 8:20 AM RECEPTION Gender Identity Not on file Sexual Orientation Not on file 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 Not on file Not on file documented as of this encounter Plan of Treatment Not on file documented as of this encounter Visit Diagnoses Not on filedocumented in this encounter Care Teams Filters Assembler Relationship Specialty Start Date End Date Kiko Jimenez DO PCP - General 04/09/17 Fran Bray MD Medical Oncologist/Car Wash Attendant Automatic Medical Oncology 01/10/18 Maximiliano Cerrato MD Consulting Physician Plastic Surgery 01/10/18 Kiko Godinez MD PhD Injection Specialist Dermatology 01/11/18 Oscar Barnard MD Transition Mgr Rn Cardiology 01/11/18 Brayan Burrows MD Radiation Oncologist Radiation Oncology 12/09/1804/03/2 4 Todd Gold Jr., MD Referring Physician Urology 02/08/19 documented as of this encounter
--- OUTSIDE RECORDS SUMMARY | 2024-10-24 14:23 | XMS_ITS | Encounter Summary ---
Author Organization [facility] Healthcare Address [address] [place] [address] Care Team Providers Care Box Stapler Name Role Phone Kiko Jimenez DO Primary Care Provider [phone] Fran Bray MD Unavailable [facility] MD Unavailable Kiko Godinez MD PhD Unavailable Oscar Barnard MD Unavailable [phone] Brayan Burrows MD Unavailable Alla Wyman MD, Todd White Unavailable Encounter Details Date Type Department Care Team (Late st Contact Info) Description 07/18/[address] [facility] [address] [place] [id number] Hair Pro, RT Social History Tobacco [...] Friends and Family Patient declined 02/05/2019 Attends Rastaf[employer] Services Patient declined 08/2018 Active Member of Clubs or Organizations Patient declined 02/05/2019 Attends Club or Organization Meetings Patient de clined 02/05/2019 Marital Status 02/05/2019 Overall Financial Resource Strain (CARDIA) Ans[place] r Date Recorded Difficulty of Paying Living Expenses Not hard at all 02/05/2019 [facility] [place] of Occupat ional Health - Occupational Stress [...] on file 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 Gender Identity Not on file Sexual Orientation Not on file 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 Not on file Not on file documented as of this encounter Plan of Treatment Not on file documented as of this encounter Visit Diagnoses Not on filedocumented in this encounter Care Teams Box Stapler Relationship Specialty Start Date End Date Kiko Jimenez DO PCP - General 04/09/17 Fran Bray MD Medical Oncologist/Math Instructor Medical Oncology 01/10/18 Maximiliano Cerrato MD Consulting Physician Plastic Surgery 01/10/18 Kiko Godinez MD PhD Communications Analyst Dermatology 01/11/18 Oscar Barnard MD Crts Cardiology 01/11/18 Brayan Burrows MD Radiation Oncologist Radiation Oncology 12/09/18//2 4 Todd Gold Jr., MD Referring Physician Urology 02/08/19 documented as of this encounter
--- OUTSIDE RECORDS SUMMARY | 2024-10-24 14:23 | XMS_ITS | Encounter Summary ---
Author Organization [facility] Healthcare Address [address] [place] [address] Care Team Providers Care Primary Education Professor Name Role Phone Kiko Jimenez DO Primary Care Provider Fran Bray MD [facility]available [facility] Unavailable [phone] Kiko Godinez MD PhD Unavailable Oscar Barnard MD Unavailable [phone] Brayan Burrows MD Unavailable Alla Wyman MD, Todd White Unavailable Encounter Details Date Type Department Care Team (Late st Contact Info) Description 01/16/2020 Telephone [facility] [address] [place] [address] Fabiola Griffith, RT Social History Tobacco [...] Friends and Family Patient declined 02/05/2019 Attends [employer] Patient declined 08/2018 Active Member of Clubs or Organizations Patient declined 02/05/2019 Attends Club or Organization Meetings Patient de clined 02/05/2019 Marital Status 02/05/2019 Overall Financial Resource Strain (CARDIA) [place] r Date Recorded Difficulty of Paying Living Expenses Not hard at all 02/05/2019 [facility] [place] of Occupat ional Health - Occupational Stress [...] on file 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 Gender Identity Not on file Sexual Orientation Not on file 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 on file Not on file documented as of this encounter Plan of Treatment Not on file documented as of this encounter Visit Diagnoses Not on filedocumented in this encounter Care Teams Primary Education Professor Relationship Specialty Start Date End Date Kiko Jimenez DO PCP - General 04/09/17 Fran Bray MD Medical Oncologist/Repair Technician Medical Oncology 01/10/18 Maximiliano Cerrtao MD Consulting Physician Plastic Surgery 01/10/18 Kiko Godinez MD PhD Application Support Lead Dermatology 01/11/18 Oscar Barnard MD Retail Selling Specialist Cardiology 01/11/18 Brayan Burrows MD Radiation Oncologist Radiation Oncology 12/09/1804/03/2 4 Todd Gold Jr., MD Referring Physician Urology 02/08/19 documented as of this encounter
[2024-10-24 15:09] LABS: Hemoglobin A1C 6.3 % (<5.7)
[2024-10-24 15:26] LABS: Alanine Aminotransferase 22 U/L (6-50); Albumin Level 4.4 g/dL (3.5-5.1); Alkaline Phosphatase 63 U/L (38-126); Anion Gap 11 mmol/L (4-12); Aspartate Amino Transferase 35 U/L (17-59); Bilirubin,Total 0.9 mg/dL (0.2-1.3); Blood Urea Nitrogen 23 mg/dL (9-20); Calcium 8.6 mg/dL (8.4-10.2); Carbon Dioxide 25 mmol/L (22-30); Chloride 100 mmol/L (98-107); Estimated Glomerular Filt Rate > 60; Glucose 120 mg/dL (65-110); Potassium 4.0 mmol/L (3.4-5.0); Sodium 136 mmol/L (137-145); Total Protein 7.9 g/dL (6.3-8.2)
[2024-10-24 15:42] LABS: Free T4 Free Thyroxine 1.94 ng/dL (0.78-2.19)
[2024-10-24 15:55] LABS: Thyroid Stimulating Hormone 0.035 uIU/mL (0.465-4.680)
== END 2024-10-24 14:13 | disposition home or self-care (01) ==
PROVIDERS: PCP Clinical Nurse Specialist; Referring Provider Internal Medicine
DX: C73 Malignant neoplasm of thyroid gland (principal); E11.9 Type 2 diabetes mellitus without complications
CPT/HCPCS: 36415; 80053; 83036; 84439; 84443; 84681

== ENCOUNTER 2025-01-13 11:05 | Outpatient (CLI) | payer BC, SELFPAY ==
[2025-01-13 11:56] LABS: INR 2.5; Prothrombin Time 26.2 Seconds (11.1-14.7)
--- OUTSIDE RECORDS SUMMARY | 2025-01-13 13:07 | XMS_ITS | Encounter Summary ---
Author Organization [facility] Healthcare Address [address] [place] [address] Care Team Providers Care Press Setter Name Role Phone Kiko Jimenez DO Primary Care Provider Fran Bray MD [facility]available [facility] Un[facility] Kiko Godinez MD PhD Unavailable [phone] Oscar Barnard MD Unavailable [phone] Brayan Burrows MD Unavailable [phone] Alla Wyman MD, Todd White Unavailable Encounter Details Date Type Department Care Team (Late st Contact Info) Description 04/16/2020 Telephone [facility] [address] [place] [address] Fabiola Griffith, RT Social History Tobacco [...] No 02/05/2019 Social Connection and Isolation Panel Answer Date Recorded Frequency of Communication with Friends [...] Living Expenses Not hard at all 02/05/2019 [facility] [place] of Occupat ional Health - Occupational Stress [...] on file 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 Gender Identity Not on file Sexual Orientation Not on file 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 Not on file Not on file documented as of this encounter Plan of Treatment Upcoming Encounters Date Type Department Care Team (Latest Contact Info) Description 01/16/2025 7:30 AM CDT Hospital Encounter [facility] Operating Room [address] [place] [address] Deric Granger MD [address] [place] [address] 01/16/2025 7:30 AM CDT Anesthesia Event [facility] Operating Room [address] [place] [phone] Sheri Meadows NP [address] [facility] [phone] [place], [place] [id number] 01/16/2025 7:30 AM CDT - 01/16/2025 9:40 AM CDT Surgery [facility] Operating Room [address] [place] [phone] Deric Granger MD [address] [place] [address] LEFT NECK EXCISIONAL LYMPH NODE BIOPSY Scheduled Procedures Name Priority Associated Diagnoses Date/Ti me BIOPSY OR EXCISION LYMPH NODE NECK. Malignant melanoma, unspecified site (HCC) 01/16/2025 7:30 AM CDT documented as of this encounter Visit Diagnoses Not on filedocumented in this encounter Care Teams Press Setter Relationship Specialty Start Date End Date Kiko Jimenez DO PCP - General 04/09/17 Fran Bray MD Medical Oncologist/Supervisor Conditioning Yard Medical Oncology 01/10/18 Maximiliano Cerrato MD Consulting Physician Plastic Surgery 01/10/18 Kiko Godinez MD PhD Polishing Machine Operator Helper Dermatology 01/11/18 Oscar Barnard MD Catalog Library Assistant Cardiology 01/11/18 Brayan Burrows MD Radiation Oncologist Radiation Oncology 12/09/18 4 Todd Gold Jr., MD Referring Physician Urology 02/08/19 documented as of this encounter
--- OUTSIDE RECORDS SUMMARY | 2025-01-13 13:07 | XMS_ITS | Encounter Summary ---
Author Organization [facility] Healthcare Address [address] [place] [address] Care Team Providers Care Mail Distributor Name Role Phone Kiko Jimenez DO Primary Care Provider Fran Bray MD [facility]available [facility] Unavailable [phone] Kiko Godinez MD PhD Unavailable Oscar Barnard MD Unavailable [phone] Brayan Burrows MD Unavailable Alla Wyman MD, Todd White Unavailable Encounter Details Date Type Department Care Team (Late st Contact Info) Description 10/15/2020 Telephone [facility] [address] [place] [address] Fabiola Griffith, RT Social History Tobacco [...] Friends and Family Patient declined 02/05/2019 Attends [employer] Services Patient declined 08/2018 Active Member of Clubs or Organizations Patient declined 02/05/2019 Attends Club or Organization Meetings Patient de clined 02/05/2019 Marital Status 02/05/2019 Overall Financial Resource Strain (CARDIA) [place] r Date Recorded Difficulty of Paying Living Expenses Not hard at all 02/05/2019 [facility] [place] of Occupat ional Health - Occupational Stress [...] on file 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 Gender Identity Not on file Sexual Orientation Not on file 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 [phone] [place], [place] [id number] 01/16/2025 7:30 AM CDT - 01/16/2025 9:40 AM CDT Surgery [facility] Operating Room [address] [place] [phone] Deric Granger MD [address] [place] [address] LEFT NECK EXCISIONAL LYMPH NODE BIOPSY Scheduled Procedures Name Priority Associated Diagnoses Date/Ti me BIOPSY OR EXCISION LYMPH NODE NECK. Malignant melanoma, unspecified site (HCC) 01/16/2025 7:30 AM CDT documented as of this encounter Visit Diagnoses Not on filedocumented in this encounter Care Teams Mail Distributor Relationship Specialty Start Date End Date Kiko Jimenez DO PCP - General 04/09/17 Fran Bray MD Medical Oncologist/Rn Discharge Medical Oncology 01/10/18 Maximiliano Cerrato MD Consulting Physician Plastic Surgery 01/10/18 Kiko Godinez MD PhD Family Practitioner Dermatology 01/11/18 Oscar Barnard MD Anaesthesiologist Cardiology 01/11/18 Brayan Burrows MD Radiation Oncologist Radiation Oncology 12/09/18 4 Todd Gold Jr., MD Referring Physician Urology 02/08/19 documented as of this encounter
--- OUTSIDE RECORDS SUMMARY | 2025-01-13 13:07 | XMS_ITS | Clinical Summary ---
Author Organization [facility] Address [address] [place] [address] Care Team Providers Care Coal Handling Supervisor Name Role Phone Unavailable Primary Care [...] COVID-19 Vaccine ( - 2023-2 5 season) 2024 Influenza Adult (#1) 2024 RSV Immunization or [...]
--- OUTSIDE RECORDS SUMMARY | 2025-01-13 13:07 | XMS_ITS | Clinical Summary ---
Author Organization [facility] al Address [address] [place] [address] Care Team Providers Care Vice President Pharmacy Name Role Phone Kiko Jimenez DO Primary Care Provider Fran Bray MD Unavailable [phone] [facility] Unavailable [phone] Kiko Godinez MD PhD Unavailable [phone] Oscar Barnard MD Unavailable Alla Wyman MD, Todd White Unavailable Allergies Active Allergy Reactions Criticality Noted Date Comments Ceftriaxone Hives,Rash Medium 12/11/19 - Approved to give cefazolin with ceftriaxone allergy per Alanis Rivero MD/Pat Simeon, PharmD Spironolactone Other (See comments) Low 05/19/2020 gynecomastia Medications aspirin 81 mg tabletIndications :Myocardial Reinfarction Prevention,preven tion of thrombosis Take 1 tablet (81 mg total) by mouth nightly Active loratadine (CLARITIN) 10 mg tabletIndications :Allergic Conjunctivitis,Al lergic Rhinitis Take 1 tablet (10 mg total) by mouth every morning Active vilazodone (VIIBRYD) 20 mg tabletIndications :major depressive disorder Take 1 tablet (20 mg total) by mouth every morning Active warfarin (COUMADIN) 5 mg tabletIndications :Mechanical Valve Thromboembolism Prophylaxis Take 1 tablet (5 mg total) by mouth nightly 2020 Active diazePAM (VALIUM) 5 mg tabletIndications :anxiety Take 1 tablet (5 mg total) by mouth as needed for anxiety (MRI's) 2020 Active acetaminophen (TYLENOL ORAL)Indications: pain Take 1,000 mg by mouth 3 (three) times a day 2 tablets Active hydrocortisone 2.5 % cream Apply topically 2 (two) times a day as needed for rash (on rash) 30 g 3 2022 Active Additional Information Patient taking differently: 1 Applicationtopical 2 times daily PRN, rash, on rash,Indications: skin rash, Informant: Self, Reported on 01/05/2025 triamcinolone (KENALOG) 0.1 % ointment Apply twice daily to rash on the LOWER LEGS as needed. Avoid face and groin. 454 g 2 2022 Active Additional Information Patient taking differently: 1 Application topical As needed, rash, Apply twice daily to rash on the LOWER LEGS as needed. Avoid face and groin.,Indications: skin rash, Informant: Self, Reported on 01/05/2025 dextroamphetamine -amphetamine XR (ADDERALL XR) 10 mg 24 hr capsuleIndication s:Attention-Defic it Hyperactivity Disorder Take 1 capsule (10 mg total) by mouth every morning 2023 Active diclofenac sodium (VOLTAREN) 1 % gelIndications:Pa in Apply 2 g topically 2 (two) times a day as needed Active furosemide (LASIX) 40 mg tablet 1 tab po BID 180 tablet 3 2023 Active Additional Information Patient taking differently: 40 mg oral 2 times daily, (No instructions reported), Indications: Edema, hypertension, Informant: Self, Reported on 01/05/2025 metoprolol XL (TOPROL-XL) 100 mg 24 hr tablet TAKE 1 AND 1/2 TABLETS(150 MG) BY MOUTH DAILY 135 tablet 3 2023 Active Additional Information Patient taking differently: 150 mg oral Every morning, 1.5 tablets, Indications: hypertension, Informant: Self, Reported on 01/05/2025 levothyroxine (SYNTHROID) 125 mcg tabletIndications :Thyroid cancer (HCC) TAKE 2 TABLETS(250 MCG) BY MOUTH FINISH FILER BEFORE BREAKFAST 60 tablet 11 2024 Active Additional Information Patient taking differently: 250 mcg oral Daily (early AM), Indications: hypothyroidism, Informant: Self, Reported on 01/05/2025 fluticasone propionate (FLONASE) 50 mcg/actuation nasal spray Administer 2 sprays into each nostril nightly 2024 Active traZODone (DESYREL) 50 mg tabletIndications :insomnia associated with depression Take 1 tablet (50 mg total) by mouth nightly Active rosuvastatin (CRESTOR) 20 mg tabletIndications :hyperlipidemia Take 1 tablet (20 mg total) by mouth every morning Active metFORMIN (GLUCOPHAGE) 500 mg tabletIndications :type 2 diabetes mellitus Take 1 tablet (500 mg total) by mouth 2 (two) times a day with meals 2024 Active Jardiance 10 mg tabletIndications :type 2 diabetes mellitus Take 1 tablet (10 mg total) by mouth every morning 2024 Active amLODIPine (NORVASC) 5 mg tablet One tab q hs 30 tablet 11 2024 Active Additional Information Patient taking differently: 5 mg oral Nightly, (No instructions reported), Indications: hypertension, Informant: Self, Reported on 01/05/2025 hydrALAZINE (APRESOLINE) 25 mg tablet TAKE 3 TABLETS BY MOUTH THREE TIMES DAILY 810 tablet 3 2024 Active Additional Information Patient taking differently:75 mg oral 3 times daily, 3 tablets, Indications: hypertension, Informant: Self, Reported on 01/05/2025 digoxin (LANOXIN) 125 mcg (0.125 mg) tablet TAKE 2 TABLETS(0.25 MG) BY MOUTH DAILY 180 tablet 3 2024 Active Additional Information Patient taking differently: 250 mcg oral Every morning, Indications: Ventricular Rate Control in Atrial Fibrillation, Informant: Self, Reported on 01/05/2025 potassium chloride ER 10 mEq CR tablet TAKE 2 CAPSULES BY MOUTH DAILY 90 tablet/ca psule 3 2024 Active Additional Information Patient taking differently: 20 mEqoralEvery morning, Indications: hypokalemia prevention, Informant: Self, Reported on 01/05/2025 eplerenone (INSPRA) 25 mg tablet TAKE 1 TABLET(25 MG) BY MOUTH DAILY 90 tablet 3 2024 Active Additional Information Patient taking differently:25 mg oralEvery morning, Indications: hypertension, Informant: Self, Reported on 01/05/2025 lisinopriL (PRINIVIL,ZESTRIL ) 10 mg tabletIndications :Dissection of thoracic aorta (HCC),Benign essential HTN TAKE 1 TABLET(10 MG) BY MOUTH TWICE DAILY 180 tablet 1 2024 Active Additional Information Patient taking differently:10 mg oral 2 times daily,Indications: hypertension, Informant: Self, Reported on 01/05/2025 ketoconazole (NIZORAL) 2 % shampooIndication s:Seborrheic dermatitis, unspecified APPLY TOPICALLY TO DAMP SKIN, LATHER AND LEAVE ON FOR 5 MINUTES THEN RINSE. USE DIRECTED 120 mL 3 2024 Active Additional Information Patient taking differently: 1 Application topical Every morning, APPLY TOPICALLY TO DAMP SKIN, LATHER AND LEAVE ON FOR 5 MINUTES THEN RINSE. USE DIRECTED,Indications: Dandruff, Informant: Self, Reported on 01/05/2025 enoxaparin (LOVENOX) 100 mg/mL syringe 100mg/1mL subq BID To start when instructed per MD 20 mL 1 2024 Active pravastatin (PRAVACHOL) 40 mg tabletIndications :hyperlipidemia Take 1 tablet (40 mg total) by mouth every morning 3 01/05 Discontinued gabapentin (NEURONTIN) 300 mg capsuleIndication s:Neuropathic Pain,Postoperativ e Acute Pain Take 1 capsule (300 mg total) by mouth 3 (three) times a day 90 capsule 11 11/02 Discontinued calcitRIOL (ROCALTROL) 0.5 mcg capsuleIndication s:hypocalcemia Take 1 capsule (0.5 mcg total) by mouth daily 30 capsule 3 11/02 Discontinued oxybutynin (DITROPAN) 5 mg tablet Take 1 tablet (5 mg total) by mouth 3 (three) times a day as needed (bladder spasms) for up to 20 doses 20 tablet 11/02 Discontinued dexAMETHasone (DECADRON) 4 mg tablet 01/05 Discontinued ofloxacin (FLOXIN) 0.3 % otic solution INSTILL 5 DROPPERFUL TO LEFT EAR TWICE DAILY 01/05 Discontinued fexofenadine (AMY) 60 mg tablet Take 1 tablet (60 mg total) by mouth daily 01/05 Discontinued Active Problems Problem Noted Date Diagnosed Date Malignant melanoma 12/22/2024 Cardiac insufficiency 12/16/2024 Moderate major depression 12/16/2024 Obesity, morbid 12/16/2024 Chronic obstructive pulmonary disease 02/20/2024 Atrial flutter [...] (11/24/2019): Added automatically from request for surgery [id number] Assessment & Plan (12/21/2019 9:58 AM CDT): [...] (03/07/2019): Added automatically from request for surgery [id number] Prostate cancer 12/06/2018 Cancer Staging:Clinical stage from 09/27/2018:Stage IIB(cT1c, cN0, cM0, PSA: 5.2, Grade Group: 2) - Signed by Hector Whittington MD PhD on 02/05/2019 Overview (12/06/2018): Added automatically from request for surgery [id number] Hypoparathyroidism 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 11/30/2018 Assessment & Plan [...] (10/31/2018): Added automatically from request for surgery [id number] Assessment & Plan (01/09/2019 8:49 AM CDT): [...] (09/09/2018): Added automatically from request for surgery [id number] 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 Daily INR. - Brush Worker Dr. Barnard aware of admission and [...] medicine team will sign off. Please call [phone] if any additional question Assessment & Plan [...] on home warfarin dose at 8mg on 11/28pm without bridging. Discussed with Dr. Barnard who [...] medicine team will sign off. Please call [phone] if any additional question Assessment & Plan [...] Encounters Date Type Department Care Team Description 12/31/2024 Telephone [facility] Medicine Cardiology [address] 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) (Primary Dx) 12/23/2024 3:52 PM CDT - 12/23/2024 11:59 PM CDT Hospital Encounter [facility] ([facility] [address] [place] [address] Deric Granger MD 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) Discharge Disposition: Discharge to home or self care 12/17/2024 Telephone [facility] Medicine Cardiology [address] [facility] 8th [place] [address] [place] [address] Oscar Barnard MD 12/16/2024 3:00 PM CDT Office Visit [facility] Medicine Otolaryngology Head-Neck Division [address] [facility] Floor [address] [place] [phone] Deric Granger MD 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 [address] [place] [phone] Tyra Jung LPN Seborrheic dermatitis, unspecified 12/11/2024 Telephone [facility] Otolaryngology Head-Neck Division [address] [facility] Floor [address] [place] [address] Leila Cramer RN 12/09/2024 Telephone [facility] Medicine Surgery [address] [facility] Floor [address] [place] [address] Santa Rodriguez RN 12/08/[facility]24 [facility] [address] [facility] Floor [address] [place] [address] Jean Claude Mendes Jr., MD Patient issue/concern 12/05/2024 Telephone [facility] Medicine Otolaryngology [address] [place] [address] Janice Figueroa MS 11/27/2024 Telephone [facility] Medicine Oncology [address] [place] [address] [address] [place] [phone] Sanjeev Macdonald RN call back 11/27/2024 [facility] [address] [place] [address] [address] [place] [phone] Waqar Valdez MD 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 (HCC) (Primary Dx) 11/12/2024 1:01 PM CDT - 11/12/2024 11:59 PM CDT Hospital Encounter [facility] [address] [place] [address] 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 (HCC) Discharge Disposition: Discharge to home or self care 11/11/2024 6:30 AM CDT - 11/11/2024 11:59 PM CDT Hospital Encounter [facility] [address] [place] [address] 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 (HCC) Discharge Disposition: Discharge to home or self care 11/04/2024 Telephone [facility] [address] [place] [address] Massiel Easley RN 11/03/2024 11:00 AM CDT [facility] [address] [facility] Floor [address] [place] [address] Waqar Valdez MD 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 (HCC) 11/03/2024 10:00 AM CDT Lab [facility] Medicine Oncology Lab [address] [place] [address] 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 (HCC) 11/03/2024 9:15 AM CDT Clinical Support [facility] - Lab Collection [address] [place] [address] 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 (HCC) 11/03/2024 6:57 AM CDT - 11/03/2024 11:59 PM CDT Hospital Encounter [facility] - PET [address] [place] [address] Discharge Disposition: Discharge to home or self care 11/03/2024 6:57 AM CDT - 11/03/2024 11:59 PM CDT Hospital Encounter [facility] - PET [address] [place] [address] 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 (HCC) Discharge Disposition: Discharge to home or self care 11/03/2024 Telephone [facility] [address] [place] [address] Massiel Easley RN 10/28/2024 Telephone [facility] Medicine Oncology [address] [facility] [address] [place] [address] Jose Rafael Fajardo CMA from Last 3 Months Immunizations Immunization Administration Dates Next Due Influenza, Quadrivalent, Shelby l Culture-based MDCK, Preservative Free, Antibiotic Free, Intramuscular 01/01/2020 Influenza, Quadrivalent, Spl it, Intramuscular 01/16/2019,12/30/2017,12/23/2016 Influenza, Quadrivalent, Spl it, Pediatric, Preservative Free, Intramuscular 12/31/2021 Influenza, Quadrivalent, Spl it, Preservative Free, Intramuscular 12/13/2022,01/16/2019,01/11/2018 Influenza, Trivalent, IM (MDV) ,01/10/2016,01/27/2015,01/16,04/09/2012 Influenza, Trivalent, Preser vative Free, Intramuscular 01/08/2024,01/10/2016,01/27/2015,01/06 Moderna SARS-CoV-2 Monovalen t Vaccination (12+ YRS) 09/28/2021,02/12/2021 RSV Vaccine, Pref, Recombina nt, Subunit, Adjuvanted, PF, IM (Arexvy) 01/08/2024 ZOSTER Recombinant 03/25/2021,01/12/2021 Surgical History Surgery Date Site/Laterality Comments AORTIC ANEURYSM REPAIR 04/02/2012 - 04/01/2013 LAPAROSCOPIC GASTRIC BANDING 04/02/2009 - 04/01/2010 KNEE ARTHROSCOPY W/ MENISCAL REPAIR 04/02/2006 - 04/01/2007 Right AORTIC VALVE REPLACEMENT 04/02/1997 - 04/01/1998 Mechanical Aortic heart valve MELANOMA RESECTION 04/02/2017 - 04/01/2018 UMBILICAL HERNIA REPAIR 04/02/2007 - 04/01/2008 COLONOSCOPY 04/02/2013 - 04/01/2014 TOTAL THYROIDECTOMY 11/26/2018 US GUIDED BIOPSY LYMPH NODE SUPERFICIAL LEFT 11/12/2024 N/A PROSTATE BIOPSY 08/31/2018 - 09/29/2018 PROSTATECTOMY 04/09/2019 ABDOMINAL AORTIC ANEURYSM REPAIR 12/11/2019 open transperitoneal repair of aortic and iliac aneurysms, preoperative urethral stent placed AORTIC ROOT REPLACEMENT 09/21/2023 CARDIOVERSION 12/18/2023 Medical History Medical History Date Comments Bleeding disorder Hypertension Anxiety Erectile dysfunction Sleep apnea Wears CPAP Hyperlipidemia Melanoma, malignant, upper extremity, left (HCC) Stg 3 melanoma Seasonal allergies Bone fracture Depression Thyroid pain Congenital bicuspid aortic valve Aortic rupture Aortic dissection (HCC) AAA (abdominal aortic aneurysm) Thyroid cancer (HCC) Prostate CA Diverticulitis Family History Medical History Relation Name [...] Used Date Smoking Tobacco: Former Cigarettes 1 37 1 4 - 2020 Passive Smoke Exposure: Past Smokeless Tobacco: Never Tobacco Cessation:Counseling Given: Not Answered Alcohol Use Standard Drinks/Week Comments Never 0 (1 standard drink = 0.6 oz [...] Friends and Family Patient declined 02/05/2019 Attends [employer] Services Patient declined 08/2018 Active Member of Clubs or Organizations Patient declined 02/05/2019 Attends Club or Organization Meetings Patient de clined 02/05/2019 Marital Status 02/05/2019 Overall Financial Resource Strain (CARDIA) Answe r Date Recorded Difficulty of Paying Living Expenses Not hard at all 02/05/2019 [facility] of Occupat ional Health - Occupational Stress [...] 02/05/2019 Lack of Transportation (Non-Medical) No 02/05/2019 AUDIT-C Answer Date Recorded Q1: How often do you have a drink containing alcohol? Never 01/05/2025 Q2: How many drinks containi ng alcohol do you have on a typical day when you are drinking? Patient does not drink Q3: How often do you have si x or more drinks on one occasion? 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 Not on file Not on file Not on file Obstetrics History Last Filed Vital Signs Vital Sign Reading Time Taken Comments Blood Pressure 114/71 11/03/2024 9:36 AM CDT Pulse 74 11/03/2024 9:36 AM CDT Temperature 36.4 C (97.5 F) 11/03/2024 9:36 AM CDT Respiratory Rate 18 11/03/2024 9:36 AM CDT Oxygen Saturation 97% 11/03/2024 9:36 AM CDT Inhaled Oxygen Concentration - - Weight 105.2 kg (232 lb) 01/05/2025 10:33 AM CDT Height 177.8 cm (5' 10) 01/05/2025 10:33 AM CDT Body Mass Index 33.29 01/05/2025 10:33 AM CDT Plan of Treatment Upcoming Encounters Date Type Department Care Team (Latest Contact Info) Description 01/16/2025 7:30 AM CDT Hospital Encounter [facility] [address] [place] [phone] Deric Granger MD [address] [place] [address] 01/16/2025 7:30 AM CDT Anesthesia Event [facility] [address] [place] [phone] Sheri Meadows, ENGINEERING TECHNICIAN PARKING [address] [facility] [phone] [place] [address] 01/16/2025 7:30 AM CDT - 01/16/2025 9:40 AM CDT Surgery [facility] [address] [place] [phone] Deric Granger MD [address] [place] [address] LEFT NECK EXCISIONAL LYMPH NODE BIOPSY Scheduled Procedures Name Priority Associated Diagnoses Date/Ti me BIOPSY OR EXCISION LYMPH NODE NECK. Malignant melanoma, unspecified site (HCC) 01/16/2025 7:30 AM CDT Health Maintenance Due Date Last Done Comments Albumin Creatinine Ratio, Urine 1963 Depression Screening 1965 Hemoglobin A1C 1963 Hepatitis C Screening 1965 Dilated Eye Exam 1963 Foot Exam 1963 DTaP/Tdap/Td Vaccine (1 - Tdap) 09/19/1974 Hepatitis B Screening 09/19/1981 Regular Well Visit/Exam 18-64 09/19/1981 Pneumococcal vaccine <65 (1 of 2 - PCV) 09/19/1982 Lung Cancer Screening 09/19/2013 Colon Cancer Screening-Colonoscopy 04/22/2023 04/22/2013 Lipid Panel 2024 09/21/2023, 04/02, 11/26/2018, Additional history exists Covid-19 Vaccine (8 - Modern a risk ) 12/01/2024 01/08/2024, 12/25/2022, 01/18/2022, Additional history exists Influenza Vaccine (#1) 2024 , 12/13/2022, 12/31/2021, Additional history exists Prostate Cancer Screening-PSA 08/05/2025 08/06/2023, 01/24/2021 eGFR 11/03/2025 11/03/2024, 05/0 07/2024, 08/06/2023, Additional history exists Colon Cancer Screening-CT Colonography Discontinued 04/22/2013 Colon Cancer Screening-DNA Stool Discontinued 04/22/19 14 Colon Cancer Screening-FIT Discontinued 04/22/2013 Colon Cancer Screening-Sigmoidoscopy Discontinued 04/22/2013 Zoster Vaccine Completed 03/25/2021, 01/12/2021 Medical Devices Implanted Type Area Tie Buyer Device Identifier Shelf Expiration Date Model / Serial / Lot Vascutek Terumo [id number] Gelsoft Plus Vascutek 24/12mm 45cm Main Leg Bore Reduced - [id number] - [id number] Implanted:Qty: 1 on 12/11/2019 by Vito Madrigal MD at [facility] Graft N/A: Aorta Terumo Cardio Vascular 12/30/2021 [id number] / [id number] / [id number] Valsalva Gelweavegraft- Implanted:09/20 (Quantity not on file) Graft Aortic Root Description:Static Magnetic Field - Static magnetic field of 3 Mesha or less. - Maximum spatial gradient magnetic field of 720 Gauss/cm or less [employer] Heart Valve-02/05/1998 Implanted:02/05 (Quantity not on file) Heart [employer] [id number] / [id number] / Description:Static magnetic field of 1.5 mesha (1.5T) or 3.0-mesha (3.0T). Maximum spatial gradient field less than or equal to 3,000 Gauss/cm (30T/m). Normal Operating Mode: Maximum whole-body specific absorption rate (CHRISTOPHER) of: o 2.0 W/kg for 15 minutes of scanning in Normal Operating Mode at 1.5T. o 2.0 W/kg for 15 minutes of scanning in Normal Operating Mode at 3.0T. 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) US GUIDED BIOPSY LYMPH NODE SUPERFICIAL LEFT Schedule Routine, Read Routine (OP Routine) 11/12/2024 3:12 PM CDT 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 (HCC) CYTOLOGY Routine 11/12/2024 2:22 PM CDT 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 (HCC) MRI BRAIN W WO CONTRAST Schedule Routine, Read Routine (OP Routine) 11/11/2024 7:16 AM CDT 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 (HCC) EGFR Routine 11/03/2024 9:11 AM CDT 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 (HCC) T4, FREE Routine 11/03/2024 9:11 AM CDT 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 (HCC) DIFFERENTIAL AUTO Routine 11/03/2024 9:1 1 AM CDT 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 (HCC) CBC WITH AUTO DIFFERENTIAL Routine 11/03/2024 9:11 AM CDT 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 (HCC) COMPREHENSIVE METABOLIC PANEL Routine 11/03/2024 9:11 AM CDT 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 (HCC) LACTATE DEHYDROGENASE Routine 11/03/2024 9:11 AM CDT 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 (HCC) THYROID FUNCTION CASCADE Routine 11/03/2024 9:11 AM CDT 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 (HCC) PET/CT FDG SKULL TO THIGH Schedule Routine, Read Routine (OP Routine) 11/03/2024 8:47 AM CDT 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 (HCC) PSA DIAGNOSTIC Routine 08/06/2023 8:36 AM CDT 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 (HCC) LIPID PANEL STAT 04/19/2019 4:02 AM SUPERVISOR PUMPING COLONOSCOPY REPORT 04/22/2013 from Last 3 Months or Most Recently Relevant to Health Maintenance Results * CT Soft Tissue Neck with Contrast (12/23/2024 4:25 PM CDT) Anatomical Region Laterality Modality Head and Neck N/A Computed Tomogra phy 12/24/2024 10:4 7 AM CDT Impressions 12/24/2024 10:54 AM CDT Unchanged mildly enlarged left-sided supraclavicular lymph nodes demonstrating FDG avidity on the prior PET/CT. No new suspicious cervical lymph nodes. Dictated by: No Negrete M.D. The radiology attending physician has personally reviewed this study, and had reviewed and/or edited this written report and agrees with it. Electronically signed by: Lizandro Reyna M.D. Narrative 12/24/2024 10:54 AM CDT EXAMINATION: CT of the neck with contrast HISTORY: Left arm melanoma status post excision and adjuvant immunotherapy. On recent PET/CT interval increase in size and FDG avidity of 2 left medial supraclavicular lymph nodes with indeterminate pathology. Planning for excisional biopsy. TECHNIQUE: CT of the neck was performed according to the standard protocol with intravenous contrast. Contrast information: 69 mL Optiray-350 IV COMPARISON: Had CT 11/03/2024 FINDINGS: Persistent group of left supraclavicular lymph nodes measuring up to 1.8 x 1.4 cm which demonstrated FDG avidity on the prior PET/CT. Minimal surrounding fat stranding may be related to prior biopsy. Additional subcentimeter lymph node located more superiorly and medially. No new enlarged lymph nodes. Few unchanged prominent mediastinal lymph nodes. The muscles of the neck are normal. Vessels of the neck demonstrate normal course and caliber. Fascial planes are preserved and the deep spaces of the neck are normal. The visualized airway is widely patent. The base of the skull and the temporal bones are normal. Limited views of the brain including the cerebellum and brainstem are normal. The limited view of the [place] is unremarkable. The visualized portions of the orbits are normal. Multilevel cervical spondylosis most notable at C5-C6. 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 There are post surgical changes median sternotomy. Surgical clips in the neck. Postsurgical changes of thyroidectomy. Procedure Note Lizandro Reyna MD - 12/24/2024 EXAMINATION: CT of the neck with contrast HISTORY: Left arm melanoma status post excision and adjuvant immunotherapy. On recent PET/CT interval increase in size and FDG avidity of 2 left medial supraclavicular lymph nodes with indeterminate pathology. Planning for excisional biopsy. TECHNIQUE: CT of the neck was performed according to the standard protocol with intravenous contrast. Contrast information: 69 mL Optiray-350 IV COMPARISON: Had CT 11/03/2024 FINDINGS: Persistent group of left supraclavicular lymph nodes measuring up to 1.8 x 1.4 cm which demonstrated FDG avidity on the prior PET/CT. Minimal surrounding fat stranding may be related to prior biopsy. Additional subcentimeter lymph node located more superiorly and medially. No new enlarged lymph nodes. Few unchanged prominent mediastinal lymph nodes. The muscles of the neck are normal. Vessels of the neck demonstrate normal course and caliber. Fascial planes are preserved and the deep spaces of the neck are normal. The visualized airway is widely patent. The base of the skull and the temporal bones are normal. Limited views of the brain including the cerebellum and brainstem are normal. The limited view of the [place] is unremarkable. The visualized portions of the orbits are normal. Multilevel cervical spondylosis most notable at C5-C6. 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 There are post surgical changes median sternotomy. Surgical clips in the neck. Postsurgical changes of thyroidectomy. IMPRESSION: Unchanged mildly enlarged left-sided supraclavicular lymph nodes demonstrating FDG avidity on the prior PET/CT. No new suspicious cervical lymph nodes. Dictated by: No Negrete M.D. The radiology attending physician has personally reviewed this study, and had reviewed and/or edited this written report and agrees with it. Electronically signed by: Lizandro Reyna M.D. Deric Granger MD IM CT PROCEDURES Final Res ult * US Guided Biopsy Lymph Node Superficial Left (11/12/2024 3:12 PM CDT) Anatomical Region Laterality Modality Entire body N/A Ultrasound 11/12/2024 4:31 PM CDT Impressions 11/12/2024 4:31 PM CDT 1. Successful ultrasound-guided fine needle aspiration of left supraclavicular lymph node. 2. Please see separate cytology results for final interpretation. Electronically signed by: KRIS Lucia Narrative 11/12/2024 4:31 PM CDT EXAMINATION: ULTRASOUND-GUIDED FINE NEEDLE ASPIRATION BIOPSY HISTORY: 59-year-old male with melanoma of the left upper extremity/shoulder with interval increase in the size and FDG avidity of left medial supraclavicular lymph nodes concerning for metastatic. COMPARISON: PET/CT from 11/03/2024 FINDINGS: Ultrasound of the left supraclavicular region showed the hypoechoic lymph node that corresponds to the bigger of the 2 FDG avid left supraclavicular lymph node. Considering the surrounding vasculature and the size of the lymph node, it was thought that performing a fine-needle aspiration would be safer than a core biopsy. This was discussed with the patient who was okay with the plan and a fine needle was performed. TECHNIQUE: The procedure for ultrasound-guided fine needle aspiration (FNA) was explained to and discussed with the patient. Risks were explained to include, but not be limited to, hemorrhage, infection, injury to adjacent organs, non-diagnostic specimen and adverse reaction to medications administered. The patient voiced understanding and wished to proceed and signed the consent form. The patient's overlying skin was prepped and draped in the usual sterile fashion. FNA: The lesion was located in left supraclavicular region and measured 0.7 cm x 1.0 cm x 0.8 cm. A site was localized for fine needle aspiration. The patient's overlying skin was prepped and draped in the usual sterile fashion. Local anesthesia was achieved via subcutaneous and deep administration with 4 mL of Lidocaine 1%. Under realtime ultrasound guidance, the needle was advanced into the lesion and 6 passes were made with 25 gauge needles and 1 pass was made with 23-gauge needle. The samples were handed to the ed educational aide. The patient's skin was cleaned and dressed. The patient tolerated the entire procedure well without immediate complications. KRIS Lucia, was present from the beginning to the end of the procedure. KRIS Lucia performed the biopsy. Dr. Fely Casillas was present and participated in the procedure. Dr. Fely Casillas (financial institution vice president) personally participated in sonographic imaging of this patient. Procedure Note Evon Garrido PA - 11/12/2024 EXAMINATION: ULTRASOUND-GUIDED FINE NEEDLE ASPIRATION BIOPSY HISTORY: 59-year-old male with melanoma of the left upper extremity/shoulder with interval increase in the size and FDG avidity of left medial supraclavicular lymph nodes concerning for metastatic. COMPARISON: PET/CT from 11/03/2024 FINDINGS: Ultrasound of the left supraclavicular region showed the hypoechoic lymph node that corresponds to the bigger of the 2 FDG avid left supraclavicular lymph node. Considering the surrounding vasculature and the size of the lymph node, it was thought that performing a fine-needle aspiration would be safer than a core biopsy. This was discussed with the patient who was okay with the plan and a fine needle was performed. TECHNIQUE: The procedure for ultrasound-guided fine needle aspiration (FNA) was explained to and discussed with the patient. Risks were explained to include, but not be limited to, hemorrhage, infection, injury to adjacent organs, non-diagnostic specimen and adverse reaction to medications administered. The patient voiced understanding and wished to proceed and signed the consent form. The patient's overlying skin was prepped and draped in the usual sterile fashion. FNA: The lesion was located in left supraclavicular region and measured 0.7 cm x 1.0 cm x 0.8 cm. A site was localized for fine needle aspiration. The patient's overlying skin was prepped and draped in the usual sterile fashion. Local anesthesia was achieved via subcutaneous and deep administration with 4 mL of Lidocaine 1%. Under realtime ultrasound guidance, the needle was advanced into the lesion and 6 passes were made with 25 gauge needles and 1 pass was made with 23-gauge needle. The samples were handed to the ed educational aide. The patient's skin was cleaned and dressed. The patient tolerated the entire procedure well without immediate complications. KRIS Lucia, was present from the beginning to the end of the procedure. KRIS Lucia performed the biopsy. Dr. Fely Casillas was present and participated in the procedure. Dr. Fely Casillas (financial institution vice president) personally participated in sonographic imaging of this patient. IMPRESSION: 1. Successful ultrasound-guided fine needle aspiration of left supraclavicular lymph node. 2. Please see separate cytology results for final interpretation. Electronically signed by: KRIS Lucia Waqar Valdez MD [facility] US PROCEDURES Final Result * Cytology (11/12/2024 2:22 PM CDT) Fluid (Lymph Node (Cytology)) 11/12/2024 2:11 PM CD[address] PATHOLOGY [facility] - 11/14/2024 3:42 PM CDT EPIC results best viewed via link to PDF [facility] [place] [address] Note to Patients: This report may contain a detailed description of human tissue sent by a health care provider to the laboratory for pathologic evaluation. The content of this report is essential for diagnosis and may provide important critical findings. This information may be unfamiliar to patients to review without a medical professional present. It is advised that the patient review this report in the presence of a health care provider who can answer questions and explain the details. CYTOPATHOLOGY REPORT FINAL Patient Name: SALO DESHPANDE Gender: M : 1965 (Age: 59) Address: [address] [place] [id number] Hospital #: [id number] Taken:11/12/2024 Received:11/12/2024 Reported: 11/14/2024 Patient Type: [facility] Ancillary Service: UNKNOWN Location: Physician(s): YASH Lucia MD FINAL DIAGNOSIS A. Lymph node, left cervical, ultrasound-guided fine needle aspiration: - Atypical lymphoid cells (see comment) Comments The aspirate smears and the cell block show scattered large atypical cells within a background of small mature lymphocytes. Immunohistochemical stains were performed on the cell block (single antibody procedure with appropriate controls), and shows the atypical population of cells are strongly and diffusely positive for CD45, while negative for CAM5.2, NKX3.1, and melanoma markers HMB45 and SOX-10. Given the morphology and immunohistochemical profile, this is consistent with atypical lymphoid cells. The differential may include reactive lymphocytes, but the diagnosis of lymphoma cannot be excluded. Biopsy with flow cytometry is recommended. This case was reviewed with Dr. Triplett, [facility] pathologist, who agrees with the diagnosis. /11/13/2024 13:19 By this signature, I attest that the above diagnosis is based upon my personal examination of the slides(and/or other material indicated in the diagnosis). Nehemiah Soto M.D. Report Electronically Reviewed and Signed Out By Nehemiah Soto M.D. 11/14/2024 15:42:41 Maria M Botello MS, CT (ASCP) Gross Description A. Lymph node, left cervical, ultrasound-guided fine needle aspiration: 3 Pap stained smear(s) and 3 Diff-Quik stained smear(s). 1 cell block prepared from needle rinse tube. Aspirated by clinician. (ML) Clinical Diagnosis and History malignant melanoma of left upper extremity including shoulder REPORT IMAGES AND SCANNED DOCUMENTS, IF INCLUDED, ONLY VIEWABLE IN PDF VERSION OF REPORT The performance characteristics of some immunohistochemical stains, in-situ hybridization and fluorescence in-situ hybridization tests and immunophenotyping by flow cytometry cited in this report (if any) were determined by the Surgical Pathology and Flow Cytometry Departments at [facility] as part of an ongoing senior software quality analyst program and in compliance with federally mandated regulations drawn from the Clinical Laboratory Improvement Act of 1988 (CLIA '88). Some of these tests rely on the use of analyte specific reagents and are subject to specific labeling requirements by the US Food and Drug Administration. Such diagnostic tests may only be performed in a facility that is certified by the Department of Health and Human Services as a high complexity laboratory under CLIA '88. The FDA has determined that such clearance or approval is not necessary. This test is used for clinical purposes. It should not be regarded as investigational or for research. Nevertheless, federal rules concerning the medical use of analyte specific reagents require that the following disclaimer be attached to the report: This test was developed and its performance characteristics determined by the Surgical Pathology and Flow Cytometry Departments of [facility]. It has not been cleared or approved by the U. S. Food and Drug Administration. Waqar Valdez MD LAB CYTOLOGY ORDERABLES Final Result PATHOLOGY [facility] 3rd Floor [place], [place] [phone] * MRI Brain W WO Contrast (11/11/2024 7:16 AM CDT) Anatomical Region Laterality Modality Head and Neck N/A Magnetic Resonan ce 11/11/2024 9:50 AM CDT Narrative 11/11/2024 10:02 AM CDT EXAM DESCRIPTION: MRI BRAIN WITHOUT AND WITH CONTRAST REASON FOR STUDY: Restaging of malignant melanoma of left upper extremity of unspecified date of diagnosis, therapeutic interventions, and metastatic, to include intracranial metastatic disease burden. No provided patient complaints. Provided history of additional prior malignancies of unspecified thyroid cancer and of prostate cancer. No provided surgical history. TECHNIQUE: Multiplanar imaging includes noncontrast T1, T2, FLAIR, diffusion with ADC map and post contrast T1 sequences. Additional sequence(s) sensitive to blood products. Images stored on PACS. CONTRAST TYPE/DOSE: 20 mL Dotarem injected via peripheral IV site without reported incident. COMPARISON: Relevant portions of PET-CT 11/03/2024 and 08/04/2024; MRI brain without and with contrast 06/25/2018; MRI brain without and with contrast 01/02/2018 (report without images). FINDINGS: CEREBRUM: No acute intra-axial hemorrhage. No edema, mass effect, midline shift, or herniation. Scattered punctate to tiny chronic lacunar infarcts of the bilateral billings radiata (extending into the body of the left right nucleus), lentiform nuclei, and left cerebellar hemisphere. No abnormal enhancement. Redemonstration of numerous punctate to tiny foci of susceptibility artifact consistent with microhemorrhages scattered about the bilateral cerebral and bilateral cerebellar architecture. Correlate with clinical context for history of cerebral amyloid angiopathy. WHITE MATTER: As above. POSTERIOR FOSSA: No acute abnormality. As above. No abnormal enhancement. DIFFUSION IMAGING: No restricted diffusion to suggest acute/subacute ischemia or infarct. EXTRAAXIAL SPACES: No extra-axial fluid collection. No extra-axial mass. No abnormal enhancement. BRAIN VOLUME: Mild cerebral volume loss. PITUITARY: Unremarkable. VASCULATURE: No flow disturbance evident. CALVARIUM: Unremarkable. ORBITS: No acute abnormality, noting redemonstration of symmetric excess of intraorbital fat. Ocular lenses and globes stable in conformation and position, noting redemonstration of bilateral proptosis. Correlate with clinical context inclusive of ophthalmological evaluation. PARANASAL SINUSES AND MASTOIDS: Paranasal sinuses clear. Mastoid air cells unchanged. OTHER: No other significant finding. IMPRESSION: No acute intracranial process with chronic findings as above to include no MR evidence of intracranial metastatic disease. THIS IS AN ELECTRONICALLY VERIFIED FINAL REPORT 11/11/2024 10:02 AM - Electronically signed by Deric Lara M.D. LUKAS: LUKAS Report ID: [id number] Reading Location: [place] [address] Procedure Note Deric Lara MD - 11/11/2024 EXAM DESCRIPTION: MRI BRAIN WITHOUT AND WITH CONTRAST REASON FOR STUDY: Restaging of malignant melanoma of left upper extremityof unspecified date of diagnosis, therapeutic interventions, and metastatic,to include intracranial metastatic disease burden. No provided patient complaints. Provided history of additional prior malignancies ofunspecified thyroid cancer and of prostate cancer. No provided surgical history. TECHNIQUE: Multiplanar imaging includes noncontrast T1, T2, FLAIR,diffusion with ADC map and post contrast T1 sequences. Additional sequence(s)sensitive to blood products. Images stored on PACS. CONTRAST TYPE/DOSE: 20 mL Dotarem injected via peripheral IV sitewithout reported incident. COMPARISON: Relevant portions of PET-CT 11/03/2024 and 08/04/2024; MRIbrain without and with contrast 06/25/2018; MRI brain without and with contrast 01/02/2018 (report without images). FINDINGS: CEREBRUM: No acute intra-axial hemorrhage. No edema, mass effect,midline shift, or herniation. Scattered punctate to tiny chronic lacunar infarctsof the bilateral billings radiata (extending into the body of the left right nucleus), lentiform nuclei, and left cerebellar hemisphere. No abnormal enhancement. Redemonstration of numerous punctate to tiny foci of susceptibility artifact consistent with microhemorrhages scattered aboutthe bilateral cerebral and bilateral cerebellar architecture. Correlate with clinical context for history of cerebral amyloid angiopathy. WHITE MATTER: As above. POSTERIOR FOSSA: No acute abnormality. As above. No abnormalenhancement. DIFFUSION IMAGING: No restricted diffusion to suggest acute/subacute ischemia or infarct. EXTRAAXIAL SPACES: No extra-axial fluid collection. No extra-axialmass. No abnormal enhancement. BRAIN VOLUME: Mild cerebral volume loss. PITUITARY: Unremarkable. VASCULATURE: No flow disturbance evident. CALVARIUM: Unremarkable. ORBITS: No acute abnormality, noting redemonstration of symmetric excessof intraorbital fat. Ocular lenses and globes stable in conformation and position, noting redemonstration of bilateral proptosis. Correlate with clinical context inclusive of ophthalmological evaluation. PARANASAL SINUSES AND MASTOIDS: Paranasal sinuses clear. Mastoid aircells unchanged. OTHER: No other significant finding. IMPRESSION: No acute intracranial process with chronic findings as above to includeno MR evidence of intracranial metastatic disease. THIS IS AN ELECTRONICALLY VERIFIED FINAL REPORT 11/11/2024 10:02 AM - Electronically signed by Deric Lara M.D. LUKAS: LUKAS Report ID: [id number] Reading Location: [place] [address] us Waqar Valdez MD IMG MRI PROCEDURES Final Resul t * eGFR (11/03/2024 9:11 AM CDT) eGFR 84 >=60 mL/min/1. 73 m2 Comment: Interpretive Data [...] interpretive data was last reviewed 2021. Blood 11/03/2024 9:11 AM CDT 11/03/2024 9:19 AM CDT us Waqar Valdez MD LAB BLOOD ORDERABLES Final Res ult [facility] Department [place] [address] * Differential, auto (11/03/2024 9:11 AM CDT) Neutrophil abs 5.98 1.50 - 6.50 K/cumm Comment:Testing performed by : [facility], [address] [place] [phone] Lymphocyte abs 1.23 0.80 - 3.30 K/cumm [facility] Comment:Testing performed by : [facility], [address] [place] [phone] Monocyte abs 0.70 0.20 - 0.80 K/cumm [facility] Comment:Testing performed by : [facility], [address] [place], [place] [phone] Eosinophil abs 0.07 0.00 - 0.50 K/cumm [facility] Comment:Testing performed by : [facility], [address] [place] [phone] Basophil abs 0.05 0.00 - 0.10 K/cumm [facility] Comment:Testing performed by : [facility], [address] [place] [phone] Neutrophil pct 74.5 % [facility] Comment: Interpretive Data Percent cell count reference ranges are not reported, since discordance with absolute values may lead to misinterpretation of CBC data. Current Interpretive Data was last revised on 2017. Testing performed by: [facility], [address] [place] [phone] Lymphocyte pct 15.3 % [facility] Comment: Interpretive Data Percent cell count reference ranges are not reported, since discordance with absolute values may lead to misinterpretation of CBC data. Current Interpretive Data was last revised on 2017. Testing performed by: [facility], [address] [place], [place] [phone] Monocyte pct 8.8 % [facility] Comment: Interpretive Data Percent cell count reference ranges are not reported, since discordance with absolute values may lead to misinterpretation of CBC data. Current Interpretive Data was last revised on 2017. Testing performed by: [facility], [address] [place] [phone] Eosinophil pct 0.8 % [facility] Comment: Interpretive Data Percent cell count reference ranges are not reported, since discordance with absolute values may lead to misinterpretation of CBC data. Current Interpretive Data was last revised on 2017. Testing performed by: [facility], [address] [place] [phone] Basophil pct 0.6 % [facility] Comment: Interpretive Data Percent cell count reference ranges are not reported, since discordance with absolute values may lead to misinterpretation of CBC data. Current Interpretive Data was last revised on 2017. Testing performed by: [facility], [address] [place] [phone] Blood 11/03/2024 9:11 AM CDT 11/03/2024 9:15 AM CDT Waqar Valdez MD LAB BLOOD ORDERABLES Final Res ult [facility] Department [place] [address] * (ABNORMAL) Thyroid Function [place] (11/03/2024 9:11 AM CDT) TSH 0.10(L) 0.30 - 4.20 mcIUnit/mL Blood 11/03/2024 9:11 AM CDT 11/03/2024 9:19 AM CDT Waqar Valdez MD LAB BLOOD ORDERABLES Final Res ult [facility] [place] [address] * CBC with auto differential (11/03/2024 9:11 AM CDT) WBC 8.02 3.80 - 9.90 K/cumm Comment:Testing performed by : [facility], [address] [place] [address] Hgb 15.2 13.0 - 17.5 g/dL [facility] Comment:Testing performed by : [facility], [address] [place] [address] Hct 44.8 38.9 - 50.3 % [facility] Comment:Testing performed by : [facility], [address] [place] [address] Plt 184 150 - 400 K/cumm [facility] Comment:Testing performed by : [facility], [address] [place] [address] MPV 7.2 6.8 - 10.4 fL [facility] Comment:Testing performed by : [facility], [address] [place], [place] [phone] RBC 4.98 4.30 - 5.80 M/cumm [facility] Comment:Testing performed by : [facility], [address] [place] [address] MCV 90.0 81.3 - 96.4 fL [facility] Comment:Testing performed by : [facility], [address] [place] [address] MCH 30.6 27.1 - 33.3 pg [facility] Comment:Testing performed by : [facility], [address] [place] [address] MCHC 34.0 32.3 - 35.7 g/dL [facility] Comment:Testing performed by : [facility], [address] [place] [address] RDW CV 14.5 11.1 - 14.9 % [facility] Comment:Testing performed by : [facility], [address] [place] [address] NRBC abs 0.00 0.00 - 0.01 K/cumm [facility] Comment:Testing performed by : [facility], [address] [place] [address] Blood 11/03/2024 9:11 AM CDT 11/03/2024 9:15 AM CDT Waqar Valdez MD LAB BLOOD ORDERABLES Final Res ult [facility] [place] [address] * (ABNORMAL) T4, free (11/03/2024 9:11 AM CDT) Free T4 2.22(H) 0.90 - 1.70 ng/dL Blood 11/03/2024 9:11 AM CDT 11/03/2024 9:19 AM CDT Narrative [facility] - 11/03/2024 10:08 AM CDT This test was reflexed from a TSH result. Waqar Valdez MD LAB BLOOD ORDERABLES Final Res ult Performing Organization Address [facility]/ZIP Co de Phone Number [facility] Department [place] [address] * (ABNORMAL) Lactate dehydrogenase (LD) (11/03/2024 9:11 AM CDT) Lactate dehydrogenase (LDH) 308(H) 100 - 250 Units/L Blood 11/03/2024 9:11 AM CDT 11/03/2024 9:19 AM CDT Waqar Valdez MD LAB BLOOD ORDERABLES Final Res ult [facility] of [place] [address] * Comprehensive metabolic panel (11/03/2024 9:11 AM CDT) Sodium 139 135 - 145 mmol/L Potassium, pl 4.2 3.3 - 4.9 mmol/L [facility] Chloride 103 97 - 110 mmol/L [facility] CO2 25 22 - 32 mmol/L [facility] Anion gap 11 2 - 15 mmol/L [facility] BUN 18 6 - 25 mg/dL [facility] Creatinine 1.02 0.80 - 1.30 mg/dL [facility] Glucose 128 70 - 199 mg/dL [facility] Comment: Interpretive Data Fasting glucose >/= 126 [...] interpretive data was last revised 2022. Calcium 8.7 8.5 - 10.3 mg/dL [facility] Bilirubin, total 0.6 0.1 - 1.2 mg/dL [facility] Protein, pl 7.8 6.5 - 8.5 g/dL [facility] Albumin 4.4 3.5 - 5.0 g/dL [facility] Alk phos 66 40 - 130 Units/L [facility] ALT 18 7 - 55 Units/L [facility] AST 26 10 - 50 Units/L [facility] Blood 11/03/2024 9:11 AM CDT 11/03/2024 9:19 AM CDT Waqar Valdez MD LAB BLOOD ORDERABLES Final Res ult [facility] [place] [address] * PET/CT FDG Skull to Thigh (11/03/2024 8:47 AM CDT) Anatomical Region Laterality Modality N/A Positron Emissio n Tomography (PET) 11/03/2024 10:1 1 AM CDT Impressions 11/03/2024 12:58 PM CDT 1. Interval increase in the size and FDG avidity of two left medial supraclavicular lymph nodes. These remain concerning for metastatic disease. Recommended histopathological correlation. 2. A sub-centimetric and mildly FDG avid left subpectoral lymph node is may represent involvement by the same process as of supraclavicular lymph nodes. 3. A centimetric precaval lymph node with moderate FDG uptake increased from prior study is favored to be inflammatory given regional aortic inflammation. Dictated by: Maurice Hemphill MD The radiology attending physician has personally reviewed this study, and had reviewed and/or edited this written report and agrees with it. Electronically signed by: DO Arias Kolb 11/03/2024 12:58 PM CDT EXAMINATION: TUMOR FDG-PET/CT IMAGING DATE OF STUDY: 11/03/2024 SCANNER: [employer] (SQ1). This is a high-resolution scanner, which can result in higher SUVs (and even detection of previously unrecognized small lesions) compared to older scanners. RADIOPHARMACEUTICAL: 7.38 mCi F-18 Fluorodeoxyglucose (FDG) i.v. Injection site: Right antecubital HISTORY: 59-year-old male with melanoma of the left upper extremity/shoulder, post wide local excision and sentinel lymph node biopsy (10/2017), immunotherapy ([id number] post). There is also a history of papillary thyroid carcinoma post thyroidectomy, bilateral neck dissection, and radioactive iodine ablative, and prostate cancer status post radical prostatectomy. Most recent FDG PET/CT 1 08/03/2024 showed a mildly FDG avid left supraclavicular lymph node which could not be biopsied on ultrasound and is currently being followed up. The study is requested for detection of suspected recurrence. Subsequent treatment strategy. TECHNIQUE: The patient's fasting blood glucose level, measured by glucometer before injection of FDG, was 113 mg/dL. After intravenous administration of FDG, noncontrast CT images were obtained for attenuation correction and for fusion with emission PET images to allow for anatomical localization of PET findings. Emission PET images were then obtained. The study was interpreted on the [employer] workstation. The mean liver SUV (reported for quality assurance calibrator purposes) is 3.0. The total scanned area was skull vertex to knees. Images of the body were obtained starting 50 minutes after injection of tracer. All reported SUVs are maximum SUVs, unless otherwise specified. COMPARISON: FDG PET/CT 08/04/2024, CT chest abdomen pelvis 10/01/2024. DESCRIPTORS OF LESION FDG AVIDITY: Minimal: <= blood pool Mild: > blood pool and <= liver Moderate: > liver and <= 2x SUVmax liver Moderate to marked: >2x SUVmax liver and <= 3x SUVmax liver Marked: > 3x SUVmax liver FINDINGS: There is a 17 x 11 mm left medial supraclavicular lymph node on axial image 91 with SUV of 7.2. It previously measured 6 mm and had an SUV of 4.2. There is an after 7 mm left medial supraclavicular lymph node, medial to the aforementioned lymph node on axial image 90, with SUV of 4. It has not changed in size and had SUV of 2.3 on the previous PET. There is a 6 mm left subpectoral lymph node on axial image 105 with SUV of 3.1. It previously measured 4 mm and had SUV of 1.5. There is a 1 cm precaval lymph node on axial image 2-19 with SUV of 4.6. It has not changed in size and had SUV of 2.6 when compared to the previous PET. 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 There are postsurgical changes of repair of infrarenal aorta. The dissection flap is better visualized on CT chest abdomen pelvis 10/01/2024. Additional CT findings: Postsurgical changes of median sternotomy. Postsurgical changes of gastric banding. Biliary sludge and stones in the gallbladder. Bilateral renal cysts. Postsurgical changes of inguinal hernia mesh repair. Colonic diverticulosis. Degenerative changes of the spine. Thyroidectomy. Surgical clips in the neck from prior neck dissection. Coronary atherosclerosis. Granulomatous disease in the mediastinum and left lung. Procedure Note Shreyas Yoo DO - 11/03/2024 EXAMINATION: TUMOR FDG-PET/CT IMAGING DATE OF STUDY: 11/03/2024 SCANNER: [facility] [employer] (SQ1). This is a high-resolution scanner, which can result in higher SUVs (and even detection of previously unrecognized small lesions) compared to older scanners. RADIOPHARMACEUTICAL: 7.38 mCi F-18 Fluorodeoxyglucose (FDG) i.v. Injection site: Right antecubital HISTORY: 59-year-old male with melanoma of the left upper extremity/shoulder, post wide local excision and sentinel lymph node biopsy (10/2017), immunotherapy ([id number] post). There is also a history of papillary thyroid carcinoma post thyroidectomy, bilateral neck dissection, and radioactive iodine ablative, and prostate cancer status post radical prostatectomy. Most recent FDG PET/CT 1 08/03/2024 showed a mildly FDG avid left supraclavicular lymph node which could not be biopsied on ultrasound and is currently being followed up. The study is requested for detection of suspected recurrence. Subsequent treatment strategy. TECHNIQUE: The patient's fasting blood glucose level, measured by glucometer before injection of FDG, was 113 mg/dL. After intravenous administration of FDG, noncontrast CT images were obtained for attenuation correction and for fusion with emission PET images to allow for anatomical localization of PET findings. Emission PET images were then obtained. The study was interpreted on the [employer] workstation. The mean liver SUV (reported for quality assurance calibrator purposes) is 3.0. The total scanned area was skull vertex to knees. Images of the body were obtained starting 50 minutes after injection of tracer. All reported SUVs are maximum SUVs, unless otherwise specified. COMPARISON: FDG PET/CT 08/04/2024, CT chest abdomen pelvis 10/01/2024. DESCRIPTORS OF LESION FDG AVIDITY: Minimal: <= blood pool Mild: > blood pool and <= liver Moderate: > liver and <= 2x SUVmax liver Moderate to marked: >2x SUVmax liver and <= 3x SUVmax liver Marked: > 3x SUVmax liver FINDINGS: There is a 17 x 11 mm left medial supraclavicular lymph node on axial image 91 with SUV of 7.2. It previously measured 6 mm and had an SUV of 4.2. There is an after 7 mm left medial supraclavicular lymph node, medial to the aforementioned lymph node on axial image 90, with SUV of 4. It has not changed in size and had SUV of 2.3 on the previous PET. There is a 6 mm left subpectoral lymph node on axial image 105 with SUV of 3.1. It previously measured 4 mm and had SUV of 1.5. There is a 1 cm precaval lymph node on axial image 2-19 with SUV of 4.6. It has not changed in size and had SUV of 2.6 when compared to the previous PET. 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 There are postsurgical changes of repair of infrarenal aorta. The dissection flap is better visualized on CT chest abdomen pelvis 10/01/2024. Additional CT findings: Postsurgical changes of median sternotomy. Postsurgical changes of gastric banding. Biliary sludge and stones in the gallbladder. Bilateral renal cysts. Postsurgical changes of inguinal hernia mesh repair. Colonic diverticulosis. Degenerative changes of the spine. Thyroidectomy. Surgical clips in the neck from prior neck dissection. Coronary atherosclerosis. Granulomatous disease in the mediastinum and left lung. IMPRESSION: 1. Interval increase in the size and FDG avidity of two left medial supraclavicular lymph nodes. These remain concerning for metastatic disease. Recommended histopathological correlation. 2. A sub-centimetric and mildly FDG avid left subpectoral lymph node is may represent involvement by the same process as of supraclavicular lymph nodes. 3. A centimetric precaval lymph node with moderate FDG uptake increased from prior study is favored to be inflammatory given regional aortic inflammation. Dictated by: Maurice Hemphill MD The radiology attending physician has personally reviewed this study, and had reviewed and/or edited this written report and agrees with it. Electronically signed by: Shreyas Yoo DO aWqar Valdez MD IMG PET PROCEDURES Final Resul [...] ORDERABLES Final Res ult [facility] [place] [address] * (ABNORMAL) Lipid panel (04/19/2019 4:02 AM [employer]) Cholesterol 159 30 - 199 mg/dL [facility] Comment: Interpretive Data Ages < or = [...] revised on 2017. Triglycerides 143 <=149 mg/dL [facility] Comment: Interpretive Data Ages < or [...] revised on 2017. HDL 35(L) >=40 mg/dL [facility] Comment: Interpretive Data Ages < or = [...] on 2017. LDL, calculated 95 <=129 mg/dL [facility] Comment: Interpretive Data Ages < or = [...] revised on 2017. Non-HDL Cholesterol 124 mg/dL [facility] Comment: Interpretive Data Ages < or = [...] last revised on 2017. Chol/HDL ratio 5 [facility] Blood specimen (specimen) 04/19/2019 4:02 AM [employer] 04/19/2019 4:10 AM [employer] us Todd Gold Jr., MD LAB BLOOD ORDERABLES Final Result [facility] [place] [address] * COLONOSCOPY REPORT (04/22/2013) Anatomical Region Laterality Modality Other Narrative 04/22/2013 Ordered by an unspecified provider. us Historical Provider GI PROCEDURE ORDERABLES F inal Result from Last 3 Months or Most Recently Relevant to Health Maintenance [place] [address] [place] [address] BLUE [employer] [place] ACCESS [place] BLUE ACCESS [facility] Advance Directives For more information, please contact: [phone] * Full Code (Latest Code Status on [...] 4:23 PM 12/04/2018 4:15 PM Care Teams Vice President Pharmacy Relationship Specialty Start Date End Date Kiko Jimenez DO PCP - General 04/09/17 Fran Bray MD Medical Oncologist/Community Outreach Coordinator Medical Oncology 01/10/18 Maximiliano Cerrato MD Consulting Physician Plastic Surgery 01/10/18 Kiko Godinez MD PhD Lead Case Manager Dermatology 01/11/18 Oscar Barnard MD Brush Worker Cardiology 01/11/18 Todd Gold Jr., MD Referring Physician Urology 02/08/19
--- OUTSIDE RECORDS SUMMARY | 2025-01-13 13:07 | XMS_ITS | Patient Health Record ---
Author Organization [facility] As Campaign Monitor [facility] Address [address] [facility] [address] [place] [address] Care Team Providers Care Avp Name Role Phone Kiko Jimenez DO Primary Care Provider Jose Guadalupe Thompson Unavailable [phone] Allergies Allergen (clinical drug ingredient) Drug/Non Drug [...] Oxazepam (BZO) NEG 0 - 300 ng/ml 0-mdquyqpsqj-9,1-cpllqmkl-2,3-diphenylpyrrolidine (JON P) NEG 0 - 300 ng/ml Methamphetamine (MET) NEG 0 - 1000 ng/ml Methylenedioxymethamphetamine (MDMA) NEG 0 - 500 ng/ml Morphine (MOP 300/[id number]) NEG 0 - 300 ng/ml Methadone (MTD) NEG 0 - 300 ng/ml Phencyclidine (PCP) NEG 0 - 25 ng/ml Nortriptyline (TCA) NEG 0 - 1000 ng/ml Oxycodone NEG 0 - 300 ng/ml x NEG 0 - 300 ng/ml Reason For Referral No Information Medications Medication SIG (Take, Route, Frequency, Duration) Notes Start Date End Date Status Potassium Chloride ER 10 MEQ Capsule Extended Release TAKE 2 CAPSULES BY MOUTH DAILY Oral; Duration: 30 Days Active Fluticasone Propionate 50 MCG/ACT Suspension SPRAY 2 SPRAYS IN EACH NOSTRIL EVERY DAY AT BEDTIME Nasal; Duration: 30 Days Active Vilazodone HCl 20 MG Tablet TAKE 1 TABLET BY MOUTH DAILY WITH FOOD Oral; Duration: 30 Days F330,Unavailabl e Active Levothyroxine Sodium 125 MCG Tablet 2 tablet in the morning on an empty stomach Oral Once a day; Duration: 30 days C73,Unavailable Active traZODone HCl 50 MG Tablet 0.5 to 1 tablet at bedtime Orally Once a day; Duration: 90 days As needed 11/26/2024 Active Aspirin 81 81 MG Tablet Chewable 1 tablet Orally Once a day Active traZODone HCl 50 MG Tablet TAKE 1/2 TO 1 TABLET BY MOUTH DAILY AT BEDTIME NEEDED Oral; Duration: 30 Days G4700,Unavailab le Active Viibryd 20 MG Tablet 1 tablet with food Oral Once a day; Duration: 90 days 11/26/2024 Active Warfarin Sodium 5 MG Tablet TAKE 1 TABLET BY MOUTH EVERY DAY DIRECTED Oral; Duration: 30 Days Active Furosemide 40 MG Tablet TAKE 1 TABLET BY MOUTH TWICE DAILY Oral; Duration: 30 Days Active Metoprolol Succinate ER 100 MG Tablet Extended Release 24 Hour Oral; Duration: 30 Days Active Ketoconazole 2 % Shampoo External; Duration: 15 Days L219,Unavailabl e Active Amphetamine-Dextroamph et ER 10 MG Capsule Extended Release 24 Hour 1 capsule in the morning Oral Once a day; Duration: 30 days Please fill by Sunday, patient is leaving for vacation Sunday01/01/2025 Active amLODIPine Besylate 10 MG Tablet Oral; Duration: 30 Days Active hydrALAZINE HCl 25 MG Tablet Oral 07/11/2023 Active Carvedilol 25 MG Tablet Oral 07/11/2023 Not-Taking Eplerenone 25 mg Tablet Oral 07/11/2023 Active Pravastatin Sodium 40 MG Tablet TAKE 1 TABLET BY MOUTH DAILY Oral; Duration: 30 Days Not-Taking cloNIDine HCl 0.2 MG Tablet Oral 07/11/2023 Not-Taking Hydrocortisone 2.50% Cream External PRN 07/11/2023 Active Pravastatin Sodium 40 MG Tablet Oral 07/11/2023 Not-Taking metFORMIN HCl 500 MG Tablet 1 tablet with a meal Orally twice a day; Duration: 30 days 07/30/2024 Active Rosuvastatin Calcium 20 MG Tablet TAKE 1 TABLET BY MOUTH DAILY Oral; Duration: 30 Days Active Metoprolol Succinate ER 100 MG Tablet Extended Release 24 Hour Oral; Duration: 30 Days Active Tiotropium [place] Monohydrate 18 MCG Capsule Inhalation; Duration: 30 Days Active diazePAM 5 MG Tablet TAKE 1 TABLET BY MOUTH EVERY DAY NEEDED FOR ANXIETY Oral; Duration: 14 Days Active Lisinopril 10 MG Tablet Oral; Duration: 30 Days Active Triamcinolone Acetonide 0.10% Ointment External 07/11/2023 Active Digoxin 125 MCG Tablet Oral; Duration: 30 Days Active Immunizations Vaccine Route Administration [...] Date Details (start date - stop date) Current Smoker NA - NA Sex Assigned At : Social History Observation Description Sex Assigned At Male Social History Miscellaneous: Social Info Question Answer Notes Advance Care Planning Are you your own decision-maker Yes Do you have Power of [facility] jasmyn? Yes Tobacco Use: Social Info Question Answer Notes Tobacco Control (Standard) Tobacco use: Current smoker Additional Details Category Social Info Options Details Migrated Social History Migrated Social History Alcohol Intake: None 02/18/2018,Tobacco Years: Former smoker 08/24/2022 Problems Problem Type SNOMED Code ICD Code Onset Dates Problem Status W/U Status Risk Notes Problem Mild recurrent major depression (54399669) Major depressive disorder, recurrent, mild (F33.0) Active confirmed Problem Recurrent major depression in full remission (58208635) Major depressive disorder, recurrent, in full remission (F33.42) Active confirmed Problem Generalized anxiety disorder (67785195) Generalized anxiety disorder (F41.1) Active confirmed Problem Posttraumatic stress disorder (69880620) Post-traumatic stress disorder, chronic (F43.12) Active confirmed Problem Attention deficit hyperactivity disorder, predominantly inattentive type (37745667) Attention-deficit hyperactivity disorder, predominantly inattentive type (F90.0) Active confirmed Problem Attention deficit hyperactivity disorder, combined type (69578268) Attention-deficit hyperactivity disorder, combined type (F90.2) Active confirmed Problem Insomnia (525729764) Insomnia (G47.00) Active confirmed Vital Signs Heart Rate 78 /min 07/30/2024 Height-cm 177.80 cm 07/30/2024 Blood pressure diastolic 75 mm Hg 07/30/2024 Weight-kg 114.44 kg 07/30/2024 Height 70.00 in 07/30/2024 Blood pressure systolic 125 mm Hg 07/30/2024 Weight 252.3 lbs 07/30/2024 BMI 36.2 kg/m2 07/30/2024 Encounters Encounter Location Date Provider Diagnosis [facility] [address] [address] 02/04/2024 Jose Guadalupe Dubon Generalized anxiety disorder F41.1 ; Post-traumatic stress disorder, chronic F43.12 ; Major depressive disorder, recurrent, mild F33.0 and Attention-deficit hyperactivity disorder, combined type F90.2 [facility] [address] [address] 05/07/2024 Jose Guadalupe Dubon Benign essential HTN I10 ; Generalized anxiety disorder F41.1 ; Post-traumatic stress disorder, chronic F43.12 ; Major depressive disorder, recurrent, mild F33.0 ; Attention-deficit hyperactivity disorder, combined type F90.2 and Insomnia G47.00 [facility] [employer] [facility] [address] [address] 07/30/2024 Jose Guadalupe Dubon Attention-deficit hyperactivity disorder, combined type F90.2 ; Insomnia G47.00 ; Encounter for screening for depression Z13.31 ; Encounter for screening for cardiovascular disorders Z13.6 ; Generalized anxiety disorder F41.1 ; Benign essential HTN I10 ; Post-traumatic stress disorder, chronic F43.12 and Major depressive disorder, recurrent, in full remission F33.42 [facility], [facility] [address] [place] [address] 11/26/2024 Jose Guadalupe Dubon Attention-deficit hyperactivity disorder, combined type F90.2 ; Insomnia G47.00 ; Generalized anxiety disorder F41.1 ; Post-traumatic stress disorder, chronic F43.12 and Major depressive disorder, recurrent, in full remission F33.42 [facility], [facility] [address] [place] [address] 03/06/2024 Jose Guadalupe Dubon Attention-deficit hyperactivity disorder, combined type F90.2 [facility], [facility] [address] [place] [address] 03/06/2024 Jose Guadalupe Dubon Attention-deficit hyperactivity disorder, combined type F90.2 [facility], [facility] [address] [place] [address] 03/31/2024 Jose Guadalupe Dubon Attention-deficit hyperactivity disorder, combined type F90.2 [facility], [facility] [address] [place] [address] 06/05/2024 Jose Guadalupe Dubon Attention-deficit hyperactivity disorder, combined type F90.2 [facility], [facility] [address] [place] [address] 07/01/2024 Jose Guadalupe Dubon Attention-deficit hyperactivity disorder, combined type F90.2 [facility], [facility] [address] [place] [address] 08/28/2024 Jose Guadalupe Dubon Attention-deficit hyperactivity disorder, combined type F90.2 [facility], [facility] [address] [place] [address] 10/01/2024 Jose Guadalupe Dubon Attention-deficit hyperactivity disorder, combined type F90.2 [facility], [facility] [address] [place] [address] 10/03/2024 Jose Guadalupe Dubon Attention-deficit hyperactivity disorder, combined type F90.2 [facility] [address] [place] [address] 10/27/2024 Jose Guadalupe Dubon Attention-deficit hyperactivity disorder, combined type F90.2 [facility] [address] [place] [address] 12/31/2024 Jose Guadalupe Dubon Attention-deficit hyperactivity disorder, combined type F90.2 Assessments Encounter Date Diagnosis (ICD Code) Assessment Notes Treatment Notes Treatment Clinical Notes Section Notes 03/06/2024 Attention-defici t hyperactivity disorder, combined type [...] rehab and maintain regular exercise at the [facility]. 2. Depression: - Patient is currently on Viibryd 20 mg daily and reports improvement in mood. Plan: - Continue Viibryd 20 mg daily. - Refill prescription at [facility] pharmacy. - Schedule a three-month follow-up appointment. 3. Attention deficit: - Patient is currently on amphetamine 10 mg daily and reports it is working well. Plan: - Continue amphetamine 10 mg daily. - Refill prescription at [facility] pharmacy. 4. Sleep disturbance: - Patient [...] hyperactivity disorder, combined type (ICD-10 - F90.2) 10/27/2024 Attention-defici t hyperactivity disorder, combined type (ICD-10 - F90.2) 11/26/2024 Attention-defici t hyperactivity disorder, combined type (ICD-10 - F90.2) 12/31/2024 Attention-defici t hyperactivity disorder, combined type (ICD-10 - F90.2) 11/26/2024 Insomnia (ICD-10 - G47.00) 07/30/2024 Insomnia (ICD-10 - G47.00) Insomnia: Care [...] rehab and maintain regular exercise at the [facility]. 2. Depression: - Patient is currently on Viibryd 20 mg daily and reports improvement in mood. Plan: - Continue Viibryd 20 mg daily. - Refill prescription at [facility] pharmacy. - Schedule a three-month follow-up appointment. 3. Attention deficit: - Patient is currently on amphetamine 10 mg daily and reports it is working well. Plan: - Continue amphetamine 10 mg daily. - Refill prescription at [facility] pharmacy. 4. Sleep disturbance: - Patient [...] stress disorder, chronic (ICD-10 - F43.12) stable 02/04/2024 Major depressive disorder, recurrent, mild (ICD-10 - F33.0) 1. Post-surgical recovery: - Patient reports significant improvement in overall well-being following cardiac surgery. - Patient has been participating in cardiac rehab and has three more visits remaining. Plan: - Encourage patient to continue cardiac rehab and maintain regular exercise at the [facility]. 2. Depression: - Patient is currently on Viibryd 20 mg daily and reports improvement in mood. Plan: - Continue Viibryd 20 mg daily. - Refill prescription at [facility] pharmacy. - Schedule a three-month follow-up appointment. 3. Attention deficit: - Patient is currently on amphetamine 10 mg daily and reports it is working well. Plan: - Continue amphetamine 10 mg daily. - Refill prescription at [facility] pharmacy. 4. Sleep disturbance: - Patient [...] use at the next follow-up appointment. 05/07/2024 Major depressive disorder, recurrent, mild (ICD-10 - F33.0) 11/26/2024 Generalized anxiety disorder (ICD-10 - F41.1) stable 07/30/2024 Encounter for screening for depression (ICD-10 - Z13.31) 11/26/2024 Post-traumatic stress disorder, chronic (ICD-10 - F43.12) stable 05/07/2024 Attention-defici t hyperactivity disorder, combined type (ICD-10 - F90.2) 02/04/2024 Attention-defici t hyperactivity disorder, combined type (ICD-10 - F90.2) 1. Post-surgical recovery: - Patient reports significant improvement in overall well-being following cardiac surgery. - Patient has been participating in cardiac rehab and has three more visits remaining. Plan: - Encourage patient to continue cardiac rehab and maintain regular exercise at the [facility]. 2. Depression: - Patient is currently on Viibryd 20 mg daily and reports improvement in mood. Plan: - Continue Viibryd 20 mg daily. - Refill prescription at [facility] pharmacy. - Schedule a three-month follow-up appointment. 3. Attention deficit: - Patient is currently on amphetamine 10 mg daily and reports it is working well. Plan: - Continue amphetamine 10 mg daily. - Refill prescription at [facility] pharmacy. 4. Sleep disturbance: - Patient [...] Generalized anxiety disorder (ICD-10 - F41.1) stable 07/30/2024 Encounter for screening for cardiovascular disorders (ICD-10 - Z13.6) 07/30/2024 Benign essential HTN (ICD-10 - I10) 11/26/2024 Major depressive disorder, recurrent, in full remission (ICD-10 - F33.42) 05/07/2024 Insomnia (ICD-10 - G47.00) Insomnia: Care Instructions material was published, [facility] About [facility] Well material was published 07/30/2024 Post-traumatic stress disorder, chronic (ICD-10 - [...] and Viibryd (20 mg) to the patient's [facility] pharmacy. 3. General health and well-being: - Patient reports overall good physical health, participating in cardiac rehab and daily stretching. - Patient is considering jail but plans to wait until age 63 for Medicare coverage. - Patient expresses a desire to stay productive and engaged in activities after jail. Plan: - Encourage patient to continue with cardiac rehab and daily stretching. - Discuss potential activities and volunteer opportunities for post-jail engagement. 4. Monitoring of trazodone: Plan: - [...] (dosage not specified) - [facility] - Encourage continuation [...] qhs (half tablet) - Send prescription to [facility] - Educate on sleep hygiene and managing nighttime awakenings - Monitor for any changes in sleep quality or daytime drowsiness Attention Deficit Hyperactivity Disorder (ADHD) Assessment: Patient continues to use Adderall XR 10 mg for ADHD management. No specific concerns or side effects reported. Plan: - Continue Adderall XR 10 mg PO daily - Send prescription to [facility] pharmacy - Monitor for efficacy and side effects the note is transcribed using speech recognition software. It is a reflection of a visit with the patient. It might have some inaccuracy, including medication names and transcribing errors, though efforts have been made to correct them. 11/26/2024 Other Salo Deshpande, male patient with history of cancer and alcohol use disorder, presents for routine follow-up with generally positive mood and ongoing cancer surveillance. Cancer surveillance Assessment: Patient reports recent PET scan results as a little suspect, raising concern for potential recurrence of cancer. He has a history of three previous cancer diagnoses. Despite the uncertainty, the patient demonstrates resilience and a positive attitude towards potential future treatment, stating let's just do it. He acknowledges experiencing brief periods of depression and fear upon learning about the suspicious scan results but utilizes coping strategies learned through his recovery program to manage these emotions. Plan: - Await further diagnostic information expected by tomorrow - Continue current cancer surveillance program - Encourage maintaining positive coping strategies and stress management techniques Alcohol use disorder, in remission Assessment: Patient maintains sobriety with active participation in Alcoholics Anonymous (AA), attending 2-3 meetings per week minimum. He reports a recent drunk dream that temporarily affected his mood, but he was able to process and cope with the experience effectively. The patient demonstrates good insight into his emotional triggers, particularly fear, and utilizes his recovery program tools to manage these effectively. Plan: - Continue regular AA meeting attendance (2-3 times per week, daily during vacation) - Encourage ongoing use of coping strategies and higher power concept for emotional regulation Depression Assessment: Patient reports overall good mood with brief periods of depression related to cancer concerns. He is currently managed on Viibryd 20 mg daily with good effect. No significant ongoing depressive symptoms reported. Plan: - Continue Viibryd - Refill sent to [facility] Insomnia Assessment: Patient currently managed on trazodone for sleep. No specific sleep complaints mentioned during this visit. Plan: - Continue trazodone - Refill processed Attention deficit hyperactivity disorder (ADHD) Assessment: Patient currently managed on Adderall. No specific ADHD symptoms or concerns mentioned during this visit. Plan: - Continue Adderall - Refill processed with note to fill by Sunday due to upcoming vacation - Patient to follow up with pharmacy regarding potential need for vacation override the note is transcribed using speech recognition software. It is a reflection of a visit with the patient. It might have some inaccuracy, including medication names and transcribing errors, though efforts have been made to correct them. Plan Of Treatment Next Appt Details Provider Name:Jose Guadalupe leo, 03/18/2025 09:00:00 AM, [address] [facility] [address], [facility] [address], [place], [address], Insurance Providers Payer Name Payer Address Payer Phone Subscriber Number Group Number Insured Name Patient Relationship to Insured Coverage Start Date Coverage End Date [facility] [address] [place] [address] [id number] SALO DESHPANDE Self - patient is the insured Medical (General) History Surgical History Surgery Date(Month/Year) Heart surgery Other
--- OUTSIDE RECORDS SUMMARY | 2025-01-13 13:08 | XMS_ITS | Encounter Summary ---
Author Organization [facility] Address [address] [place] [address] Phone Care Team Providers Care Media Associate Name Role Phone Kiko Jimenez DO Primary Care Provider Fran Bray MD Unavailable Maximiliano Cerrato MD Unavailable [phone] Kiko Godinez MD PhD Unavailable Oscar Barnard MD Unavailable [phone] Alla Wyman MD, Todd White Unavailable Encounter Details Date Type Department Care Team (Late st Contact Info) Description 12/11/2024 Telephone [facility] Medicine Otolaryngology Head-Neck Division [address] [facility] [address] [place] [address] Leila Cramer RN Social History Tobacco Use Types Packs/Day Years [...] Friends and Family Patient declined 02/05/2019 Attends [employer] Patient declined 08/2018 Active Member of [...] Living Expenses Not hard at all 02/05/2019 [facility] [place] [facility] Occupat ional [facility] - Occupational Stress [...] on file 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 Gender Identity Not on file Sexual Orientation Not on file 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 Not on file Not on file documented as of this encounter Plan of Treatment Upcoming Encounters Date Type Department Care Team (Latest Contact Info) Description 01/16/2025 7:30 AM CDT Hospital Encounter [facility] [address] [place] [address] Deric Granger MD [address] [place] [address] 01/16/2025 7:30 AM CDT Anesthesia Event [facility] [address] [place] [address] Sheri Meadows NP [address] [facility] [phone] [place], [place] [id number] 01/16/2025 7:30 AM CDT - 01/16/2025 9:40 AM CDT Surgery [facility] [address] [place] [address] Deric Granger MD [address] [place] [address] LEFT NECK EXCISIONAL LYMPH NODE BIOPSY Scheduled Procedures Name Priority Associated Diagnoses Date/Ti me BIOPSY OR EXCISION LYMPH NODE NECK. Malignant melanoma, unspecified site (HCC) 01/16/2025 7:30 AM CDT documented as of this encounter Visit Diagnoses Not on filedocumented in this encounter Care Teams Media Associate Relationship Specialty Start Date End Date Kiko Jimenez DO PCP - General 04/09/17 Fran Bray MD Medical Oncologist/Certified Orthoptist Medical Oncology 01/10/18 Maximiliano Cerrato MD Consulting Physician Plastic Surgery 01/10/18 Kiko Godinez MD PhD Ground Control Approach Technician Dermatology 01/11/18 Oscar Barnard MD Emergency Vehicle Dispatcher Cardiology 01/11/18 Todd Gold Jr., MD Referring Physician Urology 02/08/19 documented as of this encounter
--- OUTSIDE RECORDS SUMMARY | 2025-01-13 13:08 | XMS_ITS | Encounter Summary ---
Author Organization [facility] Address [address] [place] [address] Phone Care Team Providers Care Burr Machine Operator Name Role Phone Kiko Jimenez DO Primary Care Provider Fran Bray MD Unavailable [facility] MD Unavailable [phone] Kiko Godinez MD PhD Unavailable Oscar Barnard MD Unavailable [phone] Brayan Burrows MD Unavailable [phone] Alla Wyman MD, Todd White Unavailable Encounter Details Date Type Department Care Team (Late st Contact Info) Description 09/27/2017 Telephone [facility] Cardiology [address] [facility] Advanced Medicine [address]th [place] [address] [place] [address] Oscar Barnard MD [address] [facility] [address] [place] [address] Social History Tobacco Use Types Packs/Day Years Used Date Smoking Tobacco: Former Sex and Gender Information Value Date Recorded Sex Assigned at Not on file 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 [address] [place] [address] Deric Granger MD [address] [place] [address] 01/16/2025 7:30 AM CDT Anesthesia Event [facility] [address] [place] [address] Sheri Meadows, WELDING TECHNICIAN [address] [facility] [phone] [place], [place] [id number] 01/16/2025 7:30 AM CDT - 01/16/2025 9:40 AM CDT Surgery [facility] [address] [place] [address] Deric Granger MD [address] [place] [address] LEFT NECK EXCISIONAL LYMPH NODE BIOPSY Scheduled Procedures Name Priority Associated Diagnoses Date/Ti me BIOPSY OR EXCISION LYMPH NODE NECK. Malignant melanoma, unspecified site (HCC) 01/16/2025 7:30 AM CDT documented as of this encounter Visit Diagnoses Not on filedocumented in this encounter Care Teams Burr Machine Operator Relationship Specialty Start Date End Date Kiko Jimenez DO PCP - General 04/09/17 Fran Bray MD Medical Oncologist/Center Director Lead Teacher Medical Oncology 01/10/18 Maximiliano Cerrato MD Consulting Physician Plastic Surgery 01/10/18 Kiko Godinez MD PhD Rural Health Consultant Dermatology 01/11/18 Oscar Barnard MD Color Grinder Cardiology 01/11/18 Brayan Burrows MD Radiation Oncologist Radiation Oncology 12/09/1804/03/ 4 Todd Gold Jr., MD Referring Physician Urology 02/08/19 documented as of this encounter
--- OUTSIDE RECORDS SUMMARY | 2025-01-13 13:08 | XMS_ITS | Encounter Summary ---
Author Organization [facility] Healthcare Address [address] [place] [address] Care Team Providers Care Chief Merchandising Officer Name Role Phone Kiko Jimenez DO Primary Care Provider Fran Bray MD Unavailable [facility] ErMaximiliano vargas MD Unavailable [phone] Kiko Godinez MD PhD Unavailable Oscar Barnard MD Unavailable [phone] Brayan Burrows MD Unavailable [phone] Alla Wyman MD, Todd White Unavailable [phone] Encounter Details Date Type Department Care Team (Late st Contact Info) Description 10/17/2019 Telephone [facility] Rad[facility] [address] [place] [address] Fabiola Griffith, RT Social History Tobacco [...] Friends and Family Patient declined 02/05/2019 Attends Jainism Services Patient declined 08/2018 Active Member of Clubs or Organizations Patient declined 02/05/2019 Attends Club or Organization Meetings Patient de clined 02/05/2019 Marital Status 02/05/2019 Overall Financial Resource Strain (CARDIA) Answe r Date Recorded Difficulty of Paying Living Expenses Not hard at all 02/05/2019 [facility] [place] of Occupat ional Health - Occupational Stress [...] on file 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 Gender Identity Not on file Sexual Orientation Not on file 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 Not on file Not on file documented as of this encounter Plan of Treatment Upcoming Encounters Date Type Department Care Team (Latest Contact Info) Description 01/16/2025 7:30 AM CDT Hospital Encounter [facility] Operating Room [address] [place] [address] Deric Granger MD [address] [place] [address] 01/16/2025 7:30 AM CDT Anesthesia Event [facility] Operating Room [address] [place] [phone] Sheri Meadows NP [address] [facility] [phone] [place], [place] [id number] 01/16/2025 7:30 AM CDT - 01/16/2025 9:40 AM CDT Surgery [facility] Operating Room [address] [place] [phone] Deric Granger MD [address] [place] [address] LEFT NECK EXCISIONAL LYMPH NODE BIOPSY Scheduled Procedures Name Priority Associated Diagnoses Date/Ti me BIOPSY OR EXCISION LYMPH NODE NECK. Malignant melanoma, unspecified site (HCC) 01/16/2025 7:30 AM CDT documented as of this encounter Visit Diagnoses Not on filedocumented in this encounter Care Teams Chief Merchandising Officer Relationship Specialty Start Date End Date Kiko Jimenez DO PCP - General 04/09/17 Fran Bray MD Medical Oncologist/Cable Installer Repairer Helper Medical Oncology 01/10/18 Maximiliano Cerrato MD Consulting Physician Plastic Surgery 01/10/18 Kiko Godinez MD PhD Trim Setter Dermatology 01/11/18 Oscar Barnard MD Power Tool Repair Technician Cardiology 01/11/18 Brayan Burrows MD Radiation Oncologist Radiation Oncology 12/09/18 4 Todd Gold Jr., MD Referring Physician Urology 02/08/19 documented as of this encounter
--- OUTSIDE RECORDS SUMMARY | 2025-01-13 13:08 | XMS_ITS | Encounter Summary ---
Author Organization [facility] Address [address] [place] [address] Phone Care Team Providers Care Regulatory Agency Director Name Role Phone Kiko Jimenez DO Primary Care Provider Fran Bray MD Unavailable Maximiliano Cerrato MD Unavailable [phone] Kiko Godinez MD PhD Unavailable Oscar Barnard MD Unavailable [phone] Alla Wyman MD, Todd White Unavailable Encounter Details Date Type Department Care Team (Late st Contact Info) Description 12/17/2024 Telephone [facility] Medicine Cardiology [address] [facility] Advanced Medicine 8th [place] [address] [place] [address] Oscar Barnard MD [address] [facility] [address] [place] [address] Social History Tobacco Use Types [...] Living Expenses Not hard at all 02/05/2019 [facility] of Occupat ional Health - Occupational Stress [...] on file 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 He reports he is undergoing evaluation for possibility of CA. He reports he is offthe week for 12/15 for removal of lymphnodes in neck and eval. He reports he cannot be off work the next week. I offered pt to change appt to a zoom visit and he is in agreement. Will have Mayelin change this appt to a video visit. * Telephone Encounter - Marilee Tyson - 12/17/2024 11:22 AM CDT Akil Patient would like a return call to discuss upcoming appt as well as some issues he's been having. Did not provide details. He can be reached at [phone]. documented in this encounter Plan of Treatment Upcoming Encounters Date Type Department Care Team (Latest Contact Info) Description 01/16/2025 7:30 AM CDT Hospital Encounter [facility] Operating Room [address] [place] [phone] Deric Granger MD [address] [place] [address] 01/16/2025 7:30 AM CDT Anesthesia Event [facility] Operating Room [address] [place] [address] Sheri Meadows, SAIDA [address] [facility] [phone] [place] [address] 01/16/2025 7:30 AM CDT - 01/16/2025 9:40 AM CDT Surgery [facility] Operating Room [address] [place] [address] Deric Granger MD [address] [place] [address] LEFT NECK EXCISIONAL LYMPH NODE BIOPSY Scheduled Procedures Name Priority Associated Diagnoses Date/Ti me BIOPSY OR EXCISION LYMPH NODE NECK. Malignant melanoma, unspecified site (HCC) 01/16/2025 7:30 AM CDT documented as of this encounter Visit Diagnoses Not on filedocumented in this encounter Care Teams Regulatory Agency Director Relationship Specialty Start Date End Date Kiko Jimenez DO PCP - General 04/09/17 Fran Bray MD Medical Oncologist/Attending Ambulatory Care Medical Oncology 01/10/18 Maximiliano Cerrato MD Consulting Physician Plastic Surgery 01/10/18 Kiko Godinez MD PhD Structural Metal Fabricator Apprentice Dermatology 01/11/18 Oscar Barnard MD Experimental Preflight Mechanic Cardiology 01/11/18 Todd Gold Jr., MD Referring Physician Urology 02/08/19 documented as of this encounter
--- OUTSIDE RECORDS SUMMARY | 2025-01-13 13:08 | XMS_ITS | Encounter Summary ---
Author Organization [facility] Address [address] [place] [address] Phone Care Team Providers Care Ampoule Filler And Sealer Name Role Phone Kiko Jimenez DO Primary Care Provider Fran Bray MD Unavailable Maximiliano Cerrato MD Unavailable [phone] Kiko Godinez MD PhD Unavailable Oscar Barnard MD Unavailable [phone] Alla Wyman MD, Todd White Unavailable Encounter Details Date Type Department Care Team (Late st Contact Info) Description 12/07/2023 Telephone [facility] Medicine Cardiology [address] 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 Not on file Not on file documented as of this encounter Plan of Treatment Upcoming Encounters Date Type Department Care Team (Latest Contact Info) Description 01/16/2025 7:30 AM CDT Hospital Encounter [facility] Operating Room [address] [place] [address] Deric Granger MD [address] [place] [address] 01/16/2025 7:30 AM CDT Anesthesia Event [facility] Operating Room [address] [place] [address] Sheri Meadows, SAP SOLUTION MANAGER CONSULTANT [address] [facility] [phone] [place] [address] 01/16/2025 7:30 AM CDT - 01/16/2025 9:40 AM CDT Surgery [facility] Operating Room [address] [place] [address] Deric Granger MD [address] [place] [address] LEFT NECK EXCISIONAL LYMPH NODE BIOPSY Scheduled Procedures Name Priority Associated Diagnoses Date/Ti me BIOPSY OR EXCISION LYMPH NODE NECK. Malignant melanoma, unspecified site (HCC) 01/16/2025 7:30 AM CDT documented as of this encounter Visit Diagnoses Not on filedocumented in this encounter Care Teams Ampoule Filler And Sealer Relationship Specialty Start Date End Date Kiko Jimenez DO PCP - General 04/09/17 Fran Bray MD Medical Oncologist/Boring And Filling Machine Operator Medical Oncology 01/10/18 Maximiliano Cerrato MD Consulting Physician Plastic Surgery 01/10/18 Kiko Godinez MD PhD Manager Of Learning Dermatology 01/11/18 Oscar Barnard MD Compounding Assistant Cardiology 01/11/18 Todd Gold Jr., MD Referring Physician Urology 02/08/19 documented as of this encounter
--- OUTSIDE RECORDS SUMMARY | 2025-01-13 13:08 | XMS_ITS | Encounter Summary ---
Author Organization [facility] Address [address] [place] [address] Phone Care Team Providers Care Drum Operator Name Role Phone Kiko Jimenez DO Primary Care Provider Fran Bray MD [facility]available [facility] Unavailable [phone] Kiko Godinez MD PhD Unavailable Oscar Barnard MD Unavailable [phone] Alla Wyman MD, Todd White Unavailable Reason for Visit * Reason Onset Date Comments anticoagulation management 12/31/2024 Encounter Details Date Type Department Care Team (Late st Contact Info) Description 12/31/2024 Telephone [facility] Medicine Cardiology [address] [facility] Advanced Medicine 8th [place] [address] [place] [address] Oscar Barnard MD [address] [facility] [address] [place] [address] anticoagulation management Social History Tobacco Use Types Packs/Day Years [...] Friends and Family Patient declined 02/05/2019 Attends Yarsanism Services Patient declined 08/2018 Active Member of Clubs or Organizations Patient declined 02/05/2019 Attends Club or Organization Meetings Patient de clined 02/05/2019 Marital Status 02/05/2019 Overall Financial Resource Strain (CARDIA) Answe r Date Recorded Difficulty of Paying Living Expenses Not hard at all 02/05/2019 [facility] of Occupat ional Health - Occupational [...] on file 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 Never 01/05/2025 10:32 AM LUIST Missy Arguelles RN Q2: How many drinks containing alcohol do you have on a typical day when you are drinking? Patient does not drink 01/05/2025 10:32 AM Marii Small RN Q3: How often do you have six or more drinks on one occasion? Never 01/05/2025 10:32 AM Missy Small RN documented as of this encounter Ordered Prescriptions Prescription Sig Dispense Quantity Refills Last Filled Start Date End Date enoxaparin (LOVENOX) 100 mg/mL syringe 100mg/1mL subq BID To start when instructed per MD 20 mL 1 01/01/2025 documented in this encounter Miscellaneous Notes * Telephone Encounter - Edwina Haas RN - 01/13/2025 12:34 PM CDT Portal sent to pt requesting INR results. * Addendum Note - Preeti Diehl RN - 01/01/2025 10:48 AM CDTAddended by: PREETI DIEHL on: 01/01/2025 10:48 AM Modules accepted: Orders * Addendum Note - Preeti Diehl RN - 01/01/2025 10:45 AM CDTAddended by: PREETI DIEHL on: 01/01/2025 10:45 AM Modules accepted: Orders * Telephone Encounter - Preeti Diehl RN - 01/01/2025 10:34 AM CDT Called pt to discuss plan for INR and lovenox prior to biopsy. Pt agreeable to plan, will stop taking coumadin on 01/10 and will get INR drawn on AM of 01/12. Will send pt portal with information as well. Lovenox injection ordered to pt's home pharmacy. STAT INR lab order sent to [facility]. * Telephone Encounter - Edwina Haas RN - 12/31/2024 6:[address] Barnard/Noy Haas RN,BSN Enoxaparin 100mg sq bid * Telephone Encounter - Oscar Barnard MD - 12/31/2024 5:29 PM CDT Agree * Telephone Encounter - Edwina Haas RN - 12/31/2024 5:13 PM CDT I spoke with pt. He reports he had INR on 12/23/2024 INR 2.9, on 5mg q hs. Pt notes he checks INR generally about every 2 months, and has been on the same dose for a long time. He notes INR range is 2.5-3.5. He has standing INR order at [facility]. Pt notes he will have to get his Union to approve coverage of lovenox, once the lovenox script has been called to [facility]. Pt is scheduled for 01/14/25for an excisional lymph node biopsy. Pt reports current wt is 234lbs. (106mg/kg) Hold warfarin starting 01/10. Repeat INR on 01/12. * Telephone Encounter - Edwina Haas RN - 12/31/2024 5:13 PM CDT ----- Message from Oscar Barnard MD sent at 12/30/2024 5:06 PM CDT ----- Happy to help.. Edwina--see below ----- Message ----- From: Deric Granger MD Sent: 12/29/2024 7:13 PM CDT To: Oscar Barnard MD; Edwina Haas RN# Hi Oscar, usually we would like an INR around 1.3 to 1.5 if possible for this surgery. Thank you for helping out with the lovenox bridging! Deric ----- Message ----- From: Oscar Barnard MD Sent: 12/29/2024 4:05 PM CDT To: Deric Granger MD; Edwina Haas RN; Boss # We will ask Dr. Granger what INRs he requires. If he requires a INR less than 2 we can do a Lovenox bridge. We can help with that since his primary care physician follows the INR. ----- Message ----- From: Edwina Haas RN Sent: 12/29/2024 3:45 PM CDT To: Oscar Barnard MD; Boss Farheen Vincent# Pt is on warfarin. INR is monitored by his PCP. ----- Message ----- From: Leila Cramer RN Sent: 12/29/2024 3:41 PM CDT To: Edwina Haas RN [facility] patient scheduled for a surgery on 01/14/25 for an excisional lymph node biopsy. Patient is currently on coumadin, and Dr. Granger wanted me to check about getting patient bridged to lovenox for procedure. documented in this encounter Plan of Treatment Upcoming Encounters Date Type Department Care Team (Latest Contact Info) Description 01/16/2025 7:30 AM CDT Hospital Encounter [facility] Operating Room [address] [place] [address] Deric Granger MD [address] [place] [address] 01/16/2025 7:30 AM CDT Anesthesia Event [facility] Operating Room [address] [place] [address] Sheri Meadows, PUBLIC SAFETY DIRECTOR [address] [facility] [phone] [place] [address] 01/16/2025 7:30 AM CDT - 01/16/2025 9:40 AM CDT Surgery [facility] Operating [address] [place] [address] Deric Granger MD [address] [place], [place] [id number] LEFT NECK EXCISIONAL LYMPH NODE BIOPSY Scheduled Orders Name Type Priority Associated Diagnoses Orde r Schedule Protime-INR Lab STAT Current use of termite renewal inspector anticoagulation Expected: 01/12/2025, Expires: 01/01/2026 Scheduled Procedures Name Priority Associated Diagnoses Date/Ti me BIOPSY OR EXCISION LYMPH NODE NECK. Malignant melanoma, unspecified site (HCC) 01/16/2025 7:30 AM CDT documented as of this encounter Visit Diagnoses Diagnosis Malignant melanoma (HCC)- Primary Melanoma of skin, site unspecified Current use of termite renewal inspector anticoagulation- Primary Malignant melanoma, unspecified site (HCC) documented in this encounter Care Teams Drum Operator Relationship Specialty Start Date End Date Kiko Jimenez DO PCP - General 04/09/17 Fran Bray MD Medical Oncologist/Jewel Grinder Medical Oncology 01/10/18 Maximiliano Cerrato MD Consulting Physician Plastic Surgery 01/10/18 Kiko Godinez MD PhD Dairy Equipment Installer Dermatology 01/11/18 Oscar Barnard MD Roving Teller Cardiology 01/11/18 Todd Gold Jr., MD Referring Physician Urology 02/08/19 documented as of this encounter
--- OUTSIDE RECORDS SUMMARY | 2025-01-13 13:08 | XMS_ITS | Encounter Summary ---
Author Organization [facility] Healthcare Address [address] [place] [address] Care Team Providers Care Personnel Analyst Name Role Phone Kiko Jimenez DO Primary Care Provider Fran Bray MD [facility]available [facility] Unavailable Kiko Godinez MD PhD Unavailable Oscar Barnard MD Unavailable [phone] Brayan Burrows MD Unavailable Alla Wyman MD, Todd White Unavailable [phone] Encounter Details Date Type Department Care Team (Late st Contact Info) Description 01/16/2020 Telephone [facility] Radiology [facility]) [address] [place] [address] Fabiola Griffith, RT Social History Tobacco [...] Friends and Family Patient declined 02/05/2019 Attends Caodaism Services Patient declined 08/2018 Active Member of Clubs or Organizations Patient declined 02/05/2019 Attends Club or Organization Meetings Patient de clined 02/05/2019 Marital Status 02/05/2019 Overall Financial Resource Strain (CARDIA) Answe r Date Recorded Difficulty of Paying Living Expenses Not hard at all 02/05/2019 [facility] of Occupat ional Health - Occupational Stress [...] on file 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 Gender Identity Not on file Sexual Orientation Not on file 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 Not on file Not on file documented as of this encounter Plan of Treatment Upcoming Encounters Date Type Department Care Team (Latest Contact Info) Description 01/16/2025 7:30 AM CDT Hospital Encounter [facility] [address] [place] [address] Deric Granger MD [address] [place] [address] 01/16/2025 7:30 AM CDT Anesthesia Event [facility] [address] [place] [address] Sheri Meadows NP [address] [facility] [phone] [place], [place] [address] 01/16/2025 7:30 AM CDT - 01/16/2025 9:40 AM CDT Surgery [facility] [address] [place] [address] Deric Granger MD [address] [place] [address] LEFT NECK EXCISIONAL LYMPH NODE BIOPSY Scheduled Procedures Name Priority Associated Diagnoses Date/Ti me BIOPSY OR EXCISION LYMPH NODE NECK. Malignant melanoma, unspecified site (HCC) 01/16/2025 7:30 AM CDT documented as of this encounter Visit Diagnoses Not on filedocumented in this encounter Care Teams Personnel Analyst Relationship Specialty Start Date End Date Kiko Jimenez DO PCP - General 04/09/17 Fran Bray MD Medical Oncologist/Personal Secretary Medical Oncology 01/10/18 Maximiliano Cerrato MD Consulting Physician Plastic Surgery 01/10/18 Kiko Godinez MD PhD Geotechnical Laboratory Technician Dermatology 01/11/18 Oscar Barnard MD Game Tester Cardiology 01/11/18 Brayan Burrows MD Radiation Oncologist Radiation Oncology 12/09/18 4 Todd Gold Jr., MD Referring Physician Urology 02/08/19 documented as of this encounter
--- OUTSIDE RECORDS SUMMARY | 2025-01-13 13:08 | XMS_ITS ---
Author Organization [facility] al Address [address] [place] [address] Care Team Providers Care Math And Science Instructor Name Role Phone Kiko Jimenez DO Primary Care Provider Fran Bray MD Unavailable [phone] [facility] Unavailable Kiko Godinez MD PhD Unavailable [...] (11/24/2019): Added automatically from request for surgery [id number] Assessment & Plan (12/21/2019 9:58 AM CDT): [...] (03/07/2019): Added automatically from request for surgery [id number] Prostate cancer 12/06/2018 Cancer Staging:Clinical stage from 09/27/2018:Stage IIB(cT1c, cN0, cM0, PSA: 5.2, Grade Group: 2) - Signed by Hector Whittington MD PhD on 02/05/2019 Overview (12/06/2018): Added automatically from request for surgery [id number] Hypoparathyroidism 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 11/30/2018 Assessment & Plan [...] (10/31/2018): Added automatically from request for surgery [id number] Assessment & Plan (01/09/2019 8:49 AM CDT): [...] (09/09/2018): Added automatically from request for surgery [id number] 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 Daily INR. - Taxi Proprietor Dr. Barnard aware of admission and following - [facility] Assessment & Plan [...] medicine team will sign off. Please call [phone] if any additional question Assessment & Plan [...] medicine team will sign off. Please call [phone] if any additional question Assessment & Plan [...] mGy 6 1.5 mGy 0 mGy DLP 19,478 mGycm 19,478 mGycm 0 mGycm Resolved Problems Problem Noted Date Diagnosed Date Resolved Date Leukocytosis 12/13/2019 12/18/2019 Assessment & Plan (12/16/2019 7:49 AM CDT): > Improved. WBC 14 -> 20 on 12/11 late-pm labs, improving. Now 9.2 - Urine culture, no growth - CXR unremarkable
--- OUTSIDE RECORDS SUMMARY | 2025-01-13 13:08 | XMS_ITS | Encounter Summary ---
Author Organization [facility] Healthcare Address [address] [place] [address] Care Team Providers Care Still Worker Helper Name Role Phone Kiko Jimenez DO Primary Care Provider Fran Bray MD Unavailable [phone] [facility]im[facility] vargas MD Unavailable [phone] Kiko Godinez MD PhD Unavailable Oscar Barnard MD Unavailable [phone] Brayan Burrows MD Unavailable [phone] Alla Wyman MD, Todd White Unavailable Encounter Details Date Type Department Care Team (Late st Contact Info) Description 07/18/2019 Telephone [facility] Radiology [facility] [address] [place] [id number] [address], RT Social History Tobacco [...] Friends and Family Patient declined 02/05/2019 Attends Orthodoxy Services Patient declined 08/2018 Active Member of Clubs or Organizations Patient declined 02/05/2019 Attends Club or Organization Meetings Patient de clined 02/05/2019 Marital Status 02/05/2019 Overall Financial Resource Strain (CARDIA) Answe r Date Recorded Difficulty of Paying Living Expenses Not hard at all 02/05/2019 [facility] Occupat ional Health - Occupational Stress [...] on file 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 Gender Identity Not on file Sexual Orientation Not on file 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 Not on file Not on file documented as of this encounter Plan of Treatment Upcoming Encounters Date Type Department Care Team (Latest Contact Info) Description 01/16/2025 7:30 AM CDT Hospital Encounter [facility] Operating [facility] [place] [address] Deric Granger MD [address] [place] [address] 01/16/2025 7:30 AM CDT Anesthesia Event [facility] Operating Room [address] [place] [phone] Sheri Meadows NP [address] [facility] [id number] [place], [place] [id number] 01/16/2025 7:30 AM CDT - 01/16/2025 9:40 AM CDT Surgery [facility] Operating Room [address] [place] [phone] Deric Granger MD [address] [place] [address] LEFT NECK EXCISIONAL LYMPH NODE BIOPSY Scheduled Procedures Name Priority Associated Diagnoses Date/Ti me BIOPSY OR EXCISION LYMPH NODE NECK. Malignant melanoma, unspecified site (HCC) 01/16/2025 7:30 AM CDT documented as of this encounter Visit Diagnoses Not on filedocumented in this encounter Care Teams Still Worker Helper Relationship Specialty Start Date End Date Kiko Jimenez DO PCP - General 04/09/17 Fran Bray MD Medical Oncologist/Backbreaker Medical Oncology 01/10/18 Maximiliano Cerrato MD Consulting Physician Plastic Surgery 01/10/18 Kiko Godinez MD PhD Sales And Production Manager Dermatology 01/11/18 Oscar Barnard MD Accounts Administrator Cardiology 01/11/18 Brayan Burrows MD Radiation Oncologist Radiation Oncology 12/09/18 4 Todd Gold Jr., MD Referring Physician Urology 02/08/19 documented as of this encounter
--- OUTSIDE RECORDS SUMMARY | 2025-01-13 13:08 | XMS_ITS | Encounter Summary ---
Author Organization [facility] Healthcare Address [address] [place] [address] Care Team Providers Care Reprint Sorter Name Role Phone Kiko Jimenez DO Primary Care Provider Fran Bray MD Unavailable [facility] Unavailable [phone] Kiko Godinez MD PhD Unavailable Oscar Barnard MD Unavailable [phone] Alla Wyman MD, Todd White Unavailable Encounter Details Date Type Department Care Team (Late st Contact Info) Description 12/24/2024 Telephone [facility] Radiology [address] [place] [address] Gema Marks RN Social History Tobacco Use Types Packs/Day [...] Friends and Family Patient declined 02/05/2019 Attends [employer] Patient declined 08/2018 Active Member of [...] Living Expenses Not hard at all 02/05/2019 [facility] - Occupational [...] on file 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 The surgery is scheduled for January 14, 2025. Per 12/23/24 PET/CT: IMPRESSION: Unchanged mildly enlarged left-sided supraclavicular lymph nodes demonstrating FDG avidity on the prior PET/CT. IMPRESSION: Unchanged mildly enlarged left-sided supraclavicular lymph nodes demonstrating FDG avidity on the prior PET/CT. Okay to schedule and if so, how many days within date of surgery? Any other recommendations? Thank you, Gema * Telephone Encounter - Gema Marks RN - 12/24/2024 11:39 AM CDT ----- Message from Nurse Gema Kim sent at 12/24/2024 11:37 AM CDT ----- Sorry! I just saw the surgery date at the very bottom of the note. :) ----- Message ----- From: Gema Marks RN Sent: 12/24/2024 11:34 AM CDT To: Gema Marks RN; Mimi Jose# Daniel Dee, I will have to send this for review to get approval but first, is this ONLY the magseed placment (no biopsy) and in preparation for a surgery? If so, please clarify the surgery date as we have been told the magseeds were to be placed a few days from the surgical date. With scheduling, please let the pt know we may not have multiple appt options, as it has to be doneby an approving Attending and only in the afternoon. This will be based on their availability. I will let you know once I have heard back from my Attending. Thanks, Gema ----- Message ----- From: Leila Cramer RN Sent: 12/24/2024 8:55 AM CDT To: Gema Marks RN; July Kaushal, # Good morning, I placed an order for a magseed placement for patient of left supraclavicular lymph node seen on pet. I know recently you guys have been giving me the appointment to offer patient, this patient is a little more particular for his schedule and he asked to be contacted before scheduling anything. I wasunsure if you would be able to reach out to him with available times. Surgery is scheduled for 01/14 documented in this encounter Plan of Treatment Upcoming Encounters Date Type Department Care Team (Latest Contact Info) Description 01/16/2025 7:30 AM CDT Hospital Encounter [facility] Operating Room [address] [place] [phone] Deric Granger MD [address] [place] [address] 01/16/2025 7:30 AM CDT Anesthesia Event [facility] Operating Room [address] [place] [phone] Sheri Meadows, PULLMAN CLERK [address] [facility] [phone] [place] [address] 01/16/2025 7:30 AM CDT - 01/16/2025 9:40 AM CDT Surgery [facility] Operating Room [address] [place] [phone] Deric Granger MD [address] [place] [address] LEFT NECK EXCISIONAL LYMPH NODE BIOPSY Scheduled Procedures Name Priority Associated Diagnoses Date/Ti me BIOPSY OR EXCISION LYMPH NODE NECK. Malignant melanoma, unspecified site (HCC) 01/16/2025 7:30 AM CDT documented as of this encounter Visit Diagnoses Not on filedocumented in this encounter Care Teams Reprint Sorter Relationship Specialty Start Date End Date Kiko Jimenez DO PCP - General 04/09/17 Fran Bray MD Medical Oncologist/Oracle Obiee Developer Medical Oncology 01/10/18 Maximiliano Cerrato MD Consulting Physician Plastic Surgery 01/10/18 Kiko Godinez MD PhD Hot Mill Shearer Dermatology 01/11/18 Oscar Barnard MD Narrow Fabric Loom Fixer Cardiology 01/11/18 Tdod Gold Jr., MD Referring Physician Urology 02/08/19 documented as of this encounter
== END 2025-01-13 11:06 | disposition home or self-care (01) ==
LOC: ANHLAB 11:06
PROVIDERS: PCP Clinical Nurse Specialist; Visit Provider Internal Medicine Cardiovascular Disease
DX: Z79.01 Long term (current) use of anticoagulants (principal)
CPT/HCPCS: 36415; 85610

== ENCOUNTER 2025-03-09 10:42 | Outpatient (RCR) | payer BC, SELFPAY ==
[2024-12-23 14:46] LABS: INR 2.9; Prothrombin Time 29.8 Seconds (11.1-14.7)
[2025-01-15 11:18] LABS: INR 1.5; Prothrombin Time 17.5 Seconds (11.1-14.7)
[2025-01-19 11:34] LABS: INR 1.4; Prothrombin Time 17.0 Seconds (11.1-14.7)
[2025-01-21 14:23] LABS: INR 1.6; Prothrombin Time 18.9 Seconds (11.1-14.7)
[2025-01-23 12:06] LABS: INR 2.3; Prothrombin Time 24.7 Seconds (11.1-14.7)
[2025-02-18 14:58] LABS: INR 3.7; Prothrombin Time 35.3 Seconds (11.1-14.7)
[2025-03-09 11:22] LABS: INR 3.7; Prothrombin Time 34.9 Seconds (11.1-14.7)
== END 2025-03-23 23:59 | disposition home or self-care (01) ==
LOC: ANHLAB 10:42
PROVIDERS: PCP Clinical Nurse Specialist; Visit Provider Nurse Practitioner
DX: Z51.81 Encounter for therapeutic drug level monitoring (principal); Z95.2 Presence of prosthetic heart valve; Z79.01 Long term (current) use of anticoagulants
CPT/HCPCS: 36415; 85610